=== PATIENT | male | born 1960 | race Caucasian/White ===

== ENCOUNTER → 2016-04-20 | Outpatient (CLI) | payer OTHER ==
[~2016-04-20] MED LIST: FAMO40TA6 PO; FERR1TAB13 PO; FURO20TA PO; LPT/40 PO; MELO7.5T5 PO; METH1CHW OR; OMEP40CA41 PO; OXYC1TAB3 PO; POTA1CAP2 PO
[2016-04-20 15:07] LABS: BLOOD UREA NITROGEN 10 mg/dl (7-18); BUN/CREATININE RATIO 9.1 (10-20); CALCIUM 8.6 mg/dl (8.5-10.1); CARBON DIOXIDE 24 mmol/L (21-32); CHLORIDE 104 mmol/L (98-107); GLUCOSE 112 mg/dl (70-99); POTASSIUM 3.9 mmol/L (3.5-5.1); SODIUM 138 mmol/L (136-145)
[2016-04-20 15:10] LABS: BASO % 0.6 %; BASO ABS # 0.06 K/uL (0-0.2); COMPLETE YES; EOS % 2.6 %; HEMATOCRIT 34.8 % (42-52); IG% 0.4 %; LYMPH % 21.5 %; LYMPH ABS # 2.18 K/uL (1.2-3.4); MEAN CELL VOLUME 77.9 fL (80-100); MEAN CORPUSCULAR HGB CONC 29.6 g/dl (32-36); MEAN PLATELET VOLUME 10.4 fL (7.4-10.4); NEUT % 63.9 %; PLATELET COUNT 336 K/uL (130-400); RED BLOOD COUNT 4.47 M/uL (4.7-6.1); WHITE BLOOD COUNT 10.12 K/uL (4.8-10.8)
[2016-04-20 15:12] LABS: FERRITIN 9.7 ng/ml (8.0-388.0)
== END | disposition home or self-care (01) ==
LOC: C.LAB1850 13:02
PROVIDERS: ATTEND Internal Medicine
DX: M79.89 Other specified soft tissue disorders (principal); D64.9 Anemia, unspecified

== ENCOUNTER 2016-11-12 15:48 | Emergency (ER) | payer OTHER ==
[~2016-11-12] VITALS: Ht 180.3 cm; Wt 109.3 kg
[~2016-11-12 15:48] MED LIST changes: -FERR1TAB13 PO; -OMEP40CA41 PO; -OXYC1TAB3 PO
[2016-11-12 15:50] VITALS: TEMP 36.3; Ht 180.3 cm; Wt 109.3 kg
[2016-11-12] MEDS ORDERED: OXYCODONE HCL IR 5 MG TAB (IMMEDIATE RELEASE) PO STA (16:07)
[2016-11-12] MEDS ORDERED: IBUPROFEN 600 MG TAB PO STA (16:07)
[2016-11-12] MEDS ORDERED: OMEP40CA41 PO (16:20)
[2016-11-12] MEDS ORDERED: FERR1TAB13 PO (16:21)
--- NOTE | 2016-11-12 16:51 | DIAGNOSTIC IMAGING REPORT ---
RIGHT SHOULDER MIN 2 VIEWS ROUTINE HISTORY: 56 years-old Male acute right-sided shoulder pain status post fall. COMPARISON: Chest radiograph 03/09/2016 TECHNIQUE: 3 views of the right shoulder. FINDINGS: Mild glenohumeral and acromioclavicular osteoarthritis noted. No acute fracture or dislocation is identified. The imaged right lung mario are clear. Clavicle appears intact. No opaque foreign body. IMPRESSION: Mild degenerative changes about the right shoulder without acute bony abnormality. The above report was generated using voice recognition software. It may contain grammatical, syntax or spelling errors. Electronically signed by: Lazaro German M.D. 11/12/2016 4:49 PM Dictated Date/Time: 11/12/2016 4:48 PM
[2016-11-12 17:35] VITALS: BP 157/101; PULSE 98; O2SAT 97
[2016-11-12] MEDS ORDERED: OXYC1TAB3 PO (17:39)
--- NOTE | 2016-11-12 17:56 | EMERGENCY ROOM VISIT NOTE ---
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 The patient reports significant pain with any range of motion, rating his discomfort a 10 out of 10. He tried Tylenol without relief. The patient is [id number]. He denies any prior history of right shoulder problems. He also denies any pain extending into the arm, neck or back. He denies head injury. Review of Systems 10 system review was performed and was negative except for pertinent positives and negatives as indicated in history of present illness Past Medical/Surgical History Medical Problems: (1) Benign hypertension (2) Cellulitis, scrotum (3) GERD (gastroesophageal reflux disease) (4) Hyperlipidemia (5) Tobacco user Family History Patient reports no known family medical history. Social History Smoking Status: Current Every Day Smoker Alcohol Use: occasionally Marital Status: Housing Status: lives with family Occupation Status: unemployed Current/Historical Medications Scheduled Atorvastatin (Lipitor), 40 MG PO DAILY Ferrous Sulfate (Kp Ferrous Sulfate), 325 MG PO DAILY Omeprazole (Prilosec), 40 MG PO DAILY Scheduled PRN Oxycodone Ir (Roxicodone Ir), 1-2 TAB PO Q4H PRN for Pain Allergies Coded Allergies: No Known Allergies (Verified , `, 11/12/16) Physical Exam Vital Signs Date Time Temp Pulse Resp B/P (MAP) Pulse Ox O2 Delivery O2 Flow Rate FiO2 11/12/16 17:35 98 16 157/101 97 11/12/16 15:50 36.3 98 16 157/101 97 Room Air Physical Exam CONSTITUTIONAL: Healthy and well nourished. Alert and oriented X 3 with positive affect. Patient appears in moderate discomfort from pain. HEENT: Normocephalic, atraumatic. Pupils equal, round and reactive. NECK: Full active range of motion without discomfort. RESPIRATORY: Clear to auscultation bilaterally with no wheezing, crackles, rhonchi or stridor. CARDIOVASCULAR: Regular rate and rhythm with no murmurs, rubs or gallops. MUSCULOSKELETAL: Examination of the right shoulder does not show any obvious soft tissue edema, ecchymosis, abrasions or lacerations. The patient is tender to palpation posteriorly. He has no focal tenderness to palpation through the distal clavicle, acromioclavicular joint or acromial process. No tenderness to palpation through the bicipital groove or biceps/triceps musculature. Any attempted range of motion worsens the patient's discomfort, but the patient tolerates passive forward flexion of 75. Distal pulses are intact. INTEGUMENTARY: No rash or other significant dermatologic conditions noted. NEUROLOGIC: No focal neurologic deficits noted. Right deltoid sensation is intact. Medical Decision & Procedures ER Provider Diagnostic Interpretation: My interpretation of right shoulder x-rays shows degenerative changes without evidence for acute fracture, dislocation or superior migration of the humeral head with relation to the glenoid. Radiologist report is as follows: RIGHT SHOULDER MIN 2 VIEWS ROUTINE HISTORY: 56 years-old Male acute right-sided shoulder pain status post fall. COMPARISON: Chest radiograph 03/09/2016 TECHNIQUE: 3 views of the right shoulder. FINDINGS: Mild glenohumeral and acromioclavicular osteoarthritis noted. No acute fracture or dislocation is identified. The imaged right lung mario are clear. Clavicle appears intact. No opaque foreign body. IMPRESSION: Mild degenerative changes about the right shoulder without acute bony abnormality. Medications Administered Medications (Trade) Dose Ordered Sig/Karyn Route Start Time Stop Time Status Last Admin Dose Admin Oxycodone HCl (Roxicodone Immediate Rel Tab) 5 mg NOW STAT PO 11/12/16 16:07 11/12/16 16:19 DC 11/12/16 16:27 5 MG Ibuprofen (Motrin Tab) 600 mg NOW STAT PO 11/12/16 16:07 11/12/16 16:19 DC 11/12/16 16:27 600 MG ED Course Patient history and physical exam were performed. Nurse's notes were reviewed. Vital signs were reviewed and were normal. The patient's medication list was also reviewed. The patient was administered OxyIR and ibuprofen 600 mg for pain. An ice pack was applied. X-rays of the right shoulder were normal. I explain to the patient that although his x-ray is normal, he could certainly have other soft tissue injury such as a rotator cuff tear, tendinitis, bursitis or other inflammatory reaction. I did suggest that he follow-up with orthopedics for further reevaluation and management. The patient was provided contact information for [facility] as he does not have an orthopedic surgeon. He was instructed to avoid heavy lifting, pushing or pulling. The patient was provided a prescription for OxyIR as needed for pain relief as the patient reports that he has severe pain. The [place] Prescription Drug Monitoring program was reviewed without any prior controlled substance history. The patient voiced understanding of all discharge instructions, and rated his pain a 5 out of 10 at the conclusion of my exam. Medical Decision [place] Drug Monitoring Program Search Results: patient reviewed within database, no issues identified Impression Primary Impression: Right shoulder injury Departure Information Prescriptions Oxycodone Ir (Roxicodone Ir) 5 Mg Tab 1-2 TAB PO Q4H Y for Pain, #15 TAB For Initial Treatment Prov: Mike Thornton PA 11/12/16 Referrals ProCristopher M.D. (PCP) Patient Instructions [facility] Problem Qualifiers Primary Impression: Right shoulder injury Encounter type: initial encounter Qualified Codes: S49.91XA - Unspecified injury of right shoulder and upper arm, initial encounter
== END 2016-11-12 17:35 | disposition home or self-care (01) ==
LOC: C.EDB 15:50 → C.EDD 17:35
DX: S49.91XA Unspecified injury of right shoulder and upper arm, initial encounter (principal); I10 Essential (primary) hypertension; E78.5 Hyperlipidemia, unspecified; K21.9 Gastro-esophageal reflux disease without esophagitis; Z79.899 Other long term (current) drug therapy; Z87.2 Personal history of diseases of the skin and subcutaneous tissue; W01.0XXA Fall on same level from slipping, tripping and stumbling without subsequent striking against object, initial encounter; F17.200 Nicotine dependence, unspecified, uncomplicated

== ENCOUNTER → 2017-01-11 | Outpatient (CLI) | payer OTHER ==
[~2017-01-11] MED LIST changes: -FAMO40TA6 PO; +FERR1TAB13 PO; -FURO20TA PO; -MELO7.5T5 PO; -METH1CHW OR; +OMEP40CA41 PO; +OXYC1TAB3 PO; -POTA1CAP2 PO
== END | disposition home or self-care (01) ==
LOC: C.CPL 10:52
PROVIDERS: ATTEND Orthopaedic Surgery Sports Medicine
DX: Z01.810 Encounter for preprocedural cardiovascular examination (principal)

== ENCOUNTER → 2017-02-24 | Outpatient (CLI) | payer OTHER ==
[~2017-02-24] MED LIST changes: +ASPEC325 PO; -FERR1TAB13 PO; +HYDR-4079 PO; -LPT/40 PO; -OXYC1TAB3 PO
[2017-02-24 13:08] LABS: BASO % 0.7 %; BASO ABS # 0.06 K/uL (0-0.2); COMPLETE YES; IG% 0.2 %; LYMPH % 21.7 %; LYMPH ABS # 1.87 K/uL (1.2-3.4); MEAN CELL VOLUME 88.6 fL (80-100); MEAN CORPUSCULAR HEMOGLOBIN 28.7 pg (25-34); MEAN CORPUSCULAR HGB CONC 32.4 g/dl (32-36); MEAN PLATELET VOLUME 10.3 fL (7.4-10.4); MONO % 7.9 %; NEUT % 67.5 %; PLATELET COUNT 263 K/uL (130-400); RED BLOOD COUNT 4.74 M/uL (4.7-6.1); WHITE BLOOD COUNT 8.62 K/uL (4.8-10.8)
== END | disposition home or self-care (01) ==
LOC: C.LAB1850 12:32
PROVIDERS: ATTEND Internal Medicine
DX: D64.9 Anemia, unspecified (principal); K92.1 Melena

== ENCOUNTER 2017-02-25 10:13 | Observation (INO) | payer OTHER ==
[2017-02-24 18:09] LABS: INR 0.9 (0.9-1.1); PROTHROMBIN TIME (PATIENT) 9.8 SECONDS (9.0-12.0)
[2017-02-24 18:12] LABS: BUN/CREATININE RATIO 14.1 (10-20); CALCIUM 8.6 mg/dl (8.5-10.1); CREATININE 0.83 mg/dl (0.60-1.40); POTASSIUM 4.2 mmol/L (3.5-5.1)
[2017-02-24 18:23] LABS: URINE APPEARANCE CLEAR (CLEAR); URINE BILIRUBIN NEG (NEG); URINE COLOR YELLOW; URINE NITRITE NEG (NEG); URINE PH 6.5 (4.5-7.5); URINE SPECIFIC GRAVITY 1.015 (1.000-1.030); UROBILINOGEN NEG (NEG)
[2017-02-24 18:29] LABS: MANUAL MICROSCOPIC REQUIRED? NO; REVIEW REQ? NO
--- NOTE | 2017-02-24 20:01 | HISTORY & PHYSICAL EXAMINATION ---
DATE OF ADMISSION: 02/25/2017 CHIEF COMPLAINT: Right shoulder pain. HISTORY OF PRESENT ILLNESS: This is a 56-year-old male patient of Dr. Enamorado'nehal complaining of a right shoulder injury after his dog jumped on him 6 weeks ago. He failed conservative treatment. An MRI confirmed a primary rotator cuff repair that was failed from a previous rotator cuff repair in December 2016. So he essentially sustained a retear of his rotator cuff repair. The patient was diagnosed with that and is scheduled for right shoulder arthroscopic rotator cuff repair revision with a possible grafting. PAST MEDICAL HISTORY: Acid reflux. SOCIAL HISTORY: Half pack per day smoker, nondrinker. PAST SURGICAL HISTORY: Previous right shoulder surgery as mentioned. FAMILY HISTORY: Noncontributory. REVIEW OF SYSTEMS: Chronic right shoulder pain and injury on 01/12/2017. ALLERGIES: No known drug allergies. MEDICATIONS: Nexium daily. PHYSICAL EXAMINATION: GENERAL: Well-developed, well-nourished 56-year-old male in no acute distress. He is alert and oriented x3 and pleasant. HEENT: Normocephalic, atraumatic. Extraocular motions are intact. Pupils are equal and reactive to light. HEART: Regular rate and rhythm. No murmurs are appreciated. LUNGS: Clear. ABDOMEN: Soft and nontender. Bowel sounds present. EXTREMITIES: Right shoulder reveals external rotation of 3/5, internal rotation of 4/5. He has range of motion of forward elevation to 80 degrees and 40 degrees of adduction. NEUROLOGIC: Neurovascularly, he is intact in his right upper extremity. DIAGNOSES: Right shoulder retear rotator cuff repair. He also has a history of acid reflux and dental issues. PLAN: The patient was advised of his diagnosis. Indications, risks, benefits, and postop course have all been reviewed. The patient wishes to proceed with a right shoulder arthroscopic rotator cuff repair revision with a possible grafting. Necessary consent forms, preoperative testing and clearances will be obtained.
[2017-02-25] VITALS (8 sets, daily range): BP systolic 136–160; BP diastolic 78–96; PULSE 65–90; TEMP 36.3–36.5; O2SAT 95–99; Ht 182.9 cm; Wt 100.0 kg
[~2017-02-25] VITALS: Ht 182.9 cm; Wt 100.0 kg
[2017-02-25 07:08] LABS: ESTIMATED AVERAGE GLUCOSE 111 mg/dl; HA1C FLAG Normal (Normal)
[~2017-02-25 10:13] MED LIST changes: -ASPEC325 PO; +CEFAZOLIN 2000MG IV PUSH 10 ML IV SCH; -HYDR-4079 PO; +LACTATED RINGER'S 1000ML 1,000 ML IV SCH; +ROPIVACAINE 0.5% 5 MG/ML 30 ML VIAL ONE
[2017-02-25] MEDS ORDERED: PROPOFOL IV EMULSION 10 MG/ML 20 ML VIAL IV ONE ×3 (10:40→17:17)
[2017-02-25] MEDS ORDERED: FENTANYL CITRATE INJ 50 MCG/1 ML 2 ML VIAL ONE ×7 (10:40→16:19)
[2017-02-25] MEDS ORDERED: ONDANSETRON INJ 2 MG/ML 2 ML VIAL ONE (10:40)
[2017-02-25] MEDS ORDERED: LIDOCAINE HCL 2% 2 ML VIAL (20MG/ML) ONE (10:40)
[2017-02-25] MEDS ORDERED: DEXAMETHASONE SOD INJ 4 MG/ML VIAL ONE (10:40)
[2017-02-25] MEDS ORDERED: MIDAZOLAM HCL 1 MG/ML 2ML VIAL ONE ×2 (10:40)
--- NOTE | 2017-02-25 10:58 | History & Physical Bridge Note ---
H&P Re-Evaluation Bridge Note: I have examined the patient, reviewed the History & Physical and in the interval since the performance of the History & Physical I have noted the following changes of clinical significance: No changes noted
[2017-02-25] MEDS ORDERED: EpHEDrine SULFATE INJ 50 MG/ML AMP IV PRN ×2 (12:15→17:00)
[2017-02-25] MEDS ORDERED: ATROPINE SULFATE 0.1 MG/ML 5ML SYR IV PRN ×2 (12:15→17:00)
[2017-02-25] MEDS ORDERED: ONDANSETRON INJ 2 MG/ML 2 ML VIAL IV PRN ×3 (12:15→18:30)
[2017-02-25] MEDS ORDERED: FENTANYL CITRATE INJ 50 MCG/1 ML 2 ML VIAL IV PRN (12:15)
[2017-02-25] MEDS: EpINEphrine HCL INJ 1 MG/ML 5ML SYRINGE ONE ×6 (12:41→18:00)
[2017-02-25] MEDS ORDERED: HYDROmorphone INJ 2 MG/ML SYR/VIAL ONE ×2 (14:59→16:24)
[2017-02-25] MEDS ORDERED: ROCURONIUM BROMIDE 10 MG/ML 5 ML VIAL IV ONE (16:35)
[2017-02-25] MEDS ORDERED: PROMETHAZINE HCL INJ 6.25 MG in SODIUM CHLORIDE 0.9% 50ML 50 ML IV PRN (17:00)
[2017-02-25] MEDS ORDERED: METOPROLOL TARTRATE 1 MG/ML VIAL ONE (17:02)
[2017-02-25] MEDS ORDERED: CEFAZOLIN SOD 1 GM VIAL ONE (17:29)
--- NOTE | 2017-02-25 18:19 | [facility] Post Operative Brief Note ---
Immediate Operative Summary Operative Date Feb 25, 2017. Pre-Operative Diagnosis Right shoulder traumatic retear rotator cuff s/p recent repair Post-Operative Diagnosis same as pre-operative Procedure(s) Performed Right Shoulder Arthroscopy with Rotator Cuff Repair,extensive debridement,removal suture anchor and multiple sutures Surgeon Dr. Darnell Enamorado Visual Merchandising Assistant Surgeon(s) NATALIA Black Estimated Blood Loss 30ML Findings soft tissue tendon failure,osteopenia, tendinopathy rotator cuff, bursitis and postop adhesions subacromial Specimens none per surgeon Drains none Anesthesia general and regional Complication(s) None Disposition Recovery Room / PACU
[2017-02-25] MEDS ORDERED: HYDROCODONE/ACETAMI 10/325 TAB PO PRN (18:30)
[2017-02-25] MEDS ORDERED: MAGNESIUM HYDROXIDE SUSP 30 ML UDC PO PRN (18:30)
[2017-02-25] MEDS ORDERED: HYDROmorphone INJ 0.5 MG/0.5 ML SYR IV PRN (18:30)
[2017-02-25] MEDS ORDERED: ALUMINUM/MAGNESIUM SUSP 30 ML UDC PO PRN (18:30)
[2017-02-25] MEDS: FENTANYL CITRATE INJ 50 MCG/1 ML 2 ML VIAL IV PRN ×2 (18:35→18:40)
--- NOTE | 2017-02-25 18:58 | Anesthesiology Progress Note ---
Anesthesia Post Op Note Date & Time Feb 25, 2017 at 18:58 Vital Signs Pain Intensity: 1 Vital Signs Past 12 Hours Date Time Temp Pulse Resp B/P (MAP) Pulse Ox O2 Delivery O2 Flow Rate FiO2 02/25/17 18:50 68 16 143/97 96 Nasal Cannula 3 02/25/17 18:40 67 16 151/93 96 Nasal Cannula 3 02/25/17 18:30 36 79 16 167/96 95 Nasal Cannula 3 02/25/17 18:22 36 89 16 155/92 95 Nasal Cannula 3 02/25/17 10:33 36.3 90 20 145/94 (111) 99 Room Air Notes Mental Status: alert / awake / arousable, participated in evaluation Pt Amnestic to Procedure: Yes Nausea / Vomiting: adequately controlled Pain: adequately controlled Airway Patency, RR, SpO2: stable & adequate BP & HR: stable & adequate Hydration State: stable & adequate Anesthetic Complications: no major complications apparent
[2017-02-25] MEDS: KETOROLAC TROMETHAMINE 30 MG/ML VIAL IV. SCH (19:51)
[2017-02-25] MEDS ORDERED: NURSING VERBAL MED ORDER ONE (20:45)
[2017-02-25] MEDS ORDERED: PROMETHAZINE HCL INJ 25 MG in SODIUM CHLORIDE 0.9% 50ML 50 ML IV STA (20:47)
[2017-02-25] MEDS ORDERED: SENNA 8.6 MG TAB PO SCH (21:00)
[2017-02-25] MEDS ORDERED: IV FLUIDS COMPLETED PRN (21:15)
[2017-02-25] MEDS: D5W AND 1/2NSS + 20MEQ KCL 1,000 ML IV SCH (21:40)
[2017-02-25] MEDS: CEFAZOLIN IV 2,000 MG in SYRINGE 0 ML IV SCH (21:40)
[2017-02-25] MEDS: DOCUSATE SODIUM 100 MG CAP PO SCH (21:41)
[2017-02-25] MEDS ORDERED: CEFAZOLIN IV 2,000 MG in DEXTROSE 5% 50ML 50 ML IV SCH (22:00)
[2017-02-26] MEDS: KETOROLAC TROMETHAMINE 30 MG/ML VIAL IV. SCH ×2 (02:17→08:19)
[2017-02-26 03:00] VITALS: BP 138/81; PULSE 85; TEMP 36.6; O2SAT 93
[2017-02-26] MEDS: CEFAZOLIN IV 2,000 MG in SYRINGE 0 ML IV SCH (05:24)
[2017-02-26 06:00] LABS: HEMATOCRIT 39.8 % (42-52); MEAN CELL VOLUME 89.6 fL (80-100); MEAN CORPUSCULAR HEMOGLOBIN 28.6 pg (25-34); MEAN CORPUSCULAR HGB CONC 31.9 g/dl (32-36); MEAN PLATELET VOLUME 10.3 fL (7.4-10.4); PLATELET COUNT 269 K/uL (130-400); RED BLOOD COUNT 4.44 M/uL (4.7-6.1)
[2017-02-26] MEDS: D5W AND 1/2NSS + 20MEQ KCL 1,000 ML IV SCH (06:00)
[2017-02-26 06:34] LABS: BUN/CREATININE RATIO 16.7 (10-20); CALCIUM 8.1 mg/dl (8.5-10.1); CREATININE 0.92 mg/dl (0.60-1.40); POTASSIUM 4.4 mmol/L (3.5-5.1)
--- NOTE | 2017-02-26 07:03 | OPERATIVE REPORT ---
DATE OF OPERATION: 02/25/2017 INDICATION FOR PROCEDURE: The patient is a 56-year-old male. I recently performed an arthroscopic rotator cuff repair on his right shoulder. He had a large rotator cuff tear that was subacute. He had good repair and was doing well until he had a postoperative trauma. He was doing well prior to the trauma, and after the traumatic injury, he had acute pain, weakness and complete dysfunction of his shoulder which warranted an MRI evaluation, which verified a complete failure of the entire repair with some soft tissue damage. He did have decompression and distal clavicle excision, that was all satisfactory. There were no fractures and no anchors were dislodged according to the MRI. There was still edema in the greater tuberosity from recent surgery. PREOPERATIVE DIAGNOSIS: Right shoulder acute traumatic rotator cuff tear with traumatic failure of rotator cuff repair, status post previous subacromial decompression and distal clavicle excision. POSTOPERATIVE DIAGNOSIS: Same with soft tissue failure of rotator cuff repair, some tendon loss due to traumatic failure, retained suture anchors and suture material status post repair, and subacromial bursitis and subacromial bursal adhesions and tendinopathy of the rotator cuff. PROCEDURE: Right shoulder revision rotator cuff repair, extensive debridement including excision of all suture material, excision of 1 suture anchor, subacromial bursectomy including release of subacromial bursal adhesions, debridement of tendinopathic rotator cuff tissue. SURGEON: Dr. Enamorado. MEDICAL TRANSCRIPTION EDITOR: NATALIA Black. ANESTHESIA: Regional block with general. OPERATIVE PROCEDURE: The patient was taken to the operating room and anesthetized with regional block and general anesthetic. He was positioned on a [facility] shoulder table in 70-degree beach chair position. He had TEDs and SCDs. He had protective eyewear. His right shoulder exam demonstrated no erythema, no signs of infection, healed skin portals. Right shoulder was sterilely prepped and draped with ChloraPrep. Arthroscopy was first started with a posterior arthroscopy portal via his previous scar in the soft spot, anterior portal was made in the rotator interval. Subsequent lateral subacromial working portal was placed and then we made several superolateral incisions for different suture anchor placements. Following findings were noted. In the glenohumeral joint, the patient still had good articular surfaces on the humeral head and the glenoid. Labrum was intact. Biceps was absent. The subscapularis had tendinopathy and the upper intraarticular margin had fraying in some areas where it looked like there was traction and plastic deformation of some strands of fibers from being stretched out. Subscapularis attachment was still intact. The supraspinatus was completely torn and retracted medially. There was even worse tearing and the infraspinatus was retracted posteriorly. Some of the tear was a reversal type tear with some split between the teres minor and the infraspinatus. There was a good section of rotator cuff where the lateral edge had about close to a centimeter section of tendon that just ripped away from the more medial tendon, therefore, causing more shortening of the remainder of the tendon. All the suture tapes and loops were all tied and intact and all anchors were intact and this failure was completely soft tissue failure. There was satisfactory subacromial decompression and distal clavicle excision, and there were some scarred bursal adhesions noted in the subdeltoid region and over the medial superior surface of the rotator cuff, around the musculotendinous junction area. Attention was first taken to debriding the subscapularis tendon. Undersurface of the rotator cuff was debrided. I did do some anterosuperior capsular releases. Then, in the subacromial space, we debrided the cuff tissue early. I had to remove this section of tendon tissue that was torn away from the more medial tendon tissue. The infraspinatus was very thickened due to delaminating tear and significantly inflamed and thickened cuff tissue. After thorough debridement was performed, we went ahead and proceeded to remove the suture material and use suture cutting devices and graspers to remove the suture material. I was removing some of the suture material when the anchors came loose and some of the sutures had cut through some of the bone with evidence that the patient's bone was very soft. This anchor was successfully removed arthroscopically and we did measure the opening of the hole where the anchor came out and this was about 6 mm. The deeper the hole, it was more narrow, it was a fairly large cavity that we had to take note of and plan around with the repair. The footprints of the supraspinatus and infraspinatus were debrided to a bony surface for repair, did a little bit of medialization of the articular margin in the infraspinatus area too, he had more tendon tissue over bone because there was more tendon loss in this area. At this time, we placed 2 traction sutures using Ultrabraid type suture into the supraspinatus and infraspinatus. This assisted in placing traction and allowing me to release some of the bursal adhesions. We released the subdeltoid adhesions with radiofrequency ablator. Then, the infraspinatus, to mobilize it further, I had to do an interval slide between the infraspinatus and teres minor, and I gave this enough mobility to get the tendon onto the bone at the greater tuberosity. The tissue of the infraspinatus was poor, so I had to debride a good amount of soft tissue there to get back to better tissue and ended up with superior and inferior delaminating flaps which we had to address during the repair. To repair the infraspinatus, I placed a FiberTape individually in both the inferior and superior leaf of the infraspinatus, thus fusing those together, and this was placed in inverted mattress configuration. Then, I placed a 2.8 mm Gaiens [employer] Nephew Q-FIX suture anchor just at the articular margin area and we passed those sutures from that anchor in simple fashion around the tapes to use as a rip-stop technique. Sutures were tied with a Juan Ramon sliding locking knots, reverse half hitches and alternating posts, and then the tapes and the luggage tag sutures that we had previously placed as a traction suture were placed into an Arthrex 5.5 mm SwiveLock anchor posteriorly, taking care to have a satisfactory bridge of bone between the anchor and the hole from the large anchor that was removed. This gave satisfactory fixation of the infraspinatus to bone. We did place 2 [id number] sutures between the infraspinatus and the teres minor, tied those with similar arthroscopic knots. Then, the supraspinatus was repaired with 2 more 2.8 mm Gaines [employer] Nephew suture anchors just off the articular margin. These were passed with a suture passer in horizontal mattress fashion. These were tied down for medial row fixation and the sutures were placed in crisscross compression, 4 of them were placed into large anchor into the hole area. Initially, we pulled 6.5 anchor but that was too small to fill the holes so we went ahead with an 8 mm Arthrex Bio-Tenodesis screw and this screw was placed passing the sutures through the eyelet and then burying the screw through the larger hole until we had some of the threads hit the deeper bone and then placed tension on the sutures and advanced the screw deeper into the humeral head to get good fixation. All excess sutures were cut. We took the arm through range of motion including the arm at the side and the repair held. Then, the other 4 sutures were placed into another 5.5 mm SwiveLock anchor anteriorly, just posterior to the biceps tendon area. This was again placed in bone away from the larger hole area. The repair was secured with the arm at the side and with general rotation. Did some further debridement of some of the bursa, verified the decompression to be satisfactory, and then went ahead and closed multiple skin portals with nylon sutures. Sterile dressings were applied and a pillow sling immobilizer. NATALIA Black, was my business banking sales assistant. He functioned as business banking sales assistant for the entire procedure, assisted in arm positioning, instrument and suture management. He performed skin closure and will participate in some of the postoperative care of the patient. I attest to the content of the Intraoperative Record and any orders documented therein. Any exception s are noted below.
--- NOTE | 2017-02-26 08:01 | Orthopedic Progress Note ---
Orthopedic Progress Note Date of Service Feb 26, 2017. Subjective Post OP Day: 1 Reports: feeling well, pain controlled w PO medications, Denies: complaints, chest pain, SOB, nausea / vomiting, light headedness, calf pain Objective N/V intact, capillary refill less than 2 sec., dressing C/D/I, A&O x3 Fingers mobile, sling in tact. Date Time Temp Pulse Resp B/P (MAP) Pulse Ox O2 Delivery O2 Flow Rate FiO2 02/26/17 03:00 36.6 85 18 138/81 (100) 93 Room Air 02/25/17 23:00 36.4 72 18 147/87 (107) 96 Room Air 02/25/17 22:32 36.5 65 18 136/78 (97) 95 Room Air 02/25/17 21:27 68 18 160/89 (112) 95 Room Air 02/25/17 20:25 36.3 71 18 151/85 (107) 97 Room Air 02/25/17 19:53 36.3 65 16 158/96 (116) 95 Nasal Cannula 2.0 02/25/17 19:21 96 Nasal Cannula 3.0 02/25/17 19:20 36.4 67 18 157/94 (115) 96 Nasal Cannula 3.0 02/25/17 19:20 Nasal Cannula 3.0 02/25/17 19:05 36.4 66 16 152/90 97 Nasal Cannula 3 02/25/17 18:50 68 16 143/97 96 Nasal Cannula 3 02/25/17 18:40 67 16 151/93 96 Nasal Cannula 3 02/25/17 18:30 36 79 16 167/96 95 Nasal Cannula 3 02/25/17 18:22 36 89 16 155/92 95 Nasal Cannula 3 02/25/17 10:33 36.3 90 20 145/94 (111) 99 Room Air Laboratory Results 24 Hours: Test 02/26/17 05:20 Hematocrit 39.8 % Hemoglobin 12.7 g/dL Assessment & Plan Assessment: POD #1, Revision Right RCR Plan: No PT D/C home today Inhouse Planning Pain Management: Dilaudid DVT Prophylaxis: ASA Discharge Planning Discharge Planning: home Pain Management: Jber DVT Prophylaxis: ASA
[2017-02-26] MEDS ORDERED: HYDR-4079 PO (08:03)
[2017-02-26] MEDS ORDERED: ASPEC325 PO (08:03)
--- NOTE | 2017-02-26 08:11 | Discharge Instructions ---
Discharge Instructions Date of Service Feb 26, 2017. Admission Reason for Admission: Right Shoulder Recurrent Rotator Cuff Tear Discharge Discharge Diagnosis / Problem: Right Rotatoe Cuff Revosion Repair. Discharge Goals Goal(s): Improve function Activity Recommendations Activity Limitations: as noted below . Instructions / Follow-Up Instructions / Follow-Up Please see Post Op instruction sheets. No driving. Sling at all Times except for when doing exercises with elbow, wrist and hand, see exercise sheet. Follow up With Dr. Enamorado 10-12 days post op as scheduled, call [phone] to confirm appt. Current Hospital Diet Patient's current hospital diet: Regular Diet Discharge Diet Recommended Diet: Regular Diet Procedures Procedures Performed: Right Shoulder Arthroscopy with Rotator Cuff Repair,extensive debridement,removal suture anchor and multiple sutures Pending Studies Studies pending at discharge: no Laboratory Results Hemoglobin A1c Test 02/24/17 14:45 Range/Units Estimated Average Glucose 111 mg/dl Hemoglobin A1c 5.5 4.5-5.6 % Medical Emergencies . Who to Call and When: Medical Emergencies: If at any time you feel your situation is an emergency, please call 911 immediately. . Non-Emergent Contact Non-Emergency issues call your: Primary Care Provider . "Provider Documentation" section prepared by Baltazar Apodaca. . VTE Core Measure Inpt VTE Proph given/why not?: Other Anticoagulation (asa), SCD's [place] Drug Monitoring Program Search Results: patient reviewed within database, no issues identified
[2017-02-26] MEDS: DOCUSATE SODIUM 100 MG CAP PO SCH (08:40)
[2017-02-26 08:52] VITALS: BP 150/82; PULSE 86; TEMP 36.9; O2SAT 97
[2017-02-26] MEDS ORDERED: MULTIVITAMIN TAB PO SCH (09:00)
[2017-02-26] MEDS ORDERED: ASPIRIN 325 MG ECTAB PO SCH (09:00)
[2017-02-26] MEDS ORDERED: PANTOprazole SOD 40 MG TAB PO SCH (09:00)
[2017-02-26 09:39] VITALS: BP 150/80; PULSE 86; TEMP 36.9; O2SAT 97
--- NOTE | 2017-03-01 14:42 | DISCHARGE SUMMARY ---
DISCHARGE DIAGNOSIS: Right shoulder traumatic rotator cuff retear status post repair. SECONDARY DIAGNOSIS: Gastroesophageal reflux disease. CONSULTATIONS: None. COMPLICATIONS: None. PROCEDURES: Right shoulder arthroscopy with rotator cuff repair, extensive debridement, removal of suture anchor and multiple sutures by Dr. Enamorado on 02/25/2017. BRIEF HISTORY: As dictated in history and physical. HOSPITAL SUMMARY: The patient was admitted on the above-noted date and had the above-noted surgery performed which he tolerated well. On the first postoperative day, the patient was feeling well and pain was controlled. He had no complaints. Neurovascularly intact. Dressings clean, dry and intact. Fingers were mobile and he was alert and oriented x3. Vital signs were stable. He was afebrile. Hemoglobin was 12.7. He was remaining stable and it was felt he could be discharged to home. For further review, please see chart. LABORATORY AND X-RAY DATA: As per chart. DISCHARGE INSTRUCTIONS: The patient was discharged to home in satisfactory condition on 02/26/2017. DIET: Regular. ACTIVITY: Follow postop instruction sheets. No driving, sling on at all times except when doing exercises with the elbow, wrist and hand. See exercise sheet for exercises. FOLLOWUP: Follow up with Dr. Enamorado in 10-12 days for first appointment. The patient to call if one has not been made for you. DISCHARGE MEDICATIONS: Aspirin 325 mg p.o. q.a.m. for 30 days, [place] 10 mg/325 mg 1 tab p.o. q. 4 hours p.r.n.; resume omeprazole 40 mg p.o. q.a.m.
== END 2017-02-26 11:50 | disposition home or self-care (01) ==
LOC: C.ACU 10:13 → C.3E 10:45 → ENRESERV 19:06
PROVIDERS: ADMIT Orthopaedic Surgery Sports Medicine; ATTEND Orthopaedic Surgery Sports Medicine
DX: S46.011A Strain of muscle(s) and tendon(s) of the rotator cuff of right shoulder, initial encounter (principal); M75.01 Adhesive capsulitis of right shoulder; W54.1XXA Struck by dog, initial encounter; K21.9 Gastro-esophageal reflux disease without esophagitis; J44.9 Chronic obstructive pulmonary disease, unspecified; G47.33 Obstructive sleep apnea (adult) (pediatric); F41.9 Anxiety disorder, unspecified; E66.9 Obesity, unspecified; Z87.891 Personal history of nicotine dependence; I10 Essential (primary) hypertension; F32.9 Major depressive disorder, single episode, unspecified; D64.9 Anemia, unspecified; Z79.899 Other long term (current) drug therapy

== ENCOUNTER 2017-05-27 10:24 | Emergency (ER) | payer OTHER ==
[~2017-05-27] VITALS: Ht 180.3 cm; Wt 110.8 kg
[~2017-05-27 10:24] MED LIST changes: +ASPEC325 PO; -CEFAZOLIN 2000MG IV PUSH 10 ML IV SCH; +HYDR-4079 PO; -LACTATED RINGER'S 1000ML 1,000 ML IV SCH; -ROPIVACAINE 0.5% 5 MG/ML 30 ML VIAL ONE
[2017-05-27 10:25] VITALS: TEMP 36.3; Ht 180.3 cm; Wt 110.8 kg
[2017-05-27] MEDS ORDERED: ALBUT/IPRATROP 3MG/0.5MG NEB 3 ML VIAL INH STA (10:54)
[2017-05-27 11:06] VITALS: O2SAT 97
--- NOTE | 2017-05-27 11:15 | DIAGNOSTIC IMAGING REPORT ---
CHEST ONE VIEW PORTABLE CLINICAL HISTORY: EVALUATE RESPIRATORY DISTRESS.DYSPNEA COMPARISON STUDY: Chest radiograph March 09, 2016. FINDINGS: Lung volumes are normal. There is no pneumothorax or pleural effusion. Moderate cardiomegaly is noted. There is mild interstitial thickening. There is no consolidation to suggest pneumonia. Mild upper mediastinal widening is unchanged. IMPRESSION: 1. Mild interstitial pulmonary edema. 2. Moderate cardiomegaly. Electronically signed by: Perry Holden M.D. 05/27/2017 11:13 AM Dictated Date/Time: 05/27/2017 11:12 AM
--- NOTE | 2017-05-27 11:21 | EMERGENCY ROOM VISIT NOTE ---
History Report prepared by [place]: Deni Giraldo Under the Supervision of: Dr. Matt Agee M.D. First contact with patient: 10:50 Chief Complaint: RESPIRATORY PROBLEMS Stated Complaint: HARD TIME BREATHING History of Present Illness The patient is a 56 year old male who presents to the Emergency Room with complaints of constant shortness of breath beginning three days ago. The patient 's symptoms are worse while lying down. He also complains of a dry cough and nasal congestion. He has a history of multiple heart attacks. The patient denies fevers, or chest pain. He did not have a flu-shot this year. He notes that his friend from influenza yesterday. The patient does not have inhalers at home. He has no known history of lung disease. He is a smoker. Source of History: patient Onset: Three days ago Quality: other (shortness of breath) Timing: constant Modifying Factors (Worsening): other (lying down) Associated Symptoms: + cough (dry), No fevers, No chest pain Note: Additional symptoms: nasal congestion. Review of Systems See HPI for pertinent positives & negatives. A total of 10 systems reviewed and were otherwise negative. Past Medical & Surgical Medical Problems: (1) Benign hypertension (2) Cellulitis, scrotum (3) GERD (gastroesophageal reflux disease) (4) Hyperlipidemia (5) Tobacco user (6) Traumatic tear of right rotator cuff Family History Patient reports no known family medical history. Social History Smoking Status: Current Every Day Smoker Alcohol Use: occasionally Marital Status: Housing Status: lives with family Occupation Status: unemployed Current/Historical Medications Scheduled Acetaminophen (Tylenol), 325 MG PO UD Furosemide (Lasix), 20 MG PO QD@08 Glucosamine Sulfate (Glucosamine), 0 PO QAM Ibuprofen (Advil), 200 MG PO UD Omeprazole (Prilosec), 40 MG PO QAM Potassium Chloride (Potassium Chloride Er), 1 CAP PO DAILY Scheduled PRN Hydrocodone/Acetaminophen 10MG/325MG (Pablo 10MG/325MG), 1 TAB PO Q4HWA PRN for Pain Allergies Coded Allergies: Oxycodone (Verified Allergy, Severe, NAUSEA/VOMITING, 05/27/17) PT REQUESTS NORCO -- PERCOCET MAKES HIM TOO SICK Physical Exam Vital Signs Date Time Temp Pulse Resp B/P (MAP) Pulse Ox O2 Delivery O2 Flow Rate FiO2 05/27/17 13:03 91 18 155/99 98 05/27/17 11:19 87 16 143/103 97 Room Air 05/27/17 11:17 86 05/27/17 11:06 97 Room Air 05/27/17 10:27 99 Room Air 05/27/17 10:25 36.3 92 18 153/96 98 Room Air Physical Exam GENERAL: Patient is in no acute distress. HEENT: No acute trauma, normocephalic atraumatic, mucous membranes moist, no nasal congestion, no scleral icterus. NECK: No stridor, no adenopathy, no meningismus, trachea is midline. LUNGS: Scattered crackles bilaterally. No wheezing. Breath sounds somewhat diminished but equal. No respiratory distress. HEART: Without murmurs gallops or rubs, regular rate and rhythm. ABDOMEN: Soft, nontender, bowel sounds positive, no hernias, no peritonitis. EXTREMITIES: No cyanosis or edema, full range of motion of all the joints without pain or difficulty, no signs for acute trauma. NEUROLOGIC: Oriented x 3, no acute motor or sensory deficits, no focal weakness. SKIN: No rash, no jaundice, no diaphoresis. Medical Decision & Procedures ER Provider Diagnostic Interpretation: Radiology results as stated below per my review and radiologist interpretation: CHEST ONE VIEW PORTABLE FINDINGS: Lung volumes are normal. There is no pneumothorax or pleural effusion. Moderate cardiomegaly is noted. There is mild interstitial thickening. There is no consolidation to suggest pneumonia. Mild upper mediastinal widening is unchanged. IMPRESSION: 1. Mild interstitial pulmonary edema. 2. Moderate cardiomegaly. Electronically signed by: Perry Holden M.D. 05/27/2017 11:13 AM Laboratory Results 05/27/17 11:06 Red Blood Count 4.29, Mean Corpuscular Volume 84.6, Mean Corpuscular Hemoglobin 27.3, Mean Corpuscular Hemoglobin Concent 32.2, Mean Platelet Volume 9.6, Neutrophils (%) (Auto) 69.6, Lymphocytes (%) (Auto) 20.5, Monocytes (%) (Auto) 8.1, Eosinophils (%) (Auto) 1.3, Basophils (%) (Auto) 0.4, Neutrophils # (Auto) 6.30, Lymphocytes # (Auto) 1.86, Monocytes # (Auto) 0.73, Eosinophils # (Auto) 0.12, Basophils # (Auto) 0.04 05/27/17 11:06 Test 05/27/17 11:06 05/27/17 11:10 White Blood Count 9.06 K/uL (4.8-10.8) Red Blood Count 4.29 M/uL (4.7-6.1) Hemoglobin 11.7 g/dL (14.0-18.0) Hematocrit 36.3 % (42-52) Mean Corpuscular Volume 84.6 fL (80-100) Mean Corpuscular Hemoglobin 27.3 pg (25-34) Mean Corpuscular Hemoglobin Concent 32.2 g/dl (32-36) Platelet Count 269 K/uL (130-400) Mean Platelet Volume 9.6 fL (7.4-10.4) Neutrophils (%) (Auto) 69.6 % Lymphocytes (%) (Auto) 20.5 % Monocytes (%) (Auto) 8.1 % Eosinophils (%) (Auto) 1.3 % Basophils (%) (Auto) 0.4 % Neutrophils # (Auto) 6.30 K/uL (1.4-6.5) Lymphocytes # (Auto) 1.86 K/uL (1.2-3.4) Monocytes # (Auto) 0.73 K/uL (0.11-0.59) Eosinophils # (Auto) 0.12 K/uL (0-0.5) Basophils # (Auto) 0.04 K/uL (0-0.2) RDW Standard Deviation 49.3 fL (36.4-46.3) RDW Coefficient of Variation 16.3 % (11.5-14.5) Immature Granulocyte % (Auto) 0.1 % Immature Granulocyte # (Auto) 0.01 K/uL (0.00-0.02) Anion Gap 7.0 mmol/L (3-11) Est Creatinine Clear Calc Drug Dose 127.3 ml/min Estimated GFR () 114.3 Estimated GFR (Non- 98.7 BUN/Creatinine Ratio 19.8 (10-20) Calcium Level 8.6 mg/dl (8.5-10.1) Troponin I < 0.015 ng/ml (0-0.045) Influenza Type A Antigen Neg for Influ A (NEG) Influenza Type B Antigen Neg for Influ B (NEG) Laboratory results reviewed by ok. Medications Administered Medications (Trade) Dose Ordered Sig/Karyn Route Start Time Stop Time Status Last Admin Dose Admin Albuterol/ Ipratropium (Duoneb) 3 ml NOW STAT INH 05/27/17 10:54 05/27/17 10:57 DC 05/27/17 11:14 3 ML Albuterol (Ventolin Hfa Inhaler) 3 puffs NOW ONCE INH 05/27/17 12:30 05/27/17 12:31 DC 05/27/17 12:57 3 PUFFS Furosemide (Lasix Tab) 20 mg NOW STAT PO 05/27/17 12:24 05/27/17 12:26 DC 05/27/17 12:56 20 MG ECG Per My Interpretation Indication: SOB/dyspnea Rate (beats per minute): 89 Rhythm: sinus rhythm Findings: PAC, T-wave inversion (Anterior and lateral), other (No PVC. No ST elevation.) Comparison ECG Date: Jan 11, 2017 Change: T-wave changes are new. ED Course 1051: The patient was evaluated in room B3B. A complete history and physical exam was performed. 1054: Ordered DuoNeb 3 mL INH. 1210: I updated the patietn on his abnormal ECG, his flu testing, and his x-ray results. The patient is feeling fine. 1224: I reassessed the patient. I discussed his results with him and the benefits of medical admission to the hospital. The patien refuses admission as well as echocardiogram. He would like to go home. He is aware of the risks. Ordered Lasix Tab 20 mg PO. 1230: Ordered Ventolin Hfa Inhaler 3 puffs INH. 1240: Reevaluated the patient. He is still adamant on going home. Discussed results and discharge instructions: he verbalized understanding and agreement. The patient is ready for discharge. Medical Decision The patient is a 56 year old male who presents to the ED with complaints of shortness of breath. Differential diagnoses considered include influenza, flu- like illness, pneumonia, bronchitis, CHF, cardiac ischemia, anemia, and electrolyte imbalance. There is no leukocytosis or concerning anemia. No significant electrolyte abnormality or kidney failure. EKG shows a sinus rhythm with new T-wave inversions anterior and laterally. Cardiac enzyme testing 1 is not consistent with acute cardiac injury. Influenza testing was negative. Chest film shows some fluid overload/CHF, no pneumonia. The patient was given a DuoNeb and then albuterol via MDI. He was given a dose of oral Lasix. I discussed the case with cardiology. Admission/observation was recommended. The patient was adamant he was not staying. He refused to stay. The patient states that he will return if worsening. At this point, I am discharging the patient on Lasix to help with fluid overload. He can use albuterol for cough. He understands the seriousness of his EKG findings, he states that he is absolutely not staying in the hospital. I did talk to him about the possibility of or dying, he understands. Family was present during our conversation. Medication Reconcilliation Current Medication List: was personally reviewed by me Blood Pressure Screening Patient's blood pressure: Elevated blood pressure Blood pressure disposition: Referred to PCP Consults Time Called: 1216 Consulting Physician: Dr. Malloy - Cardiology Returned Call: 1218 Discussed the patient's case. Dr. Malloy recommends admission to the hospital as an inpatient. He recommends that if the patient refuses this, that he should at least have an echocardiogram completed in the ED. Impression Primary Impression: Shortness of breath Additional Impressions: CHF (congestive heart failure) Acute electrocardiogram changes Scribe Attestation The scribe's documentation has been prepared under my direction and personally reviewed by me in its entirety. I confirm that the note above accurately reflects all work, treatment, procedures, and medical decision making performed by me. Departure Information Dispostion Home / Self-Care Prescriptions Potassium Chloride (POTASSIUM CHLORIDE ER) 10 Meq Cap 1 CAP PO DAILY for 5 Days, #5 CAP 1 Refill Prov: Matt Agee M.D. 05/27/17 Furosemide (LASIX) 20 Mg Tab 20 MG PO QD@08, #5 TABS Prov: Matt Agee M.D. 05/27/17 Referrals Cristopher Zabala M.D. (PCP) Forms HOME CARE DOCUMENTATION FORM, IMPORTANT VISIT INFORMATION, WORK / SCHOOL INSTRUCTIONS Patient Instructions My [facility] Additional Instructions use albuterol 3 puffs every 6 hours lasix daily for 5 days use potassium tab daily while on the lasix see your doctor for a reheck tomorrow return for worsening breathing, chest pain or if not improving admission to the hospital was recommended today and you refused Problem Qualifiers
[2017-05-27 11:32] LABS: BASO % 0.4 %; BASO ABS # 0.04 K/uL (0-0.2); EOS % 1.3 %; EOS ABS # 0.12 K/uL (0-0.5); HEMATOCRIT 36.3 % (42-52); HEMOGLOBIN 11.7 g/dL (14.0-18.0); IG# 0.01 K/uL (0.00-0.02); LYMPH % 20.5 %; LYMPH ABS # 1.86 K/uL (1.2-3.4); MEAN CELL VOLUME 84.6 fL (80-100); MEAN CORPUSCULAR HEMOGLOBIN 27.3 pg (25-34); MEAN CORPUSCULAR HGB CONC 32.2 g/dl (32-36); MEAN PLATELET VOLUME 9.6 fL (7.4-10.4); MONO % 8.1 %; MONO ABS # 0.73 K/uL (0.11-0.59); NEUT % 69.6 %; PLATELET COUNT 269 K/uL (130-400); RED CELL DISTRIBUTION WIDTH CV 16.3 % (11.5-14.5); RED CELL DISTRIBUTION WIDTH SD 49.3 fL (36.4-46.3); WHITE BLOOD COUNT 9.06 K/uL (4.8-10.8)
[2017-05-27] MEDS ORDERED: ACET-1311 PO (11:42)
[2017-05-27] MEDS ORDERED: IBUP-1050 PO (11:43)
[2017-05-27] MEDS ORDERED: GLUC10007 PO (11:46)
[2017-05-27 11:49] LABS: BLOOD UREA NITROGEN 16 mg/dl (7-18); CALCIUM 8.6 mg/dl (8.5-10.1); CARBON DIOXIDE 24 mmol/L (21-32); CREATININE 0.81 mg/dl (0.60-1.40); GLUCOSE 79 mg/dl (70-99); POTASSIUM 3.7 mmol/L (3.5-5.1); SODIUM 135 mmol/L (136-145)
[2017-05-27 11:58] LABS: INFLUENZA B ANTIGEN Neg for Influ B (NEG)
[2017-05-27] MEDS ORDERED: FUROSEMIDE 20 MG TAB PO STA (12:24)
[2017-05-27] MEDS ORDERED: POTA1CAP2 PO (12:30)
[2017-05-27] MEDS ORDERED: ALBUTEROL HFA 8 GM INHALER INH ONE (12:30)
[2017-05-27] MEDS ORDERED: FURO20TA PO (12:30)
[2017-05-27 13:03] VITALS: BP 155/99; PULSE 91; O2SAT 98
[2017-06-02] MEDS ORDERED: FRS/40 PO (14:38)
[2017-06-02] MEDS ORDERED: LPT40 PO (14:38)
[2017-06-02] MEDS ORDERED: POTA1CAP2 PO (14:38)
[2017-06-02] MEDS ORDERED: LSN5 PO (14:38)
[2017-06-02] MEDS ORDERED: ASPEC81 PO (14:38)
[2017-06-02] MEDS ORDERED: TPRSR50 PO (14:38)
== END 2017-05-27 13:00 | disposition home or self-care (01) ==
LOC: C.EDB 10:25
DX: I50.9 Heart failure, unspecified (principal); E87.70 Fluid overload, unspecified; R94.31 Abnormal electrocardiogram [ECG] [EKG]; R05 Cough; I11.0 Hypertensive heart disease with heart failure; K21.9 Gastro-esophageal reflux disease without esophagitis; E78.5 Hyperlipidemia, unspecified; F17.200 Nicotine dependence, unspecified, uncomplicated; Z87.2 Personal history of diseases of the skin and subcutaneous tissue; Z86.79 Personal history of other diseases of the circulatory system; Z87.828 Personal history of other (healed) physical injury and trauma; Z88.6 Allergy status to analgesic agent

== ENCOUNTER 2017-05-31 10:44 | Inpatient (IN) | payer OTHER ==
[~2017-05-31] VITALS: Ht 175.3 cm; Wt 106.5 kg
[~2017-05-31 10:44] MED LIST changes: +ACET-1311 PO; -ASPEC325 PO; +FURO20TA PO; +GLUC10007 PO; +IBUP-1050 PO; +POTA1CAP2 PO
[2017-05-31 11:21] LABS: HEMATOCRIT 37.1 % (42-52); HEMOGLOBIN 11.8 g/dL (14.0-18.0); MEAN CELL VOLUME 85.5 fL (80-100); MEAN CORPUSCULAR HEMOGLOBIN 27.2 pg (25-34); MEAN CORPUSCULAR HGB CONC 31.8 g/dl (32-36); MEAN PLATELET VOLUME 9.8 fL (7.4-10.4); PLATELET COUNT 265 K/uL (130-400); RED CELL DISTRIBUTION WIDTH CV 16.2 % (11.5-14.5); WHITE BLOOD COUNT 9.38 K/uL (4.8-10.8)
--- NOTE | 2017-05-31 11:34 | DIAGNOSTIC IMAGING REPORT ---
CHEST ONE VIEW PORTABLE CLINICAL HISTORY: chest pain dyspnea COMPARISON STUDY: 05/27/2017 FINDINGS: Slightly progressive cardiomegaly. Increased prominence of the pulmonary vasculature. IMPRESSION: Findings consistent with pulmonary edema versus progressive congestive heart failure compared to the prior exam. The above report was generated using voice recognition software. It may contain grammatical, syntax or spelling errors. Electronically signed by: Baltazar Venegas M.D. 05/31/2017 11:32 AM Dictated Date/Time: 05/31/2017 11:32 AM
[2017-05-31 11:36] LABS: PTT PATIENT 25.6 SECONDS (21.0-31.0)
[2017-05-31 11:40] LABS: ALBUMIN 3.2 gm/dl (3.4-5.0); CALCIUM 8.1 mg/dl (8.5-10.1); CREATININE 1.05 mg/dl (0.60-1.40); POTASSIUM 3.7 mmol/L (3.5-5.1)
[2017-05-31 11:45] LABS: CKMB 4.4 ng/ml (0.5-3.6); TOTAL PROTEIN 7.5 gm/dl (6.4-8.2)
[2017-05-31] MEDS ORDERED: FUROSEMIDE 40 MG/4 ML VIAL IV STA ×2 (12:18→16:59)
[2017-05-31] MEDS ORDERED: FENTANYL CITRATE INJ 50 MCG/1 ML 2 ML VIAL IV STA (12:18)
[2017-05-31] MEDS ORDERED: METHYLPREDNISOLONE 125 MG VIAL IV STA (12:18)
[2017-05-31] MEDS ORDERED: ALBUT/IPRATROP 3MG/0.5MG NEB 3 ML VIAL INH ONE (12:30)
--- NOTE | 2017-05-31 12:34 | EMERGENCY ROOM VISIT NOTE ---
History Report prepared by [place]: Velvet Catherine Under the Supervision of: Dr. Victorino Almendarez M.D. First contact with patient: 12:07 Chief Complaint: CHEST PAIN Stated Complaint: CHEST PAIN Nursing Triage Summary: pt reports started with cp 2 days ago it is located in the middle of my chest and sometimes it is hard to breath. denies radiation of pain , vomitted X 1 last night History of Present Illness The patient is a 56 year old male who presents to the Emergency Room with complaints of worsening chest pain that began two days ago. The patient describes his pain as a "pressure" localized over the left side of his chest. The patient is having difficulty breathing secondary to his pain, which is improved by leaning forward and worsened by laying back/flat. The patient was seen in the Emergency Department two days ago for the same symptoms. After this visit he was put on Lasix. He notes that this has not helped his symptoms at all. The patient is also experiencing a persistent cough. He vomited some last night, but there has not been any diarrhea, fevers, or chills. He has no history of heart failure, but does have a history of anxiety. The patient is a smoker and smokes 1/2 pack per day. 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 A total of ten systems were reviewed and were otherwise negative. Past Medical & Surgical Medical Problems: (1) Benign hypertension (2) Cellulitis, scrotum (3) Chest pain (4) GERD (gastroesophageal reflux disease) (5) Hyperlipidemia (6) Tobacco user (7) Traumatic tear of right rotator cuff Family History Patient reports no known family medical history. Social History Smoking Status: Current Every Day Smoker Alcohol Use: occasionally Marital Status: Housing Status: lives with family Occupation Status: unemployed Current/Historical Medications Scheduled Acetaminophen (Tylenol), 325 MG PO UD Furosemide (Lasix), 20 MG PO QD@08 Glucosamine Sulfate (Glucosamine), 0 PO QAM Ibuprofen (Advil), 200 MG PO UD Omeprazole (Prilosec), 40 MG PO QAM Potassium Chloride (Potassium Chloride Er), 1 CAP PO DAILY Scheduled PRN Hydrocodone/Acetaminophen 10MG/325MG ([place] 10MG/325MG), 1 TAB PO Q4HWA PRN for Pain Allergies Coded Allergies: Oxycodone (Verified Adverse Reaction, Intermediate, NAUSEA/VOMITING, ) PT REQUESTS NORCO -- PERCOCET MAKES HIM TOO SICK Physical Exam Vital Signs Date Time Temp Pulse Resp B/P (MAP) Pulse Ox O2 Delivery O2 Flow Rate FiO2 05/31/17 14:51 100 Room Air 05/31/17 13:54 36.4 87 16 160/110 100 Room Air 05/31/17 12:46 85 18 93 Room Air 05/31/17 12:04 82 16 131/100 94 05/31/17 12:02 85 05/31/17 11:33 85 24 140/100 95 Room Air 05/31/17 11:33 85 24 140/100 95 Room Air 05/31/17 10:51 36.5 89 20 156/101 96 Room Air Physical Exam GENERAL: Awake, alert, in mild respiratory distress distress HENT: Normocephalic, atraumatic. Oropharynx unremarkable. Mucous membranes are dry. EYES: Normal conjunctiva. Sclera non-icteric. NECK: Supple. No nuchal rigidity. FROM. No JVD. RESPIRATORY: There are diminished breath sounds at the bases. There is scant intermittent wheezing. CARDIAC: Regular rate, normal rhythm. Extremities warm and well perfused. Pulses equal. ABDOMEN: Soft, non-distended. No tenderness to palpation. No rebound or guarding. No masses. RECTAL: Deferred. MUSCULOSKELETAL: Chest examination reveals no tenderness. The back is symmetrical on inspection without obvious abnormality. There is no CVA tenderness to palpation. No joint edema. LOWER EXTREMITIES: Calves are equal size bilaterally and non-tender. No edema. No discoloration. NEURO: Normal sensorium. No sensory or motor deficits noted. SKIN: No rash or jaundice noted. Medical Decision & Procedures ER Provider Diagnostic Interpretation: Radiology results as stated below per my review and radiologist interpretation: CHEST ONE VIEW PORTABLE CLINICAL HISTORY: chest pain dyspnea COMPARISON STUDY: 05/27/2017 FINDINGS: Slightly progressive cardiomegaly. Increased prominence of the pulmonary vasculature. IMPRESSION: Findings consistent with pulmonary edema versus progressive congestive heart failure compared to the prior exam. The above report was generated using voice recognition software. It may contain grammatical, syntax or spelling errors. Electronically signed by: Baltazar Venegas M.D. 05/31/2017 11:32 AM Dictated Date/Time: 05/31/2017 11:32 AM Laboratory Results 05/31/17 11:10 05/31/17 11:10 Test 05/31/17 11:10 05/31/17 11:15 05/31/17 12:47 Red Blood Count 4.34 M/uL (4.7-6.1) Mean Corpuscular Volume 85.5 fL (80-100) Mean Corpuscular Hemoglobin 27.2 pg (25-34) Mean Corpuscular Hemoglobin Concent 31.8 g/dl (32-36) RDW Standard Deviation 51.0 fL (36.4-46.3) RDW Coefficient of Variation 16.2 % (11.5-14.5) Mean Platelet Volume 9.8 fL (7.4-10.4) Prothrombin Time 10.9 SECONDS (9.0-12.0) Prothromb Time International Ratio 1.0 (0.9-1.1) Activated Partial Thromboplast Time 25.6 SECONDS (21.0-31.0) Partial Thromboplastin Ratio 1.0 Anion Gap 10.0 mmol/L (3-11) Est Creatinine Clear Calc Drug Dose 95.7 ml/min Estimated GFR () 90.9 Estimated GFR (Non- 78.4 BUN/Creatinine Ratio 14.1 (10-20) Calcium Level 8.1 mg/dl (8.5-10.1) Phosphorus Level 3.4 mg/dl (2.5-4.9) Magnesium Level 2.3 mg/dl (1.8-2.4) Total Bilirubin 0.5 mg/dl (0.2-1) Aspartate Amino Transf (AST/SGOT) 18 U/L (15-37) Alanine Aminotransferase (ALT/SGPT) 28 U/L (12-78) Alkaline Phosphatase 135 U/L (45-117) Total Creatine Kinase 179 U/L (39-308) Creatine Kinase MB 4.4 ng/ml (0.5-3.6) Creatine Kinase MB Ratio 2.5 (0-3.0) Pro-B-Type Natriuretic Peptide 8303 pg/ml (0-900) Total Protein 7.5 gm/dl (6.4-8.2) Albumin 3.2 gm/dl (3.4-5.0) Globulin 4.3 gm/dl (2.5-4.0) Albumin/Globulin Ratio 0.8 (0.9-2) Hepatitis C Antibody Screen NEG (NEG) Bedside Troponin I < 0.030 ng/ml (0-0.045) Venous Blood pH 7.43 (7.36-7.41) Venous Blood Partial Pressure CO2 38 mmHg (38.0-50.0) Venous Blood Partial Pressure O2 59 mmHg Venous Blood HCO3 25 mmol/L Venous Blood Oxygen Saturation 88.9 % Venous Blood Base Excess 0.8 mEq/L Laboratory results reviewed by me Medications Administered Medications (Trade) Dose Ordered Sig/Karyn Route Start Time Stop Time Status Last Admin Dose Admin Fentanyl Citrate (Fentanyl Inj) 100 mcg NOW STAT IV 05/31/17 12:18 05/31/17 12:22 DC 05/31/17 12:40 100 MCG Furosemide (Lasix Inj) 40 mg NOW STAT IV 05/31/17 12:18 05/31/17 12:22 DC 05/31/17 12:39 40 MG Albuterol/ Ipratropium (Duoneb) 12 ml ONE ONCE INH 05/31/17 12:30 05/31/17 12:31 DC 05/31/17 12:46 12 ML Methylprednisolone Sodium Succinate (Solu-Medrol IV) 125 mg NOW STAT IV 05/31/17 12:18 05/31/17 12:22 DC 05/31/17 12:39 125 MG Nitroglycerin (Nitrostat Tab) 0.4 mg UD PRN SL 05/31/17 15:30 06/30/17 15:29 05/31/17 17:50 0.4 MG Aspirin (Aspirin Chew) 324 mg NOW ONCE PO 05/31/17 15:30 05/31/17 17:01 DC 05/31/17 17:24 324 MG ECG Per My Interpretation Indication: chest pain Rate (beats per minute): 82 Rhythm: sinus rhythm Findings: PAC, PVC, no acute ischemic change, other (Normal [place], Precordial t- waves) Comparison ECG Date: 05/27/2017 Change: no significant change ED Course 1213: The patient was evaluated in room B7. A complete history and physical exam was performed. 1218: Ordered Solu-Medrol 125 mg IV, Lasix 40 mg IV, Fentanyl 100 mcg IV. 1230: Ordered Duoneb 12 mL INH. 1342: I discussed the case with Tonia SOL Hospitalist LEAH. She will evaluate the patient for further treatment. Medical Decision I reviewed the patient's past medical history, medications, and the nursing notes as described above. Differential diagnosis: Etiologies such as infections, reactive airway disease, pneumonia, pneumothorax , COPD, CHF, cardiac ischemia, pulmonary embolism, musculoskeletal, gastrointestinal, as well as others were entertained. The patient is a 56 y/o gentleman with a pmhx of 1PPD smoking (recently 03/16 PPD ) presents to the emergency department with worsening SOB and cp after being seen in the ED on 05/27 for similar sx and found to have new CHF but refused admission and so was discharge with Lasix per HPI. However, the patient reports worsening sob and says he has not urinated much despite the lasix. On arrival the patient is uncomfortable with labored breathing and accessory muscle use although AF with VSS. On exam the patient has diminished breath sounds with scant intermittent wheezes. Patient ordered for Lasix as well as continuous nebs and steroids. Bipap also ordered given the patient's WOB, however once received pain medication patient improved and Bipap deferred. EKG unchanged from prior with precordial TWI. Labs c/w with likely CHF as primary process with BNP 8000 and CXR with interval worsening of congestive failure. Patient agreeable for admission this time. Case was d/w EBENEZER Montes De Oca PA-C who will evaluate the patient for admission. Medication Reconcilliation Current Medication List: was personally reviewed by me Blood Pressure Screening Patient's blood pressure: Elevated blood pressure Referred to hospitalist. Consults Time Called: 1335 Consulting Physician: Tonia David PA-C Returned Call: 1342 I discussed the case with Tonia David PA-C. She will evaluate the patient for further treatment. Impression Primary Impression: New onset of congestive heart failure Additional Impression: COPD with exacerbation Scribe Attestation The scribe's documentation has been prepared under my direction and personally reviewed by me in its entirety. I confirm that the note above accurately reflects all work, treatment, procedures, and medical decision making performed by me. Departure Information Dispostion Being Evaluated By Hospitalist Referrals Pro,Cristopher Esquivel M.D. (PCP) Patient Instructions My [facility] Problem Qualifiers
[2017-05-31 12:46] VITALS: PULSE 85; O2SAT 93
[2017-05-31 14:51] VITALS: O2SAT 100; Ht 175.3 cm; Wt 106.5 kg
[2017-05-31] MEDS ORDERED: ASPIRIN 324 MG CHEW PO ONE (15:30)
[2017-05-31] MEDS ORDERED: FUROSEMIDE INJ 40 MG in SYRINGE 0 ML IV ONE (15:30)
[2017-05-31] MEDS ORDERED: NITROGLYCERIN 0.4 MG SL PER TAB CHARGE SL PRN (15:30)
[2017-05-31] MEDS ORDERED: ALUMINUM/MAGNESIUM/SIMETH (MAALOX MAX) 30 ML UDC PO PRN (15:30)
[2017-05-31] MEDS ORDERED: ONDANSETRON INJ 2 MG/ML 2 ML VIAL IV PRN (15:30)
[2017-05-31] MEDS ORDERED: MoRPHine SULFATE 2 MG/ML CARP IV PRN (15:30)
[2017-05-31] MEDS ORDERED: METOPROLOL TARTRATE 1 MG/ML VIAL IV PRN (15:45)
[2017-05-31] MEDS ORDERED: IV FLUIDS COMPLETED PRN (16:15)
[2017-05-31 16:44] VITALS: O2SAT 100
[2017-05-31 17:00] VITALS: BP 160/93; PULSE 90; TEMP 36.5; O2SAT 100
[2017-05-31] MEDS: FUROSEMIDE INJ 40 MG in SYRINGE 0 ML IV SCH (17:23)
[2017-05-31 17:26] LABS: PHOSPHORUS 3.4 mg/dl (2.5-4.9)
[2017-05-31] MEDS ORDERED: METOPROLOL TARTRATE 25 MG TAB PO STA (18:07)
[2017-05-31] MEDS ORDERED: HEPARIN IV BOLUS 7,000 UNIT in SYRINGE 0 ML IV ONE (18:15)
[2017-05-31] MEDS: HEPARIN 25,000 UNIT/500ML D5W 500 ML IV SCH (18:34)
--- NOTE | 2017-05-31 18:42 | CARDIOLOGY CONSULTATION ---
DATE OF CONSULTATION: 05/31/2017 TIME: 1754 p.m. CONSULTING PHYSICIAN: Dr. Ortega. REASON FOR CONSULTATION: Chest pain. HISTORY OF PRESENT ILLNESS: Mr. Martinez is a 56-year-old gentleman with a history significant for dyslipidemia and hypertension as well as nonobstructive CAD diagnosed in 2009, who presented to [facility] with chest discomfort and shortness of breath. He was in the Emergency Department on 05/27/2017 with shortness of breath and orthopnea. According to records, it was recommended that he be admitted or observed in the hospital, but he declined and stated that he would go home. He was started on Lasix 20 mg daily, and unfortunately his breathing did not improve with Lasix. Because his symptoms failed to improve, he came to the Emergency Department today once again for reevaluation. He was felt to be hypervolemic and was given Lasix 40 mg IV x1. With this, he had increased urine output and is starting to feel better in regards to his breathing. He states that for several years, he has had central chest heaviness with more strenuous activities and for this reason he does not even walk to his mailbox, but rather uses a motorized cart to go to the mailbox. He has scaled back on his activity level secondary to his discomfort. Over the past 4-5 days, he is getting chest heaviness with even minor activities. 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 The chest discomfort did not radiate, but is accompanied with dyspnea on exertion. He states that symptoms resolved within a few minutes of rest. He also describes orthopnea. When he lies down, he also experiences some chest heaviness. His symptoms improved while sitting upright. He denies syncope, near syncope, palpitations. He denies edema, but has noted a 10-15 pound weight gain over the past 1-2 weeks. He denies any recent diarrhea, melena, hematochezia, hematuria, abdominal pain, nausea, vomiting. He states that he does have chest heaviness currently while sitting in his hospital bed. Nursing staff was present and was asked to administer nitroglycerin and repeat an ECG. The chest pain has been intermittent. REVIEW OF SYSTEMS: As above. Review of systems is otherwise negative/unremarkable. PAST MEDICAL HISTORY: 1. CAD with cardiac catheterization - 06/11/2009, demonstrating proximal LAD 40-50% stenosis. Ejection fraction reported as 40-45% with global hypokinesis, sparing the base. 2. Hypertension. 3. Dyslipidemia. 4. GERD. 5. Tobacco abuse. 6. Rotator cuff injury. HOME MEDICATIONS: Include: 1. Lasix 20 mg daily, started a few days ago in the ER. 2. Ibuprofen. 3. Prilosec. 4. Glucosamine. 5. Potassium chloride. INPATIENT MEDICATIONS: Include aspirin 81 mg daily, atorvastatin 40 mg daily, Lasix 40 mg IV b.i.d., heparin 5000 units subQ q. 8 hours, and Protonix 40 mg daily. SOCIAL HISTORY: He has smoked since the age of 13 up to 2 packs per day, currently smoking less than a half a pack per day. He did quit for approximately 2 years in between. He participated in heavy alcohol consumption but quit 3+ years ago. Denies drugs. He has 1 biologic daughter that he states that he has never met and just recently found out about her. His has 2 children. He is and lives at home with his and also his best friend, Dinesh. His 's name is Itzel. Itzel and Dinesh are currently present at the bedside. 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 He was incarcerated until December of 2016 and is currently wearing a GPS bracelet on his left ankle. FAMILY HISTORY: Older brother has CAD status post PCI. His father from myocardial infarction, but he does not know the age of his passing. PHYSICAL EXAMINATION: VITAL SIGNS: Temperature 36.4 degrees, heart rate 87 beats per minute, respiration rate 16, blood pressure 160/110 mmHg, oxygen saturation 100% on room air. Weight 111.9 kg. GENERAL: In no acute distress. He is alert and oriented. HEENT: Anicteric sclerae. NECK: Thick. Cannot assess JVD, but he appears to have hepatojugular reflux. No bruits. Normal carotid upstrokes bilaterally. CARDIAC EXAMINATION: PMI was nonpalpable. There was no ventricular heave. Regular, normal S1, S2. Occasional ectopic beat. No audible murmurs, rubs or gallops. LUNGS: Bibasilar rales, right worse than left. Otherwise, clear. ABDOMEN: Soft, nontender, nondistended. Normoactive bowel sounds, no bruits noted. EXTREMITIES: 1+ bilateral lower extremity edema. No cyanosis. 2+ dorsalis pedis pulses bilaterally. 2+ radial pulses bilaterally. Dann test okay. LABORATORY DATA: White blood cell count 9.3, hemoglobin 11.8, and platelets 265. Sodium 135, potassium 3.7, BUN 15, creatinine 1.05. Magnesium 2.3, AST 18, ALT 28. CK-MB 4.4. Initial troponin undetectable. ProBNP 8303. Albumin 3.2. INR is 1. IMAGING DATA: Chest x-ray image personally reviewed. No obvious infiltrate. Increased vascular markings. There appears to be fluid in the fissure. Radiology has interpreted this as CHF compared to prior exam on 05/27/2017. ECG on presentation - 05/31/2017: Sinus rhythm with PACs and PVCs. T-wave inversion in anterior leads. Compared to 05/27/2017 ECG, PVCs are now present. T waves are stable. Prior ECGs before his May 27 ECG, however, did not have T-wave inversions in the anterior leads. Cardiac catheterization report reviewed as noted above. Echocardiogram 03/10/2016 reported normal LV size, systolic function and wall motion. EF 55-60%. No significant valvular abnormalities reported. ASSESSMENT AND PLAN: 1. Acute diastolic congestive heart failure: He appears to be in acute congestive heart failure. He appears hypervolemic on exam, has an elevated BNP and a chest x-ray concerning for congestive heart failure. Agree with intravenous diuretics. Goal negative balance of 1-2 liters in 24 hours. Monitor renal function and electrolytes closely. Low sodium diet. Strict I's and O's and daily weights. 2. Angina: His symptoms are concerning for angina. We discussed that it could be secondary to his congestive heart failure, but also ischemic heart disease could be responsible for his congestive heart failure. Given the fact that it appears as though that his angina has been worsened over time and is becoming more frequent, we did discuss ischemic evaluation such as coronary angiography. Risks and benefits were discussed with him and he was made aware that CT surgery is not available at this facility. There is no urgent indication, if his chest pain is treated with medications effectively, and he was given a nitroglycerin by nursing staff for his current chest pain episode and his chest pain is being reported as resolved by the patient. Because he had some symptoms in his bed; however, would recommend heparin drip per protocol. This was discussed with the admitting physician, Dr. Ortega. Recommend beta riri, metoprolol 25 mg twice daily. Nitroglycerin paste will also be administered as he is hypertensive and the beta riri and nitroglycerin paste will hopefully improve his blood pressure. 3. Abnormal electrocardiogram: T-wave inversions anteriorly new this month compared to prior electrocardiograms. He does have coronary artery disease in the left anterior descending coronary artery in 2009. Coronary angiography was discussed as above and we will reassess tomorrow to see if he is able to lie flat to tolerate the procedure. 4. Coronary artery disease: Continue aspirin 81 mg daily. Recommend high intensity statin therapy. Beta riri will be initiated. Nitroglycerin initiated as well. Recent chest discomfort reported as resolved after receiving nitroglycerin x1. Echocardiogram is pending. 5. Hypertension: Initiation of beta riri as above. Nitroglycerin paste also being started as above. 6. Dyslipidemia: Agree with high intensity statin therapy. 7. DIET: He inquired about his diet. He wants a hamburger with cheese from a local fast food establishment. He asked if he is "allowed" to eat a Burger. He was informed that it is advisable to eat a heart-healthy diet and to avoid such foods, especially when he is here for concerns over his heart. He was also informed that we cannot force him to make his own decisions. He did inform his friend, Dinesh to obtain the fast food as noted. 8. Tobacco abuse: Recommend that he stop smoking and congratulated for cutting back. 9. Disposition: Cardiology will continue to follow. The patient's care has been discussed with Dr. Ирина Ortega, the admitting physician. Thank you for allowing me to participate in care of Mr. Martinez. ERICK
[2017-05-31] MEDS: NITROGLYCERIN 2% OINTMENT 30GM TUBE EXT SCH (18:50)
[2017-05-31 19:11] VITALS: BP 177/97; PULSE 88; TEMP 36.7; O2SAT 95
[2017-05-31 20:30] VITALS: BP 151/91
[2017-05-31] MEDS ORDERED: KETOROLAC TROMETHAMINE 30 MG/ML VIAL IV STA (21:57)
[2017-05-31] MEDS ORDERED: HEPARIN SOD 5000 UNIT/0.5 ML CARP SQ SCH (22:00)
[2017-05-31] MEDS ORDERED: HYDROCODONE/ACETAMI 10/325 TAB ONE (22:13)
[2017-06-01] VITALS (7 sets, daily range): BP systolic 121–161; BP diastolic 73–97; PULSE 79–89; TEMP 36.3–36.7; O2SAT 93–98
[2017-06-01] MEDS: NITROGLYCERIN 2% OINTMENT 30GM TUBE EXT SCH ×5 (00:09→23:29)
[2017-06-01 01:08] LABS: PTT PATIENT 33.8 SECONDS (21.0-31.0)
[2017-06-01] MEDS: HEPARIN 25,000 UNIT/500ML D5W 500 ML IV SCH ×3 (02:29→22:36)
[2017-06-01] MEDS: ACETAMINOPHEN 325 MG TAB PO PRN ×2 (02:30→23:24)
[2017-06-01] MEDS ORDERED: HEPARIN IV BOLUS 7,000 UNIT in SYRINGE 0 ML IV ONE (02:30)
[2017-06-01 03:35] LABS: BLOOD UREA NITROGEN 16 mg/dl (7-18); CALCIUM 8.5 mg/dl (8.5-10.1); CARBON DIOXIDE 25 mmol/L (21-32); CREATININE 0.97 mg/dl (0.60-1.40); GLUCOSE 179 mg/dl (70-99); POTASSIUM 3.9 mmol/L (3.5-5.1); SODIUM 134 mmol/L (136-145)
[2017-06-01 03:40] LABS: CHOLESTEROL 167 mg/dl (0-200); LDL CHOLESTEROL CALCULATED 99 mg/dl
[2017-06-01] MEDS ORDERED: ATORVASTATIN 40 MG TAB PO SCH (09:00)
[2017-06-01] MEDS ORDERED: METOPROLOL TARTRATE 25 MG TAB PO SCH (09:00)
[2017-06-01 09:06] LABS: PTT PATIENT 48.5 SECONDS (21.0-31.0)
[2017-06-01] MEDS: HYDROCODONE/ACETAMI 10/325 TAB PO PRN (09:27)
[2017-06-01] MEDS: ASPIRIN 81 MG ECTAB PO SCH (09:28)
[2017-06-01] MEDS: FUROSEMIDE INJ 40 MG in SYRINGE 0 ML IV SCH ×2 (09:28→16:24)
[2017-06-01] MEDS: PANTOprazole SOD 40 MG TAB PO SCH (09:28)
--- NOTE | 2017-06-01 09:32 | ECHOCARDIOGRAM REPORT ---
*NOTICE TO RECEIVING REPUBLICAN AGENCY This information is strictly Confidential and protected under [place] law. [place] law prohibits you from making any further disclosure of this information unless further disclosure is expressly permitted by the written consent of the person to whom it pertains or is authorized by law. A general authorization for the release of medical or other information is not sufficient for this purpose. Hospital accepts no responsibility if the information is made available to any other person, INCLUDING THE PATIENT. Interpretation Summary * Conclusions -- * 1. Moderately dilated left ventricle with moderately reduced systolic function. EF 35-40%. Global hypokinesis with severe hypokinesis of anteroseptum. Mild concentric left ventricular hypertrophy. Tissue Doppler suggests elevated left atrial pressure. * 2. The right ventricle is moderately dilated. The right ventricular systolic function is normal as assessed by tricuspid annular plane systolic excursion (TAPSE) (normal >1.5 cm). * 3. Moderate left atrial dilation. * 4. The right atrium is mildly dilated. * 5. Mild mitral regurgitation. * 6. Mildly elevated right ventricular systolic pressure; RVSP 46 mmHg. * 7. Compared to prior study on 03/10/16, LV systolic function is now moderately reduced. Procedure Details * A complete two-dimensional transthoracic echocardiogram was performed (2D, M-mode, Doppler and color flow Doppler). Left Ventricle * Moderately dilated left ventricle with moderately reduced systolic function. EF 35-40%. Global hypokinesis with severe hypokinesis of anteroseptum. Mild concentric left ventricular hypertrophy. Tissue Doppler suggests elevated left atrial pressure. Right Ventricle * The right ventricle is moderately dilated. * The right ventricular systolic function is normal as assessed by tricuspid annular plane systolic excursion (TAPSE) (normal >1.5 cm). Atria * The left atrium is moderately dilated. * The right atrium is mildly dilated. * There is no evidence of atrial septal defect, but resolution does not allow assessment for a patent foramen ovale. Mitral Valve * There is mild mitral annular calcification. * There is no mitral valve stenosis. * There is mild mitral regurgitation. Tricuspid Valve * The tricuspid valve is not well visualized, but is grossly normal. * There is no tricuspid stenosis. * There is mild tricuspid regurgitation. Aortic Valve * The aortic valve is trileaflet. * No hemodynamically significant valvular aortic stenosis. * No aortic regurgitation is present. Pulmonic Valve * The pulmonary valve is inadequately visualized, but the Doppler data is adequate for interpretation. * There is no pulmonic valvular stenosis. * Trace pulmonic valvular regurgitation. Great Vessels * The aortic root is normal size. * Blunted pulmonary venous flow pattern. Pericardium/Pleural * There is no pericardial effusion. Great Vessels * Dilated IVC (3 cm) with normal inspiratory collapse. MMode 2D Measurements and Calculations IVSd 1.3 cm IVSs 1.6 cm LVIDd 6.0 cm LVIDs 4.8 cm LVPWd 1.2 cm LVPWs 1.7 cm IVS/LVPW 1.1 FS 19.2 % EDV(Teich) 178.7 ml ESV(Teich) 109.3 ml EF(Teich) 38.8 % EDV(cubed) 214.0 ml ESV(cubed) 113.0 ml EF(cubed) 47.2 % % IVS thick 24.1 % % LVPW thick 39.1 % LV mass(C)d 323.9 grams LV mass(C)dI 143.6 grams/m\S\2 LV mass(C)s 344.2 grams LV mass(C)sI 152.6 grams/m\S\2 SV(Teich) 69.4 ml SI(Teich) 30.8 ml/m\S\2 SV(cubed) 101.0 ml SI(cubed) 44.8 ml/m\S\2 Ao root diam 3.4 cm Ao root area 9.1 cm\S\2 ACS 2.2 cm LA dimension 5.1 cm asc Aorta Diam 3.6 cm LA/Ao 1.5 LVOT diam 2.0 cm LVOT area 3.1 cm\S\2 LVAd ap4 50.6 cm\S\2 LVLd ap4 9.4 cm EDV(MOD-sp4) 227.1 ml EDV(sp4-el) 230.5 ml LVAs ap4 34.3 cm\S\2 LVLs ap4 7.2 cm ESV(MOD-sp4) 137.6 ml ESV(sp4-el) 138.7 ml EF(MOD-sp4) 39.4 % EF(sp4-el) 39.8 % LVAd ap2 48.6 cm\S\2 LVLd ap2 8.7 cm EDV(MOD-sp2) 219.2 ml EDV(sp2-el) 229.6 ml LVAs ap2 33.5 cm\S\2 LVLs ap2 7.1 cm ESV(MOD-sp2) 127.5 ml ESV(sp2-el) 134.5 ml EF(MOD-sp2) 41.8 % EF(sp2-el) 41.4 % LVLd %diff -7.94 % EDV(MOD-bp) 226.7 ml LVLs %diff -1.69 % ESV(MOD-bp) 131.8 ml EF(MOD-bp) 41.9 % SV(MOD-sp4) 89.5 ml SI(MOD-sp4) 39.7 ml/m\S\2 SV(MOD-sp2) 91.7 ml SI(MOD-sp2) 40.7 ml/m\S\2 SV(MOD-bp) 94.9 ml SI(MOD-bp) 42.1 ml/m\S\2 SV(sp4-el) 91.8 ml SI(sp4-el) 40.7 ml/m\S\2 SV(sp2-el) 95.2 ml SI(sp2-el) 42.2 ml/m\S\2 Doppler Measurements and Calculations MV E max quang 113.8 cm/sec MV P1/2t max quang 114.7 cm/sec MV P1/2t 59.7 msec MVA(P1/2t) 3.7 cm\S\2 MV dec slope 563.3 cm/sec\S\2 MV dec time 0.13 sec Ao V2 max 117.4 cm/sec Ao max PG 5.5 mmHg Ao max PG (full) 1.4 mmHg MANUEL(V,A) 2.7 cm\S\2 MANUEL(V,D) 2.7 cm\S\2 LV V1 max PG 4.1 mmHg LV V1 max 101.1 cm/sec MR max quang 495.2 cm/sec MR max PG 98.1 mmHg PA V2 max 87.1 cm/sec PA max PG 3.0 mmHg TR max quang 309.6 cm/sec RVSP(TR) 46.3 mmHg RAP systole 8.0 mmHg
--- NOTE | 2017-06-01 10:06 | History and Physical ---
History & Physical Date & Time of Service: May 31, 2017 at 15:44 Chief Complaint: Chest Pain Primary Care Physician: Cristopher Zabala M.D. History of Present Illness Source: patient, family Mr. Martinez is a 56yo C male with history of HTN, HLP, tobacco abuse presenting with 3 days of chest pain and shortness of breath. The pain is located substernal and left sided, described as "pressure" and "heaviness" and associated with diaphoresis and shortness of breath. The pain occurs with exertion, patient reports experiencing the pain after ambulating approximately 25 feet in his home. Pain is relieved with rest. Patient reports that the pain has become more frequent and severe over the last three days. Patient also reports mild cough as well as GRIGGS and orthopnea requiring him to sleep upright in a chair for the last three days. Denies nausea, vomiting, palpitations or loss of consciousness. Per review of records patient was seen in 2009 with exertional chest pain. He had an abnormal stress echo at that time with findings consistent for unstable angina. He had a cardiac catheterization performed which showed nonocclusive CAD with an EF of 40-45%. No intervention was performed. He also had an echocardiogram performed 02/2016 which showed a normal LV size and function with EF of 55-60%, no wall motion abnormalities, RV with normal size and function. Patient is presently chest pain free. Is experiencing mild dyspnea with laying flat. Past Medical/Surgical History Medical Problems: (1) Chest pain (2) Shortness of breath (3) Benign hypertension (4) CHF (congestive heart failure) (5) GERD (gastroesophageal reflux disease) (6) Hyperlipidemia (7) Tobacco user Family History Patient reports no known family medical history. Social History Smoking Status: Current Every Day Smoker Smokeless Tobacco Use: No Alcohol Use: none Drug Use: other Marital Status: Housing status: lives with family Occupational Status: unemployed Immunizations History of Influenza Vaccine: Yes History of Tetanus Vaccine?: Unknown History of Pneumococcal: No History of Hepatitis B Vaccine: No Allergies Coded Allergies: Oxycodone (Verified Adverse Reaction, Intermediate, NAUSEA/VOMITING, ) PT REQUESTS NORCO -- PERCOCET MAKES HIM TOO SICK Home Medications Scheduled Acetaminophen (Tylenol), 325 MG PO UD Furosemide (Lasix), 20 MG PO QD@08 Glucosamine Sulfate (Glucosamine), 0 PO QAM Ibuprofen (Advil), 200 MG PO UD Omeprazole (Prilosec), 40 MG PO QAM Potassium Chloride (Potassium Chloride Er), 1 CAP PO DAILY Scheduled PRN Hydrocodone/Acetaminophen 10MG/325MG ([place] 10MG/325MG), 1 TAB PO Q4HWA PRN for Pain Review of Systems Constitutional: No fever, No chills, No weakness Respiratory: + cough, + sputum, + shortness of breath, + dyspnea on exertion, No wheezing, No hemoptysis Cardiovascular: + chest pain, + orthopnea, + edema, No palpitations Abdomen: No pain, No nausea, No vomiting, No diarrhea, No constipation, No GI bleeding Musculoskeletal: No joint pain, No muscle pain Genitourinary - Male: No hematuria, No dysuria Neurologic: No weakness, No numbness/tingling Integumentary: No rash, No itch Physical Exam Vital Signs Date Time Temp Pulse Resp B/P (MAP) Pulse Ox O2 Delivery O2 Flow Rate FiO2 05/31/17 14:51 100 Room Air 05/31/17 13:54 36.4 87 16 160/110 100 Room Air 05/31/17 12:46 85 18 93 Room Air 05/31/17 12:04 82 16 131/100 94 05/31/17 12:02 85 05/31/17 11:33 85 24 140/100 95 Room Air 05/31/17 11:33 85 24 140/100 95 Room Air 05/31/17 10:51 36.5 89 20 156/101 96 Room Air General: patient AA&O x 4, answers questions appropriately, no acute distress Skin: warm, dry, intact, no rashes or lesions HEENT: NC/AT, PERRL, EOMI, anicteric sclera, conjunctiva without injection, moist mucus membranes, no oral lesions, dentures in place, neck supple, no JVD, no thyromegaly, no cervical LAD Heart: +S1/S2, regular with ectopy, no murmurs/rubs/gallops Lungs: equal air entry bilaterally, +crackles in bilateral lung mario, no wheezing or rhonchi Abdomen: obese, soft, NT/ND, no masses/organomegaly, normoactive bowel sounds Extremities: warm, well perfused with no clubbing or cyanosis, 1+ pitting edema of bilateral LE Neuro: grossly intact, no focal neurologic deficits Diagnostics Laboratory Results Results Past 24 Hours Test 05/31/17 11:10 05/31/17 11:15 05/31/17 12:47 Range/Units White Blood Count 9.38 4.8-10.8 K/uL Red Blood Count 4.34 4.7-6.1 M/uL Hemoglobin 11.8 14.0-18.0 g/dL Hematocrit 37.1 42-52 % Mean Corpuscular Volume 85.5 80-100 fL Mean Corpuscular Hemoglobin 27.2 25-34 pg Mean Corpuscular Hemoglobin Concent 31.8 32-36 g/dl RDW Standard Deviation 51.0 36.4-46.3 fL RDW Coefficient of Variation 16.2 11.5-14.5 % Platelet Count 265 130-400 K/uL Mean Platelet Volume 9.8 7.4-10.4 fL Prothrombin Time 10.9 9.0-12.0 SECONDS Prothromb Time International Ratio 1.0 0.9-1.1 Activated Partial Thromboplast Time 25.6 21.0-31.0 SECONDS Partial Thromboplastin Ratio 1.0 Sodium Level 135 136-145 mmol/L Potassium Level 3.7 3.5-5.1 mmol/L Chloride Level 104 98-107 mmol/L Carbon Dioxide Level 22 21-32 mmol/L Anion Gap 10.0 3-11 mmol/L Blood Urea Nitrogen 15 7-18 mg/dl Creatinine 1.05 0.60-1.40 mg/dl Est Creatinine Clear Calc Drug Dose 95.7 ml/min Estimated GFR () 90.9 Estimated GFR (Non- 78.4 BUN/Creatinine Ratio 14.1 10-20 Random Glucose 136 70-99 mg/dl Calcium Level 8.1 8.5-10.1 mg/dl Total Bilirubin 0.5 0.2-1 mg/dl Aspartate Amino Transf (AST/SGOT) 18 15-37 U/L Alanine Aminotransferase (ALT/SGPT) 28 12-78 U/L Alkaline Phosphatase 135 45-117 U/L Total Creatine Kinase 179 39-308 U/L Creatine Kinase MB 4.4 0.5-3.6 ng/ml Creatine Kinase MB Ratio 2.5 0-3.0 Pro-B-Type Natriuretic Peptide 8303 0-900 pg/ml Total Protein 7.5 6.4-8.2 gm/dl Albumin 3.2 3.4-5.0 gm/dl Globulin 4.3 2.5-4.0 gm/dl Albumin/Globulin Ratio 0.8 0.9-2 Bedside Troponin I < 0.030 0-0.045 ng/ml Venous Blood pH 7.43 7.36-7.41 Venous Blood Partial Pressure CO2 38 38.0-50.0 mmHg Venous Blood Partial Pressure O2 59 mmHg Venous Blood HCO3 25 mmol/L Venous Blood Oxygen Saturation 88.9 % Venous Blood Base Excess 0.8 mEq/L Diagnostic Radiology FINDINGS: Slightly progressive cardiomegaly. Increased prominence of the pulmonary vasculature. IMPRESSION: Findings consistent with pulmonary edema versus progressive congestive heart failure compared to the prior exam. EKG The study demonstrates normal sinus rhythm with occasional PVCs and PACs, normal axis, [id number], TWI present in V2-V6 Impression Assessment and Plan Assessment: 56yo C male with history of HTN, HLP, tobacco abuse presenting with 3 days of exertional chest pain and dyspnea. Patient with negative cardiac enzymes x 1 set, EKG with TWI in precordial leads, CXR suggestive of congestive heart failure. 1. Chest pain - exertional, substernal, progressive x 3 days. Patient presently chest pain free and hemodynamically stable. Cardiac enzymes negative x 1, EKG with new TWI when compared to prior from 2009. Given risk factors and findings will place in observation status on telemetry -trend cardiac enzymes q 6 hours x 4 sets -check fasting lipid panel -check 2D echocardiogram -Consultation with cardiology -Will keep patient NPO after midnight for possible stress test vs cardiac cath tomorrow -ASA 81mg po daily -Atorvastatin 40mg po daily 2. Shortness of breath - concern for CHF although patient with normal echocardiogram 02/2016 with EF 55-60%, elevated BNP today. -Will diurese with Lasix 40mg IV BID -Daily weights -Strict I/Os -Echocardiogram as above 3. HTN - BP presently elevated 160/110. Patient does not report being on outpatient antihypertensive agents. -Metoprolol 5mg IV q 4 hours PRN PRN -Will add additional antihypertensive agents as needed pending results of echo 4. GERD - patient presently stable. Will continue home Prilosec 5. F/E/N - Heplock. Check chemistry panel daily, check Mg and PO4 x 1, AHA diet. NPO after midnight for additional diagnostic workup tomorrow 6. Ppx - Heparin 5000 units TID for DVT ppx. Prilosec at home dose 7. Code - Full per discussion with patient 8. Dispo - telemetry observation Advanced Directives Existing Living Will: No Existing Power of Diversity Manager: No Resuscitation Status Full code VTE Prophylaxis Will order VTE Prophylaxis: Yes
[2017-06-01] MEDS ORDERED: LISINOPRIL 5 MG TAB PO ONE (10:45)
--- NOTE | 2017-06-01 11:52 | CARDIOLOGY PROGRESS NOTE ---
DATE: 06/01/2017 TIME: 10:35 a.m. SUBJECTIVE: He had one episode of chest heaviness overnight that lasted only a few minutes. Otherwise, he has been pain free. His breathing has improved. Orthopnea has significantly improved. After our conversation yesterday he did eat two Whoppers and an order of frisian fries. He was asked not to eat breakfast this morning, but he did have breakfast this morning. We had discussed cardiac catheterization, which he is willing to undergo. We discussed timing of this for perhaps later this afternoon. He was informed that he would have to be n.p.o. for the remainder of the day. He stated that he will drink his Coke anyway and would rather have the heart catheterization tomorrow. He denies bleeding. He has had intermittent headache. OBJECTIVE: VITAL SIGNS: Temperature 36.3 degrees, heart rate 89 beats per minute, respiration rate 18, blood pressure 161/84 mmHg, oxygen saturation 95% on room air. I's and O's incomplete yesterday. He is negative 480 mL so far today. Weight is 109.7 kg. GENERAL: No acute distress. He is alert. NECK: Thick. CARDIAC EXAM: No ventricular heave. Regular, normal S1, S2. There were no audible murmurs, rubs or gallops. LUNGS: Clear to auscultation bilaterally. ABDOMEN: Obese, soft, nontender, nondistended. Normoactive bowel sounds. EXTREMITIES: No significant edema. No cyanosis. PSYCHIATRIC: Affect appears appropriate. MEDICATIONS: Include aspirin 81 mg daily, atorvastatin 40 mg daily, Lasix 40 mg IV b.i.d., heparin drip per protocol, metoprolol tartrate 25 mg p.o. b.i.d., Protonix 40 mg daily. LABORATORY DATA: Sodium 134, potassium 3.9, BUN 16, creatinine 0.97. Troponin undetectable x3. Triglycerides 93, total cholesterol 167, LDL 99, HDL 49. PTT 48.5. Echocardiogram images reviewed from 06/01/2017. Moderately dilated left ventricle with moderately reduced systolic function. EF 35-40%. Global hypokinesis with severe hypokinesis of the anterior septum. Mild LVH. Tissue Doppler suggests elevated left atrial pressure. Moderately dilated right ventricle with normal systolic function. Biatrial dilation. Mild MR. RVSP 46 mmHg. Telemetry personally reviewed. Paroxysmal atrial tachycardia, nonsustained. He had a few episodes since yesterday's visit. ASSESSMENT AND PLAN: 1. Acute diastolic congestive heart failure: Symptoms significantly improved. Continue Lasix at current dose. We discussed the importance of a low sodium diet, less than 2000 mg daily. He states that he eats a lot of salt. When discussing this and his echo findings he did tear up. Continue strict I's and O's and daily weights. 2. Angina: Symptoms are concerning for angina. They may be related to underlying coronary disease versus his decompensated heart failure. We will titrate beta riri. Continue high intensity statin therapy. Coronary angiography electively. After our conversation today he did state that he would continue to drink his Coke and therefore cardiac catheterization will be scheduled for tomorrow. If he has recurrent chest discomfort cardiac catheterization could become more urgent but for now there is no urgent indication. Continue nitroglycerin ointment if tolerated. 3. Cardiomyopathy: Reduced LV systolic function. Discussed with patient. Will change metoprolol tartrate to metoprolol succinate and titrate. Will start low dose CANDIDO inhibitor. Could consider Entresto if affordable for him. Coronary angiography recommended as above. 4. Coronary artery disease: Moderate nonobstructive CAD reported in 2010 cardiac catheterization. Continue medical therapy as noted above. Coronary angiography tomorrow. 5. Hypertension: Titrate medications as above and initiate CANDIDO inhibitor. 6. Dyslipidemia: Will increase atorvastatin to 80 mg daily, given his underlying coronary artery disease and acute presentation. 7. Tobacco abuse: Stop smoking. 8. Disposition: Cardiology will continue to follow. ERICK
--- NOTE | 2017-06-01 12:27 | Hospitalist Progress Note ---
Hospitalist Progress Note Date of Service Jun 01, 2017. Subjective Pt evaluation today including: conversation w/ patient, conversation w/ functional consultant (Cardiology) Pt denies any further CP since yesterday, not SOB, still some mild cough. He is tearful when talking about recent life stressors including imprisonment, previous drug and EtOH use. He is working on quitting smoking, but still smokes 1/2 PPD. Is contemplating quitting completely. Abdomen: No pain, No constipation All Other Systems: Reviewed and Negative Objective Vital Signs Date Time Temp Pulse Resp B/P (MAP) Pulse Ox O2 Delivery O2 Flow Rate FiO2 06/01/17 07:47 36.3 89 18 161/84 (109) 95 Room Air 06/01/17 04:02 36.7 87 18 151/88 (109) 93 Room Air 06/01/17 04:00 Room Air 06/01/17 00:08 36.7 81 18 151/90 (110) 98 Room Air 06/01/17 00:01 Room Air 05/31/17 20:30 151/91 (111) 05/31/17 20:00 Room Air 05/31/17 19:11 36.7 88 20 177/97 (123) 95 Room Air 05/31/17 17:00 36.5 90 16 160/93 (115) 100 Room Air 05/31/17 16:44 36.4 87 16 160/110 100 05/31/17 14:51 100 Room Air 05/31/17 13:54 36.4 87 16 160/110 100 Room Air 05/31/17 12:46 85 18 93 Room Air Physical Exam General Appearance: WD/WN, no apparent distress Eyes: normal inspection, sclerae normal ENT: hearing grossly normal Neck: trachea midline Respiratory/Chest: normal breath sounds, no respiratory distress, no accessory muscle use, + decreased breath sounds (diminished slightly throughout) Cardiovascular: regular rate, rhythm, no edema, no murmur Abdomen: normal bowel sounds, non tender, soft, no organomegaly, no pulsatile mass Extremities: non-tender, normal inspection, no pedal edema, no calf tenderness Neurologic/Psychiatric: alert, oriented x 3, + depressed affect Skin: normal color, warm/dry, no rash, + pertinent finding (multiple large scars on left upper ext and left femur from multiple Orthopedic sugeries from compound fractures and trauma) Laboratory Results Last 24 Hours Test 05/31/17 12:47 05/31/17 20:46 06/01/17 00:39 06/01/17 03:05 Venous Blood pH 7.43 Venous Blood Partial Pressure CO2 38 mmHg Venous Blood Partial Pressure O2 59 mmHg Venous Blood HCO3 25 mmol/L Venous Blood Oxygen Saturation 88.9 % Venous Blood Base Excess 0.8 mEq/L Troponin I < 0.015 ng/ml < 0.015 ng/ml Activated Partial Thromboplast Time 33.8 SECONDS Partial Thromboplastin Ratio 1.3 Sodium Level 134 mmol/L Potassium Level 3.9 mmol/L Chloride Level 99 mmol/L Carbon Dioxide Level 25 mmol/L Anion Gap 10.0 mmol/L Blood Urea Nitrogen 16 mg/dl Creatinine 0.97 mg/dl Est Creatinine Clear Calc Drug Dose 103.6 ml/min Estimated GFR () 100.0 Estimated GFR (Non- 86.3 BUN/Creatinine Ratio 16.5 Random Glucose 179 mg/dl Calcium Level 8.5 mg/dl Triglycerides Level 93 mg/dl Cholesterol Level 167 mg/dl HDL Cholesterol 49 mg/dl LDL Cholesterol, Calculated 99 mg/dl VLDL Cholesterol, Calculated 19 mg/dl Cholesterol/HDL Ratio 3.4 Test 06/01/17 08:29 Activated Partial Thromboplast Time 48.5 SECONDS Partial Thromboplastin Ratio 1.9 Troponin I < 0.015 ng/ml Assessment and Plan Pt is a 56yo male with history of HTN, CAD nonobstructive, HLP, tobacco abuse presenting with 3 days of exertional chest pain and dyspnea. Patient with negative cardiac enzymes x 1 set, EKG with TWI in precordial leads, CXR suggestive of congestive heart failure. 1. Chest pain/Unstable angina/CAD - exertional, substernal, progressive x 3 days. Patient presently chest pain free and hemodynamically stable. Cardiac markers negative x 3, EKG with new TWI through precordial leads when compared to prior from 2009.ECHO with WMAs and reduced EF changed from previous, likely ischemic CM LDL 99 here. Previous cath with - 06/11/2009, demonstrating proximal LAD 40-50% stenosis. Ejection fraction reported as 40-45% with global hypokinesis, sparing the base. -continue on telemetry for monitoring of arrhythmias -Consultation with cardiology appreciated -plan for [facility] tomorrow -continue ASA 81mg po daily -continue heparin gtt -continue increased dose of Atorvastatin 80mg po daily -continue new Toprol XL 50mg po bid, ACEi added -continue nitropaste 2. Acute systolic CHF , previous ECHO 02/2016 with EF 55-60%, but here with elevated BNP 8000, CXR with pulm vascular congestion, with GRIGGS, orthopnea, and 15 lbs weight gain over last 1-2 weeks. Improved after diuresis today. ECHO this admission with EF 35-40%. Global hypokinesis with severe hypokinesis of anteroseptum. Mild concentric left ventricular hypertrophy. Tissue Doppler suggests elevated left atrial pressure.The right ventricle is moderately dilated. The right ventricular systolic function is normal as assessed by tricuspid annular plane systolic excursion (TAPSE) (normal >1.5 cm).Moderate left atrial dilation.The right atrium is mildly dilated.Mild mitral regurgitation.Mildly elevated right ventricular systolic pressure; RVSP 46 mmHg.Compared to prior study on 03/10/16, LV systolic function is now moderately reduced. -continue to diurese with Lasix 40mg IV BID -Daily weights -Strict I/Os -low Na+ diet -started lisinopril 5mg daily -started Toprol XL 50mg bid 3. HTN - BPs continue to be elevated. Patient does not report being on outpatient antihypertensive agents. -Metoprolol 5mg IV q 4 hours PRN PRN -added Toprol ,ACEI as above -continue nitropaste 4. GERD - patient presently stable. -continue PPI Tobacco Use-counseled extensively on smoking cessation, he declines Pharmacologic therapy for after discharge, but is contemplating quitting Ppx - Heparin 5000 units TID for DVT ppx. Prilosec at home dose Code - Full Dispo - telemetry-change to inpatient admission
[2017-06-01] MEDS: METOPROLOL SUCC 50MG EXT REL TAB PO SCH (20:35)
[2017-06-02] VITALS (11 sets, daily range): BP systolic 116–152; BP diastolic 75–96; PULSE 66–94; TEMP 36.4–37.3; O2SAT 92–98
[2017-06-02] MEDS: NITROGLYCERIN 2% OINTMENT 30GM TUBE EXT SCH ×2 (06:00→11:10)
--- NOTE | 2017-06-02 06:02 | Clinical Documentation Query ---
Dr. HEREDIA CRESTON : CLINICAL DOCUMENTATION QUERY A possible discrepancy exists within the documentation in the clinical record. Your documentation includes "acute diastolic congestive heart failure". Documentation by IM includes "acute systolic CHF". LVEF noted to be 35-40%. Global hypokinesis with severe hypokinesis of anteroseptum. He is being treated with IV Lasix, I/O, serial labs, daily weights, Lisinopril, Toprol XL. Please clarify as clinically appropriate so as to avoid miscoding at time of discharge. Thank you. In your clinical opinion is this patient being managed for: ( ) Acute diastolic CHF ( ) Acute systolic CHF ( ) Acute combined systolic and diastolic CHF ( ) Not Agree ( ) Other explanation of clinical findings (Please Explain) ( ) Unable to determine (Please Define) ( ) Need to Discuss The medical record reflects the following clinical findings, treatment, and risk factors. Please clarify and document your clinical opinion in the progress notes and discharge summary. Terms such as "probable", "suspected", "likely", "questionable", "possible", or "still to be ruled out" are acceptable. IF IN AGREEMENT, YOU MUST DOCUMENT ABOVE DIAGNOSTIC STATEMENT IN DAILY PROGRESS NOTES AND DISCHARGE SUMMARY. This document is not part of the patient's record. Thank You, Dinesh Jefferson RN [phone]
[2017-06-02 07:11] LABS: HEMATOCRIT 40.9 % (42-52); HEMOGLOBIN 13.1 g/dL (14.0-18.0); MEAN CELL VOLUME 85.4 fL (80-100); MEAN CORPUSCULAR HEMOGLOBIN 27.3 pg (25-34); MEAN PLATELET VOLUME 9.9 fL (7.4-10.4); PLATELET COUNT 346 K/uL (130-400); RED CELL DISTRIBUTION WIDTH CV 16.5 % (11.5-14.5); RED CELL DISTRIBUTION WIDTH SD 51.2 fL (36.4-46.3); WHITE BLOOD COUNT 13.48 K/uL (4.8-10.8)
[2017-06-02 07:19] LABS: PTT PATIENT 39.4 SECONDS (21.0-31.0)
[2017-06-02 07:38] LABS: CALCIUM 8.6 mg/dl (8.5-10.1); CREATININE 1.07 mg/dl (0.60-1.40)
[2017-06-02] MEDS ORDERED: HEPARIN IV BOLUS 7,000 UNIT in SYRINGE 0 ML IV ONE (08:00)
[2017-06-02] MEDS: METOPROLOL SUCC 50MG EXT REL TAB PO SCH ×2 (08:25→17:11)
[2017-06-02] MEDS: FUROSEMIDE INJ 40 MG in SYRINGE 0 ML IV SCH (08:25)
[2017-06-02] MEDS: PANTOprazole SOD 40 MG TAB PO SCH (08:26)
[2017-06-02] MEDS: ASPIRIN 81 MG ECTAB PO SCH (08:26)
[2017-06-02] MEDS: HEPARIN 25,000 UNIT/500ML D5W 500 ML IV SCH ×2 (08:27→11:08)
[2017-06-02] MEDS: HYDROCODONE/ACETAMI 10/325 TAB PO PRN (08:59)
[2017-06-02] MEDS ORDERED: ATORVASTATIN 40 MG TAB PO SCH (09:00)
[2017-06-02] MEDS ORDERED: LISINOPRIL 5 MG TAB PO SCH (09:00)
[2017-06-02] MEDS ORDERED: HEPARIN SOD (PORCINE) 1000 UNIT/ML 10 ML VIAL ONE (10:39)
[2017-06-02] MEDS ORDERED: FENTANYL CITRATE INJ 50 MCG/1 ML 2 ML VIAL ONE (10:39)
[2017-06-02] MEDS ORDERED: NiCARDipine HCL INJ 2.5 MG/ML 10 ML AMP ONE (10:39)
[2017-06-02] MEDS ORDERED: MIDAZOLAM HCL 1 MG/ML 2ML VIAL ONE (10:39)
[2017-06-02] MEDS ORDERED: NITROGLYCERIN/D5W 100MCG/ML 20ML SYR ONE (10:40)
[2017-06-02] MEDS ORDERED: LIDOCAINE HCL 1% 20 ML VIAL ONE (12:50)
--- NOTE | 2017-06-02 12:57 | Pre Sedation Assessment ---
Pre Sedation Assessment General Date of Sedation: Jun 02, 2017. Vital Signs Past 12 Hours Date Time Temp Pulse Resp B/P (MAP) Pulse Ox O2 Delivery O2 Flow Rate FiO2 06/02/17 11:50 36.4 69 16 118/75 (89) 93 Room Air 06/02/17 08:00 Room Air 06/02/17 07:48 36.7 66 20 128/75 (92) 93 Room Air 06/02/17 04:00 Room Air 06/02/17 03:29 37.3 78 16 124/80 (95) 92 Room Air Review Cardiovascular: regular rate, rhythm Lungs: lungs clear Pre-Sedation Airway Assessment Smoking Status: Current Every Day Smoker Hx of Sleep Apnea: No Short Thick Neck: No Thyro-mental Distance: > 3 Finger Breadths Oral Cavity: Dentures Mallampati Classification: Class III ASA Classification: Class III NPO Status Date of Last Intake of Fluids: Jun 02, 2017 Time of Last Intake of Fluids: 0000 Date of Last Intake of Solids: Jun 02, 2017 Time of Last Intake of Solids: 0000 Procedure Planning Contraindications for Sedation: None Current Medications Reviewed: Yes Notes The planned sedation has been discussed with the patient. Informed Consent was obtained. I have identified the patient, determined the appropriateness of sedation and have assessed the patient immediately prior to the procedure. All medicine(s) and interventions are by my order.
[2017-06-02] MEDS ORDERED: SODIUM CHLORIDE 0.9% 1000ML 1,000 ML IV SCH (13:36)
--- NOTE | 2017-06-02 13:51 | Cardiac Catheterization ---
Procedure Note Procedure Date Jun 02, 2017. Pre-Procedure Diagnosis Angina, CHF, Cardiomyopathy AUC Score 7 Post-Procedure Diagnosis Mild CAD, Normal Intracardiac Pressures Procedure(s) Performed Coronary Angiography, Left Heart Cath, Right Heart Cath Merchandise Adjustment Clerk Dr. Gutierrez Aerial Photograph Interpreter(s) Rick Estimated Blood Loss < 25 ml Medication(s) Fentanyl, Heparin, Nicardipine, Versed, Lidocaine 1% Summary of Findings Coronary angiography: 1. Left main coronary artery: No significant CAD. 2. Left anterior descending: The LAD is a large caliber vessel that extends toward the apex. Proximal LAD 30% smooth narrowing. There are small D1, small D2, and small D3 vessels. No other significant CAD within the LAD system. 3. Circumflex: The circumflex is a large caliber vessel. Codominant circumflex. There is a small caliber OM1 and a very large caliber OM2. There is a medium to large caliber PDA from the circumflex. No significant CAD within the circumflex system. 4. Right coronary artery: The RCA is a large and codominant vessel. No significant CAD within the RCA or RCA PDA. Left heart catheterization: 1. Left ventriculography was not performed. 2. No significant aortic stenosis. Peak to peak transvalvular aortic valve gradient was 0. 3. Normal LVEDP; 12mmHg. Right heart catheterization: 1. Normal pulmonary capillary wedge pressure. V-wave 17 with a mean of 10mmHg. 2. No pulmonary hypertension. PA pressure 30/12 with a mean of 18mmHg. 3. Right ventricular pressure 34/2 with an RVEDP of 5mmHg. 4. Normal right atrial pressure. A-wave 9/V-wave 7/mean 6mmHg. 5. Cardiac output via thermodilution was 7.9 L/min, with a cardiac index of 3.6 L/min/m2. 6. PVR 1 Wood unit. Sedation start time: 1:03 p.m. Sedation end time: 1:34 p.m. Procedural details: 1. Right heart catheterization was performed via the right brachiocephalic vein without known complication. 2. Coronary angiography was performed via the right radial artery without known complication. Impression: 1. Mild nonobstructive CAD. 2. Normal left-sided filling pressures. 3. Normal cardiac output. 4. No aortic stenosis. 5. Nonischemic cardiomyopathy. Plan: 1. Optimize medical therapy. Hemodynamics Rest Ao: 100/63 Final Ao: 109/69 LV: 110/6/12 Recommendations Medical therapy and/or Counseling Specimens None Radiation Exposure (mGy) 1257 mGy. Fluoro time 5.3 min. Contrast (mls) 40 ml Procedural Complication(s) None Disposition PCU ACC Data Cardiac Status Clinical evaluation leading to the procedure CAD Presntation: Unstable angina Anginal Classification: CCS III Heart Failure: NYHA Class: CCS IV Cardiogenic Shock w/in 24Hrs: No Cardiac Arrest w/in 24Hrs: No Imaging studies past 6 months: Yes (echo) Stress studies past 6 months: No Standard Exercise Stress Test: No Stress Echocardiogram: No Stress Testing w/SPECT MPI: No Cardiac CTA: No Coronary Anatomy Dominant: Co-dominant Left Main (% Stenosis): Normal LAD (% Stenosis): Proximal (30%) D1 (% Stenosis): Normal D2 (% Stenosis): Normal D3 (% Stenosis): Normal Circumflex (% Stenosis): Normal OM1 (% Stenosis): Normal OM2 (% Stenosis): Normal L PDA (% Stenosis): Normal RCA (% Stenosis): Normal R PDA (% Stenosis): Normal Left Ventricular Angiography EF (%): n/a Diagnostic Physician's Name: Navin Gutierrez MD Status: Elective Closure Device Percutaneous Entry Location: Radial Closure Device: Radial Band Recommendations: Medical therapy and/or Counseling
--- NOTE | 2017-06-02 13:52 | Consultant Recommendations ---
Janitorial Cleaner Recommendations Date of Service Jun 02, 2017. Janitorial Cleaner Recommendations ACTIVITY RECOMMENDATIONS: Excess manipulation of the wrist should be avoided for the next 24-48 hours. * No lifting over 2 pounds (approximately a 1/2 gallon of milk) with the utilized arm for 24 hours. * No strenuous activity such as bowling or tennis for 3 days. * Keep the site of the procedure covered with a bandage for 24 hours. *You may shower the day after the procedure. Do not take a tub bath or submerge the puncture site in water for the next 3 days. *Do not operate any motorized equipment for 3 days. SPECIAL CARE INSTRUCTIONS: The site may be slightly bruised and sore following your procedure. Should any of the following occur, contact the Dr. who performed your procedure. 1. Redness/inflammation, swelling, chills, or fever, or colored drainage at procedure site within 3-7 days after your procedure. 2. Coldness, discoloration, ongoing numbness, severe pain, or swelling. Expect mild tingling of hand and tenderness at the puncture site for up to three days. If this persists beyond three days, or other symptoms develop, notify the Dr. who performed your procedure. BLEEDING: If the procedure site on your wrist begins to bleed, do not panic 1. Place 1 or 2 fingers firmly just slightly above the insertion site to stop the bleeding. You may be able to feel your pulse as you hold pressure. 2. Lift your finger after 5 minutes to see if the bleeding has stopped. 3. Once the bleeding has stopped, gently wipe the wrist area clean with a bandage. * If the bleeding from your wrist does not stop after 10 minutes, or if there is a large amount of bleeding or spurting, call 911 (do not drive yourself to the hospital). SKIN IRRITATION: * You may experience some redness and/or swelling in the area where radiation was administered. If any skin irritation occurs, please contact your family physician. FOLLOW UP VISIT: Keep any scheduled doctor appointments.
[2017-06-02] MEDS ORDERED: NURSING VERBAL MED ORDER ONE ×2 (14:00→17:00)
--- NOTE | 2017-06-02 14:27 | CARDIOLOGY PROGRESS NOTE ---
DATE: 06/02/2017 TIME: 14:09 p.m. SUBJECTIVE: Mr. Martinez was seen earlier today and also for his cardiac catheterization. He denied any further chest discomfort that was considered as angina. He did feel a bit apprehensive about his cardiac catheterization this morning. He denied orthopnea, but did have some shortness of breath when he got anxious about his cardiac catheterization. He denies syncope, near syncope, or palpitations. He does have bilateral leg cramps at night, which is not acute and has been happening for some time as an outpatient. OBJECTIVE: VITAL SIGNS: Temperature 36.4 degrees, heart rate 69 beats per minute, respiratory rate 16, blood pressure 118/75 mmHg, and oxygen saturation 93% on room air. I's and O's negative 797 mL yesterday charted; however, he has not been collecting all of his urine. His weight is 106.5 kilograms down from original weight of 111.9 kg. GENERAL: No acute distress. Alert. NECK: Thick. CARDIAC EXAM: No ventricular heave. Regular, normal S1 and S2. There were no audible murmurs, rubs or gallops. LUNGS: Clear to auscultation bilaterally without wheezes, rales or rhonchi. ABDOMEN: Soft, nontender, and nondistended. Normoactive bowel sounds. EXTREMITIES: No cyanosis or edema. PSYCHIATRIC: Affect appears appropriate. MEDICATIONS: Include atorvastatin 80 mg daily, aspirin 81 mg daily, Lasix 40 mg IV b.i.d., lisinopril 5 mg daily, metoprolol succinate 50 mg p.o. b.i.d., nitroglycerin ointment 1 inch q. 6 hours, and Protonix 40 mg daily. LABORATORY DATA: White blood cell count is 13.48, hemoglobin 13.1, and platelets 346. Sodium 136, potassium 4, BUN 19, and creatinine 1.07. Telemetry personally reviewed. Nonsustained atrial tachycardia occasionally. Otherwise, sinus rhythm. Cardiac catheterization was performed today and demonstrated proximal LAD 30%. Otherwise, no significant CAD. His LVEDP was 12 and his pulmonary capillary wedge pressure was 10. ASSESSMENT AND PLAN: 1. Acute systolic congestive heart failure: He does have reduced LV systolic function and presented in heart failure. He currently appears euvolemic on exam and his filling pressures are normal on cardiac catheterization. Can discontinue IV Lasix. Would start 40 mg p.o. Lasix and continue as an outpatient. Sodium indiscretion is playing a role in his congestive heart failure. We have discussed the importance of low sodium diet. 2. Angina: He had symptoms concerning for angina, but they may have been related to his congestive heart failure. He has no severe coronary artery disease. Can discontinue nitroglycerin paste at this time. 3. Cardiomyopathy: Nonischemic cardiomyopathy. He has been started on metoprolol succinate and lisinopril. Would consider Entresto if he is willing and able to remain compliant with medications. Recommend optimizing medications. Further secondary workup can be done as an outpatient. 4. Coronary artery disease: He has mild nonobstructive coronary artery disease. Continue aspirin 81 mg daily as an outpatient. Continue high intensity statin therapy. 5. Hypertension: Blood pressure has improved with titration of medications. Continue current regimen and titrate as able. 6. Dyslipidemia: Continue high intensity statin therapy. 7. Tobacco abuse: Stop smoking. 8. Disposition: From a cardiac perspective, further titration can be done as an outpatient. Recommend close followup in the outpatient setting if he is willing. The patient's care has been discussed with Dr. Arevalo. Sincerely,
[2017-06-02] MEDS ORDERED: LSN5 PO (14:38)
[2017-06-02] MEDS ORDERED: FRS/40 PO (14:38)
[2017-06-02] MEDS ORDERED: TPRSR50 PO (14:38)
[2017-06-02] MEDS ORDERED: LPT40 PO (14:38)
[2017-06-02] MEDS ORDERED: ASPEC81 PO (14:38)
[2017-06-02] MEDS ORDERED: POTA1CAP2 PO (14:38)
--- NOTE | 2017-06-02 14:42 | Discharge Instructions ---
Discharge Instructions Date of Service Jun 02, 2017. Admission Reason for Admission: Acute Systolic Chf,Unstable Angina Discharge Discharge Diagnosis / Problem: Acute systolic CHF, CAD Discharge Goals Goal(s): Improve disease control, Diagnostic testing, Therapeutic intervention Activity Recommendations Activity Limitations: as noted below Exercise/Sports Limitations: gradually increase as tolerated Shower/Bathe: no limitations . Instructions / Follow-Up Instructions / Follow-Up You were admitted with chest pain and shortness of breath-you were found to have congestive heart failure. Your cardiac catheterization did not reveal any significant blockages that needed to be stented. You were started on several new medications to help prevent heart attack and to treat your congestive heart failure. It is very important that you quit smoking immediately. Please follow up with your new PCP within 1-2 weeks as scheduled for you. Please follow up with Cardiology as scheduled for you as well. Call your Primary Care doctor if any of the following symptoms or problems start or get worse: * Shortness of breath or difficulty breathing * Wake up at night short of breath * Chest pain * Cough * Swelling of your hands, feet, or legs * More fatigued or tired with your normal activity * Palpitations - sudden fast heart beats WEIGHT * Weigh yourself every morning after using the bathroom. * Use the same scale. * Wear the same amount of clothing. * Write your weight down on a chart. * Call your Primary Care doctor if you gain more than 2-3 pounds in 1-2 days. MEDICATIONS * Use this discharge instruction sheet for medication instructions. * Take your medications at the time your doctor ordered. * Do not skip a dose of your medicines. * If you miss a dose of medicine, take it as soon as possible, but DO NOT DOUBLE A DOSE. * Read your medicine information when you get home. * Know all of the side effects of your medicine. If in doubt, ask your pharmacist * Call your Primary Care doctor's office if you have any side effects. * Be sure all of your doctors know what medicine and herbs you take (including cold, flu, and herbal medicine). Take the following with you to your follow-up doctor appointments: * Weight Chart * Medication List * List of questions Do not drink excessive alcohol, beer or wine. Current Hospital Diet Patient's current hospital diet: AHA Diet (Heart Healthy) Discharge Diet Recommended Diet: Low Sodium Diet (2gm Na) Procedures Procedures Performed: Left and Right heart catheterization Echocardiogram Chest xray Pending Studies Studies pending at discharge: no Laboratory Results Lipid Panel Test 06/01/17 03:05 Range/Units Triglycerides Level 93 0-150 mg/dl Cholesterol Level 167 0-200 mg/dl HDL Cholesterol 49 mg/dl Cholesterol/HDL Ratio 3.4 LDL Cholesterol, Calculated 99 mg/dl Medical Emergencies . Who to Call and When: Call 911 or go to the Emergency Room if: * If at any time you feel your situation is an emergency * You have tightness or pain in your chest that does not go away with rest or Nitroglycerin * You are very short of breath even with rest . Non-Emergent Contact Non-Emergency issues call your: Primary Care Provider, Second Facing Baster Call Non-Emergent contact if: temperature is above 100.5, your pain is not controlled, your pain is worsening, your pain is unusual for you, your pain is concerning you, wound has increased drainage, wound has increased redness, wound has increased pain, you have any medication questions . . "Provider Documentation" section prepared by Mayda Arevalo. . Car Knocker Recommendations Car Knocker Recommendations: ACTIVITY RECOMMENDATIONS: Excess manipulation of the wrist should be avoided for the next 24-48 hours. * No lifting over 2 pounds (approximately a 1/2 gallon of milk) with the utilized arm for 24 hours. * No strenuous activity such as bowling or tennis for 3 days. * Keep the site of the procedure covered with a bandage for 24 hours. *You may shower the day after the procedure. Do not take a tub bath or submerge the puncture site in water for the next 3 days. *Do not operate any motorized equipment for 3 days. SPECIAL CARE INSTRUCTIONS: The site may be slightly bruised and sore following your procedure. Should any of the following occur, contact the DrGenoveva who performed your procedure. 1. Redness/inflammation, swelling, chills, or fever, or colored drainage at procedure site within 3-7 days after your procedure. 2. Coldness, discoloration, ongoing numbness, severe pain, or swelling. Expect mild tingling of hand and tenderness at the puncture site for up to three days. If this persists beyond three days, or other symptoms develop, notify the DrGenoveva who performed your procedure. BLEEDING: If the procedure site on your wrist begins to bleed, do not panic 1. Place 1 or 2 fingers firmly just slightly above the insertion site to stop the bleeding. You may be able to feel your pulse as you hold pressure. 2. Lift your finger after 5 minutes to see if the bleeding has stopped. 3. Once the bleeding has stopped, gently wipe the wrist area clean with a bandage. * If the bleeding from your wrist does not stop after 10 minutes, or if there is a large amount of bleeding or spurting, call 911 (do not drive yourself to the hospital). SKIN IRRITATION: * You may experience some redness and/or swelling in the area where radiation was administered. If any skin irritation occurs, please contact your family physician. FOLLOW UP VISIT: Keep any scheduled doctor appointments.
--- NOTE | 2017-06-02 18:03 | Post Sedation Assessment ---
Post Sedation Assessment General Date of Sedation Jun 02, 2017. Vital Signs: Vital Signs Past 12 Hours Date Time Temp Pulse Resp B/P (MAP) Pulse Ox O2 Delivery O2 Flow Rate FiO2 06/02/17 16:24 36.4 77 18 95 Room Air 06/02/17 15:53 Room Air 06/02/17 15:52 77 18 135/85 (102) 95 Room Air 06/02/17 15:25 71 20 152/77 (102) 95 Room Air 06/02/17 15:03 77 20 132/89 (103) 97 Room Air 06/02/17 14:47 74 18 133/91 (105) 95 Room Air 06/02/17 14:30 74 18 142/91 (108) 98 Room Air 06/02/17 14:14 71 20 137/96 (110) 96 Room Air 06/02/17 14:00 76 20 147/90 (109) 95 Room Air 06/02/17 13:49 71 16 132/86 (101) 96 Room Air 06/02/17 13:44 Room Air 06/02/17 13:39 Room Air 06/02/17 13:34 73 16 128/85 (99) 96 Room Air 06/02/17 12:00 Room Air 06/02/17 11:50 36.4 69 16 118/75 (89) 93 Room Air 06/02/17 08:00 Room Air 06/02/17 07:48 36.7 66 20 128/75 (92) 93 Room Air Post Procedure Recovery Score Activity: (2) Moves 4 extremities * Respiration: (2) Deep breath/cough Circulation: (2) +/-20% PreAnes Value Consciousness: (2) Fully Awake Oxygen Saturation: (2) > 92% On Room Air Post Anesthesia Score: 10 Discharge Sedation Level of Care: Fast Track Phase II Post Sedation Plan On clinical assessment, the patient appears to have tolerated the sedation without complications. Patient is recovering as anticipated. Patient will continue to be monitored by nursing and may be discharged when sedation discharge criteria are met per below protocol. Upon Completions of procedure and additional 15 minutes continue every 5 minute vital signs and the P.A.R. score; then discharge to a Phase I or Fast Track to Phase II per the following guidelines: * Discharge Patient to appropriate Phase II area if PAR is 8 or greater or return to pre- procedure baseline. The post - procedure orders will be as directed. * If PAR score is less than 8 or not return to pre-procedure baseline then patient will follow Phase I monitoring till PAR is reached for Phase II. The Phase I may be done in procedure room or may call to secure a Phase I area. * If naloxone or flumazenil are used for reversal, hold in Phase I for an additional 60 -120 minutes before discharge to Phase II. Please call the Sedation Physician to re-evaluate and complete post-note for discharge to Phase II area. Do NOT discharge from procedure sedation or Phase 1 until post- sedation evaluation note is complete by procedure /sedation MD Sedation Discharge Instructions to be given to the patient at discharge to home.
== END 2017-06-02 17:19 | disposition home or self-care (01) | DRG 286 ==
LOC: C.EDB 10:45 → C.2T 15:42 → ENRESERV 16:08 → OBSVTOIN 06-01 12:17
PROVIDERS: ADMIT Internal Medicine; ATTEND Family Medicine
PROC: 4A023N8 Measurement of Cardiac Sampling and Pressure, Bilateral, Percutaneous Approach (ICD-10-PCS; principal; 2017-06-02 12:19)
PROC: B211YZZ Fluoroscopy of Multiple Coronary Arteries using Other Contrast (ICD-10-PCS; principal; 2017-06-02 12:19)
DX: I25.119 Atherosclerotic heart disease of native coronary artery with unspecified angina pectoris (principal); I50.41 Acute combined systolic (congestive) and diastolic (congestive) heart failure; J44.1 Chronic obstructive pulmonary disease with (acute) exacerbation; I11.0 Hypertensive heart disease with heart failure; I42.9 Cardiomyopathy, unspecified; K21.9 Gastro-esophageal reflux disease without esophagitis; E78.5 Hyperlipidemia, unspecified; F17.200 Nicotine dependence, unspecified, uncomplicated; Z88.5 Allergy status to narcotic agent

== ENCOUNTER → 2017-07-15 | Outpatient (CLI) | payer OTHER ==
[~2017-07-15] MED LIST changes: +ASPI-320 PO; -FURO20TA PO; -IBUP-1050 PO; +LPT40 PO; +LSN5 PO; +TPRSR50 PO
[2017-07-15 18:37] LABS: BLOOD UREA NITROGEN 15 mg/dl (7-18); CALCIUM 8.9 mg/dl (8.5-10.1); CARBON DIOXIDE 26 mmol/L (21-32); GLUCOSE 133 mg/dl (70-99); POTASSIUM 3.8 mmol/L (3.5-5.1); SODIUM 131 mmol/L (136-145)
== END | disposition home or self-care (01) ==
LOC: C.LABPVFM 11:51
PROVIDERS: ATTEND Internal Medicine Cardiovascular Disease
DX: I42.8 Other cardiomyopathies (principal); I50.22 Chronic systolic (congestive) heart failure

== ENCOUNTER 2017-10-07 15:16 | Inpatient (IN) | payer OTHER ==
[~2017-10-07] VITALS: Ht 182.9 cm; Wt 101.4 kg
[~2017-10-07 15:16] MED LIST changes: +LISI-730 PO; -LSN5 PO
[2017-10-07] MEDS ORDERED: SODIUM CHLORIDE 0.9% 1000ML 1,000 ML IV SCH (15:35)
[2017-10-07 15:42] LABS: BASO % 0.5 %; BASO ABS # 0.05 K/uL (0-0.2); EOS % 1.5 %; EOS ABS # 0.16 K/uL (0-0.5); HEMATOCRIT 39.7 % (42-52); HEMOGLOBIN 13.3 g/dL (14.0-18.0); IG# 0.02 K/uL (0.00-0.02); LYMPH % 27.7 %; LYMPH ABS # 2.86 K/uL (1.2-3.4); MEAN CELL VOLUME 87.4 fL (80-100); MEAN CORPUSCULAR HEMOGLOBIN 29.3 pg (25-34); MEAN CORPUSCULAR HGB CONC 33.5 g/dl (32-36); MEAN PLATELET VOLUME 9.4 fL (7.4-10.4); MONO ABS # 0.83 K/uL (0.11-0.59); NEUT % 62.1 %; NEUT ABS # 6.42 K/uL (1.4-6.5); PLATELET COUNT 258 K/uL (130-400); RED CELL DISTRIBUTION WIDTH SD 51.1 fL (36.4-46.3); WHITE BLOOD COUNT 10.34 K/uL (4.8-10.8)
--- NOTE | 2017-10-07 15:46 | DIAGNOSTIC IMAGING REPORT ---
HEAD WITHOUT CONTRAST (CT) CT DOSE: 709.48 mGy.cm HISTORY: Mental status change Stroke TECHNIQUE: Multiaxial CT images of the head were performed without the use of intravenous contrast. A dose lowering technique was utilized adhering to the principles of ALARA. Comparison: 2008 Findings: Significant mucosal thickening of the nasal turbinates and inferior ethmoid sinuses. The remaining sinuses are considered clear. The calvarium and skull base are intact. The ventricles and sulci are within normal limits. There is no mass, hematoma, midline shift, or acute infarct. Impression: No acute intracranial abnormality. Mucosal thickening and/or polypoid change of the inferior ethmoid and nasal turbinate region. The above report was generated using voice recognition software. It may contain grammatical, syntax or spelling errors. Electronically signed by: Baltazar Venegas M.D. 10/07/2017 3:45 PM Dictated Date/Time: 10/07/2017 3:43 PM
[2017-10-07 15:53] LABS: PTT PATIENT 26.6 SECONDS (21.0-31.0)
--- NOTE | 2017-10-07 15:56 | DIAGNOSTIC IMAGING REPORT ---
CHEST ONE VIEW PORTABLE CLINICAL HISTORY: Stroke mental status change COMPARISON STUDY: 05/31/2017 FINDINGS: The bones soft tissues and hemidiaphragms are normal. The cardiomediastinal silhouette is normal. The lungs are clear. The pulmonary vasculature is normal. IMPRESSION: Negative chest. The above report was generated using voice recognition software. It may contain grammatical, syntax or spelling errors. Electronically signed by: Baltazar Venegas M.D. 10/07/2017 3:55 PM Dictated Date/Time: 10/07/2017 3:55 PM
[2017-10-07] MEDS ORDERED: OPTIRAY 320 IV PRN (16:00)
[2017-10-07 16:03] LABS: BLOOD UREA NITROGEN 21 mg/dl (7-18); CALCIUM 8.8 mg/dl (8.5-10.1); CARBON DIOXIDE 26 mmol/L (21-32); CKMB 3.2 ng/ml (0.5-3.6); CREATININE 1.07 mg/dl (0.60-1.40); GLUCOSE 111 mg/dl (70-99); POTASSIUM 4.1 mmol/L (3.5-5.1); SODIUM 133 mmol/L (136-145)
[2017-10-07 16:08] LABS: ISTAT CREATININE 1.1 mg/dl (0.6-1.3); ISTAT IONIZED CALCIUM 1.12 mmol/l (1.12-1.32); ISTAT POTASSIUM 4.1 mEq/L (3.3-5.0)
[2017-10-07] MEDS ORDERED: ASPIRIN 324 MG CHEW PO STA (16:37)
--- NOTE | 2017-10-07 17:01 | DIAGNOSTIC IMAGING REPORT ---
HEAD CTA HISTORY: Mental status change. Stroke symptoms. TECHNIQUE: Multiaxial CT images of the head were performed after the intravenous administration of contrast to evaluate the major cerebral vessels. Maximum intensity projection images were also obtained. A dose lowering technique was utilized adhering to the principles of ALARA. COMPARISON: Head CT 10/07/2017. FINDINGS: There is no mass, hematoma, midline shift, or acute infarct. Visualized intracranial internal carotid arteries, distal vertebral arteries, and basilar artery are widely patent. There is no significant stenosis or occlusion seen within the bilateral ACAs, MCAs, or rosin barrel filler. The major dural venous sinuses are patent. Mild to moderate calcified plaque within the bilateral carotid siphons. 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 IMPRESSION: 1. No significant stenosis or occlusion within the [place]. 2. 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 No intracranial hemorrhage identified. Electronically signed by: Dewayne Sheikh M.D. 10/07/2017 5:00 PM Dictated Date/Time: 10/07/2017 4:54 PM
--- NOTE | 2017-10-07 17:01 | DIAGNOSTIC IMAGING REPORT ---
CT NECK ANGIO WITH CONTRAST CLINICAL HISTORY: Acute stroke. Mental status change. COMPARISON STUDY: No previous studies for comparison. TECHNIQUE: CT angiography was performed from the aortic arch to the skull base. MIP imaging was performed. The patient was scanned in a dynamic helical fashion during intravenous administration of 118 cc of Optiray 320. A dose lowering technique was utilized adhering to the principles of ALARA. CT DOSE: Technique: CT angiogram of the carotid and vertebral arteries was obtained using intravenous contrast and 3-D reconstruction. NASCET criteria was utilized. The patient and his arms during the injection and there was delayed opacification of the arterial system with venous contamination. Arterial opacification is limited. Findings: There are atheromatous changes present at the level of the right carotid bulb. There is a 35% diameter narrowing of the proximal right internal carotid artery. There is atherosclerotic calcification at the level of the right cavernous carotid. There is poor contrast opacification but a definitive hemodynamically significant stenosis is not identified. There are calcific atheromatous changes present at the level of the carotid bulb. There is no evidence of unilaterally significant carotid stenosis. There is no evidence of hemodynamically significant vertebral stenosis. There is no evidence of vertebral dissection. IMPRESSION: 1. Technically limited study with suboptimal arterial opacification 2. Moderate atheromatous changes at both carotid bulbs. No evidence of hemodynamically significant carotid artery stenosis. No evidence of hemodynamically significant vertebral artery stenosis. Electronically signed by: Jose Corral M.D. 10/07/2017 5:00 PM Dictated Date/Time: 10/07/2017 4:53 PM
[2017-10-07] MEDS ORDERED: LORAZEPAM 2 MG/ML 1 ML VIAL IV STA (17:19)
[2017-10-07] MEDS ORDERED: FRS/40 PO (17:27)
[2017-10-07] MEDS ORDERED: SACU1TAB PO (17:27)
--- NOTE | 2017-10-07 18:17 | EMERGENCY ROOM VISIT NOTE ---
History Report prepared by [place]: Kibry Aquino Under the Supervision of: Dr. Varun Alexis M.D. First contact with patient: 15:27 Chief Complaint: CHEST PAIN Stated Complaint: CHEST PAIN History of Present Illness The patient is a 56 year old male who presents to the Emergency Room with complaints of left sided numbness and weakness beginning at 9:30-10AM. The patient states he was sitting in his workshop when he started to feel numb in his left shoulder. He reports his numbness started to spread through his left arm. The patient notes his numbness started to travel over to his right hand as the day progressed. He states he is feeling confused and having trouble communicating in the room. He denies a headache, double vision, shortness of breath, and falling. HPI limited secondary to the patient's mental status. Source of History: patient History Limited By: AMS Onset: 9:30-10:00AM Position: other (left sided) Quality: other (numbness) Timing: constant Associated Symptoms: + weakness, No headache, No SOB Note: Denies: double vision Review of Systems ROS limited secondary to the patient's mental status. Past Medical & Surgical Medical Problems: (1) Acute systolic CHF (congestive heart failure) (2) Benign hypertension (3) CAD (coronary artery disease) (4) Cellulitis, scrotum (5) Chest pain (6) GERD (gastroesophageal reflux disease) (7) Hyperlipidemia (8) Tobacco user (9) Traumatic tear of right rotator cuff (10) Unstable angina Family History Patient reports no known family medical history. Social History Smoking Status: Current Every Day Smoker Alcohol Use: occasionally Drug Use: other Marital Status: Housing Status: lives with family Occupation Status: unemployed Current/Historical Medications Scheduled Acetaminophen (Tylenol), 325 MG PO UD Aspirin (Aspirin EC Low Dose), 81 MG PO QAM Atorvastatin (Lipitor), 80 MG PO QAM Furosemide (Lasix), 40 MG PO DAILY Glucosamine Sulfate (Glucosamine), 0 PO QAM Omeprazole (Prilosec), 40 MG PO QAM Potassium Chloride (Potassium Chloride Er), 1 CAP PO DAILY Sacubitril-Valsartan (Entresto 24-26 mg), 1 TAB PO DAILY Scheduled PRN Hydrocodone/Acetaminophen 10MG/325MG (Star 10MG/325MG), 1 TAB PO Q4HWA PRN for Pain Allergies Coded Allergies: Oxycodone (Verified Adverse Reaction, Intermediate, NAUSEA/VOMITING, ) PT REQUESTS NORCO -- PERCOCET MAKES HIM TOO SICK Physical Exam Vital Signs Date Time Temp Pulse Resp B/P (MAP) Pulse Ox O2 Delivery O2 Flow Rate FiO2 10/07/17 17:53 62 20 157/95 94 Room Air 10/07/17 16:54 81 20 151/89 95 Room Air 10/07/17 16:33 76 20 157/96 94 Room Air 10/07/17 16:30 97 Room Air 10/07/17 16:20 83 20 162/98 97 Room Air 10/07/17 16:14 83 10/07/17 15:31 89 20 167/119 97 Room Air Physical Exam The exam is very limited due to the patient's difficulty cooperating or understanding. Constitutional: Vital signs reviewed. Eyes: Pupils are equal round reactive to light. Conjunctiva are noninjected. ENT: Pharynx is clear without erythema or exudate. Mucous membranes are moist. Neck supple without meningeal signs. Respiratory: Clear to auscultation bilaterally. Breath sounds are equal bilaterally. Cardiovascular: Regular rate and rhythm. No rubs or gallops. GI: Soft, nondistended and nontender. Bowel sounds are present. Musculoskeletal: No peripheral edema. No lower extremity tenderness. Integumentary: No cyanosis. Neurological: The patient is awake and alert. Sensation is intact to light touch all extremities. He reports tingling throughout his limbs. No facial droop. Inconsistent motor examination. Sometimes he will lift his right and left arm. Sometimes he will drop them. Similar findings in the legs. Psychiatric: The patient is tearful and emotional. Medical Decision & Procedures ER Provider Diagnostic Interpretation: Radiology results as stated below per my review and the radiologist's interpretation: HEAD WITHOUT CONTRAST (CT) CT DOSE: 709.48 mGy.cm HISTORY: Mental status change Stroke TECHNIQUE: Multiaxial CT images of the head were performed without the use of intravenous contrast. A dose lowering technique was utilized adhering to the principles of ALARA. Comparison: 2008 Findings: Significant mucosal thickening of the nasal turbinates and inferior ethmoid sinuses. The remaining sinuses are considered clear. The calvarium and skull base are intact. The ventricles and sulci are within normal limits. There is no mass, hematoma, midline shift, or acute infarct. Impression: No acute intracranial abnormality. Mucosal thickening and/or polypoid change of the inferior ethmoid and nasal turbinate region. The above report was generated using voice recognition software. It may contain grammatical, syntax or spelling errors. Electronically signed by: Baltazar Venegas M.D. 10/07/2017 3:45 PM Dictated Date/Time: 10/07/2017 3:43 PM CHEST ONE VIEW PORTABLE CLINICAL HISTORY: Stroke mental status change COMPARISON STUDY: 05/31/2017 FINDINGS: The bones soft tissues and hemidiaphragms are normal. The cardiomediastinal silhouette is normal. The lungs are clear. The pulmonary vasculature is normal. IMPRESSION: Negative chest. The above report was generated using voice recognition software. It may contain grammatical, syntax or spelling errors. Electronically signed by: Baltazar Venegas M.D. 10/07/2017 3:55 PM Dictated Date/Time: 10/07/2017 3:[address] NECK ANGIO WITH CONTRAST CLINICAL HISTORY: Acute stroke. Mental status change. COMPARISON STUDY: No previous studies for comparison. TECHNIQUE: CT angiography was performed from the aortic arch to the skull base. MIP imaging was performed. The patient was scanned in a dynamic helical fashion during intravenous administration of 118 cc of Optiray 320. A dose lowering technique was utilized adhering to the principles of ALARA. CT DOSE: Technique: CT angiogram of the carotid and vertebral arteries was obtained using intravenous contrast and 3-D reconstruction. NASCET criteria was utilized. The patient and his arms during the injection and there was delayed opacification of the arterial system with venous contamination. Arterial opacification is limited. Findings: There are atheromatous changes present at the level of the right carotid bulb. There is a 35% diameter narrowing of the proximal right internal carotid artery. There is atherosclerotic calcification at the level of the right cavernous carotid. There is poor contrast opacification but a definitive hemodynamically significant stenosis is not identified. There are calcific atheromatous changes present at the level of the carotid bulb. There is no evidence of unilaterally significant carotid stenosis. There is no evidence of hemodynamically significant vertebral stenosis. There is no evidence of vertebral dissection. IMPRESSION: 1. Technically limited study with suboptimal arterial opacification 2. Moderate atheromatous changes at both carotid bulbs. No evidence of hemodynamically significant carotid artery stenosis. No evidence of hemodynamically significant vertebral artery stenosis. Electronically signed by: Jose Corral M.D. 10/07/2017 5:00 PM Dictated Date/Time: 10/07/2017 4:53 PM HEAD CTA HISTORY: Mental status change. Stroke symptoms. TECHNIQUE: Multiaxial CT images of the head were performed after the intravenous administration of contrast to evaluate the major cerebral vessels. Maximum intensity projection images were also obtained. A dose lowering technique was utilized adhering to the principles of ALARA. COMPARISON: Head CT 10/07/2017. FINDINGS: There is no mass, hematoma, midline shift, or acute infarct. Visualized intracranial internal carotid arteries, distal vertebral arteries, and basilar artery are widely patent. There is no significant stenosis or occlusion seen within the bilateral ACAs, MCAs, or college service officer. The major dural venous sinuses are patent. Mild to moderate calcified plaque within the bilateral carotid siphons. 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 IMPRESSION: 1. No significant stenosis or occlusion within the [place]. 2. 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 No intracranial hemorrhage identified. Electronically signed by: Dewayne Sheikh M.D. 10/07/2017 5:00 PM Dictated Date/Time: 10/07/2017 4:54 PM Laboratory Results 10/07/17 15:25 Red Blood Count 4.54, Mean Corpuscular Volume 87.4, Mean Corpuscular Hemoglobin 29.3, Mean Corpuscular Hemoglobin Concent 33.5, Mean Platelet Volume 9.4, Neutrophils (%) (Auto) 62.1, Lymphocytes (%) (Auto) 27.7, Monocytes (%) (Auto) 8.0, Eosinophils (%) (Auto) 1.5, Basophils (%) (Auto) 0.5, Neutrophils # (Auto) 6.42, Lymphocytes # (Auto) 2.86, Monocytes # (Auto) 0.83, Eosinophils # (Auto) 0.16, Basophils # (Auto) 0.05 10/07/17 15:25 Test 10/07/17 15:25 10/07/17 15:54 10/07/17 16:57 White Blood Count 10.34 K/uL (4.8-10.8) Red Blood Count 4.54 M/uL (4.7-6.1) Hemoglobin 13.3 g/dL (14.0-18.0) Hematocrit 39.7 % (42-52) Mean Corpuscular Volume 87.4 fL (80-100) Mean Corpuscular Hemoglobin 29.3 pg (25-34) Mean Corpuscular Hemoglobin Concent 33.5 g/dl (32-36) Platelet Count 258 K/uL (130-400) Mean Platelet Volume 9.4 fL (7.4-10.4) Neutrophils (%) (Auto) 62.1 % Lymphocytes (%) (Auto) 27.7 % Monocytes (%) (Auto) 8.0 % Eosinophils (%) (Auto) 1.5 % Basophils (%) (Auto) 0.5 % Neutrophils # (Auto) 6.42 K/uL (1.4-6.5) Lymphocytes # (Auto) 2.86 K/uL (1.2-3.4) Monocytes # (Auto) 0.83 K/uL (0.11-0.59) Eosinophils # (Auto) 0.16 K/uL (0-0.5) Basophils # (Auto) 0.05 K/uL (0-0.2) RDW Standard Deviation 51.1 fL (36.4-46.3) RDW Coefficient of Variation 16.0 % (11.5-14.5) Immature Granulocyte % (Auto) 0.2 % Immature Granulocyte # (Auto) 0.02 K/uL (0.00-0.02) Prothrombin Time 10.0 SECONDS (9.0-12.0) Prothromb Time International Ratio 1.0 (0.9-1.1) Activated Partial Thromboplast Time 26.6 SECONDS (21.0-31.0) Partial Thromboplastin Ratio 1.0 Estimated GFR () 88.8 Estimated GFR (Non- 76.7 BUN/Creatinine Ratio 19.6 (10-20) Calcium Level 8.8 mg/dl (8.5-10.1) Magnesium Level 2.3 mg/dl (1.8-2.4) Total Creatine Kinase 443 U/L (39-308) Creatine Kinase MB 3.2 ng/ml (0.5-3.6) Creatine Kinase MB Ratio 0.7 (0-3.0) Troponin I < 0.015 ng/ml (0-0.045) Bedside Hemoglobin 12.9 g/dl (14.0-18.0) Bedside Hematocrit 38 % (42-52) Bedside Sodium 135 mEq/L (135-144) Bedside Potassium 4.1 mEq/L (3.3-5.0) Bedside Chloride 98 mEq/L (101-112) Bedside Total CO2 26 mEq/l (24-31) Anion Gap 16.0 mmol/L (16-25) Bedside Blood Urea Nitrogen 21 mg/dl (7-18) Bedside Creatinine 1.1 mg/dl (0.6-1.3) Bedside Glucose (other) 108 mg/dl (70-99) Bedside Ionized Calcium (Carole) 1.12 mmol/l (1.12-1.32) Urine Opiates Screen NEG (NEG) Urine Methadone, Qualitative NEG (NEG) Urine Barbiturates NEG (NEG) Urine Phencyclidine (PCP) Level NEG (NEG) Ur Amphetamine/Methamphetamine POS (NEG) MDMA (Ecstasy) Screen NEG (NEG) Urine Benzodiazepines Screen NEG (NEG) Urine Cocaine Metabolite NEG (NEG) Urine Marijuana (THC) POS (NEG) Laboratory results as reviewed by me. Medications Administered Medications (Trade) Dose Ordered Sig/Karyn Route Start Time Stop Time Status Last Admin Dose Admin Sodium Chloride 1,000 ml @ 50 mls/hr Q20H IV 10/07/17 15:35 11/06/17 15:34 10/07/17 17:15 50 MLS/HR Aspirin (Aspirin Chew) 324 mg NOW STAT PO 10/07/17 16:37 10/07/17 16:39 DC 10/07/17 17:08 324 MG ECG Per My Interpretation Indication: weakness Rate (beats per minute): 80 Rhythm: normal sinus Findings: ST depression (V3-V6), T-wave inversion (V3-V6), other (No ST elevation or PVCs.) Comparison ECG Date: 06/02/17 Change: Pt had deep T-waves in the precordial leads with mild ST depression - His current EKG has significantly worsened. ED Course 152: The patient was evaluated in room B04. A complete history and physical exam was performed. At this time a STROKE alert was called, and the patient was transferred to B01. 1835: Ordered Sodium Chloride 1000 ml @ 50 mls/hr IV 1546: I discussed the patient's case with Dr. Torres, [facility]. He will evaluate the patient. He does not think the patient meets the criteria for IV tPA. He requested a CT angiogram of the patient's head and neck. 1548: I discussed the patient's case with his son who is now at bedside. He states he did not see the patient in the morning. He notes he first saw the patient after lunch time around 1:30PM. He reports the patient became unstable on his feet at this time, and he wanted to go to the ED. I discussed why the patient is not a tPA candidate. 1631: I reassessed the patient. His symptoms have resolved. He has an NIH stroke scale of 0. 1633: I spoke with Dr. Torres again. He recommended the patient be given a full dose of aspirin. 1637: Ordered Aspirin 324mg PO 1704: After reviewing the CT results, I contacted Dr. Torres again. The patient does not require immediate transfer because of the aneurysm. He states the patient should have an MRI/MRA performed. 1712: I reevaluated the patient and discussed the imaging results with him and his family. He denies a headache and neurological symptoms. The patient states he is claustrophobic, so he will be medicated prior to his MRI/MRA. He agrees with the treatment plan. 1715: I discussed the patient's case with Dr. Sanchez, [facility]ist. The patient will be evaluated for further management and care. 1719: Ordered Ativan 1mg IV Medical Decision This is a 56-year-old male who presents with neurologic symptoms. Differential diagnosis includes CVA, TIA, intracranial mass, intracranial hemorrhage, metabolic derangement, conversion disorder, Chana rai syndrome, myasthenia gravis. I did perform a limited focused review of portions of the patient's old chart on the electronic medical record. The patient was admitted in May for CHF. I did evaluate the patient as noted above. The patient is presenting with left- sided numbness and weakness which he states developed at approximately 9:30 AM this morning. During my examination he became very emotional and had difficulty answering questions as well as following commands. He is outside the window for IV TPA but I did call a stroke alert. IV access was established. The patient was placed on a continuous school bus monitor. I did order a CT of the head. I did review the images myself as well as the radiology report as described above. There is no evidence of CVA. I did order and personally review the patient's 12-lead EKG and chest x-ray as described above. I did order and review the patient's blood work as noted in the electronic medical record. I did have the [facility]ist evaluate the patient via telemedicine. During his evaluation patient his symptoms completely resolved and he had an NIH scale of 0. He recommended full dose aspirin and a CT angiogram. I did treat patient with 324 mg of aspirin. I did order CT angiogram of the head and neck. He does not have any signs of occlusion but he does have an 8 mm left-sided cerebral aneurysm. I did speak to the neurologist again. Given there is no evidence of bleeding there is no indication for emergent transfer. He did recommend an MRI of the brain for further evaluation. I did order an MRI of the brain and MRA. I did reassess the patient and he has no symptoms at this time. I did discuss the test results with the patient and his family. I did order Ativan 1 mg IV prior to his MRI due to his claustrophobia. I did discuss case with the hospitalist and special education case manager. Medication Reconcilliation Current Medication List: was personally reviewed by me Blood Pressure Screening Patient's blood pressure: Elevated blood pressure Blood pressure disposition: Referred to PCP Consults Time Called: 1541 Consulting Physician: Dr. Torres [facility] Returned Call: [phone] I discussed the patient's case with Dr. Torres [facility]. He will evaluate the patient. He does not think the patient meets the criteria for IV tPA. He requested a CT angiogram of the patient's head and neck. 1633: I spoke with Dr. Torres again. He recommended the patient be given a full dose of aspirin. 1704: After reviewing the CT results, I contacted Dr. Torres again. The patient does not require immediate transfer because of the aneurysm. He states the patient should have an MRI/MRA performed. Additional Consults: Time Called: 1713 Consulted Physician: Dr. Sanchez, [facility]ist Returned Call: [phone] Additional Comments: I discussed the patient's case with Dr. Sanchez [facility]. The patient will be evaluated for further management and care. Impression Primary Impression: Aphasia Additional Impressions: Left sided numbness Cerebral aneurysm Scribe Attestation The scribe's documentation has been prepared under my direct and personally reviewed by me in its entirety. I confirm that the note above accurately reflects all work, treatment, procedures, and medical decision making performed by me. Departure Information Dispostion Being Evaluated By Hospitalist Referrals Sofie Taylor M.D. (PCP) Patient Instructions My [facility] Stroke History Time Last Known Well 9:30AM Stroke t-PA Criteria Reviewed Does NOT meet criteria for t-PA Reason t-PA Not Given Treatment not indicated Problem Qualifiers
[2017-10-07] MEDS ORDERED: PHARMACIST DISCHARGE MED REC CONSULT PRN (18:30)
--- NOTE | 2017-10-07 19:09 | History and Physical ---
History & Physical Date & Time of Service: Oct 07, 2017 at 18:33 Chief Complaint: Left sided weakness Primary Care Physician: Sofie Taylor M.D. History of Present Illness This began at 1:30-2pm. 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 His son saw him and noticed something was wrong. Son was concerned and asked to bring him to the hospital. Patient was unable to walk and use his lower extremity. Son needed to help patient into the vehicle. Once patient arrived, he was confused and had left sided weakness. Stroke alert was called. ER discussed with neurology from [place]. Patient not a candidate for t-PA. Ordered cta head and neck and found an incidental finding of an anuerysm. Past Medical/Surgical History Medical Problems: (1) Acute electrocardiogram changes (2) Acute systolic CHF (congestive heart failure) (3) Benign hypertension (4) CAD (coronary artery disease) (5) Cellulitis of scrotum (6) Cellulitis, scrotum (7) Chest pain (8) CHF (congestive heart failure) (9) COPD with exacerbation (10) GERD (gastroesophageal reflux disease) (11) Hyperlipidemia (12) Intertrigo (13) New onset of congestive heart failure (14) Pedal edema (15) Right shoulder injury (16) Scrotal edema (17) Shortness of breath (18) Tobacco user (19) Traumatic tear of right rotator cuff (20) Unstable angina Family History Patient reports no known family medical history. Social History Smoking Status: Current Every Day Smoker Drug Use: other Marital Status: Housing status: lives with family Occupational Status: unemployed Immunizations History of Influenza Vaccine: Yes History of Tetanus Vaccine?: Unknown History of Pneumococcal: No History of Hepatitis B Vaccine: No Allergies Coded Allergies: Oxycodone (Verified Adverse Reaction, Intermediate, NAUSEA/VOMITING, ) PT REQUESTS NORCO -- PERCOCET MAKES HIM TOO SICK Home Medications Scheduled Acetaminophen (Tylenol), 325 MG PO UD Aspirin (Aspirin EC Low Dose), 81 MG PO QAM Atorvastatin (Lipitor), 80 MG PO QAM Furosemide (Lasix), 40 MG PO DAILY Glucosamine Sulfate (Glucosamine), 0 PO QAM Omeprazole (Prilosec), 40 MG PO QAM Potassium Chloride (Potassium Chloride Er), 1 CAP PO DAILY Sacubitril-Valsartan (Entresto 24-26 mg), 1 TAB PO DAILY Scheduled PRN Hydrocodone/Acetaminophen 10MG/325MG (Mineral 10MG/325MG), 1 TAB PO Q4HWA PRN for Pain Review of Systems Constitutional: No fever Eyes: No worsening of vision ENT: No hearing loss Respiratory: No cough Cardiovascular: No chest pain Abdomen: No pain Neurologic: No memory loss Endocrine: No fatigue Hematologic / Lymphatic: No abnormal bleeding/bruising Integumentary: No rash Allergic / Immunologic: No environmental allergies Physical Exam Vital Signs Date Time Temp Pulse Resp B/P (MAP) Pulse Ox O2 Delivery O2 Flow Rate FiO2 10/07/17 17:53 62 20 157/95 94 Room Air 10/07/17 16:54 81 20 151/89 95 Room Air 10/07/17 16:33 76 20 157/96 94 Room Air 10/07/17 16:30 97 Room Air 10/07/17 16:20 83 20 162/98 97 Room Air 10/07/17 16:14 83 10/07/17 15:31 89 20 167/119 97 Room Air General Appearance: WD/WN, no apparent distress Head: normocephalic Eyes: normal inspection ENT: normal ENT inspection Neck: supple, no adenopathy Respiratory/Chest: chest non-tender, lungs clear, normal breath sounds Cardiovascular: regular rate, rhythm, no edema Abdomen/GI: normal bowel sounds, non tender, soft Back: no muscle spasm Extremities/Musculoskelatal: normal inspection 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, no motor/sensory deficits, alert, normal mood/affect, oriented x 3 Skin: normal color Lymphatic: no adenopathy Diagnostics Laboratory Results Results Past 24 Hours Test 10/07/17 15:25 10/07/17 15:54 10/07/17 16:57 Range/Units White Blood Count 10.34 4.8-10.8 K/uL Red Blood Count 4.54 4.7-6.1 M/uL Hemoglobin 13.3 14.0-18.0 g/dL Hematocrit 39.7 42-52 % Mean Corpuscular Volume 87.4 80-100 fL Mean Corpuscular Hemoglobin 29.3 25-34 pg Mean Corpuscular Hemoglobin Concent 33.5 32-36 g/dl Platelet Count 258 130-400 K/uL Mean Platelet Volume 9.4 7.4-10.4 fL Neutrophils (%) (Auto) 62.1 % Lymphocytes (%) (Auto) 27.7 % Monocytes (%) (Auto) 8.0 % Eosinophils (%) (Auto) 1.5 % Basophils (%) (Auto) 0.5 % Neutrophils # (Auto) 6.42 1.4-6.5 K/uL Lymphocytes # (Auto) 2.86 1.2-3.4 K/uL Monocytes # (Auto) 0.83 0.11-0.59 K/uL Eosinophils # (Auto) 0.16 0-0.5 K/uL Basophils # (Auto) 0.05 0-0.2 K/uL RDW Standard Deviation 51.1 36.4-46.3 fL RDW Coefficient of Variation 16.0 11.5-14.5 % Immature Granulocyte % (Auto) 0.2 % Immature Granulocyte # (Auto) 0.02 0.00-0.02 K/uL Prothrombin Time 10.0 9.0-12.0 SECONDS Prothromb Time International Ratio 1.0 0.9-1.1 Activated Partial Thromboplast Time 26.6 21.0-31.0 SECONDS Partial Thromboplastin Ratio 1.0 Sodium Level 133 136-145 mmol/L Potassium Level 4.1 3.5-5.1 mmol/L Chloride Level 100 98-107 mmol/L Carbon Dioxide Level 26 21-32 mmol/L Anion Gap 7.0 16.0 16-25 mmol/L Blood Urea Nitrogen 21 7-18 mg/dl Creatinine 1.07 0.60-1.40 mg/dl Estimated GFR () 88.8 Estimated GFR (Non- 76.7 BUN/Creatinine Ratio 19.6 10-20 Random Glucose 111 70-99 mg/dl Calcium Level 8.8 8.5-10.1 mg/dl Magnesium Level 2.3 1.8-2.4 mg/dl Total Creatine Kinase 443 39-308 U/L Creatine Kinase MB 3.2 0.5-3.6 ng/ml Creatine Kinase MB Ratio 0.7 0-3.0 Troponin I < 0.015 0-0.045 ng/ml Bedside Hemoglobin 12.9 14.0-18.0 g/dl Bedside Hematocrit 38 42-52 % Bedside Sodium 135 135-144 mEq/L Bedside Potassium 4.1 3.3-5.0 mEq/L Bedside Chloride 98 101-112 mEq/L Bedside Total CO2 26 24-31 mEq/l Bedside Blood Urea Nitrogen 21 7-18 mg/dl Bedside Creatinine 1.1 0.6-1.3 mg/dl Bedside Glucose (other) 108 70-99 mg/dl Bedside Ionized Calcium (Carole) 1.12 1.12-1.32 mmol/l Urine Opiates Screen NEG NEG Urine Methadone, Qualitative NEG NEG Urine Barbiturates NEG NEG Urine Phencyclidine (PCP) Level NEG NEG Ur Amphetamine/Methamphetamine POS NEG MDMA (Ecstasy) Screen NEG NEG Urine Benzodiazepines Screen NEG NEG Urine Cocaine Metabolite NEG NEG Urine Marijuana (THC) POS NEG Diagnostic Radiology HEAD CTA HISTORY: Mental status change. Stroke symptoms. TECHNIQUE: Multiaxial CT images of the head were performed after the intravenous administration of contrast to evaluate the major cerebral vessels. Maximum intensity projection images were also obtained. A dose lowering technique was utilized adhering to the principles of ALARA. COMPARISON: Head CT 10/07/2017. FINDINGS: There is no mass, hematoma, midline shift, or acute infarct. Visualized intracranial internal carotid arteries, distal vertebral arteries, and basilar artery are widely patent. 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 The major dural venous sinuses are patent. Mild to moderate calcified plaque within the bilateral carotid siphons. 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 IMPRESSION: 1. No significant stenosis or occlusion within the [place] of [place]. 2. 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 No intracranial hemorrhage identified. CT NECK ANGIO WITH CONTRAST CLINICAL HISTORY: Acute stroke. Mental status change. COMPARISON STUDY: No previous studies for comparison. TECHNIQUE: CT angiography was performed from the aortic arch to the skull base. MIP imaging was performed. The patient was scanned in a dynamic helical fashion during intravenous administration of 118 cc of Optiray 320. A dose lowering technique was utilized adhering to the principles of ALARA. CT DOSE: Technique: CT angiogram of the carotid and vertebral arteries was obtained using intravenous contrast and 3-D reconstruction. NASCET criteria was utilized. The patient and his arms during the injection and there was delayed opacification of the arterial system with venous contamination. Arterial opacification is limited. Findings: There are atheromatous changes present at the level of the right carotid bulb. There is a 35% diameter narrowing of the proximal right internal carotid artery. There is atherosclerotic calcification at the level of the right cavernous carotid. There is poor contrast opacification but a definitive hemodynamically significant stenosis is not identified. There are calcific atheromatous changes present at the level of the carotid bulb. There is no evidence of unilaterally significant carotid stenosis. There is no evidence of hemodynamically significant vertebral stenosis. There is no evidence of vertebral dissection. IMPRESSION: 1. Technically limited study with suboptimal arterial opacification 2. Moderate atheromatous changes at both carotid bulbs. No evidence of hemodynamically significant carotid artery stenosis. No evidence of hemodynamically significant vertebral artery stenosis. EKG Normal sinus rhythm Premature atrial complexes ST & T wave abnormality, consider lateral ischemia Prolonged QT Abnormal ECG When compared with ECG of 02-JUN-2017 06:21, Aberrant conduction is no longer Present Nonspecific T wave abnormality has replaced inverted T waves in Inferior leads T wave inversion less evident in Anterior leads QT has shortened ... Impression Assessment and Plan Left sided weakness in a 56 yo male which resolved after a few hours. Likely a TIA. Admit to Telemetry. Consulted Neurology Obtained CTA of head and neck Found incidental aneurysm in the head on the ipsilateral side of the stroke. Aneurysm wouldn't cause these symptoms. will monitor his blood pressure. ABCD score for risk of ischemic stroke is: 5 Moderate risk: 4.1% Received Aspirin 324mg 2. HTN - Will resume home meds. 3. H/O systolic CHF : will continue home duiretic. continue entresto. 4. GERD - patient presently stable. -continue PPI 5. Tobacco Use-counseled extensively on smoking cessation, he declines Pharmacologic therapy for after discharge, but is contemplating quitting 6. Ppx - Heparin 5000 units TID for DVT ppx. Prilosec at home dose 7. Code - Cardio-resuscitation w/o intubation 8. Dispo - admit tele Advanced Directives Existing Advance Directive: No Existing Living Will: No Existing Health Care Proxy: No Resuscitation Status VTE Prophylaxis Will order VTE Prophylaxis: Yes
--- NOTE | 2017-10-07 19:35 | DIAGNOSTIC IMAGING REPORT ---
MRI OF THE BRAIN WITHOUT CONTRAST CLINICAL HISTORY: Weakness, dizziness, difficulty moving arms and legs. COMPARISON STUDY: Head CT dated 10/07/2017, and angiography dated 10/07/2017 FINDINGS: Sagittal T1, axial diffusion, proton density and T2 weighted axial, coronal FLAIR, and axial T1-weighted images were acquired. No intra or extra-axial mass lesions are visualized Axial diffusion-weighted images reveal no evidence of acute or subacute infarction. There is no evidence of ventricular dilatation. Proton density T2-weighted and FLAIR images reveal a few of increased T2 signal within the white matter, likely on a small vessel basis, and statistically not unusual for age. There is a 6 mm flow void at the level of the left MCA bifurcation consistent with an aneurysm. This aneurysm measured [address] angiography performed the same day. IMPRESSION: 1. No evidence of acute or subacute infarction 2. No evidence of intracranial mass on this noncontrast study 3. Left MCA bifurcation aneurysm. Electronically signed by: Jose Corral M.D. 10/07/2017 7:33 PM Dictated Date/Time: 10/07/2017 7:29 PM
--- NOTE | 2017-10-07 19:41 | DIAGNOSTIC IMAGING REPORT ---
MR ANGIOGRAPHY OF THE [place] OF [place] NO CONTRAST CLINICAL HISTORY: Middle cerebral artery aneurysm. Weakness, dizziness, arm and leg weakness. COMPARISON STUDY: CT angiography of the head dated 10/07/2017 A 3-D [id number] MR angiographic sequence of the [place] of [place] was performed. Both the source and projection images were reviewed. The study is compromised due to motion artifact. There is an 8.2 x 6.2 mm left MCA bifurcation aneurysm. There are no major intracranial branch occlusions. There is no evidence of major intracranial stenosis. IMPRESSION: 1. Technically limited study secondary to motion artifact 2. 8.2 x 6.2 mm left MCA bifurcation aneurysm Electronically signed by: Jose Corral M.D. 10/07/2017 7:39 PM Dictated Date/Time: 10/07/2017 7:35 PM
[2017-10-07 21:15] VITALS: BP 155/93; PULSE 93; TEMP 36.6; O2SAT 94; Ht 182.9 cm; Wt 101.4 kg
[2017-10-07 23:53] VITALS: BP 113/65; PULSE 63; TEMP 36.5; O2SAT 96
[2017-10-08 04:16] VITALS: BP 137/70; PULSE 72; TEMP 36.6; O2SAT 95
[2017-10-08 06:22] LABS: BASO % 0.4 %; BASO ABS # 0.03 K/uL (0-0.2); EOS % 1.6 %; EOS ABS # 0.14 K/uL (0-0.5); HEMATOCRIT 40.6 % (42-52); HEMOGLOBIN 13.2 g/dL (14.0-18.0); IG# 0.02 K/uL (0.00-0.02); LYMPH % 24.9 %; LYMPH ABS # 2.13 K/uL (1.2-3.4); MEAN CELL VOLUME 88.1 fL (80-100); MEAN CORPUSCULAR HEMOGLOBIN 28.6 pg (25-34); MEAN CORPUSCULAR HGB CONC 32.5 g/dl (32-36); MEAN PLATELET VOLUME 9.6 fL (7.4-10.4); MONO % 7.5 %; MONO ABS # 0.64 K/uL (0.11-0.59); NEUT % 65.4 %; NEUT ABS # 5.58 K/uL (1.4-6.5); PLATELET COUNT 232 K/uL (130-400); RED CELL DISTRIBUTION WIDTH CV 16.2 % (11.5-14.5); RED CELL DISTRIBUTION WIDTH SD 52.4 fL (36.4-46.3); WHITE BLOOD COUNT 8.54 K/uL (4.8-10.8)
[2017-10-08 06:32] LABS: HEMOGLOBIN A1C 5.8 % (4.5-5.6)
[2017-10-08 07:01] LABS: CALCIUM 8.2 mg/dl (8.5-10.1); CREATININE 0.92 mg/dl (0.60-1.40); POTASSIUM 3.7 mmol/L (3.5-5.1)
[2017-10-08 07:20] VITALS: BP 148/79; PULSE 67; TEMP 36.6; O2SAT 96
[2017-10-08] MEDS ORDERED: SACUBITRIL-VALSARTAN 24-26 MG TAB PO SCH (09:00)
[2017-10-08] MEDS ORDERED: ASPIRIN 81 MG ECTAB PO SCH (09:00)
[2017-10-08] MEDS ORDERED: PANTOprazole SOD 40 MG TAB PO SCH (09:00)
[2017-10-08] MEDS ORDERED: POTASSIUM CHLORIDE 10 MEQ TABCR PO SCH (09:00)
[2017-10-08] MEDS ORDERED: FUROSEMIDE 40 MG TAB PO SCH (09:00)
[2017-10-08] MEDS ORDERED: ATORVASTATIN 40 MG TAB PO SCH (09:00)
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
[2017-10-08 11:57] VITALS: BP 136/74; PULSE 78; TEMP 36.4; O2SAT 99
--- NOTE | 2017-10-08 12:27 | Discharge Instructions ---
Discharge Instructions Date of Service Oct 08, 2017. Admission Reason for Admission: Left Sided Numbness Discharge Discharge Diagnosis / Problem: transient neurologic deficits Discharge Goals Goal(s): Diagnostic testing, Therapeutic intervention Activity Recommendations Activity Limitations: resume your previous activity . Instructions / Follow-Up Instructions / Follow-Up Risk Factors for Stroke: You can reduce your chances of stroke by working with your medical provider to adopt a healthy lifestyle. Some specific ways to lower your chance of stroke are: * If you are a smoker, now is the time to stop smoking cigarettes * If you are diabetic, improve the control of your blood sugars * Avoid excessive amounts of alcohol * Control high blood pressure * Lose weight if you are overweight * Be sure to lead an active lifestyle * Eat a healthy diet low in salt, cholesterol and fat You should know about other risk factors for stroke that you are unable to control. These include: * Age 55 years or older * Male gender * Certain racial groups: , or / * Family History of Stroke, Mini stroke or Heart Attack * Sickle Cell Disease Follow Up: It is important for you to keep your follow up appointments with your medical provider. Current Hospital Diet Patient's current hospital diet: AHA Diet (Heart Healthy) Discharge Diet Recommended Diet: AHA Diet (Heart Healthy) Pending Studies Studies pending at discharge: no Laboratory Results Hemoglobin A1c Test 10/07/17 15:25 Range/Units Estimated Average Glucose 120 mg/dl Hemoglobin A1c 5.8 H 4.5-5.6 % Lipid Panel Test 10/08/17 05:55 Range/Units Triglycerides Level 162 H 0-150 mg/dl Cholesterol Level 133 0-200 mg/dl HDL Cholesterol 46 mg/dl Cholesterol/HDL Ratio 2.9 LDL Cholesterol, Calculated 55 mg/dl Medical Emergencies . Who to Call and When: Medical Emergencies: Call 911 immediately if you experience any of the following warning signs and symptoms of Stroke: * Sudden numbness or weakness of the face, arm or leg, especially on one side of the body * Sudden confusion, trouble speaking or understanding * Sudden trouble seeing in one or both eyes * Sudden trouble walking, dizziness, loss of balance or coordination * Sudden severe headache with no cause Do not delay calling 911 if you experience any warning signs or symptoms of a stroke. Delay in seeking medical attention may affect what treatments can be given to you. . Non-Emergent Contact Non-Emergency issues call your: Primary Care Provider . . "Provider Documentation" section prepared by Aron Scherer. . Stroke Core Measures Reason no t-PA for Stroke: Treatment not indicated Reason no antithrom by day 2: Treatment provided - N/A Reason no antithrom at D/C: Treatment provided - N/A Reason no statin at D/C: Treatment not indicated Reason no anticoag w/a fib: Treatment not indicated
[2017-10-08 12:29] VITALS: BP 136/74; PULSE 78; TEMP 36.4; O2SAT 99
--- NOTE | 2017-10-08 19:23 | Discharge Summary ---
Discharge Summary Date of Service Oct 08, 2017. Discharge Summary Admission Date: Oct 07, 2017 at 19:53 Discharge Date: Oct 08, 2017 Discharge Disposition: Home Principal Diagnosis: Paresthesias Problems/Secondary Diagnoses: Hypertension, congestive heart failure, CAD, dyslipidemia, [place], on disability Immunizations: Have You Had Influenza Vaccine: Yes History of Tetanus Vaccine?: Unknown History of Pneumococcal: No History of Hepatitis B Vaccine: No Consultations: Neurology-Dr. Fong continue blood pressure control, can schedule outpatient neurosurgery for further management options regarding his aneurysm. Medication Reconciliation Continued Medications: Acetaminophen (Tylenol) 325 Mg Tab 325 MG PO UD Aspirin (Aspirin EC Low Dose) 81 Mg Ectab 81 MG PO QAM for 30 Days, #30 TAB Atorvastatin (Lipitor) 40 Mg Tab 80 MG PO QAM for 30 Days, #60 TAB Furosemide (Lasix) 40 Mg Tab 40 MG PO DAILY, TAB Glucosamine Sulfate (Glucosamine) 1,000 Mg Tab 0 PO QAM Hydrocodone/Acetaminophen 10MG/325MG (Brock 10MG/325MG) Tab 1 TAB PO Q4HWA PRN for Pain, #60 TAB PRN PAIN Omeprazole (Prilosec) 40 Mg Cap 40 MG PO QAM Potassium Chloride (Potassium Chloride Er) 10 Meq Cap 1 CAP PO DAILY, #30 CAP 0 Refills Sacubitril-Valsartan (Entresto 24-26 mg) 1 Tab Tab 1 TAB PO DAILY Discharge Exam Patient denies any paresthesias on day of discharge. Symptoms have resolved. 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 Discussed with attending that the symptoms likely due to this. ROS See HPI for pertinent positives and negatives. Otherwise denies new headache, vision change, chest pain, dyspnea, abdominal pain, loose or bloody stools, dysuria, or numbness tingling in extremities. GENERAL: Awake, alert, well-appearing, in no distress HENT: Normocephalic, atraumatic. EYES: Normal conjunctiva. Sclera non-icteric. RESPIRATORY: on room air ABDOMEN: Non-distended. LOWER EXTREMITIES: No edema. No discoloration. NEURO: No motor deficits noted. SKIN: No rash or jaundice noted. Hospital Course Mr. Barraza is a 56-year-old male who presented to the emergency room with complaints of left-sided numbness and weakness beginning that morning at 9:30 AM. It began while he was sitting in his workshop he said, with numbness in his left shoulder which spread throughout his arm. This numbness then started to travel over his right side particularly to his right hand. He also reported subjective confusion and trouble communicating. Vitals were stable. No facial droop was noted in the emergency room. Neurologically intact, awake and alert. CT of the head showed mucosal thickening in his ethmoid region. Chest x-ray was negative. CT of the neck showed no evidence of hemodynamically significant vertebral artery stenosis or curetted artery stenosis. Head CTA showed no significant stenosis or occlusion in the [place] of [place], however there was an incidental finding of 8X6 millimeter aneurysm within the left MCA bifurcation, no intracranial hemorrhage identified. CBC and BMP were unremarkable. Troponin was negative, urine drug screen was positive for methamphetamine and marijuana THC. EKG revealed normal sinus rhythm however with ST depression in leads V3 through V6. Patient was evaluated per the stroke protocol, but did not meet criteria for TPA. Symptoms resolved in the emergency room, but was kept overnight for further management. Seen by Dr. Fong neurology following morning. Per Dr. Fong's assessment, patient needs to continue good blood pressure control, and can schedule outpatient with neurosurgery regarding options for his aneurysm. He does not believe the aneurysm is causing his symptoms. Per discussion with the attending, patient admitted to an instance of drug use prior to admission. They discussed that this could explain his symptoms. Resident Physician Supervision Note: I interviewed and examined the patient. Discussed with Dr. Patricia of resident and agree with findings and plan as documented in the note. Any exceptions or clarifications are listed here: None Documented By: Aron Scherer feeling better discussed smoke cessation at length discussed taking asa stable no current sx vitals noted nad breathing unlabored no pallor or icterus no focal neuro deficits transient nonspecific neuro deficits -resolved. stable for home, otherwise as above Total Time Spent: Less than 30 minutes This includes examination of the patient, discharge planning, medication reconciliation, and communication with other providers. Discharge Instructions Please refer to the electronic Patient Visit Report (Discharge Instructions) for additional information. Additional Copies To Sofie Taylor M.D. Resident Tracking Resident Involvement: Resident Care Provided Care Provided: [facility]
== END 2017-10-08 12:58 | disposition home or self-care (01) | DRG 92 ==
LOC: C.EDB 15:18 → C.2T 19:53 → ENRESERV 20:25
PROVIDERS: ADMIT Internal Medicine Sports Medicine; ATTEND Family Medicine
DX: R20.2 Paresthesia of skin (principal); I50.20 Unspecified systolic (congestive) heart failure; R53.1 Weakness; R47.89 Other speech disturbances; I11.0 Hypertensive heart disease with heart failure; K21.9 Gastro-esophageal reflux disease without esophagitis; E78.5 Hyperlipidemia, unspecified; F17.200 Nicotine dependence, unspecified, uncomplicated; I67.1 Cerebral aneurysm, nonruptured; I25.10 Atherosclerotic heart disease of native coronary artery without angina pectoris; J44.9 Chronic obstructive pulmonary disease, unspecified; R29.700 NIHSS score 0; Z82.49 Family history of ischemic heart disease and other diseases of the circulatory system

== ENCOUNTER 2017-10-28 22:40 | Emergency (ER) | payer OTHER ==
[~2017-10-28] VITALS: Ht 181.6 cm; Wt 107.5 kg
[~2017-10-28 22:40] MED LIST changes: +FRS/40 PO; -LISI-730 PO; +SACU1TAB PO; -TPRSR50 PO
[2017-10-28 22:43] VITALS: TEMP 36.5; Ht 181.6 cm; Wt 107.5 kg
[2017-10-28] MEDS ORDERED: CEFTRIAXONE SOD INJ 1 GM ADDVIAL IV STA (23:40)
[2017-10-29 00:09] LABS: BASO % 0.3 %; BASO ABS # 0.04 K/uL (0-0.2); EOS % 1.1 %; EOS ABS # 0.16 K/uL (0-0.5); HEMATOCRIT 39.8 % (42-52); HEMOGLOBIN 12.7 g/dL (14.0-18.0); IG# 0.05 K/uL (0.00-0.02); LYMPH % 18.6 %; LYMPH ABS # 2.68 K/uL (1.2-3.4); MEAN CELL VOLUME 89.6 fL (80-100); MEAN CORPUSCULAR HEMOGLOBIN 28.6 pg (25-34); MEAN CORPUSCULAR HGB CONC 31.9 g/dl (32-36); MEAN PLATELET VOLUME 10.1 fL (7.4-10.4); MONO % 8.8 %; MONO ABS # 1.27 K/uL (0.11-0.59); NEUT % 70.9 %; NEUT ABS # 10.21 K/uL (1.4-6.5); PLATELET COUNT 297 K/uL (130-400); RED CELL DISTRIBUTION WIDTH CV 15.7 % (11.5-14.5); RED CELL DISTRIBUTION WIDTH SD 51.8 fL (36.4-46.3); WHITE BLOOD COUNT 14.41 K/uL (4.8-10.8)
[2017-10-29 00:29] LABS: CALCIUM 8.6 mg/dl (8.5-10.1); CREATININE 1.22 mg/dl (0.60-1.40); POTASSIUM 3.7 mmol/L (3.5-5.1)
[2017-10-29] MEDS ORDERED: KETOROLAC TROMETHAMINE 30 MG/ML VIAL IV STA (00:53)
[2017-10-29] MEDS ORDERED: CEPHALEXIN 500MG HOME PACK 1 EA BTL PO ONE (02:30)
[2017-10-29] MEDS ORDERED: CEPH500C2 PO (02:32)
--- NOTE | 2017-10-29 02:38 | EMERGENCY ROOM VISIT NOTE ---
ED Visit Note First contact with patient: 23:17 Patient seen and examined at bedside after discussion with the physician inside sales assistant. Patient stated he understood results and plan for additional antibiotic, Keflex, at this time. Did discuss with patient close follow-up, symptoms to watch and return for, he verbalized understanding was agreeable with plan. Patient well-appearing here, I do not suspect bacteremia/sepsis, no evidence of ascending lymphangitis, no evidence of septic arthritis, compartment syndrome, or occult trauma.
[2017-10-29 02:42] VITALS: BP 152/87; PULSE 68; O2SAT 94
--- NOTE | 2017-10-29 06:19 | EMERGENCY ROOM VISIT NOTE ---
History First contact with patient: 23:17 Chief Complaint: WOUND INFECTION Stated Complaint: PAIN SWELLING,PUSS,INFECTION RIGHT FOREARM Nursing Triage Summary: pt c/o wound/infection to right posterior forearm. states "it just started as a little spot 3 days ago, it wasn't like this." reports he saw his pcp today and had wound outlined, reports concern that reddness is coming outside of outline tonight. wound/abscess to right posterior forearm, some clear drainage noted, reddness minimally outside the outline History of Present Illness The patient is a 57 year old male who presents to the Emergency Room with complaints of right forearm pain and swelling that has gotten progressively worse for the past few days has been placed on Bactrim by the family care doctor. Patient states something bit him. Tetanus is current. Patient denies fevers, numbness, tingling, chest pain, dyspnea, nausea, vomiting, localized weakness. No other concerns per patient. Review of Systems An 10 system review of systems was completed with positives and pertinent negatives listed in the HPI. Past Medical/Surgical History Medical Problems: (1) Acute systolic CHF (congestive heart failure) (2) Benign hypertension (3) CAD (coronary artery disease) (4) Cellulitis, scrotum (5) Chest pain (6) GERD (gastroesophageal reflux disease) (7) Hyperlipidemia (8) Tobacco user (9) Traumatic tear of right rotator cuff (10) Unstable angina Family History Patient reports no known family medical history. Social History Smoking Status: Current Every Day Smoker Alcohol Use: occasionally Drug Use: other Marital Status: Housing Status: lives with family Occupation Status: unemployed Current/Historical Medications Scheduled Acetaminophen (Tylenol), 325 MG PO UD Aspirin (Aspirin EC Low Dose), 81 MG PO QAM Atorvastatin (Lipitor), 80 MG PO QAM Cephalexin Monohydrate (Keflex), 500 MG PO QID Furosemide (Lasix), 40 MG PO DAILY Glucosamine Sulfate (Glucosamine), 0 PO QAM Omeprazole (Prilosec), 40 MG PO QAM Potassium Chloride (Potassium Chloride Er), 1 CAP PO DAILY Sacubitril-Valsartan (Entresto 24-26 mg), 1 TAB PO DAILY Scheduled PRN Hydrocodone/Acetaminophen 10MG/325MG (Marvell 10MG/325MG), 1 TAB PO Q4HWA PRN for Pain Physical Exam Vital Signs Date Time Temp Pulse Resp B/P (MAP) Pulse Ox O2 Delivery O2 Flow Rate FiO2 10/29/17 02:42 68 18 152/87 94 10/29/17 00:43 71 18 163/100 95 Room Air 10/28/17 22:43 36.5 97 18 160/101 94 Room Air Physical Exam VITALS: Vitals are noted on the nurse's note and reviewed by myself. Vital signs hypertensive GENERAL: White male, in no acute distress, nondiaphoretic, well-developed well- nourished. SKIN: Right forearm with insect bite with surrounding cellulitis 6 cm x 4 cm without palpable abscess or lymphangitis. The rest of the skin was without rashes, erythema, edema, or bruising. There is no tenting of the skin. Capillary reflex less than 2 seconds. HEAD: Normocephalic atraumatic. EARS: External auditory canals clear, tympanic membranes pearly karimi without erythema or effusion bilaterally. EYES: Pupils equal round and reactive to light and accommodation. Conjunctivae without injection, sclerae without icterus. Extraocular movements intact. NOSE: Patent, turbinates without inflammation or discharge. No sinus tenderness. MOUTH: Mucous membranes moist. Pharynx without erythema or exudate. Uvula midline. Airway patent. Tongue does not deviate. NECK: Supple without nuchal rigidity. No lymphadenopathy. No thyromegaly. Cervical spine is nontender. No JVD. HEART: Regular rate and rhythm LUNGS: Clear to auscultation bilaterally without wheezes, rales or rhonchi. No retractions or accessory muscle use. ABDOMEN: Positive bowel sounds x 4. Normal tympanic percussion. Soft, nontender, without masses or organomegaly. Lou sign negative. No guarding or rebound tenderness. No CVA tenderness MUSCULOSKELETAL: No muscle atrophy, erythema, or edema noted. NEURO: Patient was alert and oriented to person place and time. Normal sensation to light and sharp touch. No focal neurological deficits. Medical Decision & Procedures Laboratory Results 10/28/17 23:45 Red Blood Count 4.44, Mean Corpuscular Volume 89.6, Mean Corpuscular Hemoglobin 28.6, Mean Corpuscular Hemoglobin Concent 31.9, Mean Platelet Volume 10.1, Neutrophils (%) (Auto) 70.9, Lymphocytes (%) (Auto) 18.6, Monocytes (%) (Auto) 8.8, Eosinophils (%) (Auto) 1.1, Basophils (%) (Auto) 0.3, Neutrophils # (Auto) 10.21, Lymphocytes # (Auto) 2.68, Monocytes # (Auto) 1.27, Eosinophils # (Auto) 0.16, Basophils # (Auto) 0.04 10/28/17 23:45 Test 10/28/17 23:45 White Blood Count 14.41 K/uL (4.8-10.8) Red Blood Count 4.44 M/uL (4.7-6.1) Hemoglobin 12.7 g/dL (14.0-18.0) Hematocrit 39.8 % (42-52) Mean Corpuscular Volume 89.6 fL (80-100) Mean Corpuscular Hemoglobin 28.6 pg (25-34) Mean Corpuscular Hemoglobin Concent 31.9 g/dl (32-36) Platelet Count 297 K/uL (130-400) Mean Platelet Volume 10.1 fL (7.4-10.4) Neutrophils (%) (Auto) 70.9 % Lymphocytes (%) (Auto) 18.6 % Monocytes (%) (Auto) 8.8 % Eosinophils (%) (Auto) 1.1 % Basophils (%) (Auto) 0.3 % Neutrophils # (Auto) 10.21 K/uL (1.4-6.5) Lymphocytes # (Auto) 2.68 K/uL (1.2-3.4) Monocytes # (Auto) 1.27 K/uL (0.11-0.59) Eosinophils # (Auto) 0.16 K/uL (0-0.5) Basophils # (Auto) 0.04 K/uL (0-0.2) RDW Standard Deviation 51.8 fL (36.4-46.3) RDW Coefficient of Variation 15.7 % (11.5-14.5) Immature Granulocyte % (Auto) 0.3 % Immature Granulocyte # (Auto) 0.05 K/uL (0.00-0.02) Anion Gap 7.0 mmol/L (3-11) Est Creatinine Clear Calc Drug Dose 83.0 ml/min Estimated GFR () 75.3 Estimated GFR (Non- 64.9 BUN/Creatinine Ratio 12.2 (10-20) Calcium Level 8.6 mg/dl (8.5-10.1) Medications Administered Medications (Trade) Dose Ordered Sig/Karyn Route Start Time Stop Time Status Last Admin Dose Admin Ceftriaxone Sodium (Rocephin Inj) 1 gm NOW STAT IV 10/28/17 23:40 10/28/17 23:43 DC 10/28/17 23:55 1 GM Ketorolac Tromethamine (Toradol Inj) 10 mg NOW STAT IV 10/29/17 00:53 10/29/17 00:54 DC 10/29/17 01:01 10 MG Cephalexin Monohydrate (Keflex 500MG Home Pack) 1 homepack NOW ONCE PO 10/29/17 02:30 10/29/17 02:31 DC 10/29/17 02:38 1 HOMEPACK ED Course Prior records reviewed and summarized as above. Triage Nursing notes reviewed. Additional history obtained from family. The patient's history was concerning for swelling and redness of the skin. Differential diagnosis: Etiologies such as cellulitis, abscess, MRSA infection, DVT, necrotizing fasciitis, dermatitis, drug eruption, as well as others were entertained.. Physical examination: The physical examination was consistent with cellulitis with possible developing abscess ER treatment provided: Rocephin, home pack Keflex On reassessment the patient felt better. Diagnostics interpreted by me: The labs revealed mild leukocytosis, mild anemia. Mild hyperglycemia without DKA Imaging studies: US EXTREMITY: 1.3 x 0.7 x 1.2 cm subcutaneous lesion in the region of interest to the medial right forearm. This is hypoechoic and hypovascular. Would favor phlegmon. I do not see clearly see the floating debris typical of a drainable abscess, but aspiration could be attempted if warranted. Radiologist: Sid Patino M.D. This appears to be cellulitis. Patient was placed on Keflex and advised to continue his Bactrim for better strep coverage. He was advised to follow-up family care in 2 days for wound recheck or here in the ER sooner for spreading infection, fevers, worsening signs or symptoms or as needed. Patient had no palpable abscess. No signs of lymphangitis. He was afebrile and nontoxic. By the evaluation outlined above emergent etiologies such as abscess, necrotizing fasciitis, DVT, as well as others were deemed relatively unlikely. The pt informed about the findings as listed above. All questions were answered and pleased with the treatment. Return instructions were outlined and the patient was discharged in stable condition. Outpatient prescription management: Keflex Referral: The patient was referred back to primary care physician for follow-up in 2 to 3 days for a recheck of the current condition. Case reviewed with my attending The chart was completed utilizing [employer] Speech voice recognition software. Grammatical errors, random word insertions, pronoun errors, and incomplete sentences are an occassional consequence of this system due to software limitations, ambient noise, and hardware issues. Any formal questions or concerns about the content, text, or information contained within the body of this dictation should be directly addressed to the physician stonecutter assistant for clarification. Medical Decision As above Blood Pressure Screening Patient's blood pressure: Elevated blood pressure Blood pressure disposition: Elevated BP felt to be situational Impression Primary Impression: Right arm cellulitis Departure Information Dispostion Home / Self-Care Condition GOOD Prescriptions Cephalexin Monohydrate (KEFLEX) 500 Mg Cap 500 MG PO QID for 9 Days, #36 CAP Prov: Lani Jefferson .LEAH 10/29/17 Forms WORK / SCHOOL INSTRUCTIONS, HOME CARE DOCUMENTATION FORM, IMPORTANT VISIT INFORMATION Patient Instructions Cellulitis - [facility], [facility] Additional Instructions Cephalexin(Keflex) 500mg: Take one pill four times daily for 10 days for your skin infection. All antibiotics can cause diarrhea. If this occurs and you feel worse or it does not resolve in 1-2 days follow up with your doctor or return to the Emergency Department as this could be signs of serious underlying problems. Any medication can cause an allergic reaction, stop the pills immediately and return to the ER for rash, hives, breathing difficulties, or swelling. Trimethoprim-Sulfamethoxazole(Bactrim DS): Take one pill twice daily for 10 days for your skin infection. All antibiotics can cause diarrhea. If this occurs and you feel worse or it does not resolve in 1-2 days follow up with your doctor or return to the Emergency Department as this could be signs of serious underlying problems. Any medication can cause an allergic reaction, stop the pills immediately and return to the ER for rash, hives, breathing difficulties, or swelling. Bacitracin and bandage until the area heals. Ibuprofen(Motrin, Advil) may be used for fever or pain. Use 600mg every six hours as needed. Take with food. Avoid using more than 2400mg in a 24 hour period. Do not use 2400mg per day for more than three consecutive days without physician direction. Prolonged inappropriate use can lead to stomach upset or ulcers. (AND/OR) Acetaminophen(Tylenol) may be used for fever or pain. Use 1000mg every six hours as needed. Avoid using more than 4000mg in a 24 hour period. Warm compresses to the affected area 4 times daily for 15-20 minutes. Rest and drink plenty of fluids. Continue current medications. Return to the ER for severe pain, persistent fevers, spreading redness, or any worsening of your condition. Follow up with your primary physician within 2-3 days for a recheck of the current condition.
--- NOTE | 2017-10-29 08:17 | DIAGNOSTIC IMAGING REPORT ---
R EXTREMITY NONVASCULAR LIMITED CLINICAL HISTORY: 57 years-old Male presenting with right FA infx, ? abcess. TECHNIQUE: Real-time grayscale ultrasound imaging of the right upper extremity was performed for a focused evaluation at the site of clinical concern. Color Doppler ultrasound imaging was also performed. COMPARISON: None. FINDINGS: In the mid right forearm along the medial aspect of the site of clinical concern, there is focal soft tissue swelling with hyperemia surrounding an irregular 1.3 x 1.3 x 0.7 cm avascular hypoechoic collection. This is centered in the subcutaneous fat. Surrounding hyperechogenicity and thickening of the subcutaneous fat. There is an adjacent traversing vessel, which is patent on color Doppler. IMPRESSION: 1. Findings consistent with 1.3 cm phlegmon/early abscess in the subcutaneous tissue at the site of clinical concern. Electronically signed by: Lucio Huynh M.D. 10/29/2017 8:16 AM Dictated Date/Time: 10/29/2017 6:55 AM
== END 2017-10-29 02:42 | disposition home or self-care (01) ==
LOC: C.EDB 22:41 → C.EDA 10-29 02:42
DX: L03.113 Cellulitis of right upper limb (principal); S50.861A Insect bite (nonvenomous) of right forearm, initial encounter; W57.XXXA Bitten or stung by nonvenomous insect and other nonvenomous arthropods, initial encounter; I50.20 Unspecified systolic (congestive) heart failure; I11.0 Hypertensive heart disease with heart failure; D64.9 Anemia, unspecified; R73.9 Hyperglycemia, unspecified; I25.10 Atherosclerotic heart disease of native coronary artery without angina pectoris; K21.9 Gastro-esophageal reflux disease without esophagitis; E78.5 Hyperlipidemia, unspecified; F17.210 Nicotine dependence, cigarettes, uncomplicated; Z79.82 Long term (current) use of aspirin; Z79.899 Other long term (current) drug therapy

== ENCOUNTER 2019-06-15 12:28 | Inpatient (IN) ==
[2019-06-15] MEDS ORDERED: NITROGLYCERIN SL 0.4 MG/TAB TAB SL PRN (14:13)
[2019-06-15] MEDS ORDERED: ACETAMINOPHEN 325 MG TAB PO PRN (14:13)
[2019-06-15] MEDS: FUROSEMIDE 40 MG in SYRINGE 0 ML IV SCH ×2 (15:42→21:07)
[2019-06-15] MEDS ORDERED: ENOXAPARIN INJ 40 MG/0.4 ML SYR SQ SCH (16:00)
--- NOTE | 2019-06-15 16:01 | XCELERA ---
[id number] \\[id number]\[id number]_[id number]___[id number]
[2019-06-15] MEDS ORDERED: ATORVASTATIN 40 MG TAB PO SCH (21:00)
[2019-06-15] MEDS: METOPROLOL SUCC 50MG EXT REL TAB PO SCH (21:07)
[2019-06-16 07:26] LABS: Creatinine Clr Calc Pharmacy 91.9 ml/min; Est GFR (African American) 86.6; Est GFR (Non-African American) 74.7; Potassium 3.9 mmol/L (3.5-5.1)
[2019-06-16] MEDS: FUROSEMIDE 40 MG in SYRINGE 0 ML IV SCH (08:14)
[2019-06-16] MEDS ORDERED: PANTOprazole 40 MG TAB PO SCH (09:00)
[2019-06-16] MEDS: METOPROLOL SUCC 50MG EXT REL TAB PO SCH (09:44)
--- NOTE | 2019-06-16 09:44 | Cardiology Progress Note ---
Date of Service June 16, 2019 Assessment & Plan (1) Acute systolic CHF (congestive heart failure): His congestive heart failure is significantly improved with intravenous diuresis. He is very reluctant to stay in the hospital and with dramatic improvement and feeling well I think it is acceptable for him to go today. I want to see the results of his morning Lasix and I will plan on discharging him early afternoon and he is going to arrange a ride. I am going to send him home on Lasix 80 mg daily which may be too much if he can curtail his fluid intake which I discussed with him at length. (2) Cardiomyopathy: He has a severe cardiomyopathy now, this is a third time he has had a decrease in left ventricular dysfunction with discontinuation of medications. Typically when this happens we lose some ground and I do not know if he will be able to normalize his ejection fraction again. He is doing surprisingly well with it so I suspect it is somewhat longstanding rather than acute. I doubt it is ischemic, I suspect it is nonischemic as before. I did discuss at length with him the need for taking his medications, it seems that he is willing to do so but we will need to closely monitor him. I also talked to his by telephone and she understands and has been encouraging him to take his medications, but he has not been recently due to side effects of impotence. He seems willing to do it now. I am going to switch his metoprolol to carvedilol and have him take his lisinopril which was prescribed several days ago. (3) CAD (coronary artery disease): He has coronary artery disease, his troponins were negative emergency room and yesterday. His electrocardiogram is abnormal but not changed. I do not think we need further evaluation. (4) Hypertension: His blood pressure is good today on his current dose of beta-blockade. Part of his initial hypertension was probably anxiety and high catecholamines. Now on beta-blockade his pressure is good, we need to watch for hypotension is I am going to restart his lisinopril and switch to carvedilol. Admission and Anticipated Discharge Date Admission Date: June 15, 2019 Subjective He is feeling much better today. He tells me he has diuresed a great deal. He is not short of breath lying flat, his main complaint is about breakfast. He is not short of breath visually but he is not been terribly active. Physical Exam Physical Exam: Constitutional: Alert, cooperative and in no respiratory distress. HEENT: Unremarkable Neck: No jugular venous distention, carotid pulses are normal and equal bilaterally without bruits. Pulmonary: Slight bibasilar crackles, no wheezing bilaterally. Cardiac: Regular rhythm with no murmur, gallop or rub. Abdomen: Soft, nontender with normal bowel sounds. Extremities: Trace bilateral edema. Distal pulses intact. Neurologic: No focal findings. Gait was not tested. Skin: No rash, ecchymoses or petechiae. Results & Data ([facility]) Vital Signs (Past 12 Hours) Vital Signs Temp Pulse Pulse Resp BP Pulse Ox 06/16/19 07:35 68 06/16/19 07:00 36.8 C 74 18 137/83 95 06/16/19 04:00 36.7 C 69 20 105/62 92 06/15/19 23:35 36.8 C 77 18 109/67 92 Laboratory Results Cardiac Enzymes 06/15/19 Range/Units 14:28 Troponin I < 0.015 (0-0.045) ng/ml Comprehensive Metabolic Panel 06/16/19 Range/Units 06:43 Sodium 137 (136-145) mmol/L Potassium 3.9 D (3.5-5.1) mmol/L Chloride 103 (98-107) mmol/L Carbon Dioxide 28 (21-32) mmol/L Creatinine 1.08 (0.6-1.4) mg/dl Intake and Output 06/15/19 06/16/19 06/16/19 22:59 06:59 14:59 Intake Total 1650 / 1650 Output Total 450 / 2200 1750 / 2200 Balance -450 / -550 -100 / -550 Intake: Oral 1650 / 1650 Output: Urine 450 / 2200 1750 / 2200 Other: Weight 104.2 kg Diagnostic Findings ECG: This shows T wave inversion and QT prolongation, this is consistent with what was observed in the emergency room several days ago. No significant change. Telemetry: Sinus rhythm, PACs, one brief run of PAT. No ventricular ectopy. Echocardiogram: Severe left ventricular dysfunction with ejection fraction of 20 to 25% PG Care Time/CCT Total # of Minutes Spent Total Time Spent with Patient: Total time spent is greater than 50% in coordination of care (as documented) at patient's floor/unit and/or counseling p atient: Coding Level of Care Code 94091 Subseq Hosp Care Lvl 3 Diagnoses Acute systolic CHF (congestive heart failure) I50.21 Cardiomyopathy I42.9 CAD (coronary artery disease) I25.10 Hypertension I10
--- NOTE | 2019-06-16 14:41 | Electrocardiogram Report ---
Test Reason : Blood Pressure : / mmHG Vent. Rate : 075 BPM Atrial Rate : 075 BPM P-R Int : 150 ms QRS Dur : 102 ms QT Int : 430 ms P-R-T Axes : 037 -33 232 degrees QTc Int : 480 ms Normal sinus rhythm Left axis deviation T wave abnormality, consider lateral ischemia Prolonged QT Abnormal ECG When compared with ECG of 14-JUN-2019 13:59, No significant change was found Confirmed by Cristopher Davis ([id number]) on 06/16/2019 2:41:12 PM Referred By: Robert Farrar Confirmed By:Cristopher Davis
--- NOTE | 2019-06-16 14:49 | Electrocardiogram Report ---
Test Reason : Blood Pressure : / mmHG Vent. Rate : 065 BPM Atrial Rate : 065 BPM P-R Int : 152 ms QRS Dur : 098 ms QT Int : 462 ms P-R-T Axes : 024 069 229 degrees QTc Int : 480 ms Normal sinus rhythm Prolonged QT Abnormal ECG When compared with ECG of 15-JUN-2019 14:44, (unconfirmed) QRS axis Shifted right T wave inversion more evident in Anterior leads Confirmed by Cristopher Davis ([id number]) on 06/16/2019 2:49:29 PM Referred By: Robert Farrar Confirmed By:Cristopher Davis
--- NOTE | 2019-06-27 07:45 | Discharge Summary ---
Date of Service June 15, 2019 Admission HPI Per Admitting Provider This is a 58-year-old gentleman who has a history of cardiomyopathy identified in 2009, at that time he had catheterization (June 11, 2009) with nonobstructive coronary artery disease. He had improvement in his left ve ntricular function with normalization on March 10, 2016. His medications were gradually discontinued or he stopped them and he developed increasing chest discomfort and shortness of breath and presented in heart failure on May 31, 2017. His ejection fraction by echo showed a moderately dilated left ventricle with an ejection fraction of 35 to 40%. He had new anterior T wave inversions and repeat catheterization on June 02, 2017 once again showed nonobstructive coronary artery disease. He was diuresed and placed back on his medications. His shortness of breath worsened and he presented to his PCP on June 13, 2019 and apparently had not been taking his medications. They were restarted but he presented to the emergency room yesterday on June 14, 2019. He was found to be in congestive heart failure with no other abnormality identified (chest x-ray showing only pulmonary congestion, troponin negative x1, BNP elevated) and he was giving Lasix 40 mg intravenously in the emergency room. His was not allowed back, nor is she allowed to be with him in the hospital, due to the coronavirus precautions and therefore he left AGAINST MEDICAL ADVICE. He tells me that he urinated 5 times after that intravenous dose of Lasix, he also had a breathing treatment in the emergency room and evidently felt better last night. Today however he feels similar to what he did yesterday. He therefore came in to the office for an office visit. He has continued to smoke, although he is trying to quit. He does not know his medications today, I do not know if he is taking them currently. He tells me that he has been taking Lasix 80 mg daily for at least a few days, he also drinks a lot of fluid. He tells me that he drinks a gallon of iced tea per day, when asked why he drinks so much he tells me that he likes ice tea. He describes chest discomfort which is a chest tightness which he was having yesterday as well and seems to be related to his shortness of breath, I do not think it is anginal. He has exertional shortness of breath but was able to walk into the office. He had been having orthopnea although he slept last evening. He definitely feels better sitting up now. Admission Exam Per Admitting Provider Constitutional: Alert, cooperative and in moderate respiratory distress. HEENT: Unremarkable Neck: No jugular venous distention, carotid pulses are normal and equal bilaterally without bruits. Pulmonary: Slight bibasilar crackles, no wheezing bilaterally. Cardiac: Regular rhythm with no murmur, gallop or rub. Abdomen: Soft, nontender with normal bowel sounds. Extremities: +2 edema although the skin is tense. Distal pulses intact. Neurologic: No focal findings. Gait is steady although he is short of breath. Skin: No rash, ecchymoses or petechiae Principal Diagnosis Congestive heart failure Discharge Exam Constitutional: Alert, cooperative and in no respiratory distress. HEENT: Unremarkable Neck: No jugular venous distention, carotid pulses are normal and equal bilaterally without bruits. Pulmonary: Slight bibasilar crackles, no wheezing bilaterally. Cardiac: Regular rhythm with no murmur, gallop or rub. Abdomen: Soft, nontender with normal bowel sounds. Extremities: Trace bilateral edema. Distal pulses intact. Neurologic: No focal findings. Gait was not tested. Skin: No rash, ecchymoses or petechiae. Discharge Data Allergies Allergy/AdvReac Type Severity Reaction Status Date / Time No Known Allergies Allergy Unverified 06/15/19 11:13 Hospital Course (1) Acute systolic CHF (congestive heart failure): His congestive heart failure is significantly improved with intravenous diuresis. He is very reluctant to stay in the hospital and with dramatic improvement and feeling well I think it is acceptable for him to go today. I want to see the results of his morning Lasix and I will plan on discharging him early afternoon and he is going to arrange a ride. I am going to send him home on Lasix 80 mg daily which may be too much if he can curtail his fluid intake which I discussed with him at length. (2) Cardiomyopathy: He has a severe cardiomyopathy now, this is a third time he has had a decrease in left ventricular dysfunction with discontinuation of medications. Typically when this happens we lose some ground and I do not know if he will be able to normalize his ejection fraction again. He is doing surprisingly well with it so I suspect it is somewhat longstanding rather than acute. I doubt it is ischemic, I suspect it is nonischemic as before. I did discuss at length with him the need for taking his medications, it seems that he is willing to do so but we will need to closely monitor him. I also talked to his by telephone and she understands and has been encouraging him to take his medications, but he has not been recently due to side effects of impotence. He seems willing to do it now. I am going to switch his metoprolol to carvedilol and have him take his lisinopril which was prescribed several days ago. (3) CAD (coronary artery disease): He has coronary artery disease, his troponins were negative emergency room and yesterday. His electrocardiogram is abnormal but not changed. I do not think we need further evaluation. (4) Hypertension: His blood pressure is good today on his current dose of beta-blockade. Part of his initial hypertension was probably anxiety and high catecholamines. Now on beta-blockade his pressure is good, we need to watch for hypotension is I am going to restart his lisinopril and switch to carvedilol. Total Time Total Time Spent Total Time Spent (In Minutes): 20 Discharge Plan Discharge Items Patient Disposition: Home - Self-Care Reason For Visit: CHF Discharge Diagnosis: Congestive heart failure due to cardiomyopathy Activity: Resume your previous activity Bathing: No limitations Sexual Activity: When tolerated Driving/Machine Use: No limitations Non-emergency contact: Primary Care Provider Call non-emergency contact if: you have any medication questions Follow-up/Referrals: Sofie Taylor MD [Primary Care Provider] - (DR NG OFFICE WILL CALL YOU WITH A FOLLOW UP APT.) Diet: Heart Healthy Fluids: 1500ml (6 cups) Addtl Attending Provider Instructions: Monitor weight, weigh yourself daily and record the results so we can review. If possible also check blood pressure daily and record those results. Pending Studies at Discharge: No Stand-Alone Forms: My [facility], Smoking Cessation Medications and DC Order Prescriptions: New carvedilol 12.5 mg tablet 12.5 mg PO BID Qty: 60 RF: 11 furosemide [Lasix] 40 mg tablet 80 mg PO DAILY Qty: 60 RF: 11 Continued atorvastatin 80 mg tablet 80 mg PO QPM Qty: 90 RF: 0 omeprazole 40 mg capsule,delayed release(DR/EC) 40 mg PO DAILY Qty: 90 RF: 0 lisinopril 20 mg tablet 20 mg PO QAM Qty: 30 RF: 3 Discontinued furosemide 40 mg tablet 40 mg PO QAM Qty: 135 RF: 1 metoprolol succinate 50 mg tablet extended release 24 hr 50 mg PO BID Qty: 60 RF: 3 sildenafil 50 mg tablet 50 mg PO DAILY PRN (Reason: sexual activity) Qty: 10 RF: 8 Discharge Orders: Discharge Order (Routine); Ordered 06/16/19 Ordered By: Robert De Oliveira/Other Patient Handouts: Heart Failure Making Changes to Your Diet, Carvedilol tablets, Furosemide tablets Admission Data Admit Date/Time: 06/15/19 13:27 Attending Provider: Robert Farrar Admit Provider: Robert Farrar Primary Care Provider: Sofie Taylor Other Interventions: Discharge Summary Assessment (RN) Last Done: 06/16/19 11:25 DC Date/Time DO NOT enter until pt leaves facility: 06/16/19 13:03 Coding Level of Care Code 80883 OBS Care - Discharge Diagnoses Acute systolic CHF (congestive heart failure) I50.21 Cardiomyopathy I42.9 CAD (coronary artery disease) I25.10 Hypertension I10 Time Spent (min) 20
== END 2019-06-16 13:03 | disposition home or self-care (01) | DRG 291 ==
LOC: 2S 13:27

== ENCOUNTER 2021-03-13 16:45 | Inpatient (IN) ==
[2021-03-13] MEDS ORDERED: dexAMETHasone**PF** 10 MG/ML VIAL IV ONE (16:49)
--- NOTE | 2021-03-13 17:00 | XRay Report ---
XR chest 1V portable CLINICAL HISTORY: Dyspnea. COMPARISON STUDY: 06/14/2019 TECHNIQUE: 1 view of the chest FINDINGS: Single frontal view of the chest demonstrates the heart to again be enlarged. There is a decreased in spiratory effort with elevation of the hemidiaphragms and crowding of the bronchovascular markings at the lung bases and centrally. The lungs are clear of alveolar opacities. There is no evidence for pl eural effusion. There is no evidence for vascular congestion. There is no acute osseous pathology. IMPRESSION: There is a decreased inspiratory effort with otherwise no acute chest disease. ACT 112: Negative or not required by law. Electronically signed by: Joe Basilio M.D. 03/13/2021 4:58 PM
[2021-03-13 17:13] LABS: Hematocrit (blood only) 31.4 % (42-52); Hemoglobin 9.3 g/dL (14.0-18.0); Mean Corpuscular Hemoglobin 22.6 pg (25-34); Mean Corpuscular Hgb Conc 29.6 g/dL (32-36); Mean Corpuscular Volume 76.4 fL (80-100); Mean Platelet Volume 9.1 fL (7.4-10.4); Platelet Count 337 K/uL (130-400); RDW Coefficient of Variation 17.8 % (11.5-14.5); RDW Standard Deviation 50.3 fL (36.4-46.3); Red Blood Count 4.11 M/uL (4.7-6.1); White Blood Count 8.51 K/uL (4.8-10.8)
--- NOTE | 2021-03-13 17:18 | Emergency Department Note ---
Impression & Plan COVID-19, Hypoxia, Anemia ED Provider Note NAME: JAMIE SWAN AGE: 60 SEX: M : 1960 ARRIVES VIA: Ambulance INFORMANT: Patient, ED PROVIDER(S): Cristopher Dale DO CHIEF COMPLAINT: Shortness of breath HPI: The patient is a 60-year-old male who presented to the emergency department for an evaluation of difficulty breathing. The patient's significant other was diagnosed with COVID-19 recently. He started having symptoms approximately 3 days ago. The patient denies having any nausea or vomiting. He describes a cough which is productive. The patient denies having any hemoptysis. He denies having any lower extremity swelling greater than usual but does have some orthopnea. The patient states his symptoms are worsened with exertion. He is not currently vaccinated against COVID-19. The patient is not seen his family doctor for the symptoms recently. He does have a history of tobacco use. He was treated with a bronchodilator therapy prior to arrival. ROS: See above HPI for pertinent positives & negatives. A total of 10 systems reviewed and were otherwise negative. PAST MEDICAL HISTORY: See Below PAST SURGICAL HISTORY: See Below FAMILY HISTORY: See Below SOCIAL HISTORY: See Below HOME MEDICATIONS: See Below ALLERGIES: See Below VITALS: See Below PHYSICAL EXAMINATION: GENERAL: Patient is awake alert in no acute distress patient is resting comfortably and showing no signs of anxiety EYES: The conjunctivae are clear. The pupils are round and reactive. EARS, NOSE, MOUTH AND THROAT: The nose is without any evidence of any deformity. NECK: The neck is nontender and supple. RESPIRATORY: Diminished breath sounds are noted throughout. There was mild conversational dyspnea. CARDIOVASCULAR: Ectopy was noted to auscultation. There was no definite murmur. GASTROINTESTINAL: The abdomen is soft. Abdomen is nontender. MUSCULOSKELETAL/EXTREMITIES: There is no evidence of gross deformity full range of motion is noted in the hips and shoulders. SKIN: Pedal edema was noted bilaterally. Skin was warm and dry. NEUROLOGIC: Patient is awake alert and oriented x3 MEDICAL DECISION MAKING: The patient is a 60-year-old male who presented to the emergency department for an evaluation of difficulty breathing. The patient was tachypneic. His oxygen saturation was low. The patient does not have chronic oxygen use at home. He states his significant other was recently diagnosed with COVID-19. The patient was also found to have anemia. He denies having any black or bloody bowel movements but is refusing rectal exam at this time. I discussed the patient's laboratory and radiographic studies with him. Given his oxygen requirements I discussed his case with the on-call [facility] hospitalist. They have agreed to evaluate the patient in the emergency department for further management and disposition. Triage Nursing notes reviewed. Prior medical records reviewed Vital Signs: reviewed and remarkable for no significant abnormalities Differential diagnosis: Reactive airway disease, pneumonia, pneumothorax, COPD, CHF, infections, cardiac ischemia, pulmonary embolism, musculoskeletal, gastrointestinal, as well as other pathologies. ER treatment provided: See below Diagnostics interpreted by me: ECG: EKG was obtained in the emergency department. My interpretation is sinus rhythm at 93 bpm. PACs were noted. Lateral ST depressions were noted. This was compared to a tracing from June 152019. No specific changes were noted. Cardiac Monitoring: An order was placed for continuous cardiac monitoring. The monitor shows a rate of 80 bpm with sinus rhythm. Laboratory studies: As stated above and show below. Imaging studies: See below Consultation(s): The case was discussed with the on-call [facility] hospitalist. Past Med/Surg History Medical History Benign hypertension (06/26/12) CAD (coronary artery disease) CHF (congestive heart failure) GERD (gastroesophageal reflux disease) HTN (hypertension) Hyperlipidemia Osteoarthritis Tobacco user (06/26/12) Surgical History History of colonoscopy History of elbow surgery Repair of ulnar nonunion, left History of total knee arthroplasty Family History Brother Heart disease Denies family history of Ovarian cancer Prostate cancer Myocardial infarction Breast cancer Colorectal cancer Social History Smoking Status: Current every day smoker Tobacco Type: Cigarettes packs per day: 1; Cigarettes Per Day: 4 - 6 cigerettes a day; Second Hand Exposure: No; Hx Alcohol Use: No Hx Substance Use: No Preferred Language: Arabic Communication Ability: Effective Hearing Ability: Hard of Hearing 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: No Beliefs That Will Affect Care: None marital status: Current Living Situation: Spouse current occupational status: disabled How many Children do You have: 0 Feels Safe at Home: Yes Childhood Exposure to Second-Hand Smoke: No caffeine: Yes Dental Care, Regularly: No Physical Activity Frequency: Does not Exercise Seatbelt Use: sometimes Sunscreen Use: No Assistive Devices: None Allergies Allergies Allergy/AdvReac Type Severity Reaction Status Date / Time No Known Allergies Allergy Unverified 03/13/21 17:03 Home Meds Previous Rx's Medication Instructions Recorded lisinopril 20 mg tablet 20 mg PO QAM #90 tab 04/22/20 atorvastatin 80 mg tablet 80 mg PO QPM #90 tab 07/15/20 gabapentin 300 mg capsule 300 mg PO BID #60 cap 12/27/20 carvedilol 12.5 mg tablet 12.5 mg PO BID #60 tab 01/13/21 furosemide 40 mg tablet (Lasix) 80 mg PO DAILY #60 tab 01/13/21 omeprazole 40 mg capsule,delayed 40 mg PO DAILY #90 cap 02/24/21 release Results & Data (ED) Vital Signs Vital Signs - 24 hr 03/13/21 16:49 03/13/21 17:25 03/13/21 18:13 Temperature 36.9 C Temperature Source Oral Pulse Rate 83 81 Pulse Rate [Apical] 73 Respiratory Rate 30 H 44 H 30 H Blood Pressure 155/85 H Blood Pressure [Right Arm] 126/63 Blood Pressure Mean 108 Blood Pressure Mean [Right Arm] 84 Pulse Oximetry 87 L 91 94 Oxygen Delivery Method Room Air Nasal Cannula Oxygen Flow Rate 2 Sepsis Recent Fever Within 48 Hours No Sepsis New/Unexplained Change in Mental Status No Sepsis Action Taken by Nursing No Action Required Oxygen Flow Rate - Titration 4 Pulse Oximetry Post Tiitration 93 03/13/21 19:33 Temperature Temperature Source Pulse Rate Pulse Rate [Apical] 80 Respiratory Rate 20 Blood Pressure Blood Pressure [Right Arm] 166/92 H Blood Pressure Mean Blood Pressure Mean [Right Arm] 116 Pulse Oximetry 92 Oxygen Delivery Method Nasal Cannula Oxygen Flow Rate 6 Sepsis Recent Fever Within 48 Hours Sepsis New/Unexplained Change in Mental Status Sepsis Action Taken by Nursing Oxygen Flow Rate - Titration Pulse Oximetry Post Tiitration Home Medications Current Medication List: was personally reviewed by me Laboratory Data Attestation: I reviewed the patient's lab results. Result diagrams: 03/13/21 17:00 03/13/21 17:00 Lab Results 03/13/21 03/13/21 03/13/21 Range/Units 17:00 17:00 17:00 WBC 8.51 (4.8-10.8) K/uL RBC 4.11 L (4.7-6.1) M/uL Hgb 9.3 L (14.0-18.0) g/dL Hct 31.4 L (42-52) % MCV 76.4 L (80-100) fL MCH 22.6 L (25-34) pg MCHC 29.6 L (32-36) g/dL RDW Std Deviation 50.3 H (36.4-46.3) fL RDW Coeff of Alex 17.8 H (11.5-14.5) % Plt Count 337 (130-400) K/uL MPV 9.1 (7.4-10.4) fL Immature Gran % (Auto) 0.5 % Neut % (Auto) 75.8 % Lymph % (Auto) 12.3 % [place] % (Auto) 10.1 % Eos % (Auto) 1.1 % Baso % (Auto) 0.2 % Neut # (Auto) 6.45 (1.4-6.5) K/uL Lymph # (Auto) 1.05 L (1.2-3.4) K/uL [place] # (Auto) 0.86 H (0.11-0.59) K/uL Eos # (Auto) 0.09 (0-0.5) K/uL Baso # (Auto) 0.02 (0-0.2) K/uL Immature Gran # (Auto) 0.04 H (0.00-0.02) K/uL Polychromasia 1+ Hypochromasia Present PT 10.6 (9.0-12.0) Seconds INR 1.0 (0.9-1.1) APTT 33.2 H (21.0-31.0) Seconds PTT Ratio 1.3 VBG pH (7.36-7.41) VBG pCO2 (38-50) mmHg VBG pO2 mmHg VBG HCO3 mmol/L VBG O2 Saturation % VBG Base Excess mEq/L Barometric Pressure mm/Hg Sodium 133 L (136-145) mmol/L Potassium 3.7 (3.5-5.1) mmol/L Chloride 102 (98-107) mmol/L Carbon Dioxide 26 (21-32) mmol/L Anion Gap 5.0 (3-11) BUN 11 (7-18) mg/dl Creatinine 0.90 (0.6-1.4) mg/dl Est Cr Clr Drug Dosing 111.5 ml/min Est GFR ( Amer) 106.5 ml/min Est GFR (Non-Af Amer) 91.9 ml/min BUN/Creatinine Ratio 12.0 (10-20) Glucose 111 H (70-99) mg/dl Calcium 8.7 (8.5-10.1) mg/dl Magnesium 2.1 (1.8-2.4) mg/dl Total Bilirubin 0.3 (0.2-1) mg/dl AST 26 (15-37) U/L ALT 35 (12-78) Alkaline Phosphatase 110 (45-117) U/L Troponin I < 0.015 (0-0.045) ng/ml NT-Pro-B Natriuret Pep 400 (0-900) pg/ml Total Protein 8.1 (6.4-8.2) gm/dl Albumin 2.9 L (3.4-5.0) gm/dl Globulin 5.2 H (2.5-4.0) gm/dl Albumin/Globulin Ratio 0.6 L (0.9-2) Urine Color Urine Appearance (Clear) Urine pH (4.5-7.5) Ur Specific [place] (1.000-1.030) Urine Protein (Negative) Urine Glucose (UA) (Negative) Urine Ketones (Negative) Urine Blood (Negative) Urine Nitrite (Negative) Urine Bilirubin (Negative) Urine Urobilinogen (Negative) Ur Leukocyte Esterase (Negative) Urine WBC (Auto) (0-5) /hpf Urine RBC (Auto) (0-4) /hpf U Hyaline Cast (Auto) (0-5) /lpf U Epithel Cells (Auto) (0-5) /lpf Urine Bacteria (Auto) (Negative) SARS-CoV-2 (PCR) (Negative) Influenza Type A (PCR) (Neg) Influenza Type B (PCR) (Neg) RSV (RT-PCR) (Neg) 03/13/21 03/13/21 03/13/21 Range/Units 17:26 17:40 19:09 WBC (4.8-10.8) K/uL RBC (4.7-6.1) M/uL Hgb (14.0-18.0) g/dL Hct (42-52) % MCV (80-100) fL MCH (25-34) pg MCHC (32-36) g/dL RDW Std Deviation (36.4-46.3) fL RDW Coeff of Alex (11.5-14.5) % Plt Count (130-400) K/uL MPV (7.4-10.4) fL Immature Gran % (Auto) % Neut % (Auto) % Lymph % (Auto) % [place] % (Auto) % Eos % (Auto) % Baso % (Auto) % Neut # (Auto) (1.4-6.5) K/uL Lymph # (Auto) (1.2-3.4) K/uL [place] # (Auto) (0.11-0.59) K/uL Eos # (Auto) (0-0.5) K/uL Baso # (Auto) (0-0.2) K/uL Immature Gran # (Auto) (0.00-0.02) K/uL Polychromasia Hypochromasia PT (9.0-12.0) Seconds INR (0.9-1.1) APTT (21.0-31.0) Seconds PTT Ratio VBG pH 7.44 H (7.36-7.41) VBG pCO2 39 (38-50) mmHg VBG pO2 47 mmHg VBG HCO3 26 mmol/L VBG O2 Saturation 80.7 % VBG Base Excess 1.9 mEq/L Barometric Pressure 728.5 mm/Hg Sodium (136-145) mmol/L Potassium (3.5-5.1) mmol/L Chloride (98-107) mmol/L Carbon Dioxide (21-32) mmol/L Anion Gap (3-11) BUN (7-18) mg/dl Creatinine (0.6-1.4) mg/dl Est Cr Clr Drug Dosing ml/min Est GFR ( Amer) ml/min Est GFR (Non-Af Amer) ml/min BUN/Creatinine Ratio (10-20) Glucose (70-99) mg/dl Calcium (8.5-10.1) mg/dl Magnesium (1.8-2.4) mg/dl Total Bilirubin (0.2-1) mg/dl AST (15-37) U/L ALT (12-78) Alkaline Phosphatase (45-117) U/L Troponin I (0-0.045) ng/ml NT-Pro-B Natriuret Pep (0-900) pg/ml Total Protein (6.4-8.2) gm/dl Albumin (3.4-5.0) gm/dl Globulin (2.5-4.0) gm/dl Albumin/Globulin Ratio (0.9-2) Urine Color Yellow Urine Appearance Clear (Clear) Urine pH 6.0 (4.5-7.5) Ur Specific [place] 1.022 (1.000-1.030) Urine Protein 1+ H (Negative) Urine Glucose (UA) Negative (Negative) Urine Ketones Negative (Negative) Urine Blood Negative (Negative) Urine Nitrite Negative (Negative) Urine Bilirubin Negative (Negative) Urine Urobilinogen Negative (Negative) Ur Leukocyte Esterase Negative (Negative) Urine WBC (Auto) 1-5 (0-5) /hpf Urine RBC (Auto) 0-4 (0-4) /hpf U Hyaline Cast (Auto) 1-5 (0-5) /lpf U Epithel Cells (Auto) 10-20 H (0-5) /lpf Urine Bacteria (Auto) Negative (Negative) SARS-CoV-2 (PCR) POSITIVE A* (Negative) Influenza Type A (PCR) Negative (Neg) Influenza Type B (PCR) Negative (Neg) RSV (RT-PCR) Negative (Neg) Administered Medications Discontinued Medications Dexamethasone Sodium Phosphate (DexamethasonePf 10 Mg/Ml Vial) 10 mg IV NOW ONE Stop: 03/13/21 16:50 Last Admin: 03/13/21 17:24 Dose: 10 mg Documented by: [id number] Imaging Data Radiologist's Impression: Chest X-Ray 03/13/21 16:49 XR chest 1V portable CLINICAL HISTORY: Dyspnea. COMPARISON STUDY: 06/14/2019 TECHNIQUE: 1 view of the chest FINDINGS: Single frontal view of the chest demonstrates the heart to again be enlarged. There is a decreased inspiratory effort with elevation of the hemidiaphragms and crowding of the bronchovascular markings at the lung bases and centrally. The lungs are clear of alveolar opacities. There is no evidence for pleural effusion. There is no evidence for vascular congestion. There is no acute osseous pathology. IMPRESSION: There is a decreased inspiratory effort with otherwise no acute chest disease. ACT 112: Negative or not required by law. Electronically signed by: Joe Basilio M.D. 03/13/2021 4:58 PM Discharge Plan Visit Data Chief Complaint: Shortness of Breath/Dyspnea Stated Complaint: SOB ED Provider: Cristopher Dale Discharge Problem: COVID-19, Hypoxia, Anemia Patient Disposition: Being Evaluated by Hospitalist Forms Stand Alone Forms: My [facility] Prescriptions Prescriptions: No Action lisinopril 20 mg tablet 20 mg PO QAM Qty: 90 RF: 3 atorvastatin 80 mg tablet 80 mg PO QPM Qty: 90 RF: 3 carvedilol 12.5 mg tablet 12.5 mg PO BID Qty: 60 RF: 11 furosemide [Lasix] 40 mg tablet 80 mg PO DAILY Qty: 60 RF: 11 omeprazole 40 mg capsule,delayed release(DR/EC) 40 mg PO DAILY Qty: 90 RF: 1 gabapentin 300 mg capsule 300 mg PO BID Qty: 60 RF: 2 Referrals Referrals: Sofie Taylor MD [Primary Care Provider] -
[2021-03-13 17:32] LABS: Partial Thromboplastin Ratio 1.3; Partial Thromboplastin Time 33.2 Seconds (21.0-31.0); Prothrombin Time 10.6 Seconds (9.0-12.0)
[2021-03-13 17:34] LABS: Alanine Aminotransferase 35 (12-78); Albumin Level 2.9 gm/dl (3.4-5.0); Aspartate Aminotransferase 26 U/L (15-37); Blood Urea Nitrogen 11 mg/dl (7-18); Calcium 8.7 mg/dl (8.5-10.1); Carbon Dioxide 26 mmol/L (21-32); Chloride 102 mmol/L (98-107); Creatinine Clr Calc Pharmacy 111.5 ml/min; Est GFR (African American) 106.5 ml/min; Est GFR (Non-African American) 91.9 ml/min; Glucose 111 mg/dl (70-99); Magnesium 2.1 mg/dl (1.8-2.4); Potassium 3.7 mmol/L (3.5-5.1); Sodium 133 mmol/L (136-145)
[2021-03-13 17:38] LABS: Basophils # (auto) 0.02 K/uL (0-0.2); Basophils % (auto) 0.2 %; Eosinophils # (auto) 0.09 K/uL (0-0.5); Eosinophils % (auto) 1.1 %; Hypochromasia Present; Immature Granulocytes # (auto) 0.04 K/uL (0.00-0.02); Immature Granulocytes % (auto) 0.5 %; Lymphocytes # (auto) 1.05 K/uL (1.2-3.4); Lymphocytes % (auto) 12.3 %; Monocytes # (auto) 0.86 K/uL (0.11-0.59); Monocytes % (auto) 10.1 %; Neutrophils # (auto) 6.45 K/uL (1.4-6.5); Neutrophils % (auto) 75.8 %; Polychromasia 1+
[2021-03-13 17:39] LABS: Albumin Globulin Ratio 0.6 (0.9-2); Alkaline Phosphatase 110 U/L (45-117); Bilirubin,Total 0.3 mg/dl (0.2-1); Globulin 5.2 gm/dl (2.5-4.0); NT Pro B Type Natriuretic Pept 400 pg/ml (0-900); Total Protein 8.1 gm/dl (6.4-8.2); Troponin I < 0.015 ng/ml (0-0.045)
[2021-03-13 17:57] LABS: Base Excess VBG 1.9 mEq/L; Oxygen Saturation VBG 80.7 %; pH VBG 7.44 (7.36-7.41)
[2021-03-13 18:10] LABS: Influenza A virus by PCR Negative (Neg); Influenza B virus by PCR Negative (Neg); RSV by PCR Negative (Neg)
[2021-03-13 18:16] LABS: SARS CoV2 RNA(COVID-19) InHosp POSITIVE (Negative)
[2021-03-13 19:24] LABS: Appearance Urine Clear (Clear); Bacteria Urine Automated Negative (Negative); Bilirubin Urine Negative (Negative); Blood Urine Negative (Negative); Color Urine Yellow; Glucose Urine UA Negative (Negative); Ketones Urine Negative (Negative); Leukocyte Esterase Urine Negative (Negative); Nitrite Urine Negative (Negative); Protein Urine 1+ (Negative); RBC Urine Automated 0-4 /hpf (0-4); Specific Gravity Urine 1.022 (1.000-1.030); Urobilinogen Urine Negative (Negative)
[2021-03-13] MEDS ORDERED: REMDESIVIR 200 MG in SODIUM CHLORIDE 0.9% 210 ML IV STA (20:07)
--- NOTE | 2021-03-13 20:08 | History & Physical Report ---
Date of Service March 13, 2021 Assessment & Plan (1) Pneumonia due to COVID-19 virus: Plan: COVID-19 pneumonia with hypoxia- Dexamethasone 6 mg IV every morning Remdesivir IV per protocol Duonebs every 4 hours while awake and every 2 hours when necessary. Azithromycin 500 mg IV daily Vitamin D 5000 international units p.o. every morning Zinc sulfate turn 20 mg p.o. every morning Nasal cannula oxygen, titrate to keep pulse ox 92-94% Hold on Lovenox for now, until assessment for anemia is completed (2) Hypoxia: Plan: See above (3) CAD (coronary artery disease): Plan: CAD/hypertension/cardiomyopathy/CHF- Continue carvedilol, furosemide and lisinopril with hold parameters (4) Cardiomyopathy: Plan: See above (5) CHF (congestive heart failure): Plan: See above (6) GERD (gastroesophageal reflux disease): Plan: Continue omeprazole/pantoprazole 40 mg daily (7) Hyperlipidemia: Plan: Continue atorvastatin 80 mg daily (8) Anemia: Plan: Hemoglobin 9.3 upon admission, with baseline 10.5-11.9 Heme test all stools Repeat laboratories in a.m. History of Present Illness Chief Complaint: The patient presents to the emergency department with 3 days of progressively worsening shortness of breath, dyspnea on exertion and productive cough, after having been exposed to a significant other who was diagnosed with COVID-19 Primary Care Provider: Sofie Taylor MD The patient is a 60-year-old male with a past medical history including chronic low back pain, history of substance abuse, cardiomyopathy, ED, chronic osteomyelitis of elbow, CHF, tobacco user, hypertension, GERD, hyperlipidemia, acute systolic CHF, CAD, cellulitis of scrotum, right rotator cuff tear, and unstable angina. He presents with symptoms as noted above. He is unvaccinated against COVID-19. Significant laboratories: Hemoglobin 9.3, hematocrit 31.4, sodium 133, glucose 111, albumin 2.9. COVID-19 testing was positive. Influenza AMB negative, and RSV negative. Pulse ox 87% on room air. Allergies Allergy/AdvReac Type Severity Reaction Status Date / Time No Known Allergies Allergy Unverified 03/13/21 17:03 Home Medications Medication Instructions Recorded Confirmed Type lisinopril 20 mg tablet 20 mg PO QAM #90 tab 04/22/20 03/13/21 Rx atorvastatin 80 mg tablet 80 mg PO QPM #90 tab 07/15/20 03/13/21 Rx gabapentin 300 mg capsule 300 mg PO BID #60 cap 12/27/20 03/13/21 Rx carvedilol 12.5 mg tablet 12.5 mg PO BID #60 tab 01/13/21 03/13/21 Rx furosemide 40 mg tablet (Lasix) 80 mg PO DAILY #60 tab 01/13/21 03/13/21 Rx omeprazole 40 mg capsule,delayed 40 mg PO DAILY #90 cap 02/24/21 03/13/21 Rx release Past Med/Surg History Medical History Benign hypertension (06/26/12) CAD (coronary artery disease) CHF (congestive heart failure) GERD (gastroesophageal reflux disease) HTN (hypertension) Hyperlipidemia Osteoarthritis Tobacco user (06/26/12) Surgical History History of colonoscopy History of elbow surgery Repair of ulnar nonunion, left History of total knee arthroplasty Family History Brother Heart disease Denies family history of Ovarian cancer Prostate cancer Myocardial infarction Breast cancer Colorectal cancer Social History Smoking Status: Current every day smoker Tobacco Type: Cigarettes packs per day: 1; Cigarettes Per Day: .5; Second Hand Exposure: No; Do You Dip or Chew Tobacco: No; Tobacco Cessation Education Requested by Patient: No Hx Alcohol Use: No Hx Substance Use: No Preferred Language: Tuvaluan Communication Ability: Effective Hearing Ability: Hard of Hearing Community Engagement Leader Required: No Beliefs That Will Affect Care: None marital status: Current Living Situation: Spouse current occupational status: disabled How many Children do You have: 0 Other Information That Helps Us Care for You: No Feels Safe at Home: Yes Childhood Exposure to Second-Hand Smoke: No caffeine: Yes Dental Care, Regularly: No Physical Activity Frequency: Does not Exercise Seatbelt Use: sometimes Sunscreen Use: No Assistive Devices: Glasses and Oxygen - Continuous Review of Systems Review of Systems: The patient denies chest pain, palpitations, lower extremity swelling, fevers, chills, sweats, nausea, vomiting, diarrhea , constipation, abdominal pain, pelvic pain, blood in urine or stool, dysuria, urinary frequency or urgency, lightheadedness, dizziness, headache, memory loss, loss of consciousness, rash, abnormal bruising or bleeding, imbalance, focal or generalized weakness, numbness or tingling in arms or legs, neck pain, or night sweats. The review of systems is otherwise negative other than for that already noted above, and at least 10 systems have been reviewed. Physical Exam Physical Exam: The patient is awake, alert and oriented 3, well developed and well nourished, normocephalic and atraumatic, lying in bed and in no acute distress. HEENT--PERRL, EOMI, mucous membranes and oropharynx normal. Neck--supple. No JVD. No bruits. Thyroid normal, trachea midline, no adenopathy. Heart--normal S1 and S2. No murmurs, rubs or gallops. Lungs--clear bilaterally, no respiratory distress, no accessory muscle use. Abdomen--normal bowel sounds and soft. Nontender. Nondistended. Morbidly obese Extremities--no cyanosis or clubbing. No edema. Dermatologic--normal skin turgor, normal color, no abnormal lymph nodes, no rash. Neurologic--cranial nerves II through XII grossly intact. Rheumatologic--normal range of motion. Psychiatric--normal affect. Results & Data Results & Data ([facility]) Vital Signs (Past 12 Hours) Vital Signs Temp Pulse Pulse Resp BP BP Pulse Ox 03/13/21 19:33 80 20 166/92 H 92 03/13/21 18:13 73 30 H 126/63 94 03/13/21 17:25 81 44 H 91 03/13/21 16:49 36.9 C 83 30 H 155/85 H 87 L Laboratory Results Laboratory Results WBC 8.51 K/uL (4.8-10.8) 03/13/21 17:00 RBC 4.11 M/uL (4.7-6.1) L 03/13/21 17:00 Hgb 9.3 g/dL (14.0-18.0) L 03/13/21 17:00 Hct 31.4 % (42-52) L 03/13/21 17:00 MCV 76.4 fL (80-100) L 03/13/21 17:00 MCH 22.6 pg (25-34) L 03/13/21 17:00 MCHC 29.6 g/dL (32-36) L 03/13/21 17:00 RDW Std Deviation 50.3 fL (36.4-46.3) H 03/13/21 17:00 RDW Coeff of Alex 17.8 % (11.5-14.5) H 03/13/21 17:00 Plt Count 337 K/uL (130-400) 03/13/21 17:00 MPV 9.1 fL (7.4-10.4) 03/13/21 17:00 Immature Gran % (Auto) 0.5 % 03/13/21 17:00 Neut % (Auto) 75.8 % 03/13/21 17:00 Lymph % (Auto) 12.3 % 03/13/21 17:00 [place] % (Auto) 10.1 % 03/13/21 17:00 Eos % (Auto) 1.1 % 03/13/21 17:00 Baso % (Auto) 0.2 % 03/13/21 17:00 Neut # (Auto) 6.45 K/uL (1.4-6.5) 03/13/21 17:00 Lymph # (Auto) 1.05 K/uL (1.2-3.4) L 03/13/21 17:00 [place] # (Auto) 0.86 K/uL (0.11-0.59) H 03/13/21 17:00 Eos # (Auto) 0.09 K/uL (0-0.5) 03/13/21 17:00 Baso # (Auto) 0.02 K/uL (0-0.2) 03/13/21 17:00 Immature Gran # (Auto) 0.04 K/uL (0.00-0.02) H 03/13/21 17:00 Polychromasia 1+ 03/13/21 17:00 Hypochromasia Present 03/13/21 17:00 PT 10.6 Seconds (9.0-12.0) 03/13/21 17:00 INR 1.0 (0.9-1.1) 03/13/21 17:00 APTT 33.2 Seconds (21.0-31.0) H 03/13/21 17:00 PTT Ratio 1.3 03/13/21 17:00 VBG pH 7.44 (7.36-7.41) H 03/13/21 17:40 VBG pCO2 39 mmHg (38-50) 03/13/21 17:40 VBG pO2 47 mmHg 03/13/21 17:40 VBG HCO3 26 mmol/L 03/13/21 17:40 VBG O2 Saturation 80.7 % 03/13/21 17:40 VBG Base Excess 1.9 mEq/L 03/13/21 17:40 Barometric Pressure 728.5 mm/Hg 03/13/21 17:40 Sodium 133 mmol/L (136-145) L 03/13/21 17:00 Potassium 3.7 mmol/L (3.5-5.1) 03/13/21 17:00 Chloride 102 mmol/L (98-107) 03/13/21 17:00 Carbon Dioxide 26 mmol/L (21-32) 03/13/21 17:00 Anion Gap 5.0 (3-11) 03/13/21 17:00 BUN 11 mg/dl (7-18) 03/13/21 17:00 Creatinine 0.90 mg/dl (0.6-1.4) 03/13/21 17:00 Est Cr Clr Drug Dosing 111.5 ml/min 03/13/21 17:00 Est GFR ( Amer) 106.5 ml/min 03/13/21 17:00 Est GFR (Non-Af Amer) 91.9 ml/min 03/13/21 17:00 BUN/Creatinine Ratio 12.0 (10-20) 03/13/21 17:00 Glucose 111 mg/dl (70-99) H 03/13/21 17:00 Calcium 8.7 mg/dl (8.5-10.1) 03/13/21 17:00 Magnesium 2.1 mg/dl (1.8-2.4) 03/13/21 17:00 Total Bilirubin 0.3 mg/dl (0.2-1) 03/13/21 17:00 AST 26 U/L (15-37) 03/13/21 17:00 ALT 35 (12-78) 03/13/21 17:00 Alkaline Phosphatase 110 U/L (45-117) 03/13/21 17:00 Troponin I < 0.015 ng/ml (0-0.045) 03/13/21 17:00 NT-Pro-B Natriuret Pep 400 pg/ml (0-900) 03/13/21 17:00 Total Protein 8.1 gm/dl (6.4-8.2) 03/13/21 17:00 Albumin 2.9 gm/dl (3.4-5.0) L 03/13/21 17:00 Globulin 5.2 gm/dl (2.5-4.0) H 03/13/21 17:00 Albumin/Globulin Ratio 0.6 (0.9-2) L 03/13/21 17:00 Urine Color Yellow 03/13/21 19:09 Urine Appearance Clear (Clear) 03/13/21 19:09 Urine pH 6.0 (4.5-7.5) 03/13/21 19:09 Ur Specific [place] 1.022 (1.000-1.030) 03/13/21 19:09 Urine Protein 1+ (Negative) H 03/13/21 19:09 Urine Glucose (UA) Negative (Negative) 03/13/21 19:09 Urine Ketones Negative (Negative) 03/13/21 19:09 Urine Blood Negative (Negative) 03/13/21 19:09 Urine Nitrite Negative (Negative) 03/13/21 19:09 Urine Bilirubin Negative (Negative) 03/13/21 19:09 Urine Urobilinogen Negative (Negative) 03/13/21 19:09 Ur Leukocyte Esterase Negative (Negative) 03/13/21 19:09 Urine WBC (Auto) 1-5 /hpf (0-5) 03/13/21 19:09 Urine RBC (Auto) 0-4 /hpf (0-4) 03/13/21 19:09 U Hyaline Cast (Auto) 1-5 /lpf (0-5) 03/13/21 19:09 U Epithel Cells (Auto) 10-20 /lpf (0-5) H 03/13/21 19:09 Urine Bacteria (Auto) Negative (Negative) 03/13/21 19:09 SARS-CoV-2 (PCR) POSITIVE (Negative) A* 03/13/21 17:26 Influenza Type A (PCR) Negative (Neg) 03/13/21 17:26 Influenza Type B (PCR) Negative (Neg) 03/13/21 17:26 RSV (RT-PCR) Negative (Neg) 03/13/21 17:26 Impressions Chest X-Ray 03/13/21 16:49 XR chest 1V portable CLINICAL HISTORY: Dyspnea. COMPARISON STUDY: 06/14/2019 TECHNIQUE: 1 view of the chest FINDINGS: Single frontal view of the chest demonstrates the heart to again be enlarged. There is a decreased inspiratory effort with elevation of the hemidiaphragms and crowding of the bronchovascular markings at the lung bases and centrally. The lungs are clear of alveolar opacities. There is no evidence for pleural effusion. There is no evidence for vascular congestion. There is no acute osseous pathology. IMPRESSION: There is a decreased inspiratory effort with otherwise no acute chest disease. ACT 112: Negative or not required by law. Electronically signed by: Joe Basilio M.D. 03/13/2021 4:58 PM Code Status & VTE Plan Code Status Full code VTE Prophylaxis Plan VTE Prophylaxis will be ordered: Yes PG Care Time/CCT Total # of Minutes Spent Total Time Spent with Patient: Total time spent is greater than 50% in coordination of care (as documented) at patient's floor/unit and/or counseling patient: Coding Level of Care Code 61362 Initial Inpt Care Lvl 3 Diagnoses Pneumonia due to COVID-19 virus U07.1; J12.82 Hypoxia R09.02 Cardiomyopathy I42.9 CHF (congestive heart failure) I50.9 Heart failure chronicity: acute on chronic Heart failure type: unspecified GERD (gastroesophageal reflux disease) K21.9 CAD (coronary artery disease) I25.10 Hyperlipidemia E78.5 Anemia D64.9 Anemia type: unspecified type (1) CHF (congestive heart failure) Heart failure chronicity: acute on chronic Heart failure type: unspecified Qualified Code(s): I50.9 - Heart failure, unspecified (2) Anemia Anemia type: unspecified type Qualified Code(s): D64.9 - Anemia, unspecified
[2021-03-13] MEDS ORDERED: ACETAMINOPHEN 325 MG TAB PO PRN (21:49)
[2021-03-13] MEDS ORDERED: ONDANSETRON INJ 2 MG/ML 2 ML VIAL IV PRN (21:49)
[2021-03-13] MEDS: ATORVASTATIN 40 MG TAB PO SCH (22:54)
[2021-03-13] MEDS: GABAPENTIN 300 MG CAP PO SCH (22:54)
[2021-03-13] MEDS: carvediloL 12.5 MG TAB PO SCH (22:54)
[2021-03-14] MEDS: AZITHROMYCIN 500 MG in DEXTROSE 5% 250 ML IV SCH (05:58)
[2021-03-14 06:52] LABS: Hematocrit (blood only) 31.9 % (42-52); Hemoglobin 9.2 g/dL (14.0-18.0); Immature Granulocytes # (auto) 0.02 K/uL (0.00-0.02); Immature Granulocytes % (auto) 0.5 %; Lymphocytes # (auto) 0.53 K/uL (1.2-3.4); Lymphocytes % (auto) 14.1 %; Mean Corpuscular Hemoglobin 22.3 pg (25-34); Mean Corpuscular Hgb Conc 28.8 g/dL (32-36); Mean Corpuscular Volume 77.2 fL (80-100); Mean Platelet Volume 9.2 fL (7.4-10.4); Monocytes # (auto) 0.32 K/uL (0.11-0.59); Monocytes % (auto) 8.5 %; Neutrophils # (auto) 2.88 K/uL (1.4-6.5); Neutrophils % (auto) 76.9 %; Platelet Count 365 K/uL (130-400); RDW Coefficient of Variation 17.7 % (11.5-14.5); RDW Standard Deviation 50.8 fL (36.4-46.3); Red Blood Count 4.13 M/uL (4.7-6.1); White Blood Count 3.75 K/uL (4.8-10.8)
[2021-03-14] MEDS ORDERED: ALBUT/IPRATROP 3MG/0.5MG NEB 3 ML VIAL NEB SCH (07:00)
[2021-03-14 07:19] LABS: Albumin Level 2.6 gm/dl (3.4-5.0); BUN Creatinine Ratio 13.6 (10-20); Calcium 8.6 mg/dl (8.5-10.1); Creatinine Clr Calc Pharmacy 124.5 ml/min; Est GFR (African American) 111.2 ml/min; Est GFR (Non-African American) 95.9 ml/min
[2021-03-14 07:22] LABS: Albumin Globulin Ratio 0.5 (0.9-2); Bilirubin,Total 0.3 mg/dl (0.2-1); Globulin 5.2 gm/dl (2.5-4.0); Total Protein 7.8 gm/dl (6.4-8.2)
[2021-03-14] MEDS ORDERED: FUROSEMIDE 40 MG/4 ML VIAL IV ONE (07:47)
[2021-03-14] MEDS ORDERED: ALBUT/IPRATROP 3MG/0.5MG NEB 3 ML VIAL NEB PRN (08:33)
[2021-03-14] MEDS: dexAMETHasone 6 MG in SYRINGE 0 ML IV SCH (08:37)
[2021-03-14] MEDS: CHOLECALCIFEROL 5,000 UNITS 125 MCG TAB PO SCH (08:37)
[2021-03-14] MEDS: lisinopril 20 MG TAB PO SCH (08:38)
[2021-03-14] MEDS: ZINC SULFATE 220 MG CAPSULE PO SCH (08:39)
[2021-03-14] MEDS: carvediloL 12.5 MG TAB PO SCH ×2 (08:40→20:07)
[2021-03-14] MEDS: GABAPENTIN 300 MG CAP PO SCH ×2 (08:40→20:06)
[2021-03-14] MEDS ORDERED: PANTOprazole 40 MG TAB PO SCH (09:00)
[2021-03-14] MEDS ORDERED: FUROSEMIDE 80 MG TAB PO SCH (09:00)
--- NOTE | 2021-03-14 09:03 | Hospitalist Progress Note ---
Date of Service March 14, 2021 Assessment & Plan (1) Pneumonia due to COVID-19 virus: Plan: COVID-19 pneumonia with hypoxia, only 5 days into illness on admission Dexamethasone 6 mg IV daily, day 2 Remdesivir IV daily, day 2 Duonebs PRN, incentive spirometer, flutter valve Azithromycin 500 mg IV daily x 5 days Vitamin D 5000 international units p.o. every morning Zinc sulfate turn 20 mg p.o. every morning give Lovenox as there is no signs of melena try to titrate down oxygen (2) Hypoxia: Plan: stable on 7L encourage prone position, laying on side Lasix 80mg IV for extra diuresis try to wean down to 2-3L and get home (3) CAD (coronary artery disease): Plan: CAD/hypertension/cardiomyopathy/CHF- Continue carvedilol, furosemide (increase 80mg IV) and lisinopril with hold parameters (4) Cardiomyopathy: Plan: See above (5) CHF (congestive heart failure): Plan: See above use Lasix 80mg IV daily, this is twice his normal dose of 80mg PO daily (6) GERD (gastroesophageal reflux disease): Plan: Continue omeprazole/pantoprazole 40 mg daily (7) Hyperlipidemia: Plan: Continue atorvastatin 80 mg daily (8) Anemia: Plan: Hemoglobin 9.3 upon admission, with baseline 10.5-11.9 no melena will give Lovenox but only 40mg daily Admission and Anticipated Discharge Date Admission Date: March 13, 2021 Subjective patient doing well, breathing a lot better, he is on 7L has an intermittent cough, some sputum production but not a lot no fever, no chest pain, no dyspnea at rest reviewed chart and labs will increase him to Lasix 80mg IV to promote extra diuresis he is eating well, no nausea, no diarrhea told him to lay on his side or stomach Review of Systems Review of Systems: All systems reviewed & are unremarkable except as noted in Subjective Respiratory: + cough, + dyspnea on exertion and + sputum production Physical Exam Physical Exam: General: well developed, well nourished, no acute distress, comfortable Neck: supple, trachea midline, normal thyroid Lungs: clear to auscultation bilaterally, slightly tachypneic, no accessory muscle use, no distress Heart: regular S1 and S2, no murmur, peripheral pulses normal, capillary refill normal, no edema Abdomen: soft, NT, ND, + BS, no hepatomegaly, normal to percussion Extremities: normal in appearance, no cyanosis, no petechiae, strength is 5/5 bilaterally Neuro: awake, cooperative, moves all extremities, no focal motor deficits, CN II-XII intact, sensation in extremities intact, normal speech Skin: warm, dry, no rash, normal turgor Psych: Awake, alert oriented x 3, euthymic affect Results & Data Results & Data ([facility]) Vital Signs (Past 12 Hours) Vital Signs Temp Pulse Pulse Pulse Resp BP Pulse Ox 03/14/21 08:21 37.0 C 85 18 179/88 H 91 03/14/21 07:46 71 18 90 03/14/21 03:23 37.1 C 75 20 159/87 H 90 03/14/21 00:41 72 03/14/21 00:20 36.9 C 68 24 151/83 H 90 Laboratory Results Laboratory Results - last 24 hr 03/13/21 03/13/21 03/13/21 17:00 17:00 17:00 WBC 8.51 RBC 4.11 L Hgb 9.3 L Hct 31.4 L MCV 76.4 L MCH 22.6 L MCHC 29.6 L RDW Std Deviation 50.3 H RDW Coeff of Alex 17.8 H Plt Count 337 MPV 9.1 Immature Gran % (Auto) 0.5 Neut % (Auto) 75.8 Lymph % (Auto) 12.3 [place] % (Auto) 10.1 Eos % (Auto) 1.1 Baso % (Auto) 0.2 Neut # (Auto) 6.45 Lymph # (Auto) 1.05 L [place] # (Auto) 0.86 H Eos # (Auto) 0.09 Baso # (Auto) 0.02 Immature Gran # (Auto) 0.04 H Polychromasia 1+ Hypochromasia Present PT 10.6 INR 1.0 APTT 33.2 H PTT Ratio 1.3 VBG pH VBG pCO2 VBG pO2 VBG HCO3 VBG O2 Saturation VBG Base Excess Barometric Pressure Sodium 133 L Potassium 3.7 Chloride 102 Carbon Dioxide 26 Anion Gap 5.0 BUN 11 Creatinine 0.90 Est Cr Clr Drug Dosing 111.5 Est GFR ( Amer) 106.5 Est GFR (Non-Af Amer) 91.9 BUN/Creatinine Ratio 12.0 Glucose 111 H Calcium 8.7 Magnesium 2.1 Total Bilirubin 0.3 AST 26 ALT 35 Alkaline Phosphatase 110 Troponin I < 0.015 NT-Pro-B Natriuret Pep 400 Total Protein 8.1 Albumin 2.9 L Globulin 5.2 H Albumin/Globulin Ratio 0.6 L Urine Color Urine Appearance Urine pH Ur Specific [place] Urine Protein Urine Glucose (UA) Urine Ketones Urine Blood Urine Nitrite Urine Bilirubin Urine Urobilinogen Ur Leukocyte Esterase Urine WBC (Auto) Urine RBC (Auto) U Hyaline Cast (Auto) U Epithel Cells (Auto) Urine Bacteria (Auto) SARS-CoV-2 (PCR) Influenza Type A (PCR) Influenza Type B (PCR) RSV (RT-PCR) 03/13/21 03/13/21 03/13/21 17:26 17:40 19:09 WBC RBC Hgb Hct MCV MCH MCHC RDW Std Deviation RDW Coeff of Alex Plt Count MPV Immature Gran % (Auto) Neut % (Auto) Lymph % (Auto) [place] % (Auto) Eos % (Auto) Baso % (Auto) Neut # (Auto) Lymph # (Auto) [place] # (Auto) Eos # (Auto) Baso # (Auto) Immature Gran # (Auto) Polychromasia Hypochromasia PT INR APTT PTT Ratio VBG pH 7.44 H VBG pCO2 39 VBG pO2 47 VBG HCO3 26 VBG O2 Saturation 80.7 VBG Base Excess 1.9 Barometric Pressure 728.5 Sodium Potassium Chloride Carbon Dioxide Anion Gap BUN Creatinine Est Cr Clr Drug Dosing Est GFR ( Amer) Est GFR (Non-Af Amer) BUN/Creatinine Ratio Glucose Calcium Magnesium Total Bilirubin AST ALT Alkaline Phosphatase Troponin I NT-Pro-B Natriuret Pep Total Protein Albumin Globulin Albumin/Globulin Ratio Urine Color Yellow Urine Appearance Clear Urine pH 6.0 Ur Specific [place] 1.022 Urine Protein 1+ H Urine Glucose (UA) Negative Urine Ketones Negative Urine Blood Negative Urine Nitrite Negative Urine Bilirubin Negative Urine Urobilinogen Negative Ur Leukocyte Esterase Negative Urine WBC (Auto) 1-5 Urine RBC (Auto) 0-4 U Hyaline Cast (Auto) 1-5 U Epithel Cells (Auto) 10-20 H Urine Bacteria (Auto) Negative SARS-CoV-2 (PCR) POSITIVE A* Influenza Type A (PCR) Negative Influenza Type B (PCR) Negative RSV (RT-PCR) Negative 03/14/21 03/14/21 06:20 06:20 WBC 3.75 L RBC 4.13 L Hgb 9.2 L Hct 31.9 L MCV 77.2 L MCH 22.3 L MCHC 28.8 L RDW Std Deviation 50.8 H RDW Coeff of Alex 17.7 H Plt Count 365 MPV 9.2 Immature Gran % (Auto) 0.5 Neut % (Auto) 76.9 Lymph % (Auto) 14.1 [place] % (Auto) 8.5 Eos % (Auto) 0.0 Baso % (Auto) 0.0 Neut # (Auto) 2.88 Lymph # (Auto) 0.53 L [place] # (Auto) 0.32 Eos # (Auto) 0.00 Baso # (Auto) 0.00 Immature Gran # (Auto) 0.02 Polychromasia Hypochromasia PT INR APTT PTT Ratio VBG pH VBG pCO2 VBG pO2 VBG HCO3 VBG O2 Saturation VBG Base Excess Barometric Pressure Sodium 136 Potassium 4.0 Chloride 103 Carbon Dioxide 28 Anion Gap 5.0 BUN 11 Creatinine 0.81 Est Cr Clr Drug Dosing 124.5 Est GFR ( Amer) 111.2 Est GFR (Non-Af Amer) 95.9 BUN/Creatinine Ratio 13.6 Glucose 193 H Calcium 8.6 Magnesium Total Bilirubin 0.3 AST 20 ALT 33 Alkaline Phosphatase 105 Troponin I NT-Pro-B Natriuret Pep Total Protein 7.8 Albumin 2.6 L Globulin 5.2 H Albumin/Globulin Ratio 0.5 L Urine Color Urine Appearance Urine pH Ur Specific [place] Urine Protein Urine Glucose (UA) Urine Ketones Urine Blood Urine Nitrite Urine Bilirubin Urine Urobilinogen Ur Leukocyte Esterase Urine WBC (Auto) Urine RBC (Auto) U Hyaline Cast (Auto) U Epithel Cells (Auto) Urine Bacteria (Auto) SARS-CoV-2 (PCR) Influenza Type A (PCR) Influenza Type B (PCR) RSV (RT-PCR) Medications Administered Current Inpatient Medications Acetaminophen (Acetaminophen 325 Mg Tab) 650 mg PO Q4H PRN PRN Reason: Pain or Fever Stop: 04/12/21 21:48 Albuterol (Albut/Ipratrop 3mg/0.5mg Neb 3 Ml Vial) 3 ml NEB Q4 PRN; Protocol PRN Reason: Shortness Of Breath Or Wheezing Stop: 04/13/21 08:32 Atorvastatin Calcium (Atorvastatin 40 Mg Tab) 80 mg PO QPM [facility] Stop: 04/12/21 21:48 Last Admin: 03/13/21 22:54 Dose: 80 mg Documented by: Carvedilol (Carvedilol 12.5 Mg Tab) 12.5 mg PO BID [facility] Stop: 04/12/21 22:29 Last Admin: 03/14/21 08:40 Dose: 12.5 mg Documented by: Gabapentin (Gabapentin 300 Mg Cap) 300 mg PO BID [facility] Stop: 04/12/21 21:48 Last Admin: 03/14/21 08:40 Dose: 300 mg Documented by: Dexamethasone 6 mg/ Syringe 1.5 mls @ 1 mls/min IV Q24H [facility] Stop: 04/13/21 08:59 Last Admin: 03/14/21 08:37 Dose: 1 mls/min Documented by: Remdesivir 100 mg/ Sodium (Chloride) 250 mls @ 250 mls/hr IV Q24H [facility]; Protocol Stop: 03/17/21 20:59 Azithromycin 500 mg/ Dextrose 255 mls @ 125 mls/hr IV Q24H [facility] Stop: 03/21/21 05:59 Last Infusion: 03/14/21 08:09 Dose: Infused Documented by: Lisinopril (Lisinopril 20 Mg Tab) 20 mg PO QAM [facility] Stop: 04/13/21 08:59 Last Admin: 03/14/21 08:38 Dose: 20 mg Documented by: Ondansetron HCl (Ondansetron Inj 2 Mg/Ml 2 Ml Vial) 4 mg IV Q6H PRN PRN Reason: Nausea Stop: 04/12/21 21:48 Pantoprazole Sodium (Pantoprazole 40 Mg Tab) 40 mg PO DAILY [facility] Stop: 04/13/21 08:59 Last Admin: 03/14/21 08:38 Dose: 40 mg Documented by: Sodium Chloride (Sodium Chloride 0.9% 10ml Flush) 30 ml IV Q24H [facility] Stop: 03/17/21 20:01 Vitamin D (Cholecalciferol 5,000 Units 125 Mcg Tab) 5,000 units PO QAM [facility] Stop: 04/13/21 08:59 Last Admin: 03/14/21 08:37 Dose: 5,000 units Documented by: Zinc Sulfate (Zinc Sulfate 220 Mg Capsule) 220 mg PO QAM [facility] Stop: 04/13/21 08:59 Last Admin: 03/14/21 08:39 Dose: 220 mg Documented by: PG Care Time/CCT Total # of Minutes Spent Total Time Spent with Patient: Total time spent is greater than 50% in coordination of care (as documented) at patient's floor/unit and/or counseling patient: Coding Level of Care Code 44161 Subseq Hosp Care Lvl 3 Diagnoses Pneumonia due to COVID-19 virus U07.1; J12.82 Hypoxia R09.02 CAD (coronary artery disease) I25.10 Cardiomyopathy I42.9 CHF (congestive heart failure) I50.9 Heart failure chronicity: acute on chronic Heart failure type: unspecified GERD (gastroesophageal reflux disease) K21.9 Hyperlipidemia E78.5 Anemia D64.9 Anemia type: unspecified type (1) CHF (congestive heart failure) Heart failure chronicity: acute on chronic Heart failure type: unspecified Qualified Code(s): I50.9 - Heart failure, unspecified (2) Anemia Anemia type: unspecified type Qualified Code(s): D64.9 - Anemia, unspecified
[2021-03-14] MEDS ORDERED: ENOXAPARIN INJ 40 MG/0.4 ML SYR SQ SCH (09:30)
[2021-03-14] MEDS: ATORVASTATIN 40 MG TAB PO SCH (20:06)
[2021-03-14] MEDS: REMDESIVIR 100 MG in SODIUM CHLORIDE 0.9% 230 ML IV SCH (20:06)
[2021-03-14] MEDS: SODIUM CHLORIDE 0.9% 10ML FLUSH IV SCH (20:06)
[2021-03-14] MEDS: PANTOprazole 40 MG TAB PO SCH (20:06)
[2021-03-15] MEDS ORDERED: DOCUSATE SODIUM 100 MG CAP PO PRN (00:02)
[2021-03-15] MEDS: AZITHROMYCIN 500 MG in DEXTROSE 5% 250 ML IV SCH (05:48)
[2021-03-15 06:12] LABS: Basophils # (auto) 0.01 K/uL (0-0.2); Basophils % (auto) 0.1 %; Hematocrit (blood only) 33.4 % (42-52); Hemoglobin 9.7 g/dL (14.0-18.0); Immature Granulocytes # (auto) 0.02 K/uL (0.00-0.02); Immature Granulocytes % (auto) 0.2 %; Lymphocytes # (auto) 0.95 K/uL (1.2-3.4); Mean Corpuscular Hemoglobin 22.5 pg (25-34); Mean Corpuscular Volume 77.3 fL (80-100); Mean Platelet Volume 9.2 fL (7.4-10.4); Monocytes # (auto) 1.03 K/uL (0.11-0.59); Monocytes % (auto) 10.8 %; Neutrophils # (auto) 7.52 K/uL (1.4-6.5); Neutrophils % (auto) 78.9 %; Platelet Count 472 K/uL (130-400); RDW Coefficient of Variation 17.6 % (11.5-14.5); RDW Standard Deviation 50.7 fL (36.4-46.3); Red Blood Count 4.32 M/uL (4.7-6.1); White Blood Count 9.53 K/uL (4.8-10.8)
[2021-03-15 06:44] LABS: Albumin Globulin Ratio 0.5 (0.9-2); Albumin Level 2.8 gm/dl (3.4-5.0); BUN Creatinine Ratio 22.4 (10-20); Bilirubin,Total 0.2 mg/dl (0.2-1); Calcium 8.8 mg/dl (8.5-10.1); Creatinine Clr Calc Pharmacy 126.1 ml/min; Est GFR (African American) 111.7 ml/min; Est GFR (Non-African American) 96.4 ml/min; Globulin 5.3 gm/dl (2.5-4.0); Potassium 3.9 mmol/L (3.5-5.1); Total Protein 8.1 gm/dl (6.4-8.2)
[2021-03-15 06:45] LABS: C Reactive Protein 2.21 mg/dl (0-0.29)
[2021-03-15] MEDS: dexAMETHasone 6 MG in SYRINGE 0 ML IV SCH (07:47)
[2021-03-15] MEDS: ZINC SULFATE 220 MG CAPSULE PO SCH (07:48)
[2021-03-15] MEDS: carvediloL 12.5 MG TAB PO SCH ×2 (07:48→19:47)
[2021-03-15] MEDS: GABAPENTIN 300 MG CAP PO SCH ×2 (07:48→19:47)
[2021-03-15] MEDS: lisinopril 20 MG TAB PO SCH (07:48)
[2021-03-15] MEDS: CHOLECALCIFEROL 5,000 UNITS 125 MCG TAB PO SCH (07:49)
[2021-03-15] MEDS: PANTOprazole 40 MG TAB PO SCH ×2 (07:49→19:47)
--- NOTE | 2021-03-15 09:19 | Hospitalist Progress Note ---
Date of Service March 15, 2021 Assessment & Plan (1) Pneumonia due to COVID-19 virus: Plan: COVID-19 pneumonia with hypoxia, only 5 days into illness on admission Dexamethasone 6 mg IV daily, day 3 Remdesivir IV daily, day 3 Duonebs PRN, incentive spirometer, flutter valve Azithromycin 500 mg IV daily x 5 days, day 3 Vitamin D 5000 international units p.o. every morning Zinc sulfate turn 20 mg p.o. every morning resume Lovenox 40mg daily as Hb is up to 9.7 try to titrate down oxygen, on 6L today (2) Hypoxia: Plan: stable on 6L, ambulating without dyspnea or desaturations encourage prone position, laying on side Lasix 80mg IV daily for extra diuresis, Cr is stable try to wean down to 2-3L and get home (3) CAD (coronary artery disease): Plan: CAD/hypertension/cardiomyopathy/CHF- Continue carvedilol, furosemide (increase 80mg IV) and lisinopril with hold parameters (4) Cardiomyopathy: Plan: See above (5) CHF (congestive heart failure): Plan: See above use Lasix 80mg IV daily, this is twice his normal dose of 80mg PO daily (6) GERD (gastroesophageal reflux disease): Plan: Continue omeprazole/pantoprazole 40 mg daily (7) Hyperlipidemia: Plan: Continue atorvastatin 80 mg daily (8) Anemia: Plan: Hemoglobin 9.3 upon admission, with baseline 10.5-11.9 no melena will give Lovenox but only 40mg daily Hb up to 9.7 (9) Constipated: Plan: add miralax daily Admission and Anticipated Discharge Date Admission Date: March 13, 2021 Subjective patient doing well, on 6L, no distress at all, ambulating in the room without any distress has a cough, difficult time bring up sputum eating really well, no nausea, c/o constipation Hb is up to 9.7, Cr is < 1 even with Lasix 80mg IV yesterday he is concerned about his , she is coming back to the ED for evaluation, he was upset she was not admitted the other day told him I can watch for her name but I don't have control over whether she needs admission Review of Systems Review of Systems: All systems reviewed & are unremarkable except as noted in Subjective Constitutional: no fever Respiratory: + cough and + dyspnea on exertion; no dyspnea and no sputum production Cardiovascular: no chest pain and no edema Gastrointestinal: + constipation; no abdominal pain, no nausea, no vomiting and no diarrhea/loose stools Physical Exam Physical Exam: General: well developed, well nourished, no acute distress, comfortable Neck: supple, trachea midline, normal thyroid Lungs: clear to auscultation bilaterally, slightly tachypneic, no accessory muscle use, no distress Heart: regular S1 and S2, no murmur, peripheral pulses normal, capillary refill normal, no edema Abdomen: soft, NT, ND, + BS, no hepatomegaly, normal to percussion Extremities: normal in appearance, no cyanosis, no petechiae, strength is 5/5 bilaterally Neuro: awake, cooperative, moves all extremities, no focal motor deficits, CN II-XII intact, sensation in extremities intact, normal speech Skin: warm, dry, no rash, normal turgor Psych: Awake, alert oriented x 3, euthymic affect Results & Data Results & Data ([facility]) Vital Signs (Past 12 Hours) Vital Signs Temp Pulse Pulse Pulse Resp BP BP 03/15/21 06:49 36.6 C 57 L 18 134/68 03/15/21 04:00 36.8 C 62 20 170/93 H 03/15/21 00:39 36.6 C 64 20 145/89 H 03/14/21 22:20 67 Pulse Ox 03/15/21 06:49 99 03/15/21 04:00 99 03/15/21 00:39 95 03/14/21 22:20 Laboratory Results Laboratory Results - last 24 hr 03/14/21 03/15/21 03/15/21 Unknown 05:43 05:43 WBC 9.53 RBC 4.32 L Hgb 9.7 L Hct 33.4 L MCV 77.3 L MCH 22.5 L MCHC 29.0 L RDW Std Deviation 50.7 H RDW Coeff of Alex 17.6 H Plt Count 472 H MPV 9.2 Immature Gran % (Auto) 0.2 Neut % (Auto) 78.9 Lymph % (Auto) 10.0 [place] % (Auto) 10.8 Eos % (Auto) 0.0 Baso % (Auto) 0.1 Neut # (Auto) 7.52 H Lymph # (Auto) 0.95 L [place] # (Auto) 1.03 H Eos # (Auto) 0.00 Baso # (Auto) 0.01 Immature Gran # (Auto) 0.02 Sodium 135 L Potassium 3.9 Chloride 102 Carbon Dioxide 27 Anion Gap 6.0 BUN 18 D Creatinine 0.80 Est Cr Clr Drug Dosing 126.1 Est GFR ( Amer) 111.7 Est GFR (Non-Af Amer) 96.4 BUN/Creatinine Ratio 22.4 H Glucose 128 H Calcium 8.8 Total Bilirubin 0.2 AST 20 ALT 33 Alkaline Phosphatase 102 C-Reactive Protein 2.21 H Total Protein 8.1 Albumin 2.8 L Globulin 5.3 H Albumin/Globulin Ratio 0.5 L Stool Occult Bld Scrn Negative Medications Administered Current Inpatient Medications Acetaminophen (Acetaminophen 325 Mg Tab) 650 mg PO Q4H PRN PRN Reason: Pain or Fever Stop: 04/12/21 21:48 Albuterol (Albut/Ipratrop 3mg/0.5mg Neb 3 Ml Vial) 3 ml NEB Q4 PRN; Protocol PRN Reason: Shortness Of Breath Or Wheezing Stop: 04/13/21 08:32 Atorvastatin Calcium (Atorvastatin 40 Mg Tab) 80 mg PO QPM [facility] Stop: 04/12/21 21:48 Last Admin: 03/14/21 20:06 Dose: 80 mg Documented by: Carvedilol (Carvedilol 12.5 Mg Tab) 12.5 mg PO BID [facility] Stop: 04/12/21 22:29 Last Admin: 03/15/21 07:48 Dose: 12.5 mg Documented by: Docusate Sodium (Docusate Sodium 100 Mg Cap) 100 mg PO BID PRN PRN Reason: constipation Stop: 04/14/21 08:59 Enoxaparin Sodium (Enoxaparin Inj 40 Mg/0.4 Ml Syr) 40 mg SQ QAM [facility] Stop: 04/14/21 09:29 Gabapentin (Gabapentin 300 Mg Cap) 300 mg PO BID [facility] Stop: 04/12/21 21:48 Last Admin: 03/15/21 07:48 Dose: 300 mg Documented by: Dexamethasone 6 mg/ Syringe 1.5 mls @ 1 mls/min IV Q24H [facility] Stop: 04/13/21 08:59 Last Admin: 03/15/21 07:47 Dose: 1 mls/min Documented by: Remdesivir 100 mg/ Sodium (Chloride) 250 mls @ 250 mls/hr IV Q24H [facility]; Protocol Stop: 03/17/21 20:59 Last Infusion: 03/14/21 21:06 Dose: Infused Documented by: Azithromycin 500 mg/ Dextrose 255 mls @ 125 mls/hr IV Q24H [facility] Stop: 03/21/21 05:59 Last Infusion: 03/15/21 07:51 Dose: Infused Documented by: Lisinopril (Lisinopril 20 Mg Tab) 20 mg PO [facility] Stop: 04/13/21 08:59 Last Admin: 03/15/21 07:48 Dose: 20 mg Documented by: Ondansetron HCl (Ondansetron Inj 2 Mg/Ml 2 Ml Vial) 4 mg IV Q6H PRN PRN Reason: Nausea Stop: 04/12/21 21:48 Pantoprazole Sodium (Pantoprazole 40 Mg Tab) 40 mg PO BID [facility] Stop: 04/13/21 20:59 Last Admin: 03/15/21 07:49 Dose: 40 mg Documented by: Sodium Chloride (Sodium Chloride 0.9% 10ml Flush) 30 ml IV Q24H [facility] Stop: 03/17/21 20:01 Last Admin: 03/14/21 20:06 Dose: 30 ml Documented by: Vitamin D (Cholecalciferol 5,000 Units 125 Mcg Tab) 5,000 units PO [facility] Stop: 04/13/21 08:59 Last Admin: 03/15/21 07:49 Dose: 5,000 units Documented by: Zinc Sulfate (Zinc Sulfate 220 Mg Capsule) 220 mg PO [facility] Stop: 04/13/21 08:59 Last Admin: 03/15/21 07:48 Dose: 220 mg Documented by: PG Care Time/CCT Total # of Minutes Spent Total Time Spent with Patient: Total time spent is greater than 50% in coordination of care (as documented) at patient's floor/unit and/or counseling patient: Coding Level of Care Code 69627 Subseq Hosp Care Lvl 3 Diagnoses Pneumonia due to COVID-19 virus U07.1; J12.82 Hypoxia R09.02 CAD (coronary artery disease) I25.10 Cardiomyopathy I42.9 CHF (congestive heart failure) I50.9 Heart failure chronicity: acute on chronic Heart failure type: unspecified GERD (gastroesophageal reflux disease) K21.9 Hyperlipidemia E78.5 Anemia D64.9 Anemia type: unspecified type Constipated K59.00 (1) CHF (congestive heart failure) Heart failure chronicity: acute on chronic Heart failure type: unspecified Qualified Code(s): I50.9 - Heart failure, unspecified (2) Anemia Anemia type: unspecified type Qualified Code(s): D64.9 - Anemia, unspecified
--- NOTE | 2021-03-15 10:09 | Electrocardiogram Report ---
Test Reason : Blood Pressure : / mmHG Vent. Rate : 093 BPM Atrial Rate : 093 BPM P-R Int : 134 ms QRS Dur : 092 ms QT Int : 418 ms P-R-T Axes : 012 010 008 degrees QTc Int : 519 ms Poor data quality, interpretation may be adversely affected Sinus rhythm with Premature atrial complexes Nonspecific ST and T wave abnormality Abnormal ECG When compared with ECG of 16-JUN-2019 06:29, Premature atrial complexes are now Present Nonspecific T wave abnormality has replaced inverted T waves in Inferior leads Confirmed by Robert Farrar ([id number]) on 03/15/2021 10:09:26 AM Referred By: REFERRED SELF Confirmed By:Robert Farrar
[2021-03-15] MEDS: POLYETHYLENE (MIRALAX) 17 GM PACK PO SCH (10:35)
[2021-03-15] MEDS: DOCUSATE SODIUM/SENNA 50/8.6MG TAB PO SCH (10:35)
[2021-03-15] MEDS: ENOXAPARIN INJ 40 MG/0.4 ML SYR SQ SCH (10:35)
[2021-03-15] MEDS: FUROSEMIDE 40 MG/4 ML VIAL IV SCH (10:35)
[2021-03-15] MEDS: REMDESIVIR 100 MG in SODIUM CHLORIDE 0.9% 230 ML IV SCH (19:46)
[2021-03-15] MEDS: ATORVASTATIN 40 MG TAB PO SCH (19:47)
[2021-03-15] MEDS: SODIUM CHLORIDE 0.9% 10ML FLUSH IV SCH (19:48)
[2021-03-16] MEDS: AZITHROMYCIN 500 MG in DEXTROSE 5% 250 ML IV SCH (05:21)
[2021-03-16 06:09] LABS: Basophils # (auto) 0.01 K/uL (0-0.2); Basophils % (auto) 0.1 %; Eosinophils # (auto) 0.02 K/uL (0-0.5); Eosinophils % (auto) 0.2 %; Hematocrit (blood only) 32.7 % (42-52); Hemoglobin 9.4 g/dL (14.0-18.0); Immature Granulocytes # (auto) 0.03 K/uL (0.00-0.02); Immature Granulocytes % (auto) 0.3 %; Lymphocytes # (auto) 1.35 K/uL (1.2-3.4); Lymphocytes % (auto) 12.9 %; Mean Corpuscular Hemoglobin 22.3 pg (25-34); Mean Corpuscular Hgb Conc 28.7 g/dL (32-36); Mean Corpuscular Volume 77.7 fL (80-100); Mean Platelet Volume 9.2 fL (7.4-10.4); Monocytes # (auto) 1.07 K/uL (0.11-0.59); Monocytes % (auto) 10.2 %; Neutrophils # (auto) 7.99 K/uL (1.4-6.5); Neutrophils % (auto) 76.3 %; Platelet Count 486 K/uL (130-400); RDW Coefficient of Variation 17.7 % (11.5-14.5); RDW Standard Deviation 50.6 fL (36.4-46.3); Red Blood Count 4.21 M/uL (4.7-6.1); White Blood Count 10.47 K/uL (4.8-10.8)
[2021-03-16 06:28] LABS: Albumin Globulin Ratio 0.6 (0.9-2); Albumin Level 2.7 gm/dl (3.4-5.0); BUN Creatinine Ratio 26.9 (10-20); Bilirubin,Total 0.2 mg/dl (0.2-1); C Reactive Protein 1.13 mg/dl (0-0.29); Calcium 8.4 mg/dl (8.5-10.1); Creatinine Clr Calc Pharmacy 111.1 ml/min; Est GFR (Non-African American) 92.3 ml/min; Globulin 4.8 gm/dl (2.5-4.0); Potassium 3.9 mmol/L (3.5-5.1); Total Protein 7.5 gm/dl (6.4-8.2)
[2021-03-16] MEDS: carvediloL 12.5 MG TAB PO SCH ×2 (07:31→20:31)
[2021-03-16] MEDS: CHOLECALCIFEROL 5,000 UNITS 125 MCG TAB PO SCH (07:31)
[2021-03-16] MEDS: DOCUSATE SODIUM/SENNA 50/8.6MG TAB PO SCH (07:32)
[2021-03-16] MEDS: dexAMETHasone 6 MG in SYRINGE 0 ML IV SCH (07:32)
[2021-03-16] MEDS: PANTOprazole 40 MG TAB PO SCH ×2 (07:32→20:32)
[2021-03-16] MEDS: ZINC SULFATE 220 MG CAPSULE PO SCH (07:32)
[2021-03-16] MEDS: ENOXAPARIN INJ 40 MG/0.4 ML SYR SQ SCH (07:33)
[2021-03-16] MEDS: FUROSEMIDE 40 MG/4 ML VIAL IV SCH (07:34)
[2021-03-16] MEDS: GABAPENTIN 300 MG CAP PO SCH ×2 (07:35→20:32)
[2021-03-16] MEDS: lisinopril 20 MG TAB PO SCH (07:35)
[2021-03-16] MEDS: POLYETHYLENE (MIRALAX) 17 GM PACK PO SCH (07:35)
--- NOTE | 2021-03-16 14:15 | Hospitalist Progress Note ---
Date of Service March 16, 2021 Assessment & Plan (1) Pneumonia due to COVID-19 virus: Plan: COVID-19 pneumonia with hypoxia, only 5 days into illness on admission Dexamethasone 6 mg IV daily, day 4 Remdesivir IV daily, day 4 Duonebs PRN, incentive spirometer, flutter valve Azithromycin 500 mg IV daily x 5 days, day 4 Vitamin D 5000 international units p.o. every morning Zinc sulfate turn 20 mg p.o. every morning Lovenox 40mg daily able to get him down to 2-3L at rest today get 2 step tomorrow and try for discharge, he is doing well send home on dexamethasone PO, he will complete both Remdesivir and Zithromax tomorrow (2) Hypoxia: Plan: stable on 2-3L, ambulating without dyspnea or desaturations encourage prone position, laying on side Lasix 80mg IV daily for the past 3 days, BP is low, will change back to PO Lasix tomorrow (he normally takes 80mg PO daily) plan for 2 step tomorrow and d/c to home (3) CAD (coronary artery disease): Plan: CAD/hypertension/cardiomyopathy/CHF- Continue carvedilol, furosemide 80mg PO daily and lisinopril with hold parameters (4) Cardiomyopathy: Plan: See above (5) CHF (congestive heart failure): Plan: See above used Lasix 80mg IV daily for 3 days, good response, Cr stable change back to 80mg PO tomorrow (6) GERD (gastroesophageal reflux disease): Plan: Continue omeprazole/pantoprazole 40 mg daily (7) Hyperlipidemia: Plan: Continue atorvastatin 80 mg daily (8) Anemia: Plan: Hemoglobin 9.3 upon admission, with baseline 10.5-11.9 no melena Hb was 9.7 yesterday, 9.4 today, no signs of bleeding have him follow up with PCP (9) Constipated: Plan: add miralax daily Admission and Anticipated Discharge Date Admission Date: March 13, 2021 Subjective patient doing well, laying on right side, breathing comfortably on 2.5L minimal cough, eating well, wants off his heart healthy diet reviewed labs, CRP only 1.1, Hb 9, WBC 10 discussed trying to go home tomorrow with oxygen, he wants to go he is happy because his is in the bed next to him Review of Systems Review of Systems: All systems reviewed & are unremarkable except as noted in Subjective Constitutional: no fever, no fatigue and no weakness Respiratory: + cough and + sputum production; no dyspnea and no dyspnea on exertion Cardiovascular: no chest pain Physical Exam Physical Exam: General: well developed, well nourished, no acute distress, comfortable Neck: supple, trachea midline, normal thyroid Lungs: clear to auscultation bilaterally, normal respiratory effort, no accessory muscle use, no distress Heart: regular S1 and S2, no murmur, peripheral pulses normal, capillary refill normal, no edema Abdomen: soft, NT, ND, + BS, no hepatomegaly, normal to percussion Extremities: normal in appearance, no cyanosis, no petechiae, strength is 5/5 bilaterally Neuro: awake, cooperative, moves all extremities, no focal motor deficits, CN II-XII intact, sensation in extremities intact, normal speech Skin: warm, dry, no rash, normal turgor Psych: Awake, alert oriented x 3, euthymic affect Results & Data Results & Data ([facility]) Vital Signs (Past 12 Hours) Vital Signs Temp Pulse Resp BP BP Pulse Ox 03/16/21 12:18 36.7 C 56 L 18 87/50 L 91 03/16/21 07:53 36.9 C 65 22 146/79 H 98 03/16/21 05:26 56 L 160/69 H 93 Laboratory Results Laboratory Results - last 24 hr 03/16/21 03/16/21 05:34 05:34 WBC 10.47 RBC 4.21 L Hgb 9.4 L Hct 32.7 L MCV 77.7 L MCH 22.3 L MCHC 28.7 L RDW Std Deviation 50.6 H RDW Coeff of Alex 17.7 H Plt Count 486 H MPV 9.2 Immature Gran % (Auto) 0.3 Neut % (Auto) 76.3 Lymph % (Auto) 12.9 [place] % (Auto) 10.2 Eos % (Auto) 0.2 Baso % (Auto) 0.1 Neut # (Auto) 7.99 H Lymph # (Auto) 1.35 [place] # (Auto) 1.07 H Eos # (Auto) 0.02 Baso # (Auto) 0.01 Immature Gran # (Auto) 0.03 H Sodium 133 L Potassium 3.9 Chloride 100 Carbon Dioxide 28 Anion Gap 5.0 BUN 24 H Creatinine 0.89 Est Cr Clr Drug Dosing 111.1 Est GFR ( Amer) 107.0 Est GFR (Non-Af Amer) 92.3 BUN/Creatinine Ratio 26.9 H Glucose 127 H Calcium 8.4 L Total Bilirubin 0.2 AST 13 L ALT 33 Alkaline Phosphatase 95 C-Reactive Protein 1.13 H Total Protein 7.5 Albumin 2.7 L Globulin 4.8 H Albumin/Globulin Ratio 0.6 L Medications Administered Current Inpatient Medications Acetaminophen (Acetaminophen 325 Mg Tab) 650 mg PO Q4H PRN PRN Reason: Pain or Fever Stop: 04/12/21 21:48 Albuterol (Albut/Ipratrop 3mg/0.5mg Neb 3 Ml Vial) 3 ml NEB Q4 PRN; Protocol PRN Reason: Shortness Of Breath Or Wheezing Stop: 04/13/21 08:32 Atorvastatin Calcium (Atorvastatin 40 Mg Tab) 80 mg PO QPM [facility] Stop: 04/12/21 21:48 Last Admin: 03/15/21 19:47 Dose: 80 mg Documented by: Carvedilol (Carvedilol 12.5 Mg Tab) 12.5 mg PO BID [facility] Stop: 04/12/21 22:29 Last Admin: 03/16/21 07:31 Dose: 12.5 mg Documented by: Docusate Sodium (Docusate Sodium 100 Mg Cap) 100 mg PO BID PRN PRN Reason: constipation Stop: 04/14/21 08:59 Enoxaparin Sodium (Enoxaparin Inj 40 Mg/0.4 Ml Syr) 40 mg SQ QAM [facility] Stop: 04/14/21 09:29 Last Admin: 03/16/21 07:33 Dose: 40 mg Documented by: Furosemide (Furosemide 40 Mg/4 Ml Vial) 80 mg IV QAM [facility] Stop: 04/14/21 09:29 Last Admin: 03/16/21 07:34 Dose: 80 mg Documented by: Gabapentin (Gabapentin 300 Mg Cap) 300 mg PO BID [facility] Stop: 04/12/21 21:48 Last Admin: 03/16/21 07:35 Dose: 300 mg Documented by: Dexamethasone 6 mg/ Syringe 1.5 mls @ 1 mls/min IV Q24H [facility] Stop: 04/13/21 08:59 Last Admin: 03/16/21 07:32 Dose: 1 mls/min Documented by: Remdesivir 100 mg/ Sodium (Chloride) 250 mls @ 250 mls/hr IV Q24H [facility]; Protocol Stop: 03/17/21 20:59 Last Infusion: 03/15/21 20:46 Dose: Infused Documented by: Azithromycin 500 mg/ Dextrose 255 mls @ 125 mls/hr IV Q24H [facility] Stop: 03/21/21 05:59 Last Admin: 03/16/21 05:21 Dose: 125 mls/hr Documented by: Lisinopril ([facility] 20 Mg Tab) [facility] Stop: 04/13/21 08:59 Last Admin: 03/16/21 07:35 Dose: 20 mg Documented by: Ondansetron HCl (Ondansetron Inj 2 Mg/Ml 2 Ml Vial) 4 mg IV Q6H PRN PRN Reason: Nausea Stop: 04/12/21 21:48 Pantoprazole Sodium (Pantoprazole 40 Mg Tab) 40 mg PO BID [facility] Stop: 04/13/21 20:59 Last Admin: 03/16/21 07:32 Dose: 40 mg Documented by: Polyethylene Glycol (Polyethylene (Miralax) 17 Gm Pack) 17 gm PO DAILY [facility] Stop: 04/14/21 09:44 Last Admin: 03/16/21 07:35 Dose: 17 gm Documented by: Senna/Docusate Sodium (Docusate Sodium/Senna 50/8.6mg Tab) 1 tab [facility] Stop: 04/14/21 09:44 Last Admin: 03/16/21 07:32 Dose: 1 tab Documented by: Sodium Chloride (Sodium Chloride 0.9% 10ml Flush) 30 ml IV Q24H [facility] Stop: 03/17/21 20:01 Last Admin: 03/15/21 19:48 Dose: 30 ml Documented by: Vitamin D (Cholecalciferol 5,000 Units 125 Mcg Tab) [facility] [place] Stop: 04/13/21 08:59 Last Admin: 03/16/21 07:31 Dose: 5,000 units Documented by: Zinc Sulfate (Zinc Sulfate 220 Mg Capsule) 220 mg [facility] Stop: 04/13/21 08:59 Last Admin: 03/16/21 07:32 Dose: 220 mg Documented by: PG Care Time/CCT Total # of Minutes Spent Total Time Spent with Patient: Total time spent is greater than 50% in coordination of care (as documented) at patient's floor/unit and/or counseling patient: Coding Level of Care Code 75547 Subseq Hosp Care Lvl 3 Diagnoses Pneumonia due to COVID-19 virus U07.1; J12.82 Hypoxia R09.02 CAD (coronary artery disease) I25.10 Cardiomyopathy I42.9 CHF (congestive heart failure) I50.9 Heart failure chronicity: acute on chronic Heart failure type: unspecified GERD (gastroesophageal reflux disease) K21.9 Hyperlipidemia E78.5 Anemia D64.9 Anemia type: unspecified type Constipated K59.00 (1) CHF (congestive heart failure) Heart failure chronicity: acute on chronic Heart failure type: unspecified Qualified Code(s): I50.9 - Heart failure, unspecified (2) Anemia Anemia type: unspecified type Qualified Code(s): D64.9 - Anemia, unspecified
[2021-03-16] MEDS: REMDESIVIR 100 MG in SODIUM CHLORIDE 0.9% 230 ML IV SCH (20:30)
[2021-03-16] MEDS: ATORVASTATIN 40 MG TAB PO SCH (20:31)
[2021-03-16] MEDS: SODIUM CHLORIDE 0.9% 10ML FLUSH IV SCH (21:40)
[2021-03-17] MEDS: AZITHROMYCIN 500 MG in DEXTROSE 5% 250 ML IV SCH (05:41)
[2021-03-17] MEDS: dexAMETHasone 6 MG in SYRINGE 0 ML IV SCH (08:40)
[2021-03-17] MEDS: POLYETHYLENE (MIRALAX) 17 GM PACK PO SCH (08:40)
[2021-03-17] MEDS: lisinopril 20 MG TAB PO SCH (08:41)
[2021-03-17] MEDS: carvediloL 12.5 MG TAB PO SCH (08:41)
[2021-03-17] MEDS: CHOLECALCIFEROL 5,000 UNITS 125 MCG TAB PO SCH (08:41)
[2021-03-17] MEDS: PANTOprazole 40 MG TAB PO SCH (08:41)
[2021-03-17] MEDS: ZINC SULFATE 220 MG CAPSULE PO SCH (08:41)
[2021-03-17] MEDS: GABAPENTIN 300 MG CAP PO SCH (08:41)
[2021-03-17] MEDS: ENOXAPARIN INJ 40 MG/0.4 ML SYR SQ SCH (08:42)
[2021-03-17] MEDS: DOCUSATE SODIUM/SENNA 50/8.6MG TAB PO SCH (08:42)
--- NOTE | 2021-03-17 08:54 | Hospitalist Progress Note ---
Date of Service March 17, 2021 Assessment & Plan (1) Pneumonia due to COVID-19 virus: Plan: COVID-19 pneumonia with hypoxia, only 5 days into illness on admission Dexamethasone 6 mg IV daily, day 4 Remdesivir IV daily, day 4 Duonebs PRN, incentive spirometer, flutter valve Azithromycin 500 mg IV daily x 5 days, day 4 Vitamin D 5000 international units p.o. every morning Zinc sulfate turn 20 mg p.o. every morning Lovenox 40mg daily room air 03/17/21 get 2 step tomorrow and try for discharge, he is doing well send home on dexamethasone PO, he will complete both Remdesivir and Zithromax tomorrow (2) Hypoxia: Plan: stable on 2-3L, ambulating without dyspnea or desaturations encourage prone position, laying on side Lasix 80mg IV daily for the past 3 days, BP is low, will change back to PO Lasix tomorrow (he normally takes 80mg PO daily) (3) CAD (coronary artery disease): Plan: CAD/hypertension/cardiomyopathy/CHF- Continue carvedilol, furosemide 80mg PO daily and lisinopril with hold parameters (4) Cardiomyopathy: Plan: See above (5) CHF (congestive heart failure): Plan: See above used Lasix 80mg IV daily for 3 days, good response, Cr stable change back to 80mg PO 03/17/21 (6) GERD (gastroesophageal reflux disease): Plan: Continue omeprazole/pantoprazole 40 mg daily (7) Hyperlipidemia: Plan: Continue atorvastatin 80 mg daily (8) Anemia: Plan: Hemoglobin 9.3 upon admission, with baseline 10.5-11.9 no melena Hb was 9.7 yesterday, 9.4 today, no signs of bleeding have him follow up with PCP (9) Constipated: Plan: add miralax daily Admission and Anticipated Discharge Date Admission Date: March 13, 2021 Results & Data Results & Data ([facility]) Vital Signs (Past 12 Hours) Vital Signs Temp Pulse Pulse Resp BP Pulse Ox 03/17/21 07:53 98.6 F 62 18 138/81 97 03/17/21 02:58 98.2 F 76 20 125/81 91 03/16/21 23:08 63 20 133/74 95 03/16/21 22:19 59 L PG Care Time/CCT Total # of Minutes Spent Total Time Spent with Patient: Total time spent is greater than 50% in coordination of care (as documented) at patient's floor/unit and/or counseling patient: Coding Diagnoses Pneumonia due to COVID-19 virus U07.1; J12.82 Hypoxia R09.02 CAD (coronary artery disease) I25.10 Cardiomyopathy I42.9 CHF (congestive heart failure) I50.9 Heart failure chronicity: acute on chronic Heart failure type: unspecified GERD (gastroesophageal reflux disease) K21.9 Hyperlipidemia E78.5 Anemia D64.9 Anemia type: unspecified type Constipated K59.00 (1) CHF (congestive heart failure) Heart failure chronicity: acute on chronic Heart failure type: unspecified Qualified Code(s): I50.9 - Heart failure, unspecified (2) Anemia Anemia type: unspecified type Qualified Code(s): D64.9 - Anemia, unspecified
[2021-03-17] MEDS ORDERED: FUROSEMIDE 80 MG TAB PO SCH (09:00)
--- NOTE | 2021-03-17 15:23 | Discharge Summary ---
Date of Service March 17, 2021 Admission HPI Per Admitting Provider The patient is a 60-year-old male with a past medical history including chronic low back pain, history of substance abuse, cardiomyopathy, ED, chronic osteomyelitis of elbow, CHF, tobacco user, hypertension, GERD, hyperlipidemia, acute systolic CHF, CAD, cellulitis of scrotum, right rotator cuff tear, and unstable angina. He presents with symptoms as noted above. He is unvaccinated against COVID-19. Significant laboratories: Hemoglobin 9.3, hematocrit 31.4, sodium 133, glucose 111, albumin 2.9. COVID-19 testing was positive. Influenza AMB negative, and RSV negative. Pulse ox 87% on room air. Principal Diagnosis Acute hypoxic respiratory failure COVID-19 positive test (U07.1, COVID-19) with Acute Pneumonia (J12.89, Other viral pneumonia) (If respiratory failure or sepsis present, add as separate assessment) Discharge Exam The patient appeared with resolved respiratory distress however does require oxygen with exertion Vital signs as documented. Head exam is normocephalic atraumatic Neck is without JVD, thyromegaly, or carotid bruits. Lungs are coarse bilaterally in all lung mario however able to speak in full sentences and ambulate short distances in the room Cardiac exam, Rhythm is regular.. No murmurs, rubs or gallops. Abdominal exam reveals normal bowel sounds, soft non tender, no masses Extremities are nonedematous and both pedal pulses are present Neurologic exam is alert and oriented, no focal loss of strength or sensation Skin is without bruises or rashes Psychologically is without concerns for anxiety or depression.. Discharge Data Allergies Allergy/AdvReac Type Severity Reaction Status Date / Time No Known Allergies Allergy Unverified 03/13/21 17:03 Consultations 03/13/21 19:48 ED Decision to Admit Stat Hospital Course (1) Pneumonia due to COVID-19 virus: COVID-19 pneumonia with hypoxia, only 5 days into illness on admission Dexamethasone 6 mg Chenal 6 days at home p.o. Remdesivir IV daily, completed 4 days Duonebs PRN, incentive spirometer, flutter valve Azithromycin 500 mg completed 5 days Recommended home multivitamin with iron 03/17/21 room air at rest 2 L with exertion (2) Hypoxia: stable room air at rest on 2L while ambulating without dyspnea or desaturations encourage prone position, laying on side even after discharge when at home change back to PO Lasix at discharge, 80mg PO daily (3) CAD (coronary artery disease): CAD/hypertension/cardiomyopathy/CHF- Continue carvedilol, furosemide 80mg PO daily and lisinopril with hold parameters (4) Cardiomyopathy: See above (5) CHF (congestive heart failure): See above used Lasix 80mg IV daily for 3 days, good response, Cr stable change back to 80mg PO 03/17/21 (6) GERD (gastroesophageal reflux disease): Continue omeprazole/pantoprazole 40 mg daily (7) Hyperlipidemia: Continue atorvastatin 80 mg daily (8) Anemia: Hemoglobin 9.3 upon admission, with baseline 10.5-11.9 no melena Recommend multivitamin with iron at discharge (9) Constipated: add miralax daily Total Time Total Time Spent Total Time Spent (In Minutes): It required greater than 30 minutes to prepare this patient for discharge Discharge Plan Discharge Items Patient Disposition: Home - Self-Care Reason For Visit: COVID-19 PNEUMONIA WITH HYPOXIA Discharge Diagnosis: pneumonia from covid infection Activity: Per Instructions section Activity Comment: slowly increase activity Non-emergency contact: Primary Care Provider Call non-emergency contact if: your symptoms worsen and you have a fever Follow-up/Referrals: Sofie Taylor MD [Primary Care Provider] - (Please make a follow up appointment with your primary care provider.) Diet: Regular Addtl Attending Provider Instructions: You have been diagnosed with covid infection, it would be recommended that you quarantine yourself for 10 days from your first test or first symptoms, and if at the 10th day you have no symptoms the you can come off quarantine but use common sense precautions. Quarantine means attempting to stay away from people who have not had an active covid infection in the past, and if you have to be around others to wear a mask even if you are indoors, do not share a room to sleep in with others until you are out of quarantine. If you still have symptoms at the 10th day, continue to quarantine until you are symptom free for 48 hours consider taking a multiple vitamin with iron to help rebuild your energy Pending Studies at Discharge: No Stand-Alone Forms: My [employer] Top-Level Domain, Smoking Cessation Medications and DC Order Prescriptions: New dexamethasone [Decadron] 6 mg tablet 6 mg PO DAILY Qty: 6 RF: 0 (DME) Oxygen Home Liters Per Minute See Rx Instructions .ROUTE Qty: 2 RF: 0 Continued lisinopril 20 mg tablet 20 mg PO QAM Qty: 90 RF: 3 atorvastatin 80 mg tablet 80 mg PO QPM Qty: 90 RF: 3 carvedilol 12.5 mg tablet 12.5 mg PO BID Qty: 60 RF: 11 furosemide [Lasix] 40 mg tablet 80 mg PO DAILY Qty: 60 RF: 11 omeprazole 40 mg capsule,delayed release(DR/EC) 40 mg PO DAILY Qty: 90 RF: 1 gabapentin 300 mg capsule 300 mg PO BID Qty: 60 RF: 2 No Action (DME) Shower Chair Misc See Rx Instructions .Route Qty: 1 RF: 0 Discharge Orders: Discharge Order (Routine); Ordered 03/17/21 Ordered By: Varun Valerio Admission Data Admit Date/Time: 03/13/21 20:07 Attending Provider: Varun Valerio Admit Provider: Amrit Giron Primary Care Provider: Sofie Taylor Other Providers: Amrit Giron Other Interventions: Discharge Summary Assessment (RN) Last Done: 03/17/21 13:18 Coding Level of Care Code D/C DAY MANAGEMENT >30 MINS Diagnoses Pneumonia due to COVID-19 virus U07.1; J12.82 Hypoxia R09.02 CAD (coronary artery disease) I25.10 Cardiomyopathy I42.9 CHF (congestive heart failure) I50.9 Heart failure chronicity: acute on chronic Heart failure type: unspecified GERD (gastroesophageal reflux disease) K21.9 Hyperlipidemia E78.5 Anemia D64.9 Anemia type: unspecified type Constipated K59.00
== END 2021-03-17 14:15 | disposition home or self-care (01) | DRG 177 ==
LOC: ED 16:45 → EDINP 20:07 → SUATTDRO 20:07 → 2S 22:00 → 2W 03-15 23:18

== ENCOUNTER 2021-07-31 09:02 | Observation (INO) ==
[2021-07-31] MEDS ORDERED: ALBUT/IPRATROP 3MG/0.5MG NEB 3 ML VIAL INH STA (09:18)
--- NOTE | 2021-07-31 09:34 | Emergency Department Note ---
Impression & Plan SOB (shortness of breath), Anemia, Wheezing, Heme positive stool ED Provider Note NAME: JAMIE SWAN AGE: 60 SEX: M : 1960 ARRIVES VIA: Walk-In INFORMANT: [Patient] ED PROVIDER(S): [Matt Agee MD] CHIEF COMPLAINT: Short of breath HISTORY OF PRESENT ILLNESS: The patient is a 60-year-old male presents to the ER complaining of 6 hours of increased shortness of breath and some chest congestion/cough. He has had some chills, no fever. He has some mild heaviness in his chest but he thinks it is his lungs and not his heart. Patient has a history of wearing 2 L of oxygen but has had to turn up the O2 to 3 L to help his breathing. There have been no sick contacts. Patient does not have an inhaler or nebulizer at home. The patient states that he has had COVID in the past. He is not vaccinated for COVID or influenza. REVIEW OF SYSTEMS: See HPI for pertinent positives and negatives. A total of ten systems were reviewed and were otherwise negative. PMHx/PSHx: See Below SOCIAL HISTORY: See Below. PHYSICAL EXAM: GENERAL: Patient is in mild respiratory distress. HEENT: No acute trauma, normocephalic atraumatic, mucous membranes moist, no nasal congestion, no scleral icterus. NECK: No stridor, no adenopathy, no meningismus, trachea is midline. LUNGS: He does have a few crackles at both bases, more so on the left. There is wheezing bilaterally. There is an increased respiratory rate and diminished breath sounds bilaterally. There is some mild respiratory distress. HEART: Without murmurs gallops or rubs, regular rate and rhythm. ABDOMEN: Soft, nontender, bowel sounds positive, no hernias, no peritonitis. EXTREMITIES: No cyanosis or edema, full range of motion of all the joints without pain or difficulty, no signs for acute trauma. NEUROLOGIC: Oriented x 3, no acute motor or sensory deficits, no focal weakness. SKIN: No rash, no jaundice, no diaphoresis. Rectal: Brown stool, heme positive by Hemoccult. DIFFERENTIAL DIAGNOSIS: Reactive airway disease, pneumonia, COVID-19, influenza, pneumothorax, COPD, CHF, infection, cardiac ischemia, pulmonary embolism, bronchitis, musculoskeletal, gastrointestinal, as well as other pathologies. EMERGENCY DEPARTMENT COURSE/PROCEDURES: ECG: Indication was shortness of breath. The ECG shows a normal sinus rhythm with a rate of 78. There are inverted T waves in the lateral leads. No ST elevation, no PVCs. The QTc is 476. Compared to an ECG from 13 March 2021, PACs are no longer present. Continuous Cardiac Monitoring: An order was placed for continuous cardiac monitoring. The monitor shows a rate of 82 with normal sinus rhythm. MEDICAL DECISION MAKING: There is no leukocytosis. The patient is anemic with a hemoglobin of 8.1. This is lower than his typical values. A rectal exam was performed, stool was brown but did show some heme positivity. There was a normal platelet count. No coagulopathy. No significant electrolyte abnormality, no renal failure. No concerning liver enzyme elevation. ECG showed a normal sinus rhythm, no obvious ischemia. ECG appears similar previous ECGs. Cardiac enzyme testing x1 did not show any evidence for acute cardiac injury. Respiratory bio fire testing was completely negative. Chest x-ray did not show pneumonia or CHF. On exam, the patient appeared short of breath. He was demonstrating some mild respiratory distress. He was wheezing and had diminished breath sounds bilaterally. Patient received a DuoNeb. He was doing better after this intervention. The patient is anemic with some heme positive stool. He is short of breath and wheezing. I do think he warrants hospitalization and further care. I spoke with the patient and case management. The on-call hospitalist was consulted. Past Med/Surg History Medical History Benign hypertension (06/26/12) CAD (coronary artery disease) CHF (congestive heart failure) GERD (gastroesophageal reflux disease) History of cerebral aneurysm (~2018) History of COVID-19 diagnosed 03/13/[address] [facility]--fever, loss of appetitie, fatigue--had difficulty breathing, was admitted to [facility] and placed on oxygen--states he was discharged to home with oxygen, currently using 2L n/c prn for shortness History of [place] (myocardial infarction) (~05/2009) had heart cath (no stents placed), d/t CAD--follows with PCP only HTN (hypertension) Hyperlipidemia On home oxygen therapy 2L n/c prn after having covid 19 Osteoarthritis Rotator cuff tear arthropathy of left shoulder Tobacco user (06/26/12) Surgical History History of cardiac cath x2---last 05/[address] [facility] (no stents) and then previously 05/[address] [facility] no stents History of cerebral aneurysm repair (~2019) @ [facility] History of colonoscopy History of elbow surgery Repair of ulnar nonunion, left History of tooth extraction History of total knee arthroplasty left Hx of repair of right rotator cuff Family History Brother Heart disease Other No family history of adverse response to anesthesia Denies family history of Ovarian cancer Prostate cancer Myocardial infarction Breast cancer Colorectal cancer Social History Smoking Status: Current every day smoker Tobacco Type: Cigarettes packs per day: 1; Cigarettes Per Day: 1/2 pack- 1 pack a day; Second Hand Exposure: No; Do You Dip or Chew Tobacco: No; Tobacco Cessation Education Requested by Patient: No Hx Alcohol Use: No Hx Substance Use: No Preferred Language: Serbian Communication Ability: Effective Hearing Ability: Hard of Hearing Corporate Ethics Officer Required: No Beliefs That Will Affect Care: None marital status: Current Living Situation: Spouse current occupational status: disabled How many Children do You have: 0 Other Information That Helps Us Care for You: No Feels Safe at Home: Yes Safety Concerns: Feels Safe At This Time Childhood Exposure to Second-Hand Smoke: No caffeine: Yes Dental Care, Regularly: No Physical Activity Frequency: Does not Exercise Seatbelt Use: sometimes Sunscreen Use: No Assistive Devices: Denture - Upper, Denture - Lower, Glasses and Oxygen - Continuous Allergies Allergies Allergy/AdvReac Type Severity Reaction Status Date / Time No Known Allergies Allergy Verified 05/12/21 12:33 Home Meds Home Medications Medication Instructions Recorded Confirmed furosemide 40 mg tablet (Lasix) 80 mg PO QAM 05/06/21 07/31/21 omeprazole 40 mg capsule,delayed 40 mg PO QAM 05/06/21 07/31/21 release aspirin 81 mg tablet,delayed 81 mg PO QAM 07/31/21 07/31/21 release atorvastatin 80 mg tablet 80 mg PO HS 07/31/21 07/31/21 Previous Rx's Medication Instructions Recorded carvedilol 12.5 mg tablet 12.5 mg PO BID #60 tab 01/13/21 Oxygen Home #2 l 03/17/21 Shower Chair #1 ea 03/17/21 gabapentin 300 mg capsule 300 mg PO BID #60 cap 05/22/21 lisinopril 20 mg tablet 20 mg PO QAM #90 tab 06/12/21 Results & Data (ED) Vital Signs Vital Signs - 24 hr 07/31/21 09:10 07/31/21 09:31 07/31/21 09:32 Temperature 36.6 C Temperature Source Oral Pulse Rate 82 Pulse Rate [Apical] Respiratory Rate 30 H Blood Pressure 166/79 H Blood Pressure [Left Arm] Blood Pressure Mean 108 Blood Pressure Mean [Left Arm] Pulse Oximetry 100 97 96 Oxygen Delivery Method Nasal Cannula Nasal Cannula Nasal Cannula Oxygen Flow Rate 3 3 3 Sepsis Recent Fever Within 48 Hours No Sepsis New/Unexplained Change in Mental Status No Sepsis Action Taken by Nursing No Action Required 07/31/21 09:49 07/31/21 11:03 07/31/21 13:00 Temperature Temperature Source Pulse Rate Pulse Rate [Apical] 75 78 72 Respiratory Rate 22 18 18 Blood Pressure Blood Pressure [Left Arm] 161/82 H 127/78 Blood Pressure Mean Blood Pressure Mean [Left Arm] 108 94 Pulse Oximetry 100 98 94 Oxygen Delivery Method Nasal Cannula Nasal Cannula Nasal Cannula Oxygen Flow Rate 3 3 3 Sepsis Recent Fever Within 48 Hours Sepsis New/Unexplained Change in Mental Status Sepsis Action Taken by Assisted Medications Current Medication List: was personally reviewed by me Laboratory Data Attestation: I reviewed the patient's lab results. Result diagrams: 07/31/21 09:25 07/31/21 09:25 Lab Results 07/31/21 07/31/21 07/31/21 Range/Units 09:25 09:25 09:25 WBC 8.93 (4.8-10.8) K/uL RBC 4.11 L (4.7-6.1) M/uL Hgb 8.1 L (14.0-18.0) g/dL Hct 29.6 L (42-52) % MCV 72.0 L (80-100) fL MCH 19.7 L (25-34) pg MCHC 27.4 L (32-36) g/dL RDW Std Deviation 49.4 H (36.4-46.3) fL RDW Coeff of Alex 18.8 H (11.5-14.5) % Plt Count 400 (130-400) K/uL MPV 8.8 (7.4-10.4) fL Immature Gran % (Auto) 0.4 % Neut % (Auto) 66.0 % Lymph % (Auto) 19.6 % Dickenson % (Auto) 10.8 % Eos % (Auto) 2.5 % Baso % (Auto) 0.7 % Neut # (Auto) 5.90 (1.4-6.5) K/uL Lymph # (Auto) 1.75 (1.2-3.4) K/uL Dickenson # (Auto) 0.96 H (0.11-0.59) K/uL Eos # (Auto) 0.22 (0-0.5) K/uL Baso # (Auto) 0.06 (0-0.2) K/uL Immature Gran # (Auto) 0.04 H (0.00-0.02) K/uL Polychromasia 1+ Hypochromasia Present Anisocytosis Present PT 10.4 (9.0-12.0) Seconds INR 1.0 (0.9-1.1) APTT 25.4 (21.0-31.0) Seconds PTT Ratio 0.9 Sodium 133 L (136-145) mmol/L Potassium 4.4 (3.5-5.1) mmol/L Chloride 100 (98-107) mmol/L Carbon Dioxide 26 (21-32) mmol/L Anion Gap 7 (3-11) BUN 13 (6-23) mg/dl Creatinine 0.84 (0.6-1.4) mg/dl Est Cr Clr Drug Dosing Not Reportable Est GFR ( Amer) 109.5 ml/min Est GFR (Non-Af Amer) 94.5 ml/min BUN/Creatinine Ratio 15.5 (10-20) Glucose 103 H (70-99(Fasting)) mg/dl Calcium 9.1 (8.5-10.1) mg/dl Magnesium 2.3 (1.7-2.4) mg/dl Iron (35-175) mcg/dl Unsaturated IBC (155-355) mcg/dl Transferrin (200-360) mg/dl Ferritin (8-388) ng/ml Total Bilirubin 0.4 (0.2-1.0) mg/dl AST 18 (13-39) U/L ALT 22 (7-52) U/L Alkaline Phosphatase 115 H (34-104) U/L Troponin I High Sens 10.8 (0-20) pg/ml B-Natriuretic Peptide (0-100) pg/ml Total Protein 7.8 (6.0-8.3) gm/dl Albumin 4.1 (3.4-5.0) gm/dl Globulin 3.7 (2.5-4.0) gm/dl Albumin/Globulin Ratio 1.1 (0.9-2) Adenovirus (PCR) (NotDetected) B. pertussis DNA (PCR) (NotDetected) B.parapertussis DNA PCR (NotDetected) C. pneumoniae DNA (PCR) (NotDetected) Coronavirus OC43 (PCR) (NotDetected) Coronavirus HKU1 (PCR) (NotDetected) Coronavirus 229E (PCR) (NotDetected) SARS-CoV-2 (PCR) (NotDetected) Coronavirus NL63 (PCR) (NotDetected) Human Metapneumovir PCR (NotDetected) Influenza Type A (PCR) (NotDetected) Influenza Type B (PCR) (NotDetected) M. pneumoniae (PCR) (NotDetected) Parainfluenza 1 (PCR) (NotDetected) Parainfluenza 2 (PCR) (NotDetected) Parainfluenza 3 (PCR) (NotDetected) Parainfluenza 4 (PCR) (NotDetected) RSV (PCR) (NotDetected) Entero/Rhino (PCR) (NotDetected) 07/31/21 07/31/21 07/31/21 Range/Units 09:25 09:45 09:50 WBC (4.8-10.8) K/uL RBC (4.7-6.1) M/uL Hgb (14.0-18.0) g/dL Hct (42-52) % MCV (80-100) fL MCH (25-34) pg MCHC (32-36) g/dL RDW Std Deviation (36.4-46.3) fL RDW Coeff of Alex (11.5-14.5) % Plt Count (130-400) K/uL MPV (7.4-10.4) fL Immature Gran % (Auto) % Neut % (Auto) % Lymph % (Auto) % Dickenson % (Auto) % Eos % (Auto) % Baso % (Auto) % Neut # (Auto) (1.4-6.5) K/uL Lymph # (Auto) (1.2-3.4) K/uL Dickenson # (Auto) (0.11-0.59) K/uL Eos # (Auto) (0-0.5) K/uL Baso # (Auto) (0-0.2) K/uL Immature Gran # (Auto) (0.00-0.02) K/uL Polychromasia Hypochromasia Anisocytosis PT (9.0-12.0) Seconds INR (0.9-1.1) APTT (21.0-31.0) Seconds PTT Ratio Sodium (136-145) mmol/L Potassium (3.5-5.1) mmol/L Chloride (98-107) mmol/L Carbon Dioxide (21-32) mmol/L Anion Gap (3-11) BUN (6-23) mg/dl Creatinine (0.6-1.4) mg/dl Est Cr Clr Drug Dosing Est GFR ( Amer) ml/min Est GFR (Non-Af Amer) ml/min BUN/Creatinine Ratio (10-20) Glucose (70-99(Fasting)) mg/dl Calcium (8.5-10.1) mg/dl Magnesium (1.7-2.4) mg/dl Iron 28 L (35-175) mcg/dl Unsaturated IBC 498 H (155-355) mcg/dl Transferrin 358 (200-360) mg/dl Ferritin 7.5 L (8-388) ng/ml Total Bilirubin (0.2-1.0) mg/dl AST (13-39) U/L ALT (7-52) U/L Alkaline Phosphatase (34-104) U/L Troponin I High Sens (0-20) pg/ml B-Natriuretic Peptide 59 (0-100) pg/ml Total Protein (6.0-8.3) gm/dl Albumin (3.4-5.0) gm/dl Globulin (2.5-4.0) gm/dl Albumin/Globulin Ratio (0.9-2) Adenovirus (PCR) Not Detected (NotDetected) B. pertussis DNA (PCR) Not Detected (NotDetected) B.parapertussis DNA PCR Not Detected (NotDetected) C. pneumoniae DNA (PCR) Not Detected (NotDetected) Coronavirus OC43 (PCR) Not Detected (NotDetected) Coronavirus HKU1 (PCR) Not Detected (NotDetected) Coronavirus 229E (PCR) Not Detected (NotDetected) SARS-CoV-2 (PCR) Not Detected (NotDetected) Coronavirus NL63 (PCR) Not Detected (NotDetected) Human Metapneumovir PCR Not Detected (NotDetected) Influenza Type A (PCR) Not Detected (NotDetected) Influenza Type B (PCR) Not Detected (NotDetected) M. pneumoniae (PCR) Not Detected (NotDetected) Parainfluenza 1 (PCR) Not Detected (NotDetected) Parainfluenza 2 (PCR) Not Detected (NotDetected) Parainfluenza 3 (PCR) Not Detected (NotDetected) Parainfluenza 4 (PCR) Not Detected (NotDetected) RSV (PCR) Not Detected (NotDetected) Entero/Rhino (PCR) Not Detected (NotDetected) Administered Medications Discontinued Medications Albuterol (Albut/Ipratrop 3mg/0.5mg Neb 3 Ml Vial) 3 ml INH NOW STA Stop: 07/31/21 09:19 Last Admin: 07/31/21 09:44 Dose: 3 ml Documented by: [id number] Azithromycin (Azithromycin 250 Mg Tab) 500 mg PO NOW ONE Stop: 07/31/21 13:10 Last Admin: 07/31/21 15:04 Dose: 500 mg Documented by: [id number] Imaging Data Radiologist's Impression: Chest X-Ray 07/31/21 09:18 SINGLE VIEW CHEST CLINICAL HISTORY: Dyspnea. FINDINGS: An AP, portable, upright chest radiograph is compared to study dated 03/13/2021. The examination is degraded by portable technique, apical lordotic positioning, and patient rotation. The heart is enlarged. The pulmonary vasculature is noncongested. Chronic interstitial thickening is similar to previous. Scarring/atelectasis is noted at the lung bases. No airspace co nsolidation or large pleural effusion is identified. No pneumothorax is seen. The skeletal structures are osteopenic. The bony thorax is grossly intact. IMPRESSION: Cardiomegaly with no acute cardiopulmonary abnormality. ACT 112: Negative or not required by law. Electronically signed by: Matt Pozo M.D. 07/31/2021 10:[address] 07/31/21 13:02 CT OF THE CHEST WITHOUT IV CONTRAST CLINICAL HISTORY: SOB at rest and exertion COMPARISON STUDY: Chest radiograph July 31, 2021. CT DOSE: 853.00 mGy.cm TECHNIQUE: Axial images of the chest were obtained without IV contrast. Images were reviewed in the axial, sagittal, and coronal planes. IV contrast was not administered for this examination. Automated exposure control was utilized for the study. A dose lowering technique was utilized adhering to the principles of ALARA. FINDINGS: Note is made of partially calcified subcarinal and left hilar lymph nodes. There are few calcified granulomas within the lungs. Minimal secretions within the distal trachea and at the shabbir are noted. The findings represent a previous granulomatous process. Mild cardiomegaly is noted. There is moderate coronary artery calcification. Cardiac blood pool attenuation is mildly decreased. No pneumothorax or pleural effusion is noted. Mild lingular and left lower lobe opacity favors atelectasis. There is no consolidation to suggest pneumonia. No bronchiectasis is present. There is no honeycombing. No CT evidence for emphysema. No acute fracture or suspicious lesion within the visualized bony thorax. Visualized portions of the upper abdomen are unremarkable on this unenhanced exam. IMPRESSION: 1. Lingular and left lower lobe opacity which favors atelectasis. No consol idation to suggest pneumonia. 2. No CT evidence for interstitial lung disease. 3. Mild cardiomegaly. Moderate coronary artery calcification. ACT 112: Negative or not required by law. Electronically signed by: Perry Holden M.D. 07/31/2021 2:14 PM Discharge Plan Visit Data Chief Complaint: Shortness of Breath/Dyspnea Stated Complaint: SHORTNESS OF BREATH ED Provider: Matt Agee Discharge Problem: SOB (shortness of breath), Anemia, Wheezing, Heme positive stool Patient Disposition: Admitted As Inpatient Condition: Fair
[2021-07-31 09:48] LABS: Basophils # (auto) 0.06 K/uL (0-0.2); Basophils % (auto) 0.7 %; Eosinophils # (auto) 0.22 K/uL (0-0.5); Eosinophils % (auto) 2.5 %; Hematocrit (blood only) 29.6 % (42-52); Hemoglobin 8.1 g/dL (14.0-18.0); Immature Granulocytes # (auto) 0.04 K/uL (0.00-0.02); Immature Granulocytes % (auto) 0.4 %; Lymphocytes # (auto) 1.75 K/uL (1.2-3.4); Lymphocytes % (auto) 19.6 %; Mean Corpuscular Hemoglobin 19.7 pg (25-34); Mean Corpuscular Hgb Conc 27.4 g/dL (32-36); Mean Platelet Volume 8.8 fL (7.4-10.4); Monocytes # (auto) 0.96 K/uL (0.11-0.59); Monocytes % (auto) 10.8 %; Platelet Count 400 K/uL (130-400); RDW Coefficient of Variation 18.8 % (11.5-14.5); RDW Standard Deviation 49.4 fL (36.4-46.3); Red Blood Count 4.11 M/uL (4.7-6.1); White Blood Count 8.93 K/uL (4.8-10.8)
[2021-07-31 09:50] LABS: Partial Thromboplastin Ratio 0.9; Partial Thromboplastin Time 25.4 Seconds (21.0-31.0); Prothrombin Time 10.4 Seconds (9.0-12.0)
[2021-07-31 10:07] LABS: Anisocytosis Present; Hypochromasia Present; Polychromasia 1+
--- NOTE | 2021-07-31 10:10 | XRay Report ---
SINGLE VIEW CHEST CLINICAL HISTORY: Dyspnea. FINDINGS: An AP, portable, upright chest radiograph is compared to study dated 03/13/2021. The examin ation is degraded by portable technique, apical lordotic positioning, and patient rotation. The heart is enlarged. The pulmonary vasculature is noncongested. Chronic interstitial thickening is similar t o previous. Scarring/atelectasis is noted at the lung bases. No airspace consolidation or large pleur al effusion is identified. No pneumothorax is seen. The skeletal structures are osteopenic. The bony thorax is grossly intact. IMPRESSION: Cardiomegaly with no acute cardiopulmonary abnormality. ACT 112: Negative or not required by law. Electronically signed by: Matt Pozo M.D. 07/31/2021 10:09 AM
[2021-07-31 10:33] LABS: Anion Gap 7 (3-11); BUN Creatinine Ratio 15.5 (10-20); Blood Urea Nitrogen 13 mg/dl (6-23); Calcium 9.1 mg/dl (8.5-10.1); Carbon Dioxide 26 mmol/L (21-32); Chloride 100 mmol/L (98-107); Est GFR (African American) 109.5 ml/min; Est GFR (Non-African American) 94.5 ml/min; Glucose 103 mg/dl (70-99(Fasting)); Potassium 4.4 mmol/L (3.5-5.1); Sodium 133 mmol/L (136-145)
[2021-07-31 10:35] LABS: Albumin Globulin Ratio 1.1 (0.9-2); Albumin Level 4.1 gm/dl (3.4-5.0); Alkaline Phosphatase 115 U/L (34-104); Aspartate Aminotransferase 18 U/L (13-39); Bilirubin,Total 0.4 mg/dl (0.2-1.0); Globulin 3.7 gm/dl (2.5-4.0); Magnesium 2.3 mg/dl (1.7-2.4); Total Protein 7.8 gm/dl (6.0-8.3)
[2021-07-31 10:51] LABS: Alanine Aminotransferase 22 U/L (7-52)
[2021-07-31 10:52] LABS: Troponin I High Sensitivity 10.8 pg/ml (0-20)
[2021-07-31 11:05] LABS: Adenovirus PCR Not Detected (NotDetected); Bordetella parapertussis PCR Not Detected (NotDetected); Bordetella pertussis PCR Not Detected (NotDetected); Chlamydia pneumoniae PCR Not Detected (NotDetected); Coronavirus 229E PCR Not Detected (NotDetected); Coronavirus CoV-2 (COVID19)PCR Not Detected (NotDetected); Coronavirus HKU1 PCR Not Detected (NotDetected); Coronavirus NL63 PCR Not Detected (NotDetected); Coronavirus OC43PCR Not Detected (NotDetected); Human Metapneumovirus PCR Not Detected (NotDetected); Influenza A PCR Not Detected (NotDetected); Influenza B PCR Not Detected (NotDetected); Mycoplasma pneumoniae PCR Not Detected (NotDetected); Parainfluenza Virus 1 PCR Not Detected (NotDetected); Parainfluenza Virus 2 PCR Not Detected (NotDetected); Parainfluenza Virus 3 PCR Not Detected (NotDetected); Parainfluenza Virus 4 PCR Not Detected (NotDetected); Respiratory Syncytial VirusPCR Not Detected (NotDetected); Rhinovirus/Enterovirus PCR Not Detected (NotDetected)
[2021-07-31] MEDS ORDERED: AZITHROMYCIN 250 MG TAB PO ONE (13:09)
--- NOTE | 2021-07-31 13:48 | History & Physical Report ---
Date of Service July 31, 2021 Assessment & Plan (1) SOB (shortness of breath): Plan: Patient being admitted with SOB, patient has required oxygen since he was admitted with COVID 19 earlier in the year. Patient cary shave extensive tobacco history. Patient likely has COPD. Did not find any Pulmonary function test in the system. Will obtain CT chest of lung. and check VBG. (2) Cough: Plan: Patient has a chornic cough, no production. (3) Anemia: Plan: Patient had a recent colonoscopy this year which was negative. Hemoglobin does appear to be lower than usual, This may be affecting his symptoms. Will order ferritin and iron studies. Update: iron levels suggesting Iron deficiency anemia. will consult GI. repeat hemoglobin in AM. (4) CHF (congestive heart failure): Plan: Patient appears to have history of CHF. EF: 20-25% WITH SEVERE HYPOKINESIS OF THE LEFT VENTRICLE will repeat ECHO. Patient currently does not appear to be in acute CHF, however he does have symptoms of orthopnea. (5) GERD (gastroesophageal reflux disease): Plan: resume PPI (6) Benign hypertension: Plan: resume home meds (7) Hyperlipidemia: Plan: continue home statin (8) CAD (coronary artery disease): Plan: resume home meds (9) History of substance abuse: Plan: patient now only smokes (10) Tobacco user: Plan: Patient has an extensive history of tobacco use. Likely playing a role in his shortness of breath. He has at least >50 pack year history given that he smoked about 2 packs a day for years. Cut back to 1 pack for 10 years and now smokes half a pack. will benefit from PFT as an outpatient. will obtain VBG. place on xopenex. will obtain CT scan of chest. History of Present Illness Chief Complaint: dyspnea Primary Care Provider: Sofie Taylor MD 60 yo male with EXTENSIVE history of smoking presents to the ED with worsening SOB. Patient smoked since he was 13, had smoked about 2 packs a day for decades, then cut down to a pack a day 10 years ago, now smoking half a pack a day for the past 6 months. Patient reports that he has not felt back to his normal self since being diagnosed with COVID. He states he has been more SOB, and has required intermittent use of oxygen even at rest. Patient denies any fever, chills, nausea, vomiting. Patient states he has SOB at rest and exertion, patient also reports he cannot lay flat. He reports he is not ready to quit smoking as he states that this is his only crutch that he has. He used to marijuana, alcohol, and other substances. Allergies Allergy/AdvReac Type Severity Reaction Status Date / Time No Known Allergies Allergy Verified 05/12/21 12:33 Home Medications Medication Instructions Recorded Confirmed Type carvedilol 12.5 mg tablet 12.5 mg PO BID #60 tab 01/13/21 07/31/21 Rx Oxygen Home #2 l 03/17/21 04/21/21 Rx Shower Chair #1 ea 03/17/21 04/21/21 Rx furosemide 40 mg tablet (Lasix) 80 mg PO QAM 05/06/21 07/31/21 History omeprazole 40 mg capsule,delayed 40 mg PO QAM 05/06/21 07/31/21 History release gabapentin 300 mg capsule 300 mg PO BID #60 cap 05/22/21 07/31/21 Rx lisinopril 20 mg tablet 20 mg PO QAM #90 tab 06/12/21 07/31/21 Rx aspirin 81 mg tablet,delayed 81 mg PO QAM 07/31/21 07/31/21 History release atorvastatin 80 mg tablet 80 mg PO HS 07/31/21 07/31/21 History Past Med/Surg History Medical History Benign hypertension (06/26/12) CAD (coronary artery disease) CHF (congestive heart failure) GERD (gastroesophageal reflux disease) History of cerebral aneurysm (~2018) History of COVID-19 diagnosed 03/13/[address] [facility]--fever, loss of appetitie, fatigue--had difficulty breathing, was admitted to [facility] and placed on oxygen--states he was discharged to home with oxygen, currently using 2L n/c prn for shortness History of [place] (myocardial infarction) (~05/2009) had heart cath (no stents placed), d/t CAD--follows with PCP only HTN (hypertension) Hyperlipidemia On home oxygen therapy 2L n/c prn after having covid 19 Osteoarthritis Rotator cuff tear arthropathy of left shoulder Tobacco user (06/26/12) Surgical History History of cardiac cath x2---last 05/[address] [facility] (no stents) and then previously 05/[address] [facility] no stents History of cerebral aneurysm repair (~2019) @ [facility] History of colonoscopy History of elbow surgery Repair of ulnar nonunion, left History of tooth extraction History of total knee arthroplasty left Hx of repair of right rotator cuff Family History Brother Heart disease Other No family history of adverse response to anesthesia Denies family history of Ovarian cancer Prostate cancer Myocardial infarction Breast cancer Colorectal cancer Social History Smoking Status: Current every day smoker Tobacco Type: Cigarettes packs per day: 1; Cigarettes Per Day: 1/2 pack- 1 pack a day; Second Hand Exposure: No; Do You Dip or Chew Tobacco: No; Tobacco Cessation Education Requested by Patient: No Hx Alcohol Use: No Hx Substance Use: No Preferred Language: Romansh Communication Ability: Effective Hearing Ability: Hard of Hearing Telesales Team Leader Required: No Beliefs That Will Affect Care: None marital status: Current Living Situation: Spouse current occupational status: disabled How many Children do You have: 0 Other Information That Helps Us Care for You: No Feels Safe at Home: Yes Safety Concerns: Feels Safe At This Time Childhood Exposure to Second-Hand Smoke: No caffeine: Yes Dental Care, Regularly: No Physical Activity Frequency: Does not Exercise Seatbelt Use: sometimes Sunscreen Use: No Assistive Devices: Denture - Upper, Denture - Lower, Glasses and Oxygen - Continuous Review of Systems Constitutional: no fever and no body aches Eyes: no blind spots Ear, Nose, Mouth, Throat: no ear pain Respiratory: + cough and + dyspnea; no change in sputum Cardiovascular: no chest pain Gastrointestinal: no abdominal pain, no coffee ground emesis, no change in stools, no constipation and no blood in stools Genitourinary: no dysuria or no urinary frequency Musculoskeletal: no back pain Integumentary: no acne Neurologic: no gait abnormality Psychiatric: no behavioral changes Endocrine: no fatigue and no polydipsia Hematologic / Lymphatic: no easy bleeding Allergy / Immunological: no GI upset with certain foods Physical Exam Constitutional: WD/WN, vitals as above Eyes: PERRL, conjunctivae normal, anicteric sclerae ENMT: external ear and nose normal, oropharynx normal Neck: trachea midline, no thyromegaly (no JVD) Respiratory: normal respiratory effort, lungs clear to auscultation Cardiovascular: RRR, no murmur, no edema Gastrointestinal (Abdomen): normal bowel sounds, soft, nontender, no hepatosplenomegaly Musculoskeletal: no cyanosis or clubbing, extremities motor strength 5/5 Skin: no rashes, warm and dry Neurologic: PERRL, EOMI, accommodation nl, no face palsy, no dysarthria Psychiatric: A+Ox3, euthymic affect Lymphatic: no cervical or axillary lymphadenopathy Results & Data Results & Data ([facility]) Vital Signs (Past 12 Hours) Vital Signs Temp Pulse Pulse Resp BP BP Pulse Ox 07/31/21 13:00 72 18 94 07/31/21 11:03 78 18 127/78 98 07/31/21 09:49 75 22 161/82 H 100 07/31/21 09:32 96 07/31/21 09:31 97 07/31/21 09:10 36.6 C 82 30 H 166/79 H 100 PG Care Time/CCT Total # of Minutes Spent Total Time Spent with Patient: Total time spent is greater than 50% in coordination of care (as documented) at patient's floor/unit and/or counseling patient: Coding Level of Care Code INT OBSERVATION CARE 70M LVL 3 Diagnoses Cough R05 CHF (congestive heart failure) I50.9 Heart failure chronicity: acute on chronic Heart failure type: unspecified GERD (gastroesophageal reflux disease) K21.9 Benign hypertension I10 Hyperlipidemia E78.5 CAD (coronary artery disease) I25.10 History of substance abuse F19.11 Anemia D64.9 Tobacco user Z72.0 SOB (shortness of breath) R06.02 (1) CHF (congestive heart failure) Heart failure chronicity: acute on chronic Heart failure type: unspecified Qualified Code(s): I50.9 - Heart failure, unspecified
--- NOTE | 2021-07-31 14:16 | CT Scan Report ---
CT OF THE CHEST WITHOUT IV CONTRAST CLINICAL HISTORY: SOB at rest and exertion COMPARISON STUDY: Chest radiograph July 31, 2021. CT DOSE: 853.00 mGy.cm TECHNIQUE: Axial images of the chest were obtained without IV contrast. Images were reviewed in the axial, sagittal, and coronal planes. IV contrast was not administered for this examination. Automat ed exposure control was utilized for the study. A dose lowering technique was utilized adhering to t he principles of ALARA. FINDINGS: Note is made of partially calcified subcarinal and left hilar lymph nodes. There are few c alcified granulomas within the lungs. Minimal secretions within the distal trachea and at the shabbir are noted. The findings represent a previous granulomatous process. Mild cardiomegaly is noted. There is moderate coronary artery calcification. Cardiac blood pool attenuation is mildly decreased. No pn eumothorax or pleural effusion is noted. Mild lingular and left lower lobe opacity favors atelectasis . There is no consolidation to suggest pneumonia. No bronchiectasis is present. There is no honeycomb ing. No CT evidence for emphysema. No acute fracture or suspicious lesion within the visualized bony thorax. Visualized portions of the upper abdomen are unremarkable on this unenhanced exam. IMPRESSION: 1. Lingular and left lower lobe opacity which favors atelectasis. No consolidation to suggest pneumon ia. 2. No CT evidence for interstitial lung disease. 3. Mild cardiomegaly. Moderate coronary artery calcification. ACT 112: Negative or not required by law. Electronically signed by: Perry Holden M.D. 07/31/2021 2:14 PM
[2021-07-31 15:10] LABS: Base Excess VBG 1.6 mEq/L; Oxygen Saturation VBG 78.6 %; pH VBG 7.41 (7.36-7.41)
[2021-07-31 15:17] LABS: Ferritin 7.5 ng/ml (8-388)
[2021-07-31] MEDS: cefTRIAXone SODIUM 2,000 MG in DEXTROSE 5% 50 ML IV SCH (16:49)
[2021-07-31] MEDS: NICOTINE 14 MG/24 HR PATCH TD SCH (17:22)
[2021-07-31] MEDS: LEVALBUTEROL HCL 1.25 MG/3 ML NEB NEB SCH (19:29)
[2021-07-31] MEDS: ATORVASTATIN 40 MG TAB PO SCH (21:26)
[2021-07-31] MEDS: carvediloL 12.5 MG TAB PO SCH (21:26)
[2021-07-31] MEDS: GABAPENTIN 300 MG CAP PO SCH (21:27)
[2021-08-01] MEDS: LEVALBUTEROL HCL 1.25 MG/3 ML NEB NEB SCH ×2 (00:15→07:20)
[2021-08-01 01:11] LABS: Hematocrit (blood only) 29.2 % (42-52); Hemoglobin 7.9 g/dL (14.0-18.0)
[2021-08-01 06:50] LABS: BUN Creatinine Ratio 16.1 (10-20); Calcium 8.7 mg/dl (8.5-10.1); Creatinine Clr Calc Pharmacy 118.2 ml/min; Est GFR (Non-African American) 93.2 ml/min
[2021-08-01 07:01] LABS: Hematocrit (blood only) 28.2 % (42-52); Hemoglobin 7.6 g/dL (14.0-18.0); Mean Corpuscular Hemoglobin 19.4 pg (25-34); Mean Corpuscular Volume 72.1 fL (80-100); Platelet Count 366 K/uL (130-400); RDW Coefficient of Variation 18.7 % (11.5-14.5); RDW Standard Deviation 49.2 fL (36.4-46.3); Red Blood Count 3.91 M/uL (4.7-6.1); White Blood Count 8.29 K/uL (4.8-10.8)
--- NOTE | 2021-08-01 08:50 | Hospitalist Progress Note ---
Date of Service August 01, 2021 Assessment & Plan (1) SOB (shortness of breath): Plan: Patient being admitted with SOB, patient has required oxygen since he was admitted with COVID 19 earlier in the year. pt now on room air Patient cary shave extensive tobacco history. Patient likely has COPD, he has felt improved since being on the inhaled medicines. Did not find any Pulmonary function test in the system. CT chest did not show any pneumonia, some atelectasis sob is from symptomatic anemia, with hgb < 8 gms (2) Cough: Plan: Patient has a chronic cough, no production. Ct without suggestion of lesions o r infetion biofire is negative (3) Anemia: Plan: Patient had a recent colonoscopy this year which was negative. Hemoglobin does appear to be lower than usual, This may be affecting his symptoms. iron levels suggesting Iron deficiency anemia. consult GI agress with ppi, will transfuse 1 u prbc. (4) CHF (congestive heart failure): Plan: Patient appears to have history of chronic systolic HF now without acute exacerbation EF: 20-25% WITH SEVERE HYPOKINESIS OF THE LEFT VENTRICLE carvedilol, lasix and lisinopril, may consider entersto if still remains low (5) GERD (gastroesophageal reflux disease): Plan: resume PPI, iron deficiency anemia, pt refuses ugi (6) Benign hypertension: Plan: resume home meds (7) Hyperlipidemia: Plan: continue home statin (8) History of substance abuse: Plan: patient now only smokes (9) Tobacco user: Plan: Patient has an extensive history of tobacco use. Likely playing a role in his shortness of breath. He has at least >50 pack year history given that he smoked about 2 packs a day for years. Cut back to 1 pack for 10 years and now smokes half a pack. will benefit from PFT as an outpatient. Admission and Anticipated Discharge Date Admission Date: July 31, 2021 Subjective this pt is doing well occasionally irritated with the general issues of being in the hospital, agreeable to blood transfusion and iron supplementation Review of Systems Review of Systems: Mild distress and fatigue no headache, no visual changes no speech or swallowing issues no chest pain, pressure or palpitations exertional shortness of breath, cough or wheezes no abdominal pain, nausea or vomiting, diarrhea or constipation no dysuria, hematuria or frequency no focal joint pain or swelling no back pain, CVA tenderness or radicular pain no bruising, bleeding or rashes no focal signs of weakness or numbness or altered sensation no complaints of anxiety or depression.. Physical Exam Physical Exam: The patient appeared well nourished and normally developed. Vital signs as documented. Head exam is normocephalic atraumatic Neck is without JVD, thyromegaly, or carotid bruits. Lungs are clear to auscultation, no focal loss of breath sounds Cardiac exam, Rhythm is regular.. No murmurs, rubs or gallops. Abdominal exam reveals normal bowel sounds, soft non tender, no epigastric distress, no masses Extremities are nonedematous and both pedal pulses are present Neurologic exam is alert and oriented, no focal loss of strength or sensation Skin is without bruises or rashes Psychologically is without concerns for anxiety or depression.. Results & Data Results & Data ([facility]) Vital Signs (Past 12 Hours) Vital Signs Temp Pulse Resp BP Pulse Ox Pulse Ox 08/01/21 08:13 97.9 F 93 H 18 168/82 H 100 08/01/21 07:22 85 18 88 L 07/31/21 22:53 97.3 F L 96 H 18 89/58 L 95 07/31/21 21:25 95 07/31/21 21:23 98.2 F 85 14 119/67 92 PG Care Time/CCT Total # of Minutes Spent Total Time Spent with Patient: Total time spent is greater than 50% in coordination of care (as documented) at patient's floor/unit and/or counseling patient: Coding Level of Care Code 69992 Subseq Obs Care Lvl 3 Diagnoses SOB (shortness of breath) R06.02 Cough R05 Anemia D64.9 CHF (congestive heart failure) I50.9 Heart failure chronicity: acute on chronic Heart failure type: unspecified GERD (gastroesophageal reflux disease) K21.9 Benign hypertension I10 Hyperlipidemia E78.5 History of substance abuse F19.11 Tobacco user Z72.0 (1) CHF (congestive heart failure) Heart failure chronicity: acute on chronic Heart failure type: unspecified Qualified Code(s): I50.9 - Heart failure, unspecified
[2021-08-01] MEDS ORDERED: ASPIRIN 81 MG ECTAB PO SCH (09:00)
[2021-08-01] MEDS ORDERED: PANTOprazole 40 MG TAB PO SCH (09:00)
[2021-08-01] MEDS: NICOTINE 14 MG/24 HR PATCH TD SCH (09:15)
[2021-08-01] MEDS: AZITHROMYCIN 250 MG TAB PO SCH (09:17)
[2021-08-01] MEDS: FUROSEMIDE 80 MG TAB PO SCH (09:18)
[2021-08-01] MEDS: carvediloL 12.5 MG TAB PO SCH ×2 (09:18→20:27)
[2021-08-01] MEDS: lisinopril 20 MG TAB PO SCH (09:19)
[2021-08-01] MEDS: GABAPENTIN 300 MG CAP PO SCH ×2 (09:19→20:27)
--- NOTE | 2021-08-01 10:02 | Gastrointestinal Consultation ---
Date of Consultation August 01, 2021 Assessment & Plan (1) Anemia: -Patient reports he had breakfast and therefore we cannot do an EGD today. He can have an EGD as an outpatient, however it does not seem he is agreeable to this because he emphasizes to me that he has not seen bleeding and feels that a scope is unnecessary. I would advise he take Protonix 40 mg BID while hospitalized and then can increase his Omeprazole to 40 mg BID when discharged. He can follow-up with our outpatient clinic to be scheduled for an EGD. Supervising Physician Co-Signing Physician Notes Agree with RAMOS Hewitt as above Gen: Agitated and annoyed, NAD Chest: CTA B/L -w/r/r CVS: RRR Abd: Soft, NT, ND, +BS, No appreciable HSM Ext: -c/c/e Continue current therapy with twice daily PPI and supportive care He is not interested in an EGD at this time No overt GI bleeding per patient History of Present Illness Reason for Consultation: Anemia Attending Physician: Varun Valerio MD History of Present Illness Patient is a 60 yo male with PMH of anemia, rotator cuff tear, acute systolic CHF, osteomyelitis, septic arthritis, cardiomyopathy, chronic low back pain, COVID19, HTN, GERD, HLD, & chronic anemia who presented to the hospital due to shortness of breath. He notes symptoms only occur with exertion. He has an EF of 20-25%. He has an extensive smoking history since age 13. He is undergoing a work-up for suspected COPD. GI was consulted due to anemia. H/H 7.3/23.2. Hemoglobin was 8.5 in April 2021. He denies abdominal pain, melena, heartburn, hematochezia, hematemesis, change in bowel habits, or unintentional weight loss. He takes Omeprazole 40 mg daily. No other reported NSAID use with exception of baby Aspirin. No pertinent family history. Colonoscopy in April 2021 was unremarkable for acute issues. Patient ate breakfast this AM. No overt GI bleeding. Allergies Allergy/AdvReac Type Severity Reaction Status Date / Time No Known Allergies Allergy Verified 05/12/21 12:33 Home Medications Medication Instructions Recorded Confirmed Type carvedilol 12.5 mg tablet 12.5 mg PO BID #60 tab 01/13/21 07/31/21 Rx Oxygen Home #2 l 03/17/21 04/21/21 Rx Shower Chair #1 ea 03/17/21 04/21/21 Rx furosemide 40 mg tablet (Lasix) 80 mg PO QAM 05/06/21 07/31/21 History omeprazole 40 mg capsule,delayed 40 mg PO QAM 05/06/21 07/31/21 History release gabapentin 300 mg capsule 300 mg PO BID #60 cap 05/22/21 07/31/21 Rx lisinopril 20 mg tablet 20 mg PO QAM #90 tab 06/12/21 07/31/21 Rx aspirin 81 mg tablet,delayed 81 mg PO QAM 07/31/21 07/31/21 History release atorvastatin 80 mg tablet 80 mg PO HS 07/31/21 07/31/21 History Patient History Medical History Benign hypertension (06/26/12) CAD (coronary artery disease) CHF (congestive heart failure) GERD (gastroesophageal reflux disease) History of cerebral aneurysm (~2018) History of COVID-19 diagnosed 03/13/21 @ [facility]--fever, loss of appetitie, fatigue--had difficulty breathing, was admitted to [facility] and placed on oxygen--states he was discharged to home with oxygen, currently using 2L n/c prn for shortness History of [place] (myocardial infarction) (~05/2009) had heart cath (no stents placed), d/t CAD--follows with PCP only HTN (hypertension) Hyperlipidemia On home oxygen therapy 2L n/c prn after having covid 19 Osteoarthritis Rotator cuff tear arthropathy of left shoulder Tobacco user (06/26/12) Surgical History History of cardiac cath x2---last 05/2017 @ [facility] (no stents) and then previously 05/2009 @ [facility] no stents History of cerebral aneurysm repair (~2018) @ [facility] History of colonoscopy History of elbow surgery Repair of ulnar nonunion, left History of tooth extraction History of total knee arthroplasty left Hx of repair of right rotator cuff Family History Brother Heart disease Other No family history of adverse response to anesthesia Denies family history of Ovarian cancer Prostate cancer Myocardial infarction Breast cancer Colorectal cancer Social History Smoking Status: Current every day smoker Tobacco Type: Cigarettes packs per day: 1; Cigarettes Per Day: 1/2 pack- 1 pack a day; Second Hand Exposure: No; Do You Dip or Chew Tobacco: No; Tobacco Cessation Education Requested by Patient: No Hx Alcohol Use: No Hx Substance Use: No Preferred Language: French Communication Ability: Effective Hearing Ability: Hard of Hearing Datacap Developer Required: No Beliefs That Will Affect Care: None marital status: Current Living Situation: Spouse current occupational status: disabled How many Children do You have: 0 Other Information That Helps Us Care for You: No Feels Safe at Home: Yes Safety Concerns: Feels Safe At This Time Childhood Exposure to Second-Hand Smoke: No caffeine: Yes Dental Care, Regularly: No Physical Activity Frequency: Does not Exercise Seatbelt Use: sometimes Sunscreen Use: No Assistive Devices: Denture - Upper, Denture - Lower, Glasses and Oxygen - Continuous Review of Systems Constitutional: no fever and no chills Respiratory: + dyspnea on exertion Cardiovascular: no chest pain Gastrointestinal: no abdominal pain, no heartburn, no nausea, no vomiting, no coffee ground emesis and no melena Integumentary: no rash Psychiatric: no problem reported Hematologic / Lymphatic: no unexplained weight loss Physical Exam Constitutional: well developed Respiratory: normal respiratory effort Cardiovascular: Rate/Rhythm: regular rate Gastrointestinal (Abdomen): Inspection/Auscultation: abdomen normal to inspection Musculoskeletal: Head/Neck/Chest: normocephalic Psychiatric: Orientation: alert and oriented x 3 Results & Data ([facility]) Vital Signs (Past 12 Hours) Vital Signs Temp Pulse Resp BP Pulse Ox 08/01/21 08:13 36.6 C 93 H 18 168/82 H 100 08/01/21 07:22 85 18 88 L 07/31/21 22:53 36.3 C L 96 H 18 89/58 L 95 PG Care Time/CCT Total # of Minutes Spent Total Time Spent with Patient: Total time spent is greater than 50% in coordination of care (as documented) at patient's floor/unit and/or counseling patient: Coding Level of Care Code 81707 Inpt Consult Level 4 Diagnoses Anemia D64.9 Anemia type: unspecified type (1) Anemia Anemia type: unspecified type Qualified Code(s): D64.9 - Anemia, unspecified
[2021-08-01] MEDS ORDERED: SODIUM CHLORIDE 0.9% 250 ML IV PRN (10:35)
[2021-08-01] MEDS ORDERED: LEVALBUTEROL HCL 1.25 MG/3 ML NEB NEB PRN (10:38)
[2021-08-01] MEDS ORDERED: FUROSEMIDE 40 MG/4 ML VIAL IV ONE (11:00)
[2021-08-01] MEDS ORDERED: IRON SUCROSE 200 MG in 0.9 % SODIUM CHLORIDE 100 ML IV ONE (11:00)
[2021-08-01] MEDS: FLUTICASONE/VILANTEROL 200/25MCG 14 PUFFS/INHALER INH SCH (15:17)
[2021-08-01] MEDS: cefTRIAXone SODIUM 2,000 MG in DEXTROSE 5% 50 ML IV SCH (16:30)
--- NOTE | 2021-08-01 17:44 | XCELERA ---
[id number]
--- NOTE | 2021-08-01 17:49 | Electrocardiogram Report ---
Test Reason : Blood Pressure : / mmHG Vent. Rate : 078 BPM Atrial Rate : 078 BPM P-R Int : 148 ms QRS Dur : 094 ms QT Int : 418 ms P-R-T Axes : 004 012 -16 degrees QTc Int : 476 ms Poor data quality, interpretation may be adversely affected Normal sinus rhythm Abnormal ECG When compared with ECG of 13-MAR-2021 16:56, Premature atrial complexes are no longer Present Nonspecific T wave abnormality, improved in Inferior leads Confirmed by Janusz Malloy ([id number]) on 08/01/2021 5:49:02 PM Referred By: REFERRED SELF Confirmed By:All Malloy
[2021-08-01] MEDS: ATORVASTATIN 40 MG TAB PO SCH (20:27)
[2021-08-01] MEDS: PANTOprazole 40 MG TAB PO SCH (20:28)
[2021-08-02] MEDS: lisinopril 20 MG TAB PO SCH (07:42)
[2021-08-02] MEDS: carvediloL 12.5 MG TAB PO SCH (07:42)
[2021-08-02] MEDS: PANTOprazole 40 MG TAB PO SCH (07:43)
[2021-08-02] MEDS: GABAPENTIN 300 MG CAP PO SCH (07:43)
[2021-08-02] MEDS: FUROSEMIDE 80 MG TAB PO SCH (07:43)
[2021-08-02] MEDS: FLUTICASONE/VILANTEROL 200/25MCG 14 PUFFS/INHALER INH SCH (07:43)
[2021-08-02] MEDS: AZITHROMYCIN 250 MG TAB PO SCH (07:43)
[2021-08-02] MEDS: NICOTINE 14 MG/24 HR PATCH TD SCH (07:44)
[2021-08-02 08:04] LABS: Hematocrit (blood only) 31.1 % (42-52); Mean Corpuscular Hemoglobin 20.8 pg (25-34); Mean Corpuscular Hgb Conc 28.9 g/dL (32-36); Mean Platelet Volume 9.1 fL (7.4-10.4); Platelet Count 357 K/uL (130-400); RDW Coefficient of Variation 18.5 % (11.5-14.5); RDW Standard Deviation 48.8 fL (36.4-46.3); Red Blood Count 4.32 M/uL (4.7-6.1); White Blood Count 10.38 K/uL (4.8-10.8)
[2021-08-02 08:44] LABS: BUN Creatinine Ratio 21.5 (10-20); Calcium 8.8 mg/dl (8.5-10.1); Creatinine Clr Calc Pharmacy 96.1 ml/min; Est GFR (African American) 86.4 ml/min; Est GFR (Non-African American) 74.5 ml/min; Potassium 4.3 mmol/L (3.5-5.1)
--- NOTE | 2021-08-02 13:47 | Discharge Summary ---
Date of Service August 02, 2021 Admission HPI Per Admitting Provider 60 yo male with EXTENSIVE history of smoking presents to the ED with worsening SOB. Patient smoked since he was 13, had smoked about 2 packs a day for decades, then cut down to a pack a day 10 years ago, now smoking half a pack a day for the past 6 months. Patient reports that he has not felt back to his normal self since being diagnosed with COVID. He states he has been more SOB, and has required intermittent use of oxygen even at rest. Patient denies any fever, chills, nausea, vomiting. Patient states he has SOB at rest and exertion, patient also reports he cannot lay flat. He reports he is not ready to quit smoking as he states that this is his only crutch that he has. He used to marijuana, alcohol, and other substances. Principal Diagnosis Symptomatic anemia Iron deficiency anemia Probable COPD Discharge Exam The patient appeared well says he feels better Vital signs as documented. Lungs are coarse with coughing with the patient wants to leave Cardiac exam, Rhythm is regular.. No murmurs, rubs or gallops. Abdominal exam reveals normal bowel sounds, soft non tender, no masses Extremities are nonedematous and both pedal pulses are normal. Neurologic exam is alert and oriented, no focal loss of strength or sensation Skin is without bruises or rashes Psychologically is without concerns for anxiety or depression. Discharge Data Allergies Allergy/AdvReac Type Severity Reaction Status Date / Time No Known Allergies Allergy Verified 05/12/21 12:33 Consultations 07/31/21 11:54 ED Decision to Admit Stat 07/31/21 22:01 Consult Gastroenterology Routine Ordered Studies 07/31/21 13:02 CT chest diagnostic wo con Routine Hospital Course (1) SOB (shortness of breath): Patient being admitted with SOB, patient has required exertional oxygen since he was admitted with COVID 19 earlier in the year. pt now on room air Patient does have extensive tobacco history. Patient likely has COPD, he has felt improved since being on the inhaled medicines. Did not find any Pulmonary function test in the system. CT chest did not show any pneumonia, some atelectasis sob is from symptomatic anemia, with hgb < 8 gms proved after transfusion will go home on long-acting beta agonist and steroid inhaler (2) Cough: Patient has a chronic cough, no production. Ct without suggestion of lesions or infection biofire is negative (3) Anemia: Patient had a recent colonoscopy this year which was negative. Hemoglobin does appear to be lower than usual, This may be affecting his symptoms. iron levels suggesting Iron deficiency anemia. consult GI agress with ppi, will transfuse 1 u prbc. Monitor iron therapy (4) CHF (congestive heart failure): Patient appears to have history of chronic systolic HF now without acute exacerbation EF: 20-25% WITH SEVERE HYPOKINESIS OF THE LEFT VENTRICLE carvedilol, lasix and lisinopril, may consider entersto if still remains low (5) GERD (gastroesophageal reflux disease): Oral iron replacement therapy iron deficiency anemia, pt refuses ugi and wishes to remain on omeprazole and discharge (6) Benign hypertension: resume home meds (7) Hyperlipidemia: continue home statin (8) History of substance abuse: patient now only smokes tobacco and is trying to quit (9) Tobacco user: Patient has an extensive history of tobacco use. Likely playing a role in his shortness of breath. He has at least >50 pack year history given that he smoked about 2 packs a day for years. Cut back to 1 pack for 10 years and now smokes half a pack. will benefit from PFT as an outpatient. Total Time Total Time Spent Total Time Spent (In Minutes): It required greater than 30 minutes to prepare this patient for discharge Discharge Plan Discharge Items Patient Disposition: Home - Self-Care Reason For Visit: SOB ON EXERTION Discharge Diagnosis: symptomatic anemia iron deficiency probable copd Condition on Discharge: Fair Activity: Resume your previous activity Non-emergency contact: Primary Care Provider Call non-emergency contact if: your symptoms worsen and you have a fever Follow-up/Referrals: Sofie Taylor MD [Primary Care Provider] - Diet: Regular Addtl Attending Provider Instructions: please take a iron supplement every other day, I will send in a RX but you can also use over the counter please follow up with your family doctor in a week Pending Studies at Discharge: Yes Studies:: final blood work for the day Stand-Alone Forms: My [facility], Smoking Cessation Medications and DC Order Prescriptions: New Breo Ellipta 200-25 mcg/dose Blister With Device 1 puff inhalation DAILY Qty: 1 RF: 0 ferrous sulfate [iron] 325 mg (65 mg iron) tablet 325 mg PO Q OTHER DAY Qty: 20 RF: 5 Continued carvedilol 12.5 mg tablet 12.5 mg PO BID Qty: 60 RF: 11 (DME) Shower Chair Misc See Rx Instructions .Route Qty: 1 RF: 0 gabapentin 300 mg capsule 300 mg PO BID Qty: 60 RF: 2 lisinopril 20 mg tablet 20 mg PO QAM Qty: 90 RF: 3 (DME) Oxygen Home Liters Per Minute See Rx Instructions .Route Qty: 2 RF: 0 furosemide [Lasix] 40 mg tablet 80 mg PO QAM RF: 0 omeprazole 40 mg capsule,delayed release(DR/EC) 40 mg PO QAM RF: 0 aspirin 81 mg Tablet,Delayed Release (Dr/Ec) 81 mg PO QAM RF: 0 atorvastatin 80 mg tablet 80 mg PO HS RF: 0 Discharge Orders: Discharge Order (Routine); Ordered 08/02/21 Ordered By: Varun De Oliveira/Other Patient Handouts: Smoking Get Help for Quitting, Staying Smoke- Free, The Benefits of Living Smoke Free Admission Data Admit Date/Time: 07/31/21 13:04 Attending Provider: Varun Valerio Admit Provider: Jarred Sanchez Primary Care Provider: Sofie Taylor Other Providers: Jarred Sanchez ; Jovon Lomax Other Interventions: Discharge Summary Assessment (RN) Last Done: 08/02/21 07:48 Coding Level of Care Code D/C DAY MANAGEMENT >30 MINS Diagnoses SOB (shortness of breath) R06.02 Cough R05 Anemia D64.9 CHF (congestive heart failure) I50.9 Heart failure chronicity: acute on chronic Heart failure type: unspecified GERD (gastroesophageal reflux disease) K21.9 Benign hypertension I10 Hyperlipidemia E78.5 History of substance abuse F19.11 Tobacco user Z72.0
== END 2021-08-02 08:29 | disposition home or self-care (01) ==
LOC: ED 09:02 → 3E 09:02 → SUATTDRO 13:04 → 3E 17:43

== ENCOUNTER 2024-01-13 12:46 | Inpatient (IN) ==
--- NOTE | 2024-01-13 13:02 | Emergency Department Note ---
Impression & Plan Pancreatitis ADMIT ED Provider Note HPI: History obtained from patient. The patient is a 63-year-old gentleman with history of CHF, tobacco abuse, presents the emergency department with a chief complaint of right-sided abdominal pain for the past 3 days. Patient states the pain has been relatively constant in nature. Patient states he is also had multiple episodes of vomiting. Patient denies any chest pain or shortness of breath, on arrival here to the ED blood pressure is 189/133, heart rate of 104, patient is otherwise saturating well on room air without increased work of breathing. Patient is afebrile on arrival. ROS: - Per HPI Differential Diagnosis: Acute gastritis, acute pancreatitis, acute cholecystitis, choledocholithiasis, viral gastroenteritis, acute colitis, small bowel obstruction, amongst other potential pathologies. *Outpatient medications and allergy history reviewed. PE: General: Alert HEENT: Normocephalic, trachea midline Eyes: Extraocular eye movement is intact, no scleral erythema Pulmonary: Clear to auscultation bilaterally, no wheezing Cardio: Regular rate and rhythm GI: Abdomen is soft to palpation, there is moderate tenderness to the right side of the abdomen with palpation, there is no guarding rigidity : No suprapubic tenderness MSK: No evidence of trauma or malformation of the extremities, no edema Skin: No evidence of rash Neuro: Alert, no focal deficits Psychiatric: Cooperative INDEPENDENT INTERPRETATIONS: library monitor: (As interpreted by myself): - An order was placed for continuous cardiac monitoring - Patient was noted to be in sinus rhythm with rate of 90 EKG: (As interpreted by myself): Rate: 92 Rhythm: Sinus rhythm Intervals: QTc 500 ms, QRS 136 ms, otherwise within normal limits ST changes: No ST elevation Time: 1314 Interventions provided in ED: -IV morphine, IV Zofran, IV fluid bolus Medical Decision Making: IV was established and lab work obtained, patient was placed on library monitor. Lab work shows no leukocytosis, hemoglobin is stable at 9.5 which appears to be near the patient's baseline, platelet count is normal, CMP does not show any evidence of any critical findings aside from a lipase that is moderately elevated at 185. CT imaging of the abdomen pelvis was obtained that is suggestive of acute pancreatitis. On my reassessment the patient states he is still having pain but he is otherwise hemodynamically stable. Given acute pancreatitis findings patient will be admitted to the hospitalist service for further care. Case was discussed with the on-call midlevel provider for the [facility] hospitalist service and the patient was placed for admission in stable condition. Consultants/Discussions held with other healthcare providers: -Hospitalist, Dr. Randall Disposition discussion held by myself with: -Patient Diagnosis: 1. Acute pancreatitis 2. Abdominal pain, acute 3. Elevated lipase 4. Nausea and vomiting, acute Disposition: Admission Baltazar Richmond DO Emergency Medicine Past Med/Surg History Problem List (Updated 01/13/24 @ 15:00 by Baltazar Richmond DO) Pancreatitis (Acute) GRIGGS (dyspnea on exertion) DJD (degenerative joint disease), lumbar Arthritis/arthropathy of multiple joints History of alcoholism Quit Alcohol and Marijuana in 2013 Anemia Chronic right shoulder pain Neurogenic claudication Chronic left shoulder pain Heme positive stool (Acute) Wheezing (Acute) SOB (shortness of breath) (Acute) Rotator cuff tear arthropathy of left shoulder Rotator cuff arthropathy of right shoulder Fall Left hip pain Chronic lower back pain Diplopia Head injury Right elbow tendinitis Right hip pain Cardiomyopathy ED (erectile dysfunction) (Chronic) Surgical wound, non healing (Acute) CHF (congestive heart failure) (Acute) Unstable angina Traumatic tear of right rotator cuff Chest pain Hyperlipidemia (Chronic) GERD (gastroesophageal reflux disease) (Chronic) Benign hypertension (Chronic 06/26/12) Tobacco user (Chronic 06/26/12) Medical History (Updated 01/13/24 @ 15:00 by Baltazar Richmond DO) Injury of left rotator cuff Cellulitis Chronic osteomyelitis of elbow Septic arthritis of elbow, left Right arm cellulitis Cellulitis, scrotum Acute systolic CHF (congestive heart failure) History of cerebral aneurysm (~2018) History of IN (myocardial infarction) (~05/2009) had heart cath (no stents placed), d/t CAD--follows with PCP only History of COVID-19 diagnosed 03/13/21 @ [facility]--fever, loss of appetitie, fatigue--had difficulty breathing, was admitted to [facility] and placed on oxygen--states he was discharged to home with oxygen, currently using 2L n/c prn for shortness Osteoarthritis Surgical History (System 12/15/23 @ 07:44 by Zayra Beltran) History of elbow surgery Repair of ulnar nonunion, left Hx of repair of right rotator cuff History of tooth extraction History of cerebral aneurysm repair (~2018) @ [facility] 7 yrs ago History of cardiac cath x2---last 05/2017 @ [facility] (no stents) and then previously 05/2009 @ [facility] no stents History of colonoscopy last 04/2021 @ [facility] History of total knee arthroplasty left Family History Brother Heart disease Other No family history of adverse response to anesthesia Denies family history of Ovarian cancer Prostate cancer Myocardial infarction Breast cancer Colorectal cancer Social History (System 12/15/23 @ 07:44 by Zayra Beltran) Smoking Status: Current every day smoker Tobacco Type: Cigarettes packs per day: 1; Cigarettes Per Day: 15; Second Hand Exposure: No; Do You Dip or Chew Tobacco: No; Hx Alcohol Use: No Hx Substance Use: No Preferred Language: Syrian Communication Ability: Effective Hearing Ability: Hard of Hearing Body Care Manager Required: No Beliefs That Will Affect Care: None marital status: Current Living Situation: Spouse current occupational status: disabled How many Children do You have: 0 Feels Safe at Home: Yes Childhood Exposure to Second-Hand Smoke: No Diet: regular caffeine: Yes Dental Care, Regularly: No Physical Activity Frequency: Does not Exercise Seatbelt Use: sometimes Sunscreen Use: No Assistive Devices: Denture - Upper, Glasses and Hearing Aid - Bilateral Allergies Allergies Allergy/AdvReac Type Severity Reaction Status Date / Time No Known Allergies Allergy Verified 12/15/23 07:44 Home Meds Home Medications Medication Instructions Recorded Confirmed aspirin 81 mg tablet,delayed 81 mg PO QAM 07/31/21 05/07/23 release glucosamine sulf dipot 1 cap PO QAM 09/12/21 05/07/23 chlr,msm,chond 550 mg-C 30 mg-erika 1 mg capsule (Glucosamine Chondroitin) acetaminophen 325 mg tablet 650 mg PO QAM PRN 03/17/22 05/07/23 ibuprofen 200 mg tablet 400 mg PO QAM PRN 03/17/22 05/07/23 Previous Rx's Medication Instructions Recorded carvedilol 12.5 mg tablet 12.5 mg PO BID #60 tabs 05/10/23 ferrous sulfate 325 mg (65 mg 325 mg PO Q OTHER DAY #45 tabs 06/04/23 iron) tablet (iron) atorvastatin 80 mg tablet 80 mg PO HS #90 tabs 10/22/23 furosemide 40 mg tablet (Lasix) 80 mg (2 x 40 mg) PO QAM #180 tabs 10/22/23 lisinopril 20 mg tablet 20 mg PO QAM #90 tabs 10/22/23 omeprazole 40 mg capsule,delayed 40 mg PO QAM #90 caps 10/22/23 release Results & Data (ED) Vital Signs Vital Signs - 24 hr 01/13/24 12:47 01/13/24 13:02 01/13/24 13:09 Temperature 36.8 C Temperature Source Temporal Artery Scan Pulse Rate 104 H 98 H 91 H Respiratory Rate 14 18 Respiratory Effort / Characteristics Non-Labored Respiratory Depth Normal Blood Pressure 189/133 H Blood Pressure Mean 151 Pulse Oximetry 98 93 Oxygen Delivery Method Room Air Room Air Sepsis Recent Fever Within 48 Hours No Sepsis New/Unexplained Change in Mental Status N/A Sepsis Action Taken by Nursing No Action Required Laboratory Data 01/13/24 13:04 01/13/24 13:04 Lab Results 01/13/24 Range/Units 13:04 WBC 8.88 (4.8-10.8) K/ul RBC 4.03 L (4.70-6.10) M/uL Hgb 9.5 L (14.0-18.0) g/dl Hct 31.9 L (42.0-52.0) % MCV 79.2 L (80.0-100.0) fL MCH 23.6 L (25.0-34.0) pg MCHC 29.8 L (32.0-36.0) g/dL RDW Std Deviation 46.6 H (36.4-46.3) fL RDW Coeff of Alex 16.1 H (11.5-14.5) % Plt Count 351 (130-400) K/uL MPV 9.8 (9.4-12.4) fL Immature Gran % (Auto) 0.6 % Neut % (Auto) 77.4 % Lymph % (Auto) 13.2 % [place] % (Auto) 6.4 % Eos % (Auto) 1.8 % Baso % (Auto) 0.6 % Neut # (Auto) 6.88 H (1.40-6.50) K/uL Lymph # (Auto) 1.17 L (1.20-3.40) K/uL [place] # (Auto) 0.57 (0.11-0.59) K/uL Eos # (Auto) 0.16 (0.00-0.50) K/uL Baso # (Auto) 0.05 (0.00-0.20) K/uL Immature Gran # (Auto) 0.05 (0.01-0.20) K/uL PT 10.9 (9.0-12.0) Seconds INR 1.0 (0.9-1.1) Sodium 133 L (136-145) mmol/L Potassium 4.3 (3.5-5.1) mmol/L Chloride 98 (98-107) mmol/L Carbon Dioxide 26 (21-32) mmol/L Anion Gap 9 (3-11) BUN 13 (6-23) mg/dl Creatinine 0.94 (0.6-1.4) mg/dl Est Cr Clr Drug Dosing 101.8 ml/min eGFR 90.52 BUN/Creatinine Ratio 13.8 (10-20) Glucose 134 H (70-99(Fasting)) mg/dl Calcium 8.9 (8.6-10.3) mg/dl Total Bilirubin 0.5 (0.2-1.0) mg/dl AST 17 (13-39) U/L ALT 18 (7-52) U/L Alkaline Phosphatase 101 (34-104) U/L Troponin I High Sens 10.7 (0-20) pg/ml Total Protein 8.2 (6.0-8.3) gm/dl Albumin 4.2 (3.4-5.0) gm/dl Globulin 4.0 (2.5-4.0) gm/dl Albumin/Globulin Ratio 1.1 (0.9-2) Lipase 185 H (11-82) U/L Administered Medications Discontinued Medications Ioversol (Optiray 320 100ml) 94 ml IV ONCE ONE Stop: 01/13/24 14:07 Last Admin: 01/13/24 14:06 Dose: 94 ml Documented By: JOSE Morphine Sulfate (Morphine Sulfate 4 Mg/Ml 1 Ml Carp\Vial) 4 mg IV NOW STA Stop: 01/13/24 13:02 Last Admin: 01/13/24 13:09 Dose: 4 mg Documented By: TRUNG Ondansetron HCl (Ondansetron Inj 2 Mg/Ml 2 Ml Vial) 4 mg IV NOW STA Stop: 01/13/24 13:02 Last Admin: 01/13/24 13:09 Dose: 4 mg Documented By: [facility] Imaging Data Radiologist's Impression: Abdomen/Pelvis CT 01/13/24 13:00 CT abd pelvis IV con only CLINICAL HISTORY: R sided abd pain TECHNIQUE: Helical axial images of the abdomen and pelvis were obtained and displayed. Automated dose lowering techniques and/or adjustment according to patient size were utilized for this exam. This exam was performed with intravenous contrast. CT DOSE: 1408.89 mGy.cm COMPARISON: Comparison is made to CT abdomen pelvis 03/09/2016 FINDINGS: Lower chest: Bibasilar atelectasis versus scarring is seen. Liver: Unremarkable. No focal lesions are seen. Gallbladder and biliary tree: There is suggestion of hepatic steatosis. No intra- or extrahepatic biliary ductal dilation. Pancreas: Peripancreatic edema is seen most prominent about the head. No peripancreatic fluid collections are seen. Spleen: Unremarkable. Adrenals: Unremarkable. Kidneys and ureters: Lobular appearance of the kidneys is seen, nonspecific. Bladder: Unremarkable. Reproductive organs: Unremarkable. Bowel: The appendix is normal. Lymph nodes Retroperitoneal: Retroperitoneal lymph nodes measure up to 10 mm. Spenecr hepatis lymph nodes are also enlarged measuring up to 11 mm. Pelvic: Subcentimeter lymph nodes are noted. Mesenteric: Unremarkable. Peritoneum: Normal. Vessels: Atherosclerotic calcifications are seen. Abdominal wall: A fat-containing umbilical hernia is seen. Bones: Degenerative changes in the visualized spine. IMPRESSION: Findings compatible with acute pancreatitis. No peripancreatic fluid collections are seen. Reactive lymphadenopathy is noted. ACT 112: Negative or not required by law. Electronically signed by: Otoniel Samuel M.D. 01/13/2024 2:24 PM Discharge Plan Visit Data Chief Complaint: Abdominal Pain Stated Complaint: LOWER ABD PAIN ED Provider: Baltazar Richmond Discharge Problem: Pancreatitis Forms Stand Alone Forms: My [employer] Prescriptions Prescriptions: No Action carvedilol 12.5 mg tablet 12.5 mg PO BID Qty: 60 5RF Rx Instructions: must administer with a meal/food ferrous sulfate [iron] 325 mg (65 mg iron) tablet 325 mg PO Q OTHER DAY Qty: 45 3RF Patient Comments: takes in the am atorvastatin 80 mg tablet 80 mg PO HS Qty: 90 3RF omeprazole 40 mg capsule,delayed release(DR/EC) 40 mg PO QAM Qty: 90 3RF lisinopril 20 mg tablet 20 mg PO QAM Qty: 90 3RF furosemide [Lasix] 40 mg tablet 80 mg PO QAM Qty: 180 3RF aspirin 81 mg Tablet,Delayed Release (Dr/Ec) 81 mg PO QAM acetaminophen 325 mg tablet 650 mg PO QAM PRN ibuprofen 200 mg tablet 400 mg PO QAM PRN Glucosamine Chondroitin 550-30-1 mg Capsule 1 cap PO QAM Referrals Referrals: PCP,NO [Physician] - Discharge Problem: Pancreatitis Qualifiers: Chronicity: acute Pancreatitis type: unspecified pancreatitis type Acute pancreatitis complication: unspecified Qualified Code(s): K85.90 - Acute pancreatitis without necrosis or infection, unspecified
[2024-01-13] MEDS: ONDANSETRON INJ 2 MG/ML 2 ML VIAL IV STA (13:09)
[2024-01-13] MEDS: MoRPHine SULFATE 4 MG/ML 1 ML CARP\\VIAL IV STA (13:09)
[2024-01-13 13:23] LABS: Basophils # (auto) 0.05 K/uL (0.00-0.20); Basophils % (auto) 0.6 %; Eosinophils # (auto) 0.16 K/uL (0.00-0.50); Eosinophils % (auto) 1.8 %; Hematocrit (blood only) 31.9 % (42.0-52.0); Hemoglobin 9.5 g/dl (14.0-18.0); Immature Granulocytes # (auto) 0.05 K/uL (0.01-0.20); Immature Granulocytes % (auto) 0.6 %; Lymphocytes # (auto) 1.17 K/uL (1.20-3.40); Lymphocytes % (auto) 13.2 %; Mean Corpuscular Hemoglobin 23.6 pg (25.0-34.0); Mean Corpuscular Hgb Conc 29.8 g/dL (32.0-36.0); Mean Corpuscular Volume 79.2 fL (80.0-100.0); Mean Platelet Volume 9.8 fL (9.4-12.4); Monocytes # (auto) 0.57 K/uL (0.11-0.59); Monocytes % (auto) 6.4 %; Neutrophils # (auto) 6.88 K/uL (1.40-6.50); Neutrophils % (auto) 77.4 %; Platelet Count 351 K/uL (130-400); RDW Coefficient of Variation 16.1 % (11.5-14.5); RDW Standard Deviation 46.6 fL (36.4-46.3); Red Blood Count 4.03 M/uL (4.70-6.10); White Blood Count 8.88 K/ul (4.8-10.8)
[2024-01-13 13:40] LABS: Albumin Globulin Ratio 1.1 (0.9-2); Albumin Level 4.2 gm/dl (3.4-5.0); BUN Creatinine Ratio 13.8 (10-20); Bilirubin,Total 0.5 mg/dl (0.2-1.0); Calcium 8.9 mg/dl (8.6-10.3); Creatinine Clr Calc Pharmacy 101.8 ml/min; Potassium 4.3 mmol/L (3.5-5.1); Total Protein 8.2 gm/dl (6.0-8.3)
[2024-01-13 13:45] LABS: Troponin I High Sensitivity 10.7 pg/ml (0-20)
[2024-01-13 13:47] LABS: Prothrombin Time 10.9 Seconds (9.0-12.0)
[2024-01-13] MEDS: OPTIRAY 320 100ml IV ONE (14:06)
--- NOTE | 2024-01-13 14:25 | CT Scan Report ---
CT abd pelvis IV con only CLINICAL HISTORY: R sided abd pain TECHNIQUE: Helical axial images of the abdomen and pelvis were obtained and displayed. Automated dose lowering techniques and/or adjustment according to patient size were utilized for this exam. This e xam was performed with intravenous contrast. CT DOSE: 1408.89 mGy.cm COMPARISON: Comparison is made to CT abdomen pelvis 03/09/2016 FINDINGS: Lower chest: Bibasilar atelectasis versus scarring is seen. Liver: Unremarkable. No focal lesions are seen. Gallbladder and biliary tree: There is suggestion of hepatic steatosis. No intra- or extrahepatic kash iary ductal dilation. Pancreas: Peripancreatic edema is seen most prominent about the head. No peripancreatic fluid collect ions are seen. Spleen: Unremarkable. Adrenals: Unremarkable. Kidneys and ureters: Lobular appearance of the kidneys is seen, nonspecific. Bladder: Unremarkable. Reproductive organs: Unremarkable. Bowel: The appendix is normal. Lymph nodes Retroperitoneal: Retroperitoneal lymph nodes measure up to 10 mm. Spencer hepatis lymph nodes are also enlarged measuring up to 11 mm. Pelvic: Subcentimeter lymph nodes are noted. Mesenteric: Unremarkable. Peritoneum: Normal. Vessels: Atherosclerotic calcifications are seen. Abdominal wall: A fat-containing umbilical hernia is seen. Bones: Degenerative changes in the visualized spine. IMPRESSION: Findings compatible with acute pancreatitis. No peripancreatic fluid collections are seen. Reactive l ymphadenopathy is noted. ACT 112: Negative or not required by law. Electronically signed by: Otoniel Samuel M.D. 01/13/2024 2:24 PM
[2024-01-13] MEDS: LACTATED RINGER'S 2,000 ML IV ONE (15:01)
--- NOTE | 2024-01-13 15:14 | History & Physical Report ---
Date of Service January 13, 2024 Assessment & Plan (1) Pancreatitis: Plan: Patient with h/o alcohol abuse (quit 2013) and hyperlipidemia presenting to ED for abdominal pain starting 3 days prior to admission with associated nausea and vomiting. - No h/o pancreatitis - Clear liquids; patient directed advancement of diet as tolerated - Most recent lipid panel March 2022; repeat TG at admission 147 - Patient reports he abused alcohol for an extended period of time until his last drink in 2016, however, also states he had a sip of wine cooler last evening. - CT A/P results compatible for acute pancreatitis, with reactive lymphadenopathy (retroperitoneal lymph node 10mm, maulik hepatis lymph node 10 mm) - Lipase 185 - Pancreatitis dx made based off of epigastric pain and imaging findings. - Coags WNL, LFTs WNL - CBC 10.5/.9 (chronic anemia), CMP sodium 133, otherwise WNL - BMP am - Ca 8.9 - Received 2L NSS in ED, maintenance fluids LR - IBU + Tylenol for pain management; limited pain currently - Zofran q8hr prn nausea/vomiting - Patient's discussion regarding ETOH is limited; holding off on prophylactic thiamine and B6 for now but believe that this is the cause (2) Anemia: Plan: H/o anemia - H&H on admission 9.5/31.9; pain to be at baseline - As of March 2023, patient was taking p.o. iron for CONNIE - Pending Vitamin B12 and folate - TSH 0.71 (March 2022); pending repeat (3) Cardiomyopathy: Plan: Nonischemic per records - Most recent echo 07/2021 - Taking ASA daily per PCP recs - No repeat ordered at admission (4) CHF (congestive heart failure): Plan: Follows with PCP, refuses cardiology referral per last PCP note (05/07/2023) - Most recent echo 07/2021 - Furosemide 80mg daily - Euvolemic on exam today (5) DJD (degenerative joint disease), lumbar: Plan: Chronic back pain - Does not want to follow up with ortho - IBU 400 every morning - No neurologic symptoms with this (6) Tobacco abuse: Plan: Smokes cigarettes - 15/day - Smoking cessation counseling - Nicotine patch Plan HTN- Lisinopril 20mg HLD- Atorvastatin 80mg GERD- Omeprazole 40mg at home Dispo: Admit VTE prophylaxis: SCDs Code: Full Admission and Anticipated Discharge Date Admission Date: 01/13/2024 History of Present Illness Chief Complaint: Epigastric/right-sided abdominal pain Primary Care Provider: Sofie Taylor MD Patient is a 63-year-old male presenting to ED for right abdominal pain x 3 days as well as multiple episodes of nausea/vomiting. ED course: CBC- H&H 9.5, 31.9, MCV 79.2, MCH 23.6, MCHC 29.8, RDW 46.6, neutrophils 6.88; PT/INR 10.9/1; CMP- sodium 133 otherwise grossly WNL; LFTs WNL; lipase 185. CT A/P-acute pancreatitis, reactive lymphadenopathy (retroperitoneal lymph node 10 mm, maulik hepatis lymph node 11 mm); hepatic steatosis. EKG NSR with PACs, RBBB, HR 92; Patient provided with morphine and Zofran IV as well as 2L LR. Patient is 63-year-old gentleman with PMHx of CHF, HTN, cardiomyopathy, history of alcohol abuse, and tobacco abuse presenting for RUQ abdominal pain. States that his pain started 3 days ago without known trigger. He describes it as "agitating" and constant, mainly localized to his RUQ. Admits to 1 episode of vomiting, but continuous nausea. Has been unable to have sufficient oral intake as it causes him more abdominal pain, but does report hunger. Has been utilizing OTC medications to help with constipation, which has been successful. Denies fever/chills, chest pain, shortness of breath, palpitations, diarrhea, headache, weakness, numbness/tingling, anorexia, weight loss. Denies additional illness. States that this is never happened before. He is on medication for hyperlipidemia (atorvastatin) and states his last alcoholic drink was in 2016, but proceeds to tell me that his last sip of alcohol was last evening when he had a singular sip of a carbonated wine cooler to try to relieve his pain. Please see Dr. Randall's attestation for adjustments/additions to treatment plan. Allergies Allergy/AdvReac Type Severity Reaction Status Date / Time No Known Allergies Allergy Verified 01/13/24 14:56 Home Medications Medication Instructions Recorded Confirmed Type aspirin 81 mg tablet,delayed 81 mg PO QAM 07/31/21 01/13/24 History release glucosamine sulf dipot 1 cap PO QAM 09/12/21 01/13/24 History chlr,msm,chond 550 mg-C 30 mg-erika 1 mg capsule (Glucosamine Chondroitin) acetaminophen 325 mg tablet 650 mg PO QAM PRN Pain 03/17/22 01/13/24 History ibuprofen 200 mg tablet 400 mg PO QAM PRN Pain 03/17/22 01/13/24 History atorvastatin 80 mg tablet 80 mg PO HS #90 tabs 10/22/23 01/13/24 Rx furosemide 40 mg tablet (Lasix) 80 mg (2 x 40 mg) PO QAM #180 tabs 10/22/23 01/13/24 Rx lisinopril 20 mg tablet 20 mg PO QAM #90 tabs 10/22/23 01/13/24 Rx omeprazole 40 mg capsule,delayed 40 mg PO QAM #90 caps 10/22/23 01/13/24 Rx release doxylamine succinate 25 mg tablet 25 mg PO HS PRN Sleep 01/13/24 01/13/24 History (Sleep Aid (doxylamine)) Past Med/Surg History Problem List (Updated 01/13/24 @ 15:54 by Al Jefferson PA-C) Tobacco abuse Pancreatitis (Acute) GRIGGS (dyspnea on exertion) DJD (degenerative joint disease), lumbar Arthritis/arthropathy of multiple joints History of alcoholism Quit Alcohol and Marijuana in 2013 Anemia Chronic right shoulder pain Neurogenic claudication Chronic left shoulder pain Heme positive stool (Acute) Wheezing (Acute) SOB (shortness of breath) (Acute) Rotator cuff tear arthropathy of left shoulder Rotator cuff arthropathy of right shoulder Fall Left hip pain Chronic lower back pain Diplopia Head injury Right elbow tendinitis Right hip pain Cardiomyopathy ED (erectile dysfunction) (Chronic) Surgical wound, non healing (Acute) CHF (congestive heart failure) (Acute) Unstable angina Traumatic tear of right rotator cuff Chest pain Hyperlipidemia (Chronic) GERD (gastroesophageal reflux disease) (Chronic) Benign hypertension (Chronic 06/26/12) Tobacco user (Chronic 06/26/12) Medical History Injury of left rotator cuff Cellulitis Chronic osteomyelitis of elbow Septic arthritis of elbow, left Right arm cellulitis Cellulitis, scrotum Acute systolic CHF (congestive heart failure) History of cerebral aneurysm (~2018) History of [place] (myocardial infarction) (~05/2009) had heart cath (no stents placed), d/t CAD--follows with PCP only History of COVID-19 diagnosed 03/13/21 @ [facility]--fever, loss of appetitie, fatigue--had difficulty breathing, was admitted to [facility] and placed on oxygen--states he was discha rged to home with oxygen, currently using 2L n/c prn for shortness Osteoarthritis Surgical History History of elbow surgery Repair of ulnar nonunion, left Hx of repair of right rotator cuff History of tooth extraction History of cerebral aneurysm repair (~2018) @ [facility] 7 yrs ago History of cardiac cath x2---last 05/2017 @ [facility] (no stents) and then previously 05/2009 @ [facility] no stents History of colonoscopy last 04/2021 @ [facility] History of total knee arthroplasty left Family History Brother Heart disease Other No family history of adverse response to anesthesia Denies family history of Ovarian cancer Prostate cancer Myocardial infarction Breast cancer Colorectal cancer Social History Smoking Status: Current every day smoker Tobacco Type: Cigarettes packs per day: 1; Cigarettes Per Day: 1/2 pack; Second Hand Exposure: No; Do You Dip or Chew Tobacco: No; Tobacco Cessation Education Requested by Patient: No Hx Alcohol Use: Yes Hx Substance Use: No Preferred Language: Kyrgyz Communication Ability: Effective Hearing Ability: Hard of Hearing Auto Damage Appraiser Required: No Beliefs That Will Affect Care: None marital status: Current Living Situation: Spouse current occupational status: disabled How many Children do You have: 0 Other Information That Helps Us Care for You: No Feels Safe at Home: Yes Safety Concerns: Feels Safe At This Time Childhood Exposure to Second-Hand Smoke: No Diet: regular caffeine: Yes Dental Care, Regularly: No Physical Activity Frequency: Does not Exercise Seatbelt Use: sometimes Sunscreen Use: No Assistive Devices: Cane, Denture - Upper, Denture - Lower and Glasses Review of Systems Review of Systems: All systems reviewed & are unremarkable except as noted in Subjective Physical Exam Physical Exam: General: No acute distress Skin: Warm and dry, without rashes or lesions. Scars on R elbow and R thigh. Head: Normocephalic, atraumatic Eyes: PERRL, conjunctivae clear, sclera non-icteric; EOM intact ENT: External ear and ear canal without swelling; nose atraumatic; tongue normal appearance, pharynx normal without tonsillar swelling or exudate Neck: Supple, no LAD; no JVD Cardio: RRR, no M/G/R, S1 and S2 normal Resp: Chest wall symmetric, normal respiratory effort; No respiratory distress, Lungs CTA in all lobes bilaterally, no wheezes, rales, or rhonchi Abdomen: Soft, symmetric, RUQ with mild tenderness, otherwise nontender to palpation, no ecchymosis; no distention; No masses or hepatosplenomegaly MSK: No deformities, full ROM throughout; sensation normal to UE/LE; pulses palpable and equal; no edema. Neuro: Awake, alert; Muscle strength 5/5 bilaterally in UE/LE; Sensation intact bilaterally; CN intact Psych: Appropriate mood and affect; good judgement and insight. Results & Data Results & Data Vital Signs (Past 12 Hours) Vital Signs Temp Pulse Resp BP Pulse Ox O2 Del Method 01/13/24 13:09 91 H 01/13/24 13:02 98 H 18 93 Room Air 01/13/24 12:47 36.8 C 104 H 14 189/133 H 98 Room Air Laboratory Results 01/13/24 13:04 WBC 8.88 RBC 4.03 L Hgb 9.5 L Hct 31.9 L MCV 79.2 L MCH 23.6 L MCHC 29.8 L RDW Std Deviation 46.6 H RDW Coeff of Alex 16.1 H Plt Count 351 MPV 9.8 Immature Gran % (Auto) 0.6 Neut % (Auto) 77.4 Lymph % (Auto) 13.2 Hunt % (Auto) 6.4 Eos % (Auto) 1.8 Baso % (Auto) 0.6 Neut # (Auto) 6.88 H Lymph # (Auto) 1.17 L Hunt # (Auto) 0.57 Eos # (Auto) 0.16 Baso # (Auto) 0.05 Immature Gran # (Auto) 0.05 PT 10.9 INR 1.0 Sodium 133 L Potassium 4.3 Chloride 98 Carbon Dioxide 26 Anion Gap 9 BUN 13 Creatinine 0.94 Est Cr Clr Drug Dosing 101.8 eGFR 90.52 BUN/Creatinine Ratio 13.8 Glucose 134 H Calcium 8.9 Total Bilirubin 0.5 AST 17 ALT 18 Alkaline Phosphatase 101 Troponin I High Sens 10.7 Total Protein 8.2 Albumin 4.2 Globulin 4.0 Albumin/Globulin Ratio 1.1 Lipase 185 H Diagnostic Findings Abdomen/Pelvis CT 01/13/24 13:00 CT abd pelvis IV con only CLINICAL HISTORY: R sided abd pain TECHNIQUE: Helical axial images of the abdomen and pelvis were obtained and displayed. Automated dose lowering techniques and/or adjustment according to patient size were utilized for this exam. This exam was performed with intravenous contrast. CT DOSE: 1408.89 mGy.cm COMPARISON: Comparison is made to CT abdomen pelvis 03/09/2016 FINDINGS: Lower chest: Bibasilar atelectasis versus scarring is seen. Liver: Unremarkable. No focal lesions are seen. Gallbladder and biliary tree: There is suggestion of hepatic steatosis. No intra- or extrahepatic biliary ductal dilation. Pancreas: Peripancreatic edema is seen most prominent about the head. No peripancreatic fluid collections are seen. Spleen: Unremarkable. Adrenals: Unremarkable. Kidneys and ureters: Lobular appearance of the kidneys is seen, nonspecific. Bladder: Unremarkable. Reproductive organs: Unremarkable. Bowel: The appendix is normal. Lymph nodes Retroperitoneal: Retroperitoneal lymph nodes measure up to 10 mm. Maulik hepatis lymph nodes are also enlarged measuring up to 11 mm. Pelvic: Subcentimeter lymph nodes are noted. Mesenteric: Unremarkable. Peritoneum: Normal. Vessels: Atherosclerotic calcifications are seen. Abdominal wall: A fat-containing umbilical hernia is seen. Bones: Degenerative changes in the visualized spine. IMPRESSION: Findings compatible with acute pancreatitis. No peripancreatic fluid collections are seen. Reactive lymphadenopathy is noted. ACT 112: Negative or not required by law. Electronically signed by: Otoniel Samuel M.D. 01/13/2024 2:24 PM ECG Additional Comments: Sinus rhythm with PACs, RBBB HR 92, GA 142, QRS 136, QT/QTc 412/509 Code Status & VTE Plan Code Status Full Supervising Physician Co-Signing Physician Notes I personally saw and examined the patient. I independently reviewed the labs, EKG, imaging, problem list, medication list, past medical history and family history. I verified all flor points and agree with Al Jefferson PA-C with the following exceptions and/or additions: 63 year old male with HFiEF presents to the ER with epigastric pain. Imaging and pain consistent with acute pancreatitis although lipase not 3x upper limit of normal. Denies alcohol use. Triglycerides normal. O/E HS RRR, no murmurs, Chest CTAB, Abdo epigastric pain, no guarding or rebound tenderness A/P Acute pancreatitis - no clear cause from imaging, history of lab work. clear liquids, advance diet as tolerated IV fluids overnight PG Care Time/CCT Total # of Minutes Spent Total Time Spent with Patient: Total time spent is greater than 50% in coordination of care (as documented) at patient's floor/unit and/or counseling patient: Coding Level of Care Code 18476 INT INP/OBS CARE MIN Diagnoses Pancreatitis K85.90 Acute pancreatitis complication: unspecified Chronicity: acute Pancreatitis type: unspecified pancreatitis type Anemia D64.9 Cardiomyopathy I42.9 CHF (congestive heart failure) I50.9 Heart failure chronicity: acute on chronic Heart failure type: unspecified DJD (degenerative joint disease), lumbar M47.816 Tobacco abuse Z72.0 Time Spent (min) 65 (1) Pancreatitis Acute pancreatitis complication: unspecified Chronicity: acute Pancreatitis type: unspecified pancreatitis type Qualified Code(s): K85.90 - Acute pancreatitis without necrosis or infection, unspecified (4) CHF (congestive heart failure) Heart failure chronicity: acute on chronic Heart failure type: unspecified Qualified Code(s): I50.9 - Heart failure, unspecified
[2024-01-13 15:24] LABS: Appearance Urine Clear (Clear); Bilirubin Urine Negative (Negative); Blood Urine Negative (Negative); Color Urine Yellow; Glucose Urine UA Negative (Negative); Ketones Urine Negative (Negative); Leukocyte Esterase Urine Negative (Negative); Nitrite Urine Negative (Negative); Protein Urine Negative (Negative); Specific Gravity Urine 1.018 (1.000-1.030); Urobilinogen Urine Negative (Negative); pH Urine 5.5 (4.5-7.5)
--- NOTE | 2024-01-13 15:37 | Electrocardiogram Report ---
Test Reason : Blood Pressure : */* mmHG Vent. Rate : 92 BPM Atrial Rate : 92 BPM P-R Int : 142 ms QRS Dur : 136 ms QT Int : 412 ms P-R-T Axes : 42 -4 1 degrees QTcB Int : 509 ms Sinus rhythm with Premature atrial complexes Right bundle branch block Abnormal ECG When compared with ECG of 15-Dec-2023 00:00, Premature atrial complexes are now Present Confirmed by Janusz Malloy ([id number]) on 01/13/2024 3:36:51 PM Referred By: REFERRED SELF Confirmed By: Janusz Malloy
[2024-01-13] MEDS: PANTOprazole 40 MG/10 ML SYR IV STA (17:06)
[2024-01-13] MEDS ORDERED: DOXYLAMINE SUCCINATE 25 MG PO PRN (18:18)
[2024-01-13] MEDS ORDERED: ACETAMINOPHEN 325 MG TAB PO PRN (18:18)
[2024-01-13] MEDS ORDERED: POLYETHYLENE (MIRALAX) 17 GM PACK PO PRN (18:18)
[2024-01-13] MEDS ORDERED: IBUPROFEN 200 MG TAB PO PRN (18:18)
[2024-01-13] MEDS ORDERED: MoRPHine SULFATE 2 MG/ML CARP IV PRN (18:44)
[2024-01-13] MEDS ORDERED: oxyCODONE HCL IR 5 MG TAB (IMMEDIATE RELEASE) PO PRN (18:44)
[2024-01-13] MEDS ORDERED: MoRPHine SULFATE 4 MG/ML 1 ML CARP\\VIAL IV PRN (18:44)
[2024-01-13] MEDS: LACTATED RINGER'S 1,000 ML IV SCH (18:46)
[2024-01-13] MEDS ORDERED: MELATONIN 3 MG TAB PO PRN (18:46)
[2024-01-13] MEDS: oxyCODONE HCL IR 5 MG TAB (IMMEDIATE RELEASE) PO PRN (19:20)
[2024-01-13] MEDS: ATORVASTATIN 40 MG TAB PO SCH (20:29)
[2024-01-14] MEDS: ONDANSETRON INJ 2 MG/ML 2 ML VIAL IV PRN (02:31)
[2024-01-14 07:23] LABS: BUN Creatinine Ratio 10.8 (10-20); Calcium 8.9 mg/dl (8.6-10.3); Creatinine Clr Calc Pharmacy 100.8 ml/min; Potassium 4.4 mmol/L (3.5-5.1)
[2024-01-14 07:37] LABS: Thyroid Stimulating Hormone 1.397 uIu/ml (0.300-4.500)
[2024-01-14 07:48] LABS: Folate (Folic Acid),Ser orPlas 21.75 ng/ml (>5.38)
[2024-01-14] MEDS: MoRPHine SULFATE 2 MG/ML CARP IV PRN (08:15)
[2024-01-14] MEDS: SODIUM CHLORIDE 0.9% 1,000 ML IV SCH (08:16)
[2024-01-14] MEDS: NICOTINE 14 MG/24 HR PATCH TD SCH (08:17)
[2024-01-14] MEDS: ASPIRIN 81 MG ECTAB PO SCH (08:18)
[2024-01-14] MEDS: PANTOprazole 40 MG TAB PO SCH (08:18)
[2024-01-14] MEDS ORDERED: lisinopril 20 MG TAB PO SCH (09:00)
[2024-01-14] MEDS ORDERED: FUROSEMIDE 80 MG TAB PO SCH (09:00)
--- NOTE | 2024-01-14 12:02 | Gastrointestinal Consultation ---
Date of Consultation January 14, 2024 Assessment & Plan (1) Pancreatitis: -NPO -IV fluid hydration -LFTs & CT imaging unremarkable for acute biliary concerns, though would advise further evaluation of the gallbladder given his presentation (US/HIDA). It does appear that the primary team has orders they have in motion for an MRCP and a surgical consult. -Continue to monitor LFTs -Pain control per primary team Supervising Physician Co-Signing Physician Notes I examined the patient and reviewed patient's chart , laboratory data and imaging studies. I agree with with assessment and plan of care as suggested by advanced practice provider. MRI/MRCP demonstrated cholelithiasis and possible subcentimeter distal common bile duct stone. I would recommend cholecystectomy. ERCP to be arranged either prior or postcholecystectomy. The patient will need to be transferred for ERCP. 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 He notes he developed nausea & vomiting first. He thought he might be constipated. He took l axatives and emptied his bowels. He notes the nausea and vomiting stopped at this point. He had persistent epigastric to RUQ pain from that time. He presented to the ED for further evaluation at this point. In the ED, he was noted to have stable, chronic anemia, BUN 10, Cr 0.93, T bili within normal limits, AST, ALT unremarkable. Lipase 98. CT imaging concerning for an acute pancreatitis. Normal gallbladder & biliary ducts. He notes he takes a statin for HLD. He told me he "doesn't touch" alcohol and has been sober for 8 years, but he reportedly did acknowledge to another provider that he tried sipping on an alcoholic beverage prior to admission to relieve his pain. He was recently hospitalized after using edibles & meth. He notes a family history of gallbladder issues. No recent viral illness/sickness prior to abdominal pain, n/v. He uses Omeprazole daily for GERD. Allergies Allergy/AdvReac Type Severity Reaction Status Date / Time No Known Allergies Allergy Verified 01/13/24 14:56 Home Medications Medication Instructions Recorded Confirmed Type aspirin 81 mg tablet,delayed 81 mg PO QAM 07/31/21 01/13/24 History release glucosamine sulf dipot 1 cap PO QAM 09/12/21 01/13/24 History chlr,msm,chond 550 mg-C 30 mg-erika 1 mg capsule (Glucosamine Chondroitin) acetaminophen 325 mg tablet 650 mg PO QAM PRN Pain 03/17/22 01/13/24 History ibuprofen 200 mg tablet 400 mg PO QAM PRN Pain 03/17/22 01/13/24 History atorvastatin 80 mg tablet 80 mg PO HS #90 tabs 10/22/23 01/13/24 Rx furosemide 40 mg tablet (Lasix) 80 mg (2 x 40 mg) PO QAM #180 tabs 10/22/23 01/13/24 Rx lisinopril 20 mg tablet 20 mg PO QAM #90 tabs 10/22/23 01/13/24 Rx omeprazole 40 mg capsule,delayed 40 mg PO QAM #90 caps 10/22/23 01/13/24 Rx release doxylamine succinate 25 mg tablet 25 mg PO HS PRN Sleep 01/13/24 01/13/24 History (Sleep Aid (doxylamine)) Patient History Medical History Injury of left rotator cuff Cellulitis Chronic osteomyelitis of elbow Septic arthritis of elbow, left Right arm cellulitis Cellulitis, scrotum Acute systolic CHF (congestive heart failure) History of cerebral aneurysm (~2018) History of [place] (myocardial infarction) (~05/2009) had heart cath (no stents placed), d/t CAD--follows with PCP only History of COVID-19 diagnosed 03/13/21 @ [facility]--fever, loss of appetitie, fatigue--had difficulty breathing, was admitted to [facility] and placed on oxygen--states he was discharged to home with oxygen, currently using 2L n/c prn for shortness Osteoarthritis Surgical History History of elbow surgery Repair of ulnar nonunion, left Hx of repair of right rotator cuff History of tooth extraction History of cerebral aneurysm repair (~2018) @ [facility] 7 yrs ago History of cardiac cath x2---last 05/2017 @ [facility] (no stents) and then previously 05/2009 @ [facility] no stents History of colonoscopy last 04/2021 @ [facility] History of total knee arthroplasty left Family History Brother Heart disease Other No family history of adverse response to anesthesia Denies family history of Ovarian cancer Prostate cancer Myocardial infarction Breast cancer Colorectal cancer Social History Smoking Status: Current every day smoker Tobacco Type: Cigarettes packs per day: 1; Cigarettes Per Day: 1/2 pack; Second Hand Exposure: No; Do You Dip or Chew Tobacco: No; Tobacco Cessation Education Requested by Patient: No Hx Alcohol Use: Yes Hx Substance Use: No Preferred Language: Lao Communication Ability: Effective Hearing Ability: Hard of Hearing Ux Manager Required: No Beliefs That Will Affect Care: None marital status: Current Living Situation: Spouse current occupational status: disabled How many Children do You have: 0 Other Information That Helps Us Care for You: No Feels Safe at Home: Yes Safety Concerns: Feels Safe At This Time Childhood Exposure to Second-Hand Smoke: No Diet: regular caffeine: Yes Dental Care, Regularly: No Physical Activity Frequency: Does not Exercise Seatbelt Use: sometimes Sunscreen Use: No Assistive Devices: Cane and Oxygen - Continuous Review of Systems Constitutional: no fever and no chills Respiratory: no cough and no dyspnea Cardiovascular: no chest pain Gastrointestinal: + abdominal pain (improved since receivi ng pain meds) Psychiatric: no problem reported Hematologic / Lymphatic: no unexplained weight loss Physical Exam Constitutional: well developed Respiratory: normal respiratory effort Cardiovascular: Rate/Rhythm: regular rate Gastrointestinal (Abdomen): Inspection/Auscultation: abdomen normal to inspection and normal bowel sounds; abdomen not distended Percussion/Palpation: + abdomen tender Psychiatric: Orientation: alert and oriented x 3 Results & Data Vital Signs (Past 12 Hours) Vital Signs Temp Pulse Resp BP Pulse Ox O2 Del Method 01/14/24 08:00 Room Air 01/14/24 07:45 36.6 C 99 H 18 106/66 96 Room Air PG Care Time/CCT Total # of Minutes Spent Total Time Spent with Patient: Total time spent is greater than 50% in coordination of care (as documented) at patient's floor/unit and/or counseling patient: Coding Level of Care Code 08825 IN/OBS CONSULT LVL 4,60M Diagnoses Pancreatitis K85.90 Acute pancreatitis complication: unspecified Chronicity: acute Pancreatitis type: unspecified pancreatitis type (1) Pancreatitis Acute pancreatitis complication: unspecified Chronicity: acute Pancreatitis type: unspecified pancreatitis type Qualified Code(s): K85.90 - Acute pancreatitis without necrosis or infection, unspecified
--- NOTE | 2024-01-14 12:09 | Hospitalist Progress Note ---
Date of Service January 14, 2024 Assessment & Plan (1) Pancreatitis: Plan: Mildly elevated lipase on admission. Abdominal CT scan reveals fluid around the pancreatic head but lipase was only 185 and now down to 98. Physical examination is most consistent with acute cholecystitis which she says multiple family members have had in the past. Nuclear medicine informs me that HIDA scan cannot be done until Wednesday. MRCP ordered and pending. GI consultation and surgical consultation ordered and pending. He is now on intravenous Zosyn. Keep n.p.o. with IV fluids for now. Serial labs. (2) Anemia: Plan: Mild on admission. No melena or hematochezia. Serial labs (3) Cardiomyopathy: Plan: Nonischemic per records . Stable. Continue current medical management (4) CHF (congestive heart failure): Plan: Chronic diastolic CHF. No overt exacerbation on admission. Monitor intake and output. Plan Anticipate eventual discharge to home. Multiple studies and evaluations are pending which will determine length of stay Admission and Anticipated Discharge Date Admission Date: January 14, 2024 Subjective Alert and oriented but tender to palpation in the epigastric and right upper quadrant area, very concerning for acute cholecystitis. He is now n.p.o. with IV fluids and intravenous Zosyn. Nuclear medicine informs me that HIDA scan cannot be done until Wednesday. MRCP ordered and pending. GI consultation and surgery consultation requested. He is on IV Protonix for now. Review of Systems 2 Review of Systems: Constitutionalno fever or chills ENTno blurred vision, no double vision, no epistaxis, no sore throat Respiratoryno cough, no wheezing, no shortness of breath Cardiacno palpitations, no chest pain, no syncope GInausea without vomiting. Anorexia. Epigastric and right right upper quadrant discomfort. No melena or hematochezia GUno urinary retention, no urinary incontinence, no dysuria, no hematuria Musculoskeletalno joint pain, no muscle tenderness Skinno bruising, no rashes, no pruritus Neurono isolated weakness, no paresthesia, no weakness Psychno depression, no anxiety Physical Exam 2 Physical Exam: General-alert and oriented x3, obese HEENT-head atraumatic and normocephalic, pupils equal and reactive to light, extraocular muscles intact Neck-no lymphadenopathy or thyromegaly, trachea midline Chest-clear to auscultation. No rales, wheezing or rhonchi Cardiac-regular rate and rhythm, normal S1 and S2 Abdomen-tender epigastric area and right upper quadrant area. Slightly distended. No rebound or guarding. No masses. Bowel sounds are hypoactive but present Extremities-no cyanosis, clubbing, or edema Neuro-cranial nerves II through XII intact, motor and sensory function within normal limits, strength symmetrical, no focal deficits Psych-normal affect, normal mood Results & Data Results & Data Vital Signs (Past 12 Hours) Vital Signs Temp Pulse Resp BP Pulse Ox O2 Del Method 01/14/24 08:00 Room Air 01/14/24 07:45 36.6 C 99 H 18 106/66 96 Room Air Laboratory Results 01/13/24 13:04 01/14/24 06:30 PG Care Time/CCT Total # of Minutes Spent Total Time Spent with Patient: Total time spent is greater than 50% in coordination of care (as documented) at patient's floor/unit and/or counseling patient: Coding Level of Care Code 26023 SUB INP/OBS CARE 3/50MIN Diagnoses Pancreatitis K85.90 Acute pancreatitis complication: unspecified Chronicity: acute Pancreatitis type: unspecified pancreatitis type Anemia D64.9 Cardiomyopathy I42.9 CHF (congestive heart failure) I50.9 Heart failure chronicity: acute on chronic Heart failure type: unspecified (1) Pancreatitis Acute pancreatitis complication: unspecified Chronicity: acute Pancreatitis type: unspecified pancreatitis type Qualified Code(s): K85.90 - Acute pancreatitis without necrosis or infection, unspecified (4) CHF (congestive heart failure) Heart failure chronicity: acute on chronic Heart failure type: unspecified Qualified Code(s): I50.9 - Heart failure, unspecified
[2024-01-14] MEDS: PANTOprazole 40 MG/10 ML SYR IV SCH (12:16)
[2024-01-14] MEDS: 4.5GM X1 IV STA (12:31)
--- NOTE | 2024-01-14 13:26 | Surgery Consultation ---
<Statement entered by Parmjit Barron MD - 01/14/24 13:29> Patient seen and examined. Agree with plan. Date of Consultation January 14, 2024 Assessment & Plan (1) Pancreatitis: (2) History of alcoholism: 63 yo male with 3 day history of upper mid to RUQ abdominal pain with associated nausea and vomiting with CT scan showing acute pancreatitis. Normal wbc, t. bili, lfts, and alk phos. Gallbladder unremarkable on CT scan. No history of gallbladder problems. Question of recent alcohol/edible use as etiology of pancreatitis? vs biliary etiology. MRCP pending given patients examination and RUQ abdominal pain to further evaluate gallbladder. Will await results of MRCP . IV fluids, npo, pain management and antiemetics as needed. Discussed with Dr. Barron who agrees with above. History of Present Illness Reason for Consultation: Possible acute cholecystitis Acute pancreatitis Requesting Physician: Eris Patino MD Attending Physician: Eris Patino MD History of Present Illness Mr. Martinez is a 63 yo male with history of Anemia, history fo alcohol abuse , DJD, CHF, hyperlipidemia, HERD, hypertension, who presented to ED with complaint of abdominal pain x 3 days with nausea and vomiting. Pain in the upper mid to right abdomen, sharp in nature and rating 6/10. States he was constipated and took some medication to help move his bowels. Never had similar pain to this. States he has not had any alcohol since 2013 however there is mention he had a sip of carbonated wine cooler prior to presentation and recent ER visit 12/2023 for adverse reaction to edible and possible alcohol use at a concert. No history of prior gallbladder problems or imaging. Unknown if has gallstones. No prior abdominal surgeries. Allergies Allergy/AdvReac Type Severity Reaction Status Date / Time No Known Allergies Allergy Verified 01/13/24 14:56 Home Medications Medication Instructions Recorded Confirmed Type aspirin 81 mg tablet,delayed 81 mg PO QAM 07/31/21 01/13/24 History release glucosamine sulf dipot 1 cap PO QAM 09/12/21 01/13/24 History chlr,msm,chond 550 mg-C 30 mg-erika 1 mg capsule (Glucosamine Chondroitin) acetaminophen 325 mg tablet 650 mg PO QAM PRN Pain 03/17/22 01/13/24 History ibuprofen 200 mg tablet 400 mg PO QAM PRN Pain 03/17/22 01/13/24 History atorvastatin 80 mg tablet 80 mg PO HS #90 tabs 10/22/23 01/13/24 Rx furosemide 40 mg tablet (Lasix) 80 mg (2 x 40 mg) PO QAM #180 tabs 10/22/23 01/13/24 Rx lisinopril 20 mg tablet 20 mg PO QAM #90 tabs 10/22/23 01/13/24 Rx omeprazole 40 mg capsule,delayed 40 mg PO QAM #90 caps 10/22/23 01/13/24 Rx release doxylamine succinate 25 mg tablet 25 mg PO HS PRN Sleep 01/13/24 01/13/24 History (Sleep Aid (doxylamine)) Patient History Medical History Injury of left rotator cuff Cellulitis Chronic osteomyelitis of elbow Septic arthritis of elbow, left Right arm cellulitis Cellulitis, scrotum Acute systolic CHF (congestive heart failure) History of cerebral aneurysm (~2018) History of [place] (myocardial infarction) (~05/2009) had heart cath (no stents placed), d/t CAD--follows with PCP only History of COVID-19 diagnosed 03/13/21 @ [facility]--fever, loss of appetitie, fatigue--had difficulty breathing, was admitted to [facility] and placed on oxygen--states he was discharged to home with oxygen, currently using 2L n/c prn for shortness Osteoarthritis Surgical History History of elbow surgery Repair of ulnar nonunion, left Hx of repair of right rotator cuff History of tooth extraction History of cerebral aneurysm repair (~2018) @ [facility] 7 yrs ago History of cardiac cath x2---last 05/2017 @ [facility] (no stents) and then previously 05/2009 @ [facility] no stents History of colonoscopy last 04/2021 @ [facility] History of total knee arthroplasty left Family History Brother Heart disease Other No family history of adverse response to anesthesia Denies family history of Ovarian cancer Prostate cancer Myocardial infarction Breast cancer Colorectal cancer Social History Smoking Status: Current every day smoker Tobacco Type: Cigarettes packs per day: 1; Cigarettes Per Day: 1/2 pack; Second Hand Exposure: No; Do You Dip or Chew Tobacco: No; Tobacco Cessation Education Requested by Patient: No Hx Alcohol Use: Yes Hx Substance Use: No Preferred Language: Maori Communication Ability: Effective Hearing Ability: Hard of Hearing Recycling Specialist Required: No Beliefs That Will Affect Care: None marital status: Current Living Situation: Spouse current occupational status: disabled How many Children do You have: 0 Other Information That Helps Us Care for You: No Feels Safe at Home: Yes Safety Concerns: Feels Safe At This Time Childhood Exposure to Second-Hand Smoke: No Diet: regular caffeine: Yes Dental Care, Regularly: No Physical Activity Frequency: Does not Exercise Seatbelt Use: sometimes Sunscreen Use: No Assistive Devices: Cane and Oxygen - Continuous Review of Systems Review of Systems: All systems reviewed & are unremarkable except as noted in HPI & below Physical Exam Constitutional: WD/WN, vitals as above + obese and cooperative; no acute distress and not ill appearing Respiratory: normal respiratory effort, lungs clear to auscultation Cardiovascular: RRR, no murmur, no edema Gastrointestinal (Abdomen): Inspection/Auscultation: abdomen normal to inspection; abdomen not distended and no abdominal surgical scar Percussion/Palpation: + abdomen tender (RUQ and epigastrium), + guarding (RUQ and epigastrium), abdomen soft and + hernia (umbilical hernia reducible); abdomen not rigid and abdomen not firm Skin: no rashes, warm and dry Psychiatric: Orientation: alert and oriented x 3 Results & Data Vital Signs (Past 12 Hours) Vital Signs Temp Pulse Resp BP Pulse Ox O2 Del Method 01/14/24 08:00 Room Air 01/14/24 07:45 36.6 C 99 H 18 106/66 96 Room Air Laboratory Results 01/14/24 01/13/24 01/13/24 Range/Units 06:30 15:11 13:04 WBC 8.88 (4.8-10.8) K/ul RBC 4.03 L (4.70-6.10) M/uL Hgb 9.5 L (14.0-18.0) g/dl Hct 31.9 L (42.0-52.0) % MCV 79.2 L (80.0-100.0) fL MCH 23.6 L (25.0-34.0) pg MCHC 29.8 L (32.0-36.0) g/dL RDW Std Deviation 46.6 H (36.4-46.3) fL RDW Coeff of Alex 16.1 H (11.5-14.5) % Plt Count 351 (130-400) K/uL MPV 9.8 (9.4-12.4) fL Immature Gran % (Auto) 0.6 % Neut % (Auto) 77.4 % Lymph % (Auto) 13.2 % [place] % (Auto) 6.4 % Eos % (Auto) 1.8 % Baso % (Auto) 0.6 % Neut # (Auto) 6.88 H (1.40-6.50) K/uL Lymph # (Auto) 1.17 L (1.20-3.40) K/uL [place] # (Auto) 0.57 (0.11-0.59) K/uL Eos # (Auto) 0.16 (0.00-0.50) K/uL Baso # (Auto) 0.05 (0.00-0.20) K/uL Immature Gran # (Auto) 0.05 (0.01-0.20) K/uL PT 10.9 (9.0-12.0) Seconds INR 1.0 (0.9-1.1) Sodium 132 L 133 L (136-145) mmol/L Potassium 4.4 4.3 (3.5-5.1) mmol/L Chloride 96 L 98 (98-107) mmol/L Carbon Dioxide 28 26 (21-32) mmol/L Anion Gap 8 9 (3-11) BUN 10 13 (6-23) mg/dl Creatinine 0.93 0.94 (0.6-1.4) mg/dl Est Cr Clr Drug Dosing 100.8 101.8 ml/min eGFR 91.69 90.52 BUN/Creatinine Ratio 10.8 13.8 (10-20) Glucose 104 H 134 H (70-99(Fasting)) mg/dl Calcium 8.9 8.9 (8.6-10.3) mg/dl Total Bilirubin 0.5 (0.2-1.0) mg/dl AST 17 (13-39) U/L ALT 18 (7-52) U/L Alkaline Phosphatase 101 (34-104) U/L Troponin I High Sens 10.7 (0-20) pg/ml Total Protein 8.2 (6.0-8.3) gm/dl Albumin 4.2 (3.4-5.0) gm/dl Globulin 4.0 (2.5-4.0) gm/dl Albumin/Globulin Ratio 1.1 (0.9-2) Triglycerides 147 (0-150) mg/dl Lipase 98 H 185 H (11-82) U/L Vitamin B12 141 L (180-914) pg/ml Folate 21.75 (>5.38) ng/ml TSH 1.397 (0.300-4.500) uIu/ml Urine Color Yellow Urine Appearance Clear (Clear) Urine pH 5.5 (4.5-7.5) Ur Specific [place] 1.018 (1.000-1.030) Urine Protein Negative (Negative) Urine Glucose (UA) Negative (Negative) Urine Ketones Negative (Negative) Urine Blood Negative (Negative) Urine Nitrite Negative (Negative) Urine Bilirubin Negative (Negative) Urine Urobilinogen Negative (Negative) Ur Leukocyte Esterase Negative (Negative) Diagnostic Findings CT abd pelvis IV con only CLINICAL HISTORY: R sided abd pain TECHNIQUE: Helical axial images of the abdomen and pelvis were obtained and dis played. Automated dose lowering techniques and/or adjustment according to patient size were utilized for this exam. This exam was performed with intravenous contrast. CT DOSE: 1408.89 mGy.cm COMPARISON: Comparison is made to CT abdomen pelvis 03/09/2016 FINDINGS: Lower chest: Bibasilar atelectasis versus scarring is seen. Liver: Unremarkable. No focal lesions are seen. Gallbladder and biliary tree: There is suggestion of hepatic steatosis. No intra- or extrahepatic biliary ductal dilation. Pancreas: Peripancreatic edema is seen most prominent about the head. No peripancreatic fluid collections are seen. Spleen: Unremarkable. Adrenals: Unremarkable. Kidneys and ureters: Lobular appearance of the kidneys is seen, nonspecific. Bladder: Unremarkable. Reproductive organs: Unremarkable. Bowel: The appendix is normal. Lymph nodes Retroperitoneal: Retroperitoneal lymph nodes measure up to 10 mm. Spencer hepatis lymph nodes are also enlarged measuring up to 11 mm. Pelvic: Subcentimeter lymph nodes are noted. Mesenteric: Unremarkable. Peritoneum: Normal. Vessels: Atherosclerotic calcifications are seen. Abdominal wall: A fat-containing umbilical hernia is seen. Bones: Degenerative changes in the visualized spine. IMPRESSION: Findings compatible with acute pancreatitis. No peripancreatic fluid collections are seen. Reactive lymphadenopathy is noted. (1) Pancreatitis Acute pancreatitis complication: unspecified Chronicity: acute Pancreatitis type: unspecified pancreatitis type Qualified Code(s): K85.90 - Acute pancreatitis without necrosis or infection, unspecified
--- NOTE | 2024-01-14 15:17 | Magnetic Resonance Report ---
MR MRCP HISTORY: A 63 years-old Male suspected acute cholecystitis Acute right upper quadrant abdominal pain . COMPARISON: CT 01/13/2024. TECHNIQUE: MRCP was obtained without IV contrast. FINDINGS: Mild cardiomegaly. No acute process of the imaged lower chest. The spleen is enlarged, 15 cm. Unremar kable adrenal glands and liver. There is mild nonspecific bilateral perinephric stranding without hyd ronephrosis. No abdominal aortic aneurysm. A 1.6 x 1.2 cm periaortic lymph node on image 22 series 3. A 12 mm periportal lymph node on image 18 series 3. Mild interstitial and peripancreatic edema with normal caliber of the pancreatic duct. Mildly distended gallbladder with trace cholelithiasis. Common bile duct measures 7 mm transversely. There is narrowing of the distal common bile duct on image 100 series 6 with possible biliary stone on image 219 of series 601. No pancreatic divisum is identified . IMPRESSION: 1. Findings are compatible with mild acute pancreatitis. 2. Distended gallbladder with cholelithiasis. No definite evidence of acute cholecystitis. 3. Borderline dilation of the common bile duct with probable subcentimeter stone within the distal co mmon bile duct. 4. Mild nonspecific periportal and periaortic lymphadenopathy. ACT 112: Negative or not required by law. The above report was generated using voice recognition software. It may contain grammatical, syntax o r spelling errors. Dictated: 01/14/2024 2:15 PM Transcribed: 01/14/2024 3:13 PM [place] [id number] [email or web address] Electronically signed by: Richard German M.D. 01/14/2024 3:16 PM
--- NOTE | 2024-01-14 15:33 | Discharge Summary ---
Discharge Summary Date of Service January 14, 2024 Principal Dx & Hospital Course #1 = Principal Diagnosis (1) Pancreatitis: Mildly elevated lipase on admission. Abdominal CT scan reveals fluid around the pancreatic head but lipase was only 185 and now down to 98. Physical examination is most consistent with acute cholecystitis which she says multiple family members have had in the past. Nuclear medicine informs me that HIDA scan cannot be done until Wednesday. MRCP reveals choledocholithiasis. He will need to be transferred for ERCP procedure. He wants to go to [facility]. I phoned his again and brought her up-to-date. Transfer center notified. GI consultation and surgical consultation appreciated. He is now on intravenous Zosyn. Keep n.p.o. with IV fluids for now. Serial labs. (2) Anemia: Mild on admission. No melena or hematochezia. Serial labs (3) Cardiomyopathy: Nonischemic per records . Stable. Continue current medical management (4) CHF (congestive heart failure): Chronic diastolic CHF. No overt exacerbation on admission. Monitor intake and output. Plan Transfer to [facility] for ERCP procedure when arrangements are finalized Admission HPI Per Admitting Provider Patient is a 63-year-old male presenting to ED for right abdominal pain x 3 days as well as multiple episodes of nausea/vomiting. ED course: CBC- H&H 9.5, 31.9, MCV 79.2, MCH 23.6, MCHC 29.8, RDW 46.6, neutrophils 6.88; PT/INR 10.9/1; CMP- sodium 133 otherwise grossly WNL; LFTs WNL; lipase 185. CT A/P-acute pancreatitis, reactive lymphadenopathy (retroperitoneal lymph node 10 mm, maulik hepatis lymph node 11 mm); hepatic steatosis. EKG NSR with PACs, RBBB, HR 92; Patient provided with morphine and Zofran IV as well as 2L LR. Patient is 63-year-old gentleman with PMHx of CHF, HTN, cardiomyopathy, history of alcohol abuse, and tobacco abuse presenting for RUQ abdominal pain. States that his pain started 3 days ago without known trigger. He describes it as "agitating" and constant, mainly localized to his RUQ. Admits to 1 episode of vomiting, but continuous nausea. Has been unable to have sufficient oral intake as it causes him more abdominal pain, but does report hunger. Has been utilizing OTC medications to help with constipation, which has been successful. Denies fever/chills, chest pain, shortness of breath, palpitations, diarrhea, headache, weakness, numbness/tingling, anorexia, weight loss. Denies additional illness. States that this is never happened before. He is on medication for hyperlipidemia (atorvastatin) and states his last alcoholic drink was in 2016, but proceeds to tell me that his last sip of alcohol was last evening when he had a singular sip of a carbonated wine cooler to try to relieve his pain. Please see Dr. Randall's attestation for adjustments/additions to treatment plan. Discharge Exam General-alert and oriented x3, obese HEENT-head atraumatic and normocephalic, pupils equal and reactive to light, extraocular muscles intact Neck-no lymphadenopathy or thyromegaly, trachea midline Chest-clear to auscultation. No rales, wheezing or rhonchi Cardiac-regular rate and rhythm, normal S1 and S2 Abdomen-tender epigastric area and right upper quadrant area. Slightly distended. No rebound or guarding. No masses. Bowel sounds are hypoactive but present Extremities-no cyanosis, clubbing, or edema Neuro-cranial nerves II through XII intact, motor and sensory function within normal limits, strength symmetrical, no focal deficits Psych-normal affect, normal mood Discharge Plan Discharge Items Patient Disposition: Transfer Acute Care Hospital Reason For Visit: PANCREATITIS Discharge Diagnosis: Acute pancreatitis, choledocholithiasis Activity: As commented below Activity Comment: Up ad wally. Non-emergency contact: Primary Care Provider Call non-emergency contact if: you have any medication questions and your symptoms worsen Follow-up/Referrals: Sofie Taylor MD [Primary Care Provider] - Diet: Nothing by Mouth Addtl Attending Provider Instructions: See primary care provider as soon as possible after discharge from [facility] Pending Studies at Discharge: No Stand-Alone Forms: My [facility] Skilled Items Patient informed of condition?: Yes DNR: No Discharge Level of Care: Other Communicable Disease: No Discharge Prognosis: Stable Lines: Peripheral IV Urinary Catheter: No Medications and DC Order Prescriptions: New ondansetron HCl (PF) 4 mg/2 mL Solution 4 mg IV Q6H PRNQty: 0 0RF Zosyn in dextrose (iso-osm) 4.5 gram/100 mL piggyback 4.5 g IV Q8H morphine 2 mg/mL Syringe 2 mg IV Q3H PRNQty: 0 0RF Continued atorvastatin 80 mg tablet 80 mg PO HS Qty: 90 3RF omeprazole 40 mg capsule,delayed release(DR/EC) 40 mg PO QAM Qty: 90 3RF lisinopril 20 mg tablet 20 mg PO QAM Qty: 90 3RF furosemide [Lasix] 40 mg tablet 80 mg PO QAM Qty: 180 3RF aspirin 81 mg Tablet,Delayed Release (Dr/Ec) 81 mg PO QAM acetaminophen 325 mg tablet 650 mg PO QAM PRN (Reason: Pain) ibuprofen 200 mg tablet 400 mg PO QAM PRN (Reason: Pain) Glucosamine Chondroitin 550-30-1 mg Capsule 1 cap PO QAM Sleep Aid (doxylamine) 25 mg Tablet 25 mg PO HS PRN (Reason: Sleep) Discharge Orders: Discharge Order (Routine); Ordered 01/14/24 Ordered By: Eris Patino Admission Data Admit Date/Time: 01/14/24 10:43 Attending Provider: Eris Patino Admit Provider: Eris Patino Primary Care Provider: Sofie Taylor Other Providers: Sid Randall; Audrey Bond; Jovon Lomax; Beverley Leal; Yaneli Best; Mirta Shipley; Becky Soliman; Anjelica Walter; Jeff Mcclain; Alicia Humphries; Chhaya Walter; Nidhi Fields S; Katie Jasso; Linnea Meeks; Catalina Dominguez; Mabel Flaherty; Gabriella Smith; Ayaz Boone; Tonia Wren; Madan Castellanos Jr; Hemant Titus; Brayan Brand; Damien Hunt; Josué Oliveira; Jules Salas; Chau Andrews I; Kayleigh Fontenot; Nicki Melvin; Amado Khan; Jesus Whyte; Danilo Sims; Rafiq Jimenez; Stella Carbone; John Chapa; Hang Vega; Jacob Bang; Christine Mike; Jerry Fernandes Hospital Stay Data Consultations 01/13/24 14:49 ED Decision to Admit Stat 01/14/24 10:43 Consult Gastroenterology Routine Consult General Surgery Routine Diagnostic Imagining Performed 01/13/24 13:00 CT abd pelvis IV con only Stat 01/14/24 11:17 MR MRCP Urgent Discharge Instructions Given to Patient (Per Discharging Provider) See primary care provider as soon as possible after discharge from [facility] Total Time Total Time Spent Total Time Spent (In Minutes): 50 minutes Coding Level of Care Code 20227 INP/OBS DISCH >30 MIN Diagnoses Pancreatitis K85.90 Acute pancreatitis complication: unspecified Chronicity: acute Pancreatitis type: unspecified pancreatitis type Anemia D64.9 Cardiomyopathy I42.9 CHF (congestive heart failure) I50.9 Heart failure chronicity: acute on chronic Heart failure type: unspecified
[2024-01-14] MEDS: PIPERACILLIN/TAZOBACTAM 4.5 GM/100 ML BAG IV SCH (18:10)
[2024-01-15 06:13] LABS: Basophils # (auto) 0.03 K/uL (0.00-0.20); Basophils % (auto) 0.5 %; Eosinophils # (auto) 0.15 K/uL (0.00-0.50); Eosinophils % (auto) 2.6 %; Hematocrit (blood only) 27.4 % (42.0-52.0); Immature Granulocytes # (auto) 0.03 K/uL (0.01-0.20); Immature Granulocytes % (auto) 0.5 %; Lymphocytes # (auto) 0.91 K/uL (1.20-3.40); Mean Corpuscular Hemoglobin 23.5 pg (25.0-34.0); Mean Corpuscular Hgb Conc 29.2 g/dL (32.0-36.0); Mean Corpuscular Volume 80.4 fL (80.0-100.0); Mean Platelet Volume 9.9 fL (9.4-12.4); Monocytes # (auto) 0.51 K/uL (0.11-0.59); Neutrophils # (auto) 4.06 K/uL (1.40-6.50); Neutrophils % (auto) 71.4 %; Platelet Count 301 K/uL (130-400); RDW Coefficient of Variation 16.3 % (11.5-14.5); RDW Standard Deviation 47.6 fL (36.4-46.3); Red Blood Count 3.41 M/uL (4.70-6.10); White Blood Count 5.69 K/ul (4.8-10.8)
[2024-01-15 06:38] LABS: Albumin Globulin Ratio 1.1 (0.9-2); Albumin Level 3.6 gm/dl (3.4-5.0); BUN Creatinine Ratio 9.5 (10-20); Bilirubin,Total 0.5 mg/dl (0.2-1.0); Calcium 8.5 mg/dl (8.6-10.3); Creatinine Clr Calc Pharmacy 98.7 ml/min; Globulin 3.3 gm/dl (2.5-4.0); Potassium 4.3 mmol/L (3.5-5.1); Total Protein 6.9 gm/dl (6.0-8.3)
[2024-01-15 07:06] VITALS: RESP 18
--- NOTE | 2024-01-15 11:38 | Hospitalist Progress Note ---
Date of Service January 15, 2024 Assessment & Plan (1) Pancreatitis: Plan: Mildly elevated lipase on admission. Now normal. Most likely from gallstone pancreatitis. He does not currently drink alcohol. MRCP reveals choledocholithiasis. He will be transferred to [facility] tomorrow, January 15, for definitive treatment with ERCP and possible cholecystectomy. GI consultation and surgical consultation appreciated. He remains on intravenous Zosyn. Serial labs. (2) Choledocholithiasis: Plan: It appears he has a distal common bile duct stone. He will be transferred for ERCP procedure. (3) Anemia: Plan: Iron deficiency documented. Parenteral iron replacement underway, day 1. No melena or hematochezia. Fecal occult blood ordered and pending. Serial labs (4) Cardiomyopathy: Plan: Nonischemic per records . Stable. Continue current medical management (5) CHF (congestive heart failure): Plan: Chronic diastolic CHF. No overt exacerbation on admission. Monitor intake and output. Plan Transfer to [facility] tomorrow, January 15. Admission and Anticipated Discharge Date Admission Date: January 14, 2024 Subjective Alert and oriented. Abdominal discomfort has resolved. Diet has been advanced. Iron deficiency noted causing mild anemia. Parenteral iron replacement has begun, day 1. Blood pressure is mildly elevated. Lisinopril has been restarted Review of Systems 2 Review of Systems: Constitutionalno fever or chills ENTno blurred vision, no double vision, no epistaxis, no sore throat Respiratoryno cough, no wheezing, no shortness of breath Cardiacno palpitations, no chest pain, no syncope GInausea without vomiting. Anorexia. Epigastric and right right upper quadrant discomfort have resolved. No melena or hematochezia GUno urinary retention, no urinary incontinence, no dysuria, no hematuria Musculoskeletalno joint pain, no muscle tenderness Skinno bruising, no rashes, no pruritus Neurono isolated weakness, no paresthesia, no weakness Psychno depression, no anxiety Physical Exam 2 Physical Exam: General-alert and oriented x3, obese HEENT-head atraumatic and normocephalic, pupils equal and reactive to light, extraocular muscles intact Neck-no lymphadenopathy or thyromegaly, trachea midline Chest-clear to auscultation. No rales, wheezing or rhonchi Cardiac-regular rate and rhythm, normal S1 and S2 Abdomen-epigastric area and right upper quadrant tenderness have resolved. No rebound or guarding. No masses. Normal bowel sounds Extremities-no cyanosis, clubbing, or edema Neuro-cranial nerves II through XII intact, motor and sensory function within normal limits, strength symmetrical, no focal deficits Psych-normal affect, normal mood Results & Data Results & Data Vital Signs (Past 12 Hours) Vital Signs Temp Pulse Resp BP Pulse Ox O2 Del Method 01/15/24 07:03 37.1 C 72 18 158/74 H 93 Room Air Laboratory Results 01/15/24 05:43 01/15/24 05:43 PG Care Time/CCT Total # of Minutes Spent Total Time Spent with Patient: Total time spent is greater than 50% in coordination of care (as documented) at patient's floor/unit and/or counseling patient: Coding Level of Care Code 24426 SUB INP/OBS CARE 3/50MIN Diagnoses Pancreatitis K85.90 Acute pancreatitis complication: unspecified Chronicity: acute Pancreatitis type: unspecified pancreatitis type Choledocholithiasis K80.50 Anemia D64.9 Cardiomyopathy I42.9 CHF (congestive heart failure) I50.9 Heart failure chronicity: acute on chronic Heart failure type: unspecified (1) Pancreatitis Acute pancreatitis complication: unspecified Chronicity: acute Pancreatitis type: unspecified pancreatitis type Qualified Code(s): K85.90 - Acute pancreatitis without necrosis or infection, unspecified (5) CHF (congestive heart failure) Heart failure chronicity: acute on chronic Heart failure type: unspecified Qualified Code(s): I50.9 - Heart failure, unspecified
[2024-01-15] MEDS: lisinopril 20 MG TAB PO SCH (12:45)
[2024-01-15] MEDS: IRON SUCROSE 200 MG in SODIUM CHLORIDE 0.9% 100 ML IV ONE (12:45)
[2024-01-16 06:13] LABS: Basophils # (auto) 0.05 K/uL (0.00-0.20); Basophils % (auto) 0.8 %; Eosinophils # (auto) 0.19 K/uL (0.00-0.50); Eosinophils % (auto) 2.9 %; Hematocrit (blood only) 30.4 % (42.0-52.0); Hemoglobin 8.9 g/dl (14.0-18.0); Immature Granulocytes # (auto) 0.03 K/uL (0.01-0.20); Immature Granulocytes % (auto) 0.5 %; Lymphocytes # (auto) 1.33 K/uL (1.20-3.40); Lymphocytes % (auto) 20.5 %; Mean Corpuscular Hemoglobin 23.5 pg (25.0-34.0); Mean Corpuscular Hgb Conc 29.3 g/dL (32.0-36.0); Mean Corpuscular Volume 80.4 fL (80.0-100.0); Mean Platelet Volume 9.7 fL (9.4-12.4); Monocytes # (auto) 0.54 K/uL (0.11-0.59); Monocytes % (auto) 8.3 %; Neutrophils # (auto) 4.35 K/uL (1.40-6.50); Platelet Count 350 K/uL (130-400); RDW Coefficient of Variation 16.2 % (11.5-14.5); RDW Standard Deviation 47.5 fL (36.4-46.3); Red Blood Count 3.78 M/uL (4.70-6.10); White Blood Count 6.49 K/ul (4.8-10.8)
[2024-01-16 06:25] LABS: Albumin Globulin Ratio 1.1 (0.9-2); BUN Creatinine Ratio 9.2 (10-20); Bilirubin,Total 0.5 mg/dl (0.2-1.0); Calcium 8.9 mg/dl (8.6-10.3); Creatinine Clr Calc Pharmacy 95.7 ml/min; Globulin 3.8 gm/dl (2.5-4.0); Potassium 4.2 mmol/L (3.5-5.1); Total Protein 7.8 gm/dl (6.0-8.3)
[2024-01-16 06:57] VITALS: TEMP 98.6; O2SAT 93
[2024-01-16] MEDS ORDERED: IRON SUCROSE 200 MG in SODIUM CHLORIDE 0.9% 100 ML IV ONE (08:35)
--- NOTE | 2024-01-16 09:16 | Discharge Summary ---
Discharge Summary Date of Service January 16, 2024 Principal Dx & Hospital Course #1 = Principal Diagnosis (1) Pancreatitis: Mildly elevated lipase on admission. Now normal. Most likely from gallstone pancreatitis. He does not currently drink alcohol. MRCP reveals choledocholithiasis. He will be transferred to [facility] today, January 15, for definitive treatment with ERCP and possible cholecystectomy. GI consultation and surgical consultation appreciated. He remains on intravenous Zosyn. Serial labs. (2) Choledocholithiasis: It appears he has a distal common bile duct stone. He will be transferred to [facility] for ERCP procedure and possibly laparoscopic cholecystectomy. (3) Anemia: Iron deficiency documented. Parenteral iron replacement underway, day 2. No melena or hematochezia. Fecal occult blood ordered and pending. Serial labs (4) Cardiomyopathy: Nonischemic per records . Stable. Continue current medical management (5) CHF (congestive heart failure): Chronic diastolic CHF. No overt exacerbation on admission. Monitor intake and output. Plan Transfer to [facility] today, January 15. Admission HPI Per Admitting Provider Patient is a 63-year-old male presenting to ED for right abdominal pain x 3 days as well as multiple episodes of nausea/vomiting. ED course: CBC- H&H 9.5, 31.9, MCV 79.2, MCH 23.6, MCHC 29.8, RDW 46.6, neutrophils 6.88; PT/INR 10.9/1; CMP- sodium 133 otherwise grossly WNL; LFTs WNL; lipase 185. CT A/P-acute pancreatitis, reactive lymphadenopathy (retroperitoneal lymph node 10 mm, maulik hepatis lymph node 11 mm); hepatic steatosis. EKG NSR with PACs, RBBB, HR 92; Patient provided with morphine and Zofran IV as well as 2L LR. Patient is 63-year-old gentleman with PMHx of CHF, HTN, cardiomyopathy, history of alcohol abuse, and tobacco abuse presenting for RUQ abdominal pain. States that his pain started 3 days ago without known trigger. He describes it as "agitating" and constant, mainly localized to his RUQ. Admits to 1 episode of vomiting, but continuous nausea. Has been unable to have sufficient oral intake as it causes him more abdominal pain, but does report hunger. Has been utilizing OTC medications to help with constipation, which has been successful. Denies fever/chills, chest pain, shortness of breath, palpitations, diarrhea, headache, weakness, numbness/tingling, anorexia, weight loss. Denies additional illness. States that this is never happened before. He is on medication for hyperlipidemia (atorvastatin) and states his last alcoholic drink was in 2016, but proceeds to tell me that his last sip of alcohol was last evening when he had a singular sip of a carbonated wine cooler to try to relieve his pain. Please see Dr. Randall's attestation for adjustments/additions to treatment plan. Discharge Exam General-alert and oriented x3, obese HEENT-head atraumatic and normocephalic, pupils equal and reactive to light, extraocular muscles intact Neck-no lymphadenopathy or thyromegaly, trachea midline Chest-clear to auscultation. No rales, wheezing or rhonchi Cardiac-regular rate and rhythm, normal S1 and S2 Abdomen-epigastric area and right upper quadrant tenderness have resolved. No rebound or guarding. No masses. Normal bowel sounds Extremities-no cyanosis, clubbing, or edema Neuro-cranial nerves II through XII intact, motor and sensory function within normal limits, strength symmetrical, no focal deficits Psych-normal affect, normal mood Discharge Plan Discharge Items Patient Disposition: Transfer Acute Care Hospital Reason For Visit: PANCREATITIS Discharge Diagnosis: Acute pancreatitis, choledocholithiasis Activity: As commented below Activity Comment: Up ad wally. Non-emergency contact: Primary Care Provider Call non-emergency contact if: you have any medication questions and your symptoms worsen Follow-up/Referrals: Sofie Taylor MD [Primary Care Provider] - Diet: Nothing by Mouth Addtl Attending Provider Instructions: See primary care provider as soon as possible after discharge from [facility] Pending Studies at Discharge: No Stand-Alone Forms: My [facility] Skilled Items Patient informed of condition?: Yes DNR: No Discharge Level of Care: Other Communicable Disease: No Discharge Prognosis: Stable Lines: Peripheral IV Urinary Catheter: No Medications and DC Order Prescriptions: New ondansetron HCl (PF) 4 mg/2 mL Solution 4 mg IV Q6H PRNQty: 0 0RF morphine 2 mg/mL Syringe 2 mg IV Q3H PRNQty: 0 0RF Zosyn in dextrose (iso-osm) 4.5 gram/100 mL piggyback 4.5 g IV Q8H Continued atorvastatin 80 mg tablet 80 mg PO HS Qty: 90 3RF omeprazole 40 mg capsule,delayed release(DR/EC) 40 mg PO QAM Qty: 90 3RF lisinopril 20 mg tablet 20 mg PO QAM Qty: 90 3RF furosemide [Lasix] 40 mg tablet 80 mg PO QAM Qty: 180 3RF aspirin 81 mg Tablet,Delayed Release (Dr/Ec) 81 mg PO QAM acetaminophen 325 mg tablet 650 mg PO QAM PRN (Reason: Pain) ibuprofen 200 mg tablet 400 mg PO QAM PRN (Reason: Pain) Glucosamine Chondroitin 550-30-1 mg Capsule 1 cap PO QAM Sleep Aid (doxylamine) 25 mg Tablet 25 mg PO HS PRN (Reason: Sleep) Discharge Orders: Discharge Order (Routine); Ordered 01/16/24 Ordered By: Eris Patino Admission Data Admit Date/Time: 01/14/24 10:43 Attending Provider: Eris Patino Admit Provider: Eris Patino Primary Care Provider: Sofie Taylor Other Providers: Sid Randall; Audrey Bond; Jovon Lomax; Beverley Leal; Yaneli Best; Mirta Shipley; Becky Soliman; Anjleica Walter; Jeff Mcclain; Alicia Humphries; Chhaya Walter; Nidhi Fields S; Katie Jasso; Linnea Meeks; Catalina Dominguez; Mabel Flaherty; Gabriella Smith; Ayaz Boone; Tonia Wren; Madan Castellanos Jr; Hemant Titus; Brayan Brand; Damien Hunt; Josué Oliveira; Terese Salas; Chau Andrews I; Kayleigh Fontenot; Nicki Melvin; Amado Khan; Jesus Whyte; Danilo Sims; Rafiq Jimenez; Stella Carbone; John Chapa; Hang Vega; Jacob Acevedo; Christine Mike; Jerry Fernandes Hospital Stay Data Consultations 01/13/24 14:49 ED Decision to Admit Stat 01/14/24 10:43 Consult Gastroenterology Routine Consult General Surgery Routine Diagnostic Imagining Performed 01/13/24 13:00 CT abd pelvis IV con only Stat 01/14/24 11:17 MR MRCP Urgent Pending Results Patient Have Any Pending Studies at Discharge: No Discharge Instructions Given to Patient (Per Discharging Provider) See primary care provider as soon as possible after discharge from [facility] Total Time Total Time Spent Total Time Spent (In Minutes): 45 minutes Coding Level of Care Code 98044 INP/OBS DISCH >30 MIN Diagnoses Pancreatitis K85.90 Acute pancreatitis complication: unspecified Chronicity: acute Pancreatitis type: unspecified pancreatitis type Choledocholithiasis K80.50 Anemia D64.9 Cardiomyopathy I42.9 CHF (congestive heart failure) I50.9 Heart failure chronicity: acute on chronic Heart failure type: unspecified
[2024-01-16 09:21] VITALS: BP 143/79; PULSE 76
== END 2024-01-16 10:03 | disposition short-term general hospital (02) | DRG 444 ==
LOC: ED 12:46 → 3W 12:46 → SUATTDRO 16:18 → 3W 18:10